=== PATIENT | female | born 1940 | race Hispanic/Latino ===

== ENCOUNTER 2017-07-09 17:36 | Inpatient (IN) | payer MEDICARE ==
[2017-07-09 18:33] LABS: Basophils # (Auto) 0.1 K/mm3 (0.0-0.1); Basophils % (Auto) 0.4 % (0.0-1.8); Eosinophils % (Auto) 0.3 % (0.0-4.3); Hematocrit 43.7 % (30.3-42.9); Lymphocytes # (Auto) 1.6 K/mm3 (1.2-5.4); Lymphocytes % (Auto) 10.7 % (13.4-35.0); Mean Corpuscular HGB Conc 32 % (30-34); Mean Corpuscular Hemoglobin 29 pg (28-32); Mean Corpuscular Volume 90 fl (79-97); Monocytes # (Auto) 0.7 K/mm3 (0.0-0.8); Monocytes % (Auto) 4.7 % (0.0-7.3); Platelet Count 265 K/mm3 (140-440); Red Blood Count 4.88 M/mm3 (3.65-5.03); Red Cell Distribution Width 14.2 % (13.2-15.2)
[2017-07-09 19:03] LABS: Creatine Kinase MB < 1.0 ng/mL (0.0-4.0)
[2017-07-09 19:06] LABS: Alanine Aminotransferase 14 units/L (7-56); Albumin 3.8 g/dL (3.9-5); BUN/Creatinine Ratio 26; Blood Urea Nitrogen 18 mg/dL (7-17); Calcium 8.6 mg/dL (8.4-10.2); Hemolysis Index 15; Lipase 16 units/L (13-60)
--- NOTE | 2017-07-09 19:38 | XRay Report ---
FINAL REPORT PROCEDURE: XR CHEST 1V AP TECHNIQUE: Chest radiograph anteroposterior view. CPT 01445 HISTORY: RONNELL/SOB COMPARISON: No prior studies are available for comparison. FINDINGS: Heart: Heart shadow is moderately enlarged Mediastinum/Vessels: Moderate congestion. Lungs/Pleural space: COPD with lower lung zone airspace disease such as atelectasis and or fibrotic change Bony thorax: No acute osseous abnormality. Morbid obesity Life support devices: None. IMPRESSION: Lower lung zone atelectasis, infiltrate and/or fibrosis
[2017-07-09] MEDS ORDERED: VASELINE LIP THERAPY TP PRN (20:01)
[2017-07-09] MEDS ORDERED: ATIVAN IV PRN (20:01)
[2017-07-09] MEDS ORDERED: ARTIFICIAL TEARS OPHTH OINT OU PRN (20:01)
[2017-07-09] MEDS ORDERED: KETALAR IV ONE ×2 (20:03→21:00)
[2017-07-09] MEDS ORDERED: ZEMURON IV ONE ×2 (20:03→20:14)
[2017-07-09] MEDS ORDERED: PROVENTIL IH ONE (20:04)
[2017-07-09] MEDS ORDERED: ATROVENT IH ONE (20:04)
[2017-07-09] MEDS ORDERED: KETALAR ONE (20:14)
[2017-07-09] MEDS ORDERED: LEVAQUIN 750MG/150ML 750 MG/150 ML BAG IV ONE (20:41)
[2017-07-09] MEDS ORDERED: NACL 0.9% 500 ML 500 ML IV ONE (20:42)
--- NOTE | 2017-07-09 20:53 | Emergency Department Report ---
ED General Adult HPI - General Chief complaint: Abdominal Pain Stated complaint: RONNELL,ABD PAIN Time Seen by Provider: 07/09/17 19:49 Source: patient, family, EMS (ems notes not available at time of chart dictation), RN notes reviewed, old records reviewed Mode of arrival: Stretcher Limitations: Altered Mental Status - History of Present Illness Initial comments: This is a 76-year-old female who was previously unknown to this provider. Patient has a past medical history of congestive heart failure, noncompliance with medication, obesity, respiratory failure, pulmonary hypertension, obesity hypoventilation syndrome, atrial fibrillation, currently on anticoagulation Patient is brought to the hospital by family and EMS for generalized weakness, altered mental status and difficulty breathing. As per family the symptoms have been getting worse gradually over the past few days and weeks. They apparently do not have exacerbating or relieving factors, and the patient cannot describe radiation. As per family, patient not on BiPAP therapy, they think that the patient is on xarelto or eliquis but they are not certain. History is limited because the patient is in profound respiratory distress and she is delirious. -: days(s) Severity scale (0 -10): 0 Consistency: other (per hpi) Improves with: other (per hpi) Worsens with: other (per hpi) Associated Symptoms: confusion, malaise, shortness of breath, weakness - Related Data Home Medications Medication Instructions Recorded Confirmed Last Taken Levothyroxine [Synthroid] 112 mcg PO QAM 03/21/17 07/09/17 Unknown Previous Rx's Medication Instructions Recorded Last Taken Type Apixaban [Eliquis] 5 mg PO Q12HR #60 tablet 03/30/17 Unknown Rx Aspirin [Aspirin BABY CHEW TAB] 81 mg PO QDAY #30 tab.chew 03/30/17 Unknown Rx Levalbuterol 1.25 [Xopenex] 1.25 mg IH Q6HRT #60 nebu 03/30/17 Unknown Rx Loratadine [Claritin] 10 mg PO QDAY #14 tablet 03/30/17 Unknown Rx Amiodarone [Cordarone 200 MG TAB] 200 mg PO QDAY #30 tablet 03/31/17 Unknown Rx Metoprolol [Lopressor TAB] 50 mg PO BID #30 tablet 03/31/17 Unknown Rx Triamcinolone 0.1% [Kenalog 0.1% 1 applic TP BID #1 tube 03/31/17 Unknown Rx CREAM] Sodium Chloride 0.65% Nasal [Deep 2 spray NS TID #7 bottle 04/01/17 Unknown Rx Sea NASAL SPRAY] Allergies Allergy/AdvReac Type Severity Reaction Status Date / Time Penicillins Allergy Unknown Verified 03/20/17 21:20 ED Review of Systems ROS: Stated complaint: RONNELL,ABD PAIN Other details as noted in HPI Comment: Unobtainable due to pts medical conditions ED Past Medical Hx - Past Medical History Previous Medical History?: Yes Hx Hypertension: Yes Hx Congestive Heart Failure: Yes Hx Deep Vein Thrombosis: No Hx Arthritis: Yes - Surgical History Past Surgical History?: Yes Hx Pacemaker: No Hx Internal Defibrillator: No Additional Surgical History: bilat knee replacement - Social History Smoking Status: Never Smoker - Medications Home Medications: Home Medications Medication Instructions Recorded Confirmed Last Taken Type Levothyroxine [Synthroid] 112 mcg PO QAM 03/21/17 07/09/17 Unknown History Apixaban [Eliquis] 5 mg PO Q12HR #60 tablet 03/30/17 07/09/17 Unknown Rx Aspirin [Aspirin BABY CHEW TAB] 81 mg PO QDAY #30 tab.chew 03/30/17 07/09/17 Unknown Rx Levalbuterol 1.25 [Xopenex] 1.25 mg IH Q6HRT #60 nebu 03/30/17 07/09/17 Unknown Rx Loratadine [Claritin] 10 mg PO QDAY #14 tablet 03/30/17 07/09/17 Unknown Rx Amiodarone [Cordarone 200 MG TAB] 200 mg PO QDAY #30 tablet 03/31/17 07/09/17 Unknown Rx Metoprolol [Lopressor TAB] 50 mg PO BID #30 tablet 03/31/17 07/09/17 Unknown Rx Triamcinolone 0.1% [Kenalog 0.1% 1 applic TP BID #1 tube 03/31/17 07/09/17 Unknown Rx CREAM] Sodium Chloride 0.65% Nasal [Deep 2 spray NS TID #7 bottle 04/01/17 07/09/17 Unknown Rx Sea NASAL SPRAY] ED Physical Exam - General Limitations: Altered Mental Status General appearance: lethargic, in distress, obese - Head Head exam: Present: atraumatic, normocephalic - Eye Eye exam: Present: normal appearance - ENT ENT exam: Present: mucous membranes dry - Neck Neck exam: Present: normal inspection, full ROM - Respiratory Respiratory exam: Present: wheezes, rhonchi. Absent: respiratory distress - Cardiovascular Cardiovascular Exam: Present: tachycardia, irregular rhythm, normal heart sounds. Absent: systolic murmur, diastolic murmur, rubs, gallop - GI/Abdominal GI/Abdominal exam: Present: soft, normal bowel sounds. Absent: distended, tenderness, guarding, rebound, rigid, pulsatile mass - Extremities Exam Extremities exam: Present: pedal edema, other (patient has chronic venous stasis discoloration noted in the bilateral lower extremities.). Absent: normal inspection (2+ pulses noted in the bilateral upper and lower extremities. The compartments are soft), calf tenderness - Back Exam Back exam: Absent: tenderness, paraspinal tenderness, vertebral tenderness - Neurological Exam Neurological exam: Present: altered, other (she is altered. She moves 4 extremities spontaneously. There is no facial droop. She speaks in broken sentences.) - Psychiatric Psychiatric exam: Present: anxious - Skin Skin exam: Present: warm, dry, intact, normal color. Absent: rash ED Course Vital Signs 07/09/17 07/09/17 07/09/17 17:42 18:12 18:15 Temperature Pulse Rate 98 H 102 H 93 H Respiratory 24 29 H 33 H Rate Blood Pressure 204/122 Blood Pressure [Right] O2 Sat by Pulse 97 97 97 Oximetry 07/09/17 07/09/17 07/09/17 18:31 18:34 18:45 Temperature Pulse Rate 113 H 116 H 104 H Respiratory 37 H 26 H 37 H Rate Blood Pressure 206/105 211/106 Blood Pressure 206/100 [Right] O2 Sat by Pulse 94 96 92 Oximetry 07/09/17 07/09/17 07/09/17 19:01 19:15 19:30 Temperature Pulse Rate 134 H 131 H 114 H Respiratory 37 H 38 H 39 H Rate Blood Pressure 217/111 200/148 198/147 Blood Pressure [Right] O2 Sat by Pulse 86 79 L 94 Oximetry 07/09/17 07/09/17 07/09/17 19:45 20:00 20:02 Temperature Pulse Rate 117 H 111 H 107 H Respiratory 38 H 34 H 16 Rate Blood Pressure 213/117 210/112 173/94 Blood Pressure [Right] O2 Sat by Pulse 94 94 95 Oximetry 07/09/17 07/09/17 07/09/17 20:15 20:30 20:45 Temperature Pulse Rate 113 H 118 H 109 H Respiratory 37 H 15 16 Rate Blood Pressure 196/106 173/94 140/78 Blood Pressure [Right] O2 Sat by Pulse 96 91 93 Oximetry 07/09/17 07/09/17 07/09/17 21:00 21:15 21:30 Temperature Pulse Rate 88 102 H 71 Respiratory 16 15 16 Rate Blood Pressure 97/52 113/52 127/104 Blood Pressure [Right] O2 Sat by Pulse 97 99 45 L Oximetry 07/09/17 07/09/17 07/09/17 21:45 21:58 22:00 Temperature Pulse Rate 81 79 Respiratory 16 18 18 Rate Blood Pressure 69/37 63/32 Blood Pressure [Right] O2 Sat by Pulse 99 96 Oximetry 07/09/17 07/09/17 07/09/17 22:15 22:30 22:45 Temperature Pulse Rate 79 81 84 Respiratory 18 18 18 Rate Blood Pressure 67/41 81/38 66/39 Blood Pressure [Right] O2 Sat by Pulse 96 98 Oximetry 07/09/17 07/09/17 07/09/17 23:01 23:07 23:15 Temperature Pulse Rate 81 80 76 Respiratory 18 18 18 Rate Blood Pressure 69/41 73/40 94/59 Blood Pressure [Right] O2 Sat by Pulse 96 98 98 Oximetry 07/09/17 07/09/17 07/09/17 23:30 23:45 23:53 Temperature Pulse Rate 90 Respiratory 18 18 Rate Blood Pressure 121/53 120/57 117/61 Blood Pressure [Right] O2 Sat by Pulse 97 98 97 Oximetry 07/10/17 07/10/17 07/10/17 00:00 00:47 01:00 Temperature Pulse Rate 80 77 87 Respiratory 18 17 18 Rate Blood Pressure 117/68 117/68 86/46 Blood Pressure [Right] O2 Sat by Pulse 96 100 97 Oximetry 07/10/17 07/10/17 07/10/17 01:15 01:30 01:45 Temperature Pulse Rate 69 71 75 Respiratory 18 18 18 Rate Blood Pressure 86/46 126/83 126/83 Blood Pressure [Right] O2 Sat by Pulse 96 95 97 Oximetry 07/10/17 07/10/17 07/10/17 02:00 02:15 02:30 Temperature Pulse Rate 71 77 63 Respiratory 18 19 18 Rate Blood Pressure 143/97 143/97 122/76 Blood Pressure [Right] O2 Sat by Pulse 98 97 Oximetry 07/10/17 07/10/17 07/10/17 02:45 03:00 03:15 Temperature Pulse Rate 74 77 76 Respiratory 18 18 18 Rate Blood Pressure 143/97 123/79 108/53 Blood Pressure [Right] O2 Sat by Pulse 99 98 98 Oximetry 07/10/17 07/10/17 07/10/17 03:30 03:45 04:00 Temperature Pulse Rate 83 69 72 Respiratory 18 18 18 Rate Blood Pressure 130/87 123/79 140/85 Blood Pressure [Right] O2 Sat by Pulse 97 99 98 Oximetry 07/10/17 07/10/17 07/10/17 04:15 04:30 04:45 Temperature Pulse Rate 68 75 86 Respiratory 18 18 17 Rate Blood Pressure 140/85 117/79 117/79 Blood Pressure [Right] O2 Sat by Pulse 99 97 98 Oximetry 07/10/17 07/10/17 07/10/17 05:00 05:15 05:30 Temperature Pulse Rate 72 69 64 Respiratory 18 18 18 Rate Blood Pressure 121/69 121/69 130/75 Blood Pressure [Right] O2 Sat by Pulse 95 96 95 Oximetry 07/10/17 07/10/17 07/10/17 05:45 06:00 06:15 Temperature Pulse Rate 63 70 61 Respiratory 18 18 18 Rate Blood Pressure 121/69 130/69 130/69 Blood Pressure [Right] O2 Sat by Pulse 97 95 97 Oximetry 07/10/17 07/10/17 07/10/17 06:30 06:45 07:00 Temperature Pulse Rate 71 66 63 Respiratory 18 18 18 Rate Blood Pressure 140/78 140/78 143/84 Blood Pressure [Right] O2 Sat by Pulse 96 97 97 Oximetry 07/10/17 07/10/17 07/10/17 07:15 07:31 08:01 Temperature Pulse Rate 62 69 73 Respiratory 18 18 18 Rate Blood Pressure 143/84 141/76 134/67 Blood Pressure [Right] O2 Sat by Pulse 97 96 95 Oximetry 07/10/17 07/10/17 07/10/17 08:26 08:30 08:45 Temperature Pulse Rate 69 72 65 Respiratory 18 18 Rate Blood Pressure 134/67 127/80 127/80 Blood Pressure [Right] O2 Sat by Pulse 95 92 94 Oximetry 07/10/17 07/10/17 07/10/17 09:00 09:15 09:31 Temperature Pulse Rate 68 62 69 Respiratory 18 18 18 Rate Blood Pressure 125/70 125/70 92/51 Blood Pressure [Right] O2 Sat by Pulse 93 94 90 Oximetry 07/10/17 07/10/17 07/10/17 09:45 10:01 10:15 Temperature Pulse Rate 58 L 67 61 Respiratory 18 18 18 Rate Blood Pressure 107/59 139/76 130/76 Blood Pressure [Right] O2 Sat by Pulse 93 92 94 Oximetry 07/10/17 07/10/17 07/10/17 10:30 10:35 10:45 Temperature 98.4 F Pulse Rate 88 76 Respiratory 18 18 Rate Blood Pressure 134/86 136/74 Blood Pressure [Right] O2 Sat by Pulse 93 93 Oximetry 07/10/17 07/10/17 07/10/17 11:01 11:15 11:31 Temperature Pulse Rate 62 68 69 Respiratory 18 18 18 Rate Blood Pressure 153/75 153/75 151/85 Blood Pressure [Right] O2 Sat by Pulse 93 95 93 Oximetry 07/10/17 07/10/17 07/10/17 11:45 12:00 12:15 Temperature Pulse Rate 71 66 65 Respiratory 18 18 18 Rate Blood Pressure 151/85 154/82 154/82 Blood Pressure [Right] O2 Sat by Pulse 95 93 95 Oximetry 07/10/17 07/10/17 07/10/17 12:31 12:39 12:45 Temperature Pulse Rate 72 67 74 Respiratory 18 18 Rate Blood Pressure 155/84 155/84 155/84 Blood Pressure [Right] O2 Sat by Pulse 94 95 94 Oximetry 07/10/17 07/10/17 07/10/17 13:01 13:15 13:31 Temperature Pulse Rate 74 74 74 Respiratory 18 18 16 Rate Blood Pressure 138/63 138/63 123/73 Blood Pressure [Right] O2 Sat by Pulse 92 93 93 Oximetry 07/10/17 07/10/17 13:45 14:00 Temperature Pulse Rate 72 79 Respiratory 15 18 Rate Blood Pressure 123/73 129/75 Blood Pressure [Right] O2 Sat by Pulse 95 93 Oximetry - Reevaluation(s) Reevaluation #1: 07/09/17 20:52 Differential diagnosis, including but not limited to: Respiratory failure, pneumonia, pulmonary hypertension, COPD, intracranial hemorrhage, intra- abdominal hemorrhage, retroperitoneal hematoma, sepsis Assessment and plan: 76-year-old female with altered mental status, mostly multifactorial. When I initially went into the room to evaluate the patient, she was leaning over on a chair, with belly breathing, delirious, alert to name , could follow simple commands, and was in marked distress. She was in on a nonrebreather. When the nonrebreather was taken off, the patient desaturated to 80%. Given altered mental status, impending respiratory failure, patient is not appropriate for long-term BiPAP therapy. The patient was temporized with BiPAP, which allowed her to be preoxygenated to 100%. Patient was then induced with 150 mg of ketamine, and subsequently paralyzed with 100 mg of rock Cam[place]onian. An initial chest x-ray suggested bilateral lower lung atelectasis versus infiltrate. Patient was intubated by myself with a 7.5 endotracheal tube, with one attempt with no difficulty or complications. Tube placement was confirmed by x-ray, auscultation, capnography, and with direct visualization using video laryngoscopy. Case was discussed with [facility] physician, Dr. Ancelmo Jaramillo, who authorized patient to be admitted to this hospital's ICU. Case was discussed with ICU physician, Dr. Bong Cherry, who agreed placement into the intensive care unit. Patient will go to CAT scan and we will obtain noncontrast CT scan of the brain and abdomen/pelvis to exclude intracranial hemorrhage, intra-abdominal hemorrhage. The patient will be ventilated on a lung protective strategy. She will be given Levaquin for empiric antibiotic coverage. I appreciate that the patient meets sepsis criteria, but there patient appears to be euvolemic at this time, and given her history of congestive heart failure as well as pulmonary hypertension, I am concerned that an aggressive IV fluid bolus could disrupt her hemodynamics. Therefore, she will be given small aliquots of fluid with repeat serial examinations. She will require admission to this hospital. She will be sedated with fentanyl and Ativan. 07/09/17 20:55 Reevaluation #2: 07/09/17 21:30 Rectal temperature 101 degrees. tylenol ordered. 07/10/17 00:20 07/10/17 16:26 Reevaluation #3: 07/09/17 22:01 Blood pressure now in the 60s. Additional 2 L of fluid ordered. If patient still hypotensive after this will place central line. Reevaluation #4: 07/10/17 00:20 Central line placement myself using ultrasound guidance with one attempt with no obvious complications, patient tolerated the procedure adequately, post procedure x-ray demonstrates appropriate placement. Reevaluation #5: 07/10/17 01:20 Patient doing better on vasopressor therapy. CT scan of the brain is negative for acute findings/bleed. CT scan of the abdomen and pelvis demonstrate multilevel lobar infiltrates, an obstructing right-sided renal stone. Given clinical presentation, doubt urosepsis, but urinalysis does suggest urinary tract infection, therefore we'll consult urology. Hospital physician has been paged to arrange admission. - Consultations Consultation #1: 07/10/17 01:22 Case presented to Hospital physician, Dr. Kim, she accepts the patient to the medical service. Consultation #2: 07/10/17 01:42 : call #2 to urology, awaiting callback. Consultation #3: 07/10/17 01:45 Case presented to urology on-call, Dr. Rajan Malave, they will follow in consultation. - Central Line Placement Right IJ Consent Obtained: verbal consent, written consent, emergent situation Time Out Performed: Yes Patient Placed on Monitor/Pulse Ox: Yes MD Prep: mask, gown, gloves Central Line Prep: Povidone-Iodine 1%, Chlorhexidine scrub, sterile drapes applied Local Anesthesia Used: Lidocaine 1%, with Epi Amount of Anesthesia Used (mls): 8 Ultrasound Used for Placement: Yes Central Line Lumen Inserted: triple Bloods Obtained for Lab: Yes Central Line Position: good blood return, all ports aspirated, flus, sutured in place with 2-0 Dressing Applied: Tegaderm Post Procedure X-Ray: tip of catheter in good p Patient Tolerated Procedure: well Complications: none - Intubation Time Out Performed: Yes Sedative: Ketamine Mg Given: 150 Paralytic: Rocuronium Mg Given: 100 Laryngoscope: Valeriano Size: 4 Assist Device Used: fiberoptic device ET Tube Size: 7.5 Tube Secured Location: teeth Tube Placement Confirmation: visualized tube passing t, equal breath sounds bilat, no breath sounds over epi, confirmation by capnometr Patient Tolerated Procedure: well Intubation Complications: none Additional Comments: Patient is placed on BiPAP therapy, and her airway is closely monitored by myself. She is then induced with ketamine, and paralyzed with rocuronium. She is then placed on a nasal cannula, at 15 L/m, and the BiPAP device is removed. Patient is intubated with a 7.5 endotracheal tube using direct laryngoscopy by myself with 1 attempt with no difficulty. ED Medical Decision Making - Lab Data Result diagrams: 07/09/17 18:05 07/09/17 18:05 Vital Signs 07/09/17 07/09/17 07/09/17 17:42 18:12 18:15 Pulse Rate 98 H 102 H 93 H Respiratory 24 29 H 33 H Rate Blood Pressure 204/122 Blood Pressure [Right] O2 Sat by Pulse 97 97 97 Oximetry 07/09/17 07/09/17 07/09/17 18:31 18:34 20:02 Pulse Rate 113 H 116 H 107 H Respiratory 37 H 26 H 16 Rate Blood Pressure 206/105 173/94 Blood Pressure 206/100 [Right] O2 Sat by Pulse 94 96 95 Oximetry Lab Results 07/09/17 07/09/17 Range/Units 18:05 18:05 WBC 15.0 H (4.5-11.0) K/mm3 RBC 4.88 (3.65-5.03) M/mm3 Hgb 14.0 (10.1-14.3) gm/dl Hct 43.7 H (30.3-42.9) % MCV 90 (79-97) fl MCH 29 (28-32) pg MCHC 32 (30-34) % RDW 14.2 (13.2-15.2) % Plt Count 265 (140-440) K/mm3 Lymph % (Auto) 10.7 L (13.4-35.0) % [place] % (Auto) 4.7 (0.0-7.3) % Eos % (Auto) 0.3 (0.0-4.3) % Baso % (Auto) 0.4 (0.0-1.8) % Lymph # 1.6 (1.2-5.4) K/mm3 [place] # 0.7 (0.0-0.8) K/mm3 Eos # 0.0 (0.0-0.4) K/mm3 Baso # 0.1 (0.0-0.1) K/mm3 Seg Neutrophils % 83.9 H (40.0-70.0) % Seg Neutrophils # 12.6 H (1.8-7.7) K/mm3 Sodium 140 (137-145) mmol/L Potassium 3.7 (3.6-5.0) mmol/L Chloride 96.7 L (98-107) mmol/L Carbon Dioxide 31 H (22-30) mmol/L Anion Gap 16 mmol/L BUN 18 H (7-17) mg/dL Creatinine 0.7 (0.7-1.2) mg/dL Estimated GFR > 60 ml/min BUN/Creatinine Ratio 26 % Glucose 146 H (65-100) mg/dL Calcium 8.6 (8.4-10.2) mg/dL Total Bilirubin 0.70 (0.1-1.2) mg/dL AST 22 (5-40) units/L ALT 14 (7-56) units/L Alkaline Phosphatase 92 (35-129) units/L Total Creatine Kinase 34 (30-135) units/L CK-MB (CK-2) < 1.0 (0.0-4.0) ng/mL CK-MB (CK-2) Rel Index 2.9 (0-4) Troponin T < 0.010 (0.00-0.029) ng/mL NT-Pro-B Natriuret Pep 1456 H (0-900) pg/mL Total Protein 7.6 (6.3-8.2) g/dL Albumin 3.8 L (3.9-5) g/dL Albumin/Globulin Ratio 1.0 % Lipase 16 (13-60) units/L - EKG Data -: EKG Interpreted by Me - EKG Data 07/09/17 21:30 Atrial fibrillation, 97 bpm, motion artifact, poor R-wave progression, low voltage, abnormal EKG, not consistent with ST elevation myocardial infarction, grossly unchanged from prior from February 2017. - Radiology Data Radiology results: pending, report reviewed, image reviewed interpreted by me: Postintubation chest x-ray, interpreted by me: Cardiomegaly, appropriate endotracheal tube placement, worsening airspace disease. Initial x-ray of the chest demonstrates cardiomegaly, bilateral lower lobe atelectasis versus infiltrate. Critical Care Time: Yes Critical care time in (mins) excluding proc time.: 60 Critical care attestation.: If time is entered above; I have spent that time in minutes in the direct care of this critically ill patient, excluding procedure time. ED Disposition Clinical Impression: Respiratory failure Disposition: OP ADMIT IP TO THIS HOSP Is pt being admited?: Yes Condition: Critical
[2017-07-09] MEDS: fentaNYL DRIP Premix 2,000 MCG/100 ML BAG IV SCH ×4 (21:15→22:26)
[2017-07-09] MEDS ORDERED: TYLENOL PR ONE (21:20)
--- NOTE | 2017-07-09 21:48 | XRay Report ---
FINAL REPORT PROCEDURE: XR CHEST 1V AP 20:27 p.m. TECHNIQUE: Chest radiograph anteroposterior view. CPT 57058 HISTORY: ETT placement COMPARISON: [id number] FINDINGS: Heart: Moderately enlarged Mediastinum/Vessels: Severe central congestion. Lungs/Pleural space: Patchy airspace disease in the right upper greater degree right lower lung zone with cohesive features and effusion on the right. There is progressive consolidative in or cohesive or coalescent opacity left lower lung zone with effusion effusion.. Bony thorax: No acute osseous abnormality. Life support devices: Endotracheal tube tip 4.5 centimeters from the bifurcation. No pneumothorax IMPRESSION: Endotracheal tube in position as above Progressive infiltrates and effusions since earlier study
[2017-07-09 21:49] LABS: Bacteria,Urine 2+ /HPF (Negative); Bilirubin,Urine NEG (Negative); Blood,Urine LG (Negative); Color,Urine Yellow (Yellow); Mucus,Urine FEW /HPF; Nitrite,Urine NEG (Negative); Urobilinogen,Urine < 2.0 mg/dL (<2.0)
[2017-07-09] MEDS ORDERED: NACL 0.9% 1000 ML 2,000 ML IV ONE (22:01)
[2017-07-09] MEDS ORDERED: XYLOCAINE 2%/ EPI 1:200,000 INFILTRATI ONE (22:13)
[2017-07-09] MEDS ORDERED: LEVOPHED DRIP 4 MG/NS 250 ML 4 MG/250 ML BAG IV ONE (22:26)
[2017-07-09] MEDS ORDERED: LEVOPHED DRIP 4 MG/NS 250 ML 4 MG/250 ML BAG IV SCH (23:45)
--- NOTE | 2017-07-10 00:06 | XRay Report ---
FINAL REPORT PROCEDURE: XR CHEST 1V AP TECHNIQUE: Chest radiograph anteroposterior view. CPT 82258 HISTORY: s/p central line placemernt COMPARISON: 07/09/2017. FINDINGS: Heart: Normal. Mediastinum/Vessels: Normal. Lungs/Pleural space: There is interval increase in the infiltrates of right upper lobe. Bilateral lower lung consolidations are again identified. Left lower lung and left costophrenic angle are obscured by cardiac shadow.. Bony thorax: No acute osseous abnormality. Life support devices: Endotracheal tube is terminating about 2.6 centimeters above the pricilla. A right-sided jugular central line is terminating at the level of right brachiocephalic vein.. IMPRESSION: Interval progression of right upper lobe infiltrates. Bilateral lower lung infiltrative process is again noted. Right jugular central line is terminating at the level of right brachiocephalic vein.
--- NOTE | 2017-07-10 01:04 | Cat Scan Report ---
FINAL REPORT EXAM: CT HEAD/BRAIN WO CON HISTORY: ams on eliquis TECHNIQUE: Routine axial imaging was obtained of the brain without IV contrast. There are no previous studies available for comparison. FINDINGS: There [id number] atrophy. There is diminished attenuation of the periventricular and deep white matter bilaterally compatible with chronic microvascular disease changes. There is no evidence of acute stroke or hemorrhage. The ventricular system is appropriate in size. The basal cisterns appear normal. The sinuses reveal mild mucosal thickening in the right maxillary sinus. The mastoid air cells are well pneumatized. The calvarium appears intact. IMPRESSION: [id number] atrophy with chronic ischemic white matter changes. No evidence of acute stroke or hemorrhage. Mild mucosal thickening in the right maxillary sinus.
--- NOTE | 2017-07-10 01:13 | Cat Scan Report ---
FINAL REPORT EXAM: CT ABDOMEN PELVIS WO CON HISTORY: ams abd pain on eliquis TECHNIQUE: Routine axial imaging was obtained of the abdomen and pelvis without oral or IV contrast. Sagittal and coronal reconstructions were reviewed. There are no previous studies available for comparison. FINDINGS: Images through the lung bases reveal patchy infiltrates in both lower lobes with areas of ground-glass attenuation in both lung bases. The heart is moderately enlarged. Pericardial effusion is not seen. There is an NG tube in the stomach. The gallbladder is normal size and reveals very dense bile. The pancreas is atrophic. The liver, spleen and adrenal glands appear normal. The kidneys reveal moderate right-sided hydronephrosis changes. There is a partially obstructing 11 millimeter stone in the distal right ureter. There additional nonobstructing stones in the right kidney measuring up to 4 millimeters in diameter. There is calcification of the abdominal aorta. The bowel loops are normal in caliber. There are uncomplicated diverticula in the sigmoid colon. Free fluid is not seen. There is a Singh catheter in the bladder. The uterus is not seen. There is no evidence of adenopathy. The skeletal structures reveal multilevel disc degeneration in the lumbar spine. IMPRESSION: No evidence of retroperitoneal or intraperitoneal hemorrhage. Moderate right-sided hydronephrosis secondary to a partially obstructing 11 millimeter stone in the distal right ureter. Additional nonobstructing stones in the right kidney. Very dense bile noted in the gallbladder. Extensive infiltrates in both lower lobes with areas of ground-glass attenuation. Overall findings are suspicious for pneumonia. Atrophic pancreas. Hysterectomy. Multilevel disc degeneration in the lumbar spine
[2017-07-10] MEDS ORDERED: ZOFRAN IV PRN (03:11)
[2017-07-10] MEDS ORDERED: TYLENOL PO PRN (03:11)
[2017-07-10] MEDS ORDERED: TYLENOL PR PRN (03:11)
--- NOTE | 2017-07-10 03:15 | History and Physical Report ---
History of Present Illness Date of examination: 07/10/17 History of present illness: 76-year-old woman with a history of CHF, hypertension, hypothyroidism, A. fib, sleep apnea was brought to the emergency room because she complained of abdominal pain today. Family member at bedside state. The patient is intubated , unable to give a history, review of systems unobtainable PAST MEDICAL HISTORY:CHF, hypertension, hypothyroidism, A. fib, sleep apnea PAST SURGICAL HISTORY: Bilateral knee, thyroidectomy FAMILY HISTORY: Hypertension SOCIAL HISTORY: No alcohol, tobacco, drugs Medications and Allergies Allergies Allergy/AdvReac Type Severity Reaction Status Date / Time Penicillins Allergy Unknown Verified 03/20/17 21:20 Home Medications Medication Instructions Recorded Confirmed Last Taken Type Levothyroxine [Synthroid] 112 mcg PO QAM 03/21/17 07/09/17 Unknown History Apixaban [Eliquis] 5 mg PO Q12HR #60 tablet 03/30/17 07/09/17 Unknown Rx Aspirin [Aspirin BABY CHEW TAB] 81 mg PO QDAY #30 tab.chew 03/30/17 07/09/17 Unknown Rx Levalbuterol 1.25 [Xopenex] 1.25 mg IH Q6HRT #60 nebu 03/30/17 07/09/17 Unknown Rx Loratadine [Claritin] 10 mg PO QDAY #14 tablet 03/30/17 07/09/17 Unknown Rx Amiodarone [Cordarone 200 MG TAB] 200 mg PO QDAY #30 tablet 03/31/17 07/09/17 Unknown Rx Metoprolol [Lopressor TAB] 50 mg PO BID #30 tablet 03/31/17 07/09/17 Unknown Rx Triamcinolone 0.1% [Kenalog 0.1% 1 applic TP BID #1 tube 03/31/17 07/09/17 Unknown Rx CREAM] Sodium Chloride 0.65% Nasal [Deep 2 spray NS TID #7 bottle 04/01/17 07/09/17 Unknown Rx Sea NASAL SPRAY] Active Meds: Active Medications Acetaminophen (Tylenol) 650 mg PO Q4H PRN PRN Reason: Pain MILD(1-3)/Fever >100.5/CAMPOS Acetaminophen (Tylenol) 650 mg [place] Q4H PRN PRN Reason: Pain MILD(1-3)/Fever >100.5/CAMPOS Enoxaparin Sodium (Lovenox) 30 mg SUB-Q QDAY [facility] Hydrophilic Ointment (Vaseline Lip Therapy) 1 applic TP Q2HR PRN PRN Reason: Dry Lips Fentanyl Citrate (Fentanyl Drip Premix) 2,000 mcg in 100 mls @ 4.082 mls/hr IV TITR [facility]; 1 MCG/KG/HR PRN Reason: Protocol Last Admin: 07/09/17 22:26 Dose: 1 mcg/kg/hr, 4.082 mls/hr Norepinephrine (Levophed Drip 4 Mg/Ns 250 Ml) 4 mg in 250 mls @ 7.5 mls/hr IV TITR [facility]; 2 MCG/MIN PRN Reason: Protocol Last Admin: 07/09/17 22:45 Dose: 5 mcg/min, 18.75 mls/hr Lorazepam (Ativan) 2 mg IV Q4HR PRN PRN Reason: Agitation Last Admin: 07/09/17 23:00 Dose: 2 mg Multi-Ingred Cream/Lotion/Oil/Oint (Artificial Tears Ophth Oint) 1 applic OU Q4HR PRN PRN Reason: Dry Eye(s) Ondansetron HCl (Zofran) 4 mg IV Q8H PRN PRN Reason: N/V unrelieved by Reglan Exam - Physical Exam Narrative exam: Gen. appearance: Patient lying in bed in no acute distress, intubated HEENT: Normocephalic/atraumatic, pupils equal round reactive to light, unable to do extra occular movement, no scleral icterus, no JVD or thyromegaly or nodule, neck is supple, mucous membrane moist, unable to examine oral cavity Heart: S1-S2, regular rate and rhythm Lungs: Clear to auscultation bilateral breathing comfortable Abdomen: Positive bowel sounds, soft, nondistended, no organomegaly Extremities: No edema, cyanosis, clubbing Neuro:: Sedated Skin: No rash, nodules, warm dry - Constitutional Vitals: Temp Pulse Resp BP Pulse Ox 71 18 126/83 95 07/10/17 01:30 07/10/17 01:30 07/10/17 01:30 07/10/17 01:30 Results - Labs CBC & Chem 7: 07/21/17 06:05 07/21/17 06:05 Labs: Abnormal lab results 12/07/09/17 07/09/17 Range/Units 18:05 18:05 21:15 WBC 15.0 H (4.5-11.0) K/mm3 Hct 43.7 H (30.3-42.9) % Lymph % (Auto) 10.7 L (13.4-35.0) % Seg Neutrophils % 83.9 H (40.0-70.0) % Seg Neutrophils # 12.6 H (1.8-7.7) K/mm3 POC ABG pCO2 (35-45) Chloride 96.7 L (98-107) mmol/L Carbon Dioxide 31 H (22-30) mmol/L BUN 18 H (7-17) mg/dL Glucose 146 H (65-100) mg/dL Lactic Acid 2.50 H* (0.7-2.0) mmol/L NT-Pro-B Natriuret Pep 1456 H (0-900) pg/mL Albumin 3.8 L (3.9-5) g/dL Urine WBC (Auto) (0.0-6.0) /HPF 07/09/17 07/09/17 07/09/17 Range/Units 21:20 21:46 22:59 WBC (4.5-11.0) K/mm3 Hct (30.3-42.9) % Lymph % (Auto) (13.4-35.0) % Seg Neutrophils % (40.0-70.0) % Seg Neutrophils # (1.8-7.7) K/mm3 POC ABG pCO2 54.6 H (35-45) Chloride (98-107) mmol/L Carbon Dioxide (22-30) mmol/L BUN (7-17) mg/dL Glucose (65-100) mg/dL Lactic Acid 2.30 H* (0.7-2.0) mmol/L NT-Pro-B Natriuret Pep (0-900) pg/mL Albumin (3.9-5) g/dL Urine WBC (Auto) 29.0 H (0.0-6.0) /HPF - Imaging and Cardiology EKG: image reviewed Chest x-ray: report reviewed CT scan - abdomen: report reviewed CT Scan - head: report reviewed CT scan - pelvis: report reviewed Assessment and Plan Assessment Acute respiratory failure Septic shock Urinary tract infection Right Hydronephrosis with partial obstructing stone CHF, stable Atrial fibrillation Obstructive sleep apnea Hypothyroidism Plan Admit to medicine Hold IV fluids for now, patient with CHF, contine Levophed Start IV antibiotic, follow cultures Consult urology, critical care, serial chest, ABG DVT prophylaxis Discussed with daughter at bedside
[2017-07-10] MEDS ORDERED: VANCOMYCIN VIAL IV ONE (03:24)
[2017-07-10] MEDS ORDERED: VANCOMYCIN PHARMACY TO DOSE IV SCH (04:00)
[2017-07-10] MEDS ORDERED: VANCOMYCIN 1,250 MG in NACL 0.9% 250ML 250 ML IV SCH (04:15)
[2017-07-10] MEDS ORDERED: VANCOMYCIN 1,500 MG in NACL 0.9% 500 ML 500 ML IV ONE (04:15)
[2017-07-10] MEDS: fentaNYL DRIP Premix 2,000 MCG/100 ML BAG IV SCH ×3 (07:30→22:01)
--- NOTE | 2017-07-10 08:47 | XRay Report ---
AP CHEST: HISTORY: Respiratory failure The endotracheal tube, nasogastric tube and right venous catheter are unchanged. Cardiomegaly is stable. Mild improvement in bilateral pulmonary edema or infiltrates is demonstrated. Small bilateral pleural effusions are suspected which are relatively stable. No pneumothorax. IMPRESSION: Mild improvement in pulmonary edema or infiltrates. Mild CHF persists.
[2017-07-10] MEDS: LOVENOX SUB-Q SCH (11:00)
[2017-07-10] MEDS: LEVAQUIN 750MG/150ML 750 MG/150 ML BAG IV SCH (11:00)
[2017-07-10] MEDS: PEPCID IV SCH ×2 (11:01→22:01)
[2017-07-10] MEDS: NACL 0.9% 1000 ML 1,000 ML IV SCH (12:50)
--- NOTE | 2017-07-10 14:34 | Consultation ---
History of Present Illness - Reason for Consult Consult date: 07/10/17 - History of Present Illness This is a 76-year-old female who has a past medical history of congestive heart failure, noncompliance with medication, obesity, respiratory failure, pulmonary hypertension, obesity hypoventilation syndrome, atrial fibrillation, currently on anticoagulation Patient is brought to the hospital by family and EMS for generalized weakness, altered mental status and difficulty breathing. As per family the symptoms have been getting worse gradually over the past few days and weeks. They apparently do not have exacerbating or relieving factors, and the patient cannot describe radiation. As per family, patient not on BiPAP therapy, they think that the patient is on xarelto or eliquis but they are not certain. History is limited because the patient is in profound respiratory distress and she is delirious. pt intubated spoke with Zora (pt sister by phone earlier today) SON AT BEDSIDE - INFORMED OF FINDINGS CTAP(07-10-17)----11 mm rt distal stone, 4mm non obstructing rt kidney stone, + djd spine A/P rt distal ureteral stone mutliple comorbidities obs for now, discussed with Dr. Resendez Medications and Allergies Allergies Allergy/AdvReac Type Severity Reaction Status Date / Time Penicillins Allergy Unknown Verified 03/20/17 21:20 Home Medications Medication Instructions Recorded Confirmed Last Taken Type Levothyroxine [Synthroid] 112 mcg PO QAM 03/21/17 07/09/17 Unknown History Apixaban [Eliquis] 5 mg PO Q12HR #60 tablet 03/30/17 07/09/17 Unknown Rx Aspirin [Aspirin BABY CHEW TAB] 81 mg PO QDAY #30 tab.chew 03/30/17 07/09/17 Unknown Rx Levalbuterol 1.25 [Xopenex] 1.25 mg IH Q6HRT #60 nebu 03/30/17 07/09/17 Unknown Rx Loratadine [Claritin] 10 mg PO QDAY #14 tablet 03/30/17 07/09/17 Unknown Rx Amiodarone [Cordarone 200 MG TAB] 200 mg PO QDAY #30 tablet 03/31/17 07/09/17 Unknown Rx Metoprolol [Lopressor TAB] 50 mg PO BID #30 tablet 03/31/17 07/09/17 Unknown Rx Triamcinolone 0.1% [Kenalog 0.1% 1 applic TP BID #1 tube 03/31/17 07/09/17 Unknown Rx CREAM] Sodium Chloride 0.65% Nasal [Deep 2 spray NS TID #7 bottle 04/01/17 07/09/17 Unknown Rx Sea NASAL SPRAY] Active Meds: Active Medications Acetaminophen (Tylenol) 650 mg PO Q4H PRN PRN Reason: Pain MILD(1-3)/Fever >100.5/CAMPOS Acetaminophen (Tylenol) 650 mg [place] Q4H PRN PRN Reason: Pain MILD(1-3)/Fever >100.5/CAMPOS Enoxaparin Sodium (Lovenox) 40 mg SUB-Q QDAY [facility] Last Admin: 07/10/17 11:00 Dose: 40 mg Famotidine (Pepcid) 20 mg IV BID [facility] Last Admin: 07/10/17 11:01 Dose: 20 mg Hydrophilic Ointment (Vaseline Lip Therapy) 1 applic TP Q2HR PRN PRN Reason: Dry Lips Fentanyl Citrate (Fentanyl Drip Premix) 2,000 mcg in 100 mls @ 4.082 mls/hr IV TITR [facility]; 1 MCG/KG/HR PRN Reason: Protocol Last Admin: 07/10/17 14:08 Dose: 4 mcg/kg/hr, 16.329 mls/hr Norepinephrine (Levophed Drip 4 Mg/Ns 250 Ml) 4 mg in 250 mls @ 7.5 mls/hr IV TITR [facility]; 2 MCG/MIN PRN Reason: Protocol Last Titration: 07/10/17 14:00 Dose: 0 mcg/min, 0 mls/hr Vancomycin HCl 1,250 mg/ (Sodium Chloride) 262.5 mls @ 166.667 mls/hr IV Q24H [facility] Levofloxacin/Dextrose (Levaquin 750mg/150ml) 750 mg in 150 mls @ 100 mls/hr IV Q24HR [facility] PRN Reason: Protocol Last Admin: 07/10/17 11:00 Dose: 100 mls/hr Sodium Chloride (Nacl 0.9% 1000 Ml) 1,000 mls @ 50 mls/hr IV DIRECT [facility] Last Admin: 07/10/17 12:50 Dose: 50 mls/hr Lorazepam (Ativan) 2 mg IV Q4HR PRN PRN Reason: Agitation Last Admin: 07/09/17 23:00 Dose: 2 mg Multi-Ingred Cream/Lotion/Oil/Oint (Artificial Tears Ophth Oint) 1 applic OU Q4HR PRN PRN Reason: Dry Eye(s) Ondansetron HCl (Zofran) 4 mg IV Q8H PRN PRN Reason: N/V unrelieved by Carolyn Vancomycin HCl (Vancomycin Pharmacy To Dose) 1 each IV PKCONSULT [facility] PRN Reason: Protocol Exam - Constitutional Vitals: Temp Pulse Resp BP Pulse Ox 98.4 F 79 18 129/75 93 07/10/17 10:35 07/10/17 14:00 07/10/17 14:00 07/10/17 14:00 07/10/17 14:00 Results - Labs CBC & Chem 7: 07/09/17 18:05 07/09/17 18:05 Labs: Abnormal lab results 07/09/17 07/09/17 07/09/17 Range/Units 18:05 18:05 21:15 WBC 15.0 H (4.5-11.0) K/mm3 Hct 43.7 H (30.3-42.9) % Lymph % (Auto) 10.7 L (13.4-35.0) % Seg Neutrophils % 83.9 H (40.0-70.0) % Seg Neutrophils # 12.6 H (1.8-7.7) K/mm3 POC ABG pCO2 (35-45) POC ABG pO2 (80-105) Chloride 96.7 L (98-107) mmol/L Carbon Dioxide 31 H (22-30) mmol/L BUN 18 H (7-17) mg/dL Glucose 146 H (65-100) mg/dL Lactic Acid 2.50 H* (0.7-2.0) mmol/L NT-Pro-B Natriuret Pep 1456 H (0-900) pg/mL Albumin 3.8 L (3.9-5) g/dL Urine WBC (Auto) (0.0-6.0) /HPF 07/09/17 07/09/17 07/09/17 Range/Units 21:20 21:46 22:59 WBC (4.5-11.0) K/mm3 Hct (30.3-42.9) % Lymph % (Auto) (13.4-35.0) % Seg Neutrophils % (40.0-70.0) % Seg Neutrophils # (1.8-7.7) K/mm3 POC ABG pCO2 54.6 H (35-45) POC ABG pO2 (80-105) Chloride (98-107) mmol/L Carbon Dioxide (22-30) mmol/L BUN (7-17) mg/dL Glucose (65-100) mg/dL Lactic Acid 2.30 H* (0.7-2.0) mmol/L NT-Pro-B Natriuret Pep (0-900) pg/mL Albumin (3.9-5) g/dL Urine WBC (Auto) 29.0 H (0.0-6.0) /HPF 07/10/17 Range/Units 04:35 WBC (4.5-11.0) K/mm3 Hct (30.3-42.9) % Lymph % (Auto) (13.4-35.0) % Seg Neutrophils % (40.0-70.0) % Seg Neutrophils # (1.8-7.7) K/mm3 POC ABG pCO2 (35-45) POC ABG pO2 155 H (80-105) Chloride (98-107) mmol/L Carbon Dioxide (22-30) mmol/L BUN (7-17) mg/dL Glucose (65-100) mg/dL Lactic Acid (0.7-2.0) mmol/L NT-Pro-B Natriuret Pep (0-900) pg/mL Albumin (3.9-5) g/dL Urine WBC (Auto) (0.0-6.0) /HPF
--- NOTE | 2017-07-10 15:25 | Event Note ---
Date: 07/10/17 Patient was admitted this morning with acute hypoxic respiratory failure requiring intubation Seen and evaluated, orally intubated on ventilator support, noncommunicative Vital signs reviewed, family members at the bedside Medical records and treatment plan reviewed Plan of care discussed with the nurse Disposition; awaiting a bed assignment in ICU Full CODE STATUS.
--- NOTE | 2017-07-10 15:52 | Consultation ---
History of Present Illness Consult date: 07/10/17 Requesting physician: JIM SMITH Reason for consult: hypoxemia, other (acute respiratory failure) History of present illness: 76 y/o obese female, whom I saw during last hospital stay, normally followed by [facility], noncompliant with therapy, admitted with acute respiratory failure and sepsis. Found to have right hydronephrosis from kidney stones and UTI. Concern for pneumonia as well but appears to be more pulmonary edema/vascular congestion. Remainder of the review is negative. Currently sedated and orally intubated on the vent. Past History Past Medical History: hypertension, other (peter, obesity) Past Surgical History: No surgical history Social history: Medications and Allergies Allergies Allergy/AdvReac Type Severity Reaction Status Date / Time Penicillins Allergy Unknown Verified 03/20/17 21:20 Home Medications Medication Instructions Recorded Confirmed Last Taken Type Levothyroxine [Synthroid] 112 mcg PO QAM 03/21/17 07/09/17 Unknown History Apixaban [Eliquis] 5 mg PO Q12HR #60 tablet 03/30/17 07/09/17 Unknown Rx Aspirin [Aspirin BABY CHEW TAB] 81 mg PO QDAY #30 tab.chew 03/30/17 07/09/17 Unknown Rx Levalbuterol 1.25 [Xopenex] 1.25 mg IH Q6HRT #60 nebu 03/30/17 07/09/17 Unknown Rx Loratadine [Claritin] 10 mg PO QDAY #14 tablet 03/30/17 07/09/17 Unknown Rx Amiodarone [Cordarone 200 MG TAB] 200 mg PO QDAY #30 tablet 03/31/17 07/09/17 Unknown Rx Metoprolol [Lopressor TAB] 50 mg PO BID #30 tablet 03/31/17 07/09/17 Unknown Rx Triamcinolone 0.1% [Kenalog 0.1% 1 applic TP BID #1 tube 03/31/17 07/09/17 Unknown Rx CREAM] Sodium Chloride 0.65% Nasal [Deep 2 spray NS TID #7 bottle 04/01/17 07/09/17 Unknown Rx Sea NASAL SPRAY] Active Meds: Active Medications Acetaminophen (Tylenol) 650 mg PO Q4H PRN PRN Reason: Pain MILD(1-3)/Fever >100.5/CAMPOS Acetaminophen (Tylenol) 650 mg [place] Q4H PRN PRN Reason: Pain MILD(1-3)/Fever >100.5/CAMPOS Enoxaparin Sodium (Lovenox) 40 mg SUB-Q QDAY [facility] Last Admin: 07/10/17 11:00 Dose: 40 mg Famotidine (Pepcid) 20 mg IV BID [facility] Last Admin: 07/10/17 11:01 Dose: 20 mg Hydrophilic Ointment (Vaseline Lip Therapy) 1 applic TP Q2HR PRN PRN Reason: Dry Lips Fentanyl Citrate (Fentanyl Drip Premix) 2,000 mcg in 100 mls @ 4.082 mls/hr IV TITR OTONI[facility]; 1 MCG/KG/HR PRN Reason: Protocol Last Admin: 07/10/17 14:08 Dose: 4 mcg/kg/hr, 16.329 mls/hr Norepinephrine (Levophed Drip 4 Mg/Ns 250 Ml) 4 mg in 250 mls @ 7.5 mls/hr IV TITR OTONI[facility]; 2 MCG/MIN PRN Reason: Protocol Last Titration: 07/10/17 14:00 Dose: 0 mcg/min, 0 mls/hr Vancomycin HCl 1,250 mg/ (Sodium Chloride) 262.5 mls @ 166.667 mls/hr IV Q24H [facility] Levofloxacin/Dextrose (Levaquin 750mg/150ml) 750 mg in 150 mls @ 100 mls/hr IV Q24HR [facility] PRN Reason: Protocol Last Admin: 07/10/17 11:00 Dose: 100 mls/hr Sodium Chloride (Nacl 0.9% 1000 Ml) 1,000 mls @ 50 mls/hr IV DIRECT [facility] Last Admin: 07/10/17 12:50 Dose: 50 mls/hr Lorazepam (Ativan) 2 mg IV Q4HR PRN PRN Reason: Agitation Last Admin: 07/09/17 23:00 Dose: 2 mg Multi-Ingred Cream/Lotion/Oil/Oint (Artificial Tears Ophth Oint) 1 applic OU Q4HR PRN PRN Reason: Dry Eye(s) Ondansetron HCl (Zofran) 4 mg IV Q8H PRN PRN Reason: N/V unrelieved by Reglan Vancomycin HCl (Vancomycin Pharmacy To Dose) 1 each IV PKCONSULT [facility] PRN Reason: Protocol Review of Systems ROS unobtainable: due to endotracheal tube Physical Examination Vital signs: Vital Signs Pulse Resp BP Pulse Ox 98 H 24 204/122 97 07/09/17 17:42 07/09/17 17:42 07/09/17 17:42 07/09/17 17:42 General appearance: appears uncomfortable, other (morbidly obese) ENT: other (orally intubated) Neck: supple (and large in circumference) Effort: mildly labored Ascultation: Bilateral: diminished breath sounds, rales Percussion: Bilateral: not dull Cardiovascular: regular rate and rhythm (tachycardia) Gastrointestinal: hypoactive bowel sounds Results - Laboratory Findings CBC and BMP: 07/11/17 06:11 07/11/17 06:11 ABG POC ABG pH 7.427 (7.35-7.45) 07/10/17 04:35 POC ABG pCO2 44.6 (35-45) 07/10/17 04:35 POC ABG pO2 155 (80-105) H 07/10/17 04:35 POC ABG HCO3 29.4 07/10/17 04:35 POC ABG Total CO2 31 07/10/17 04:35 POC ABG O2 Sat 99 07/10/17 04:35 Abnormal lab findings: Abnormal Labs 07/09/17 07/09/17 07/09/17 18:05 18:05 21:15 WBC 15.0 H Hct 43.7 H Lymph % (Auto) 10.7 L Seg Neutrophils % 83.9 H Seg Neutrophils # 12.6 H POC ABG pCO2 POC ABG pO2 Chloride 96.7 L Carbon Dioxide 31 H BUN 18 H Glucose 146 H Lactic Acid 2.50 H* NT-Pro-B Natriuret Pep 1456 H Albumin 3.8 L Urine WBC (Auto) 07/09/17 07/09/17 07/09/17 21:20 21:46 22:59 WBC Hct Lymph % (Auto) Seg Neutrophils % Seg Neutrophils # POC ABG pCO2 54.6 H POC ABG pO2 Chloride Carbon Dioxide BUN Glucose Lactic Acid 2.30 H* NT-Pro-B Natriuret Pep Albumin Urine WBC (Auto) 29.0 H 07/10/17 04:35 WBC Hct Lymph % (Auto) Seg Neutrophils % Seg Neutrophils # POC ABG pCO2 POC ABG pO2 155 H Chloride Carbon Dioxide BUN Glucose Lactic Acid NT-Pro-B Natriuret Pep Albumin Urine WBC (Auto) - Diagnostic Findings Chest x-ray: image reviewed (bilateral patchy alveolar infiltrates.) Assessment and Plan 76 y/o obese female, followed as an outpatient by [facility], admitted with acute on chronic respiratory failure 1. Wean FiO2 for sats >88% 2. Daily CXR and Daily AM ABG's 3. Patient was hypercapnic but compensated from a metabolic standpoint, will attempt to not over ventilate, will decrease rate to 14 4. Need to consider trial of lasix given elevated BNP and prior evidence of pulm HTN on echo from February of this year. Will give one time dose of lasix 40 IV 5. BP control, after load reduction 6. Pending AM abg, may be ready for PSV trial. CCT 31 minutes.
[2017-07-11] MEDS: fentaNYL DRIP Premix 2,000 MCG/100 ML BAG IV SCH ×4 (01:50→21:50)
--- NOTE | 2017-07-11 02:41 | XRay Report ---
FINAL REPORT EXAM: XR CHEST 1V AP HISTORY: follow up respiratory failure TECHNIQUE: A portable view of the chest was obtained and compared the study of 07/09/2017. FINDINGS: The heart remains moderately enlarged. The lungs remain congested. There are bilateral effusions. Overall there is less airspace disease in both lungs. The ET tube and NG tube appear in good position. The tip of the right-sided central line remains in good position in the superior vena cava. The skeletal structures otherwise are unchanged. IMPRESSION: Stable cardiomegaly with pulmonary vascular congestion with effusions. Overall less airspace disease in both lungs since the previous study.
[2017-07-11] MEDS: NACL 0.9% 1000 ML 1,000 ML IV SCH ×3 (04:11→17:56)
[2017-07-11] MEDS ORDERED: VANCOMYCIN 1,250 MG in NACL 0.9% 250ML 250 ML IV SCH (06:00)
[2017-07-11 06:47] LABS: Hematocrit 38.4 % (30.3-42.9); Hemoglobin 12.2 gm/dl (10.1-14.3); Lymphocytes # (Auto) 1.6 K/mm3 (1.2-5.4); Lymphocytes % (Auto) 8.6 % (13.4-35.0); Mean Corpuscular HGB Conc 32 % (30-34); Mean Corpuscular Hemoglobin 29 pg (28-32); Mean Corpuscular Volume 91 fl (79-97); Monocytes # (Auto) 1.5 K/mm3 (0.0-0.8); Monocytes % (Auto) 7.9 % (0.0-7.3); Platelet Count 215 K/mm3 (140-440); Red Blood Count 4.24 M/mm3 (3.65-5.03); Red Cell Distribution Width 14.5 % (13.2-15.2)
[2017-07-11 06:58] LABS: Calcium 8.4 mg/dL (8.4-10.2)
[2017-07-11] MEDS: LEVAQUIN 750MG/150ML 750 MG/150 ML BAG IV SCH (10:48)
[2017-07-11] MEDS: PEPCID IV SCH ×2 (10:48→21:50)
[2017-07-11] MEDS: LOVENOX SUB-Q SCH (10:49)
--- NOTE | 2017-07-11 11:36 | Progress Note ---
Assessment and Plan 76 y/o obese female, followed as an outpatient by [facility], admitted with acute on chronic respiratory failure 1. Wean FiO2 for sats >88% 2. Daily CXR and Daily AM ABG's 3. Respiratory acidosis this am, likely from too much sedation and decrease in MV secondary to decrease RR. Now patient more awake on less sedation, should correct itself 4. Hold lasix today, renal function tolerated it. Urology thinks obs for now, but hydronephosis and UTI may have led to sepsis and overall deterioration in clinical status. Will ask them if the think a perc drain would help. 5. BP control, after load reduction 6. Hold on PSV trial for now, but continue daily sedation vacation CCT 31 minutes. Subjective Date of service: 07/11/17 Interval history: No acute events. Awake and alert, following simple commands on fent 3mcgs. Son at bedside. Down to 40% FiO2. Objective Vital Signs - 12hr 07/10/17 07/10/17 07/11/17 23:40 23:50 00:00 Temperature 98.9 F Pulse Rate 83 83 94 H Respiratory 15 14 14 Rate Blood Pressure 122/69 122/69 108/66 O2 Sat by Pulse 94 94 94 Oximetry 07/11/17 07/11/17 07/11/17 00:11 00:21 00:31 Temperature Pulse Rate 116 H 101 H 92 H Respiratory 17 14 13 Rate Blood Pressure 108/66 108/66 108/66 O2 Sat by Pulse 97 93 94 Oximetry 07/11/17 07/11/17 07/11/17 00:41 00:51 01:00 Temperature Pulse Rate 100 H 94 H 88 Respiratory 15 14 14 Rate Blood Pressure 108/66 108/66 107/57 O2 Sat by Pulse 94 92 94 Oximetry 07/11/17 07/11/17 07/11/17 01:10 01:20 01:30 Temperature Pulse Rate 89 102 H 82 Respiratory 14 14 14 Rate Blood Pressure 107/57 107/57 O2 Sat by Pulse 95 95 96 Oximetry 07/11/17 07/11/17 07/11/17 01:40 01:50 02:00 Temperature Pulse Rate 72 78 108 H Respiratory 14 14 14 Rate Blood Pressure 107/57 107/57 107/57 O2 Sat by Pulse 95 95 91 Oximetry 07/11/17 07/11/17 07/11/17 02:10 02:20 02:30 Temperature Pulse Rate 92 H 80 89 Respiratory 14 14 14 Rate Blood Pressure 128/80 128/80 128/80 O2 Sat by Pulse 94 95 95 Oximetry 07/11/17 07/11/17 07/11/17 02:40 02:50 03:00 Temperature Pulse Rate 90 76 85 Respiratory 14 13 14 Rate Blood Pressure 128/80 128/80 98/58 O2 Sat by Pulse 95 96 Oximetry 07/11/17 07/11/17 07/11/17 03:10 03:20 03:30 Temperature Pulse Rate 75 116 H 93 H Respiratory 14 17 14 Rate Blood Pressure 98/58 98/58 110/59 O2 Sat by Pulse 96 92 94 Oximetry 07/11/17 07/11/17 07/11/17 03:40 03:50 04:00 Temperature 99.0 F Pulse Rate 113 H 112 H 145 H Respiratory 14 14 14 Rate Blood Pressure 110/59 110/59 110/59 O2 Sat by Pulse 85 90 79 L Oximetry 07/11/17 07/11/17 07/11/17 04:10 04:20 04:30 Temperature Pulse Rate 124 H 96 H 107 H Respiratory 14 15 14 Rate Blood Pressure 110/59 124/65 124/65 O2 Sat by Pulse 91 97 98 Oximetry 07/11/17 07/11/17 07/11/17 04:40 04:50 05:00 Temperature Pulse Rate 100 H 89 91 H Respiratory 14 14 14 Rate Blood Pressure 124/65 124/65 97/51 O2 Sat by Pulse 98 98 98 Oximetry 07/11/17 07/11/17 07/11/17 05:07 05:10 05:20 Temperature Pulse Rate 94 H 87 84 Respiratory 18 18 Rate Blood Pressure 97/51 97/51 97/51 O2 Sat by Pulse 98 98 99 Oximetry 07/11/17 07/11/17 07/11/17 05:30 05:40 05:50 Temperature Pulse Rate 75 75 74 Respiratory 18 18 18 Rate Blood Pressure 97/51 97/51 97/51 O2 Sat by Pulse 100 100 100 Oximetry 07/11/17 07/11/17 07/11/17 06:00 06:10 06:20 Temperature Pulse Rate 95 H 93 H 89 Respiratory 18 18 18 Rate Blood Pressure 97/51 134/78 134/78 O2 Sat by Pulse 98 99 98 Oximetry 1207/11/17 07/11/17 06:30 06:40 06:50 Temperature Pulse Rate 125 H 89 83 Respiratory 18 18 18 Rate Blood Pressure 134/78 134/78 134/78 O2 Sat by Pulse 99 98 99 Oximetry 07/11/17 07/11/17 07:55 09:22 Temperature 98.8 F Pulse Rate 101 H Respiratory Rate Blood Pressure 110/67 O2 Sat by Pulse 97 Oximetry Constitutional: appears uncomfortable, other (morbidly obese) ENT: other (orally intubated) Neck: supple (and large in circumference) Effort: mildly labored Ascultation: Bilateral: diminished breath sounds, rales Percussion: Bilateral: not dull Cardiovascular: regular rate and rhythm (tachycardia) Gastrointestinal: hypoactive bowel sounds CBC and BMP: 07/11/17 06:11 07/11/17 06:11 ABG, PT/INR, D-dimer: ABG POC ABG pH 7.282 (7.35-7.45) L 07/11/17 05:12 POC ABG pCO2 61.2 (35-45) H 07/11/17 05:12 POC ABG pO2 87 (80-105) 07/11/17 05:12 POC ABG HCO3 28.9 07/11/17 05:12 POC ABG Total CO2 31 07/11/17 05:12 POC ABG O2 Sat 95 07/11/17 05:12 Abnormal lab findings: Abnormal Labs 07/09/17 07/09/17 07/09/17 18:05 18:05 21:15 WBC 15.0 H Hct 43.7 H Lymph % (Auto) 10.7 L [place] % (Auto) [place] # Seg Neutrophils % 83.9 H Seg Neutrophils # 12.6 H POC ABG pH POC ABG pCO2 POC ABG pO2 Chloride 96.7 L Carbon Dioxide 31 H BUN 18 H Glucose 146 H Lactic Acid 2.50 H* NT-Pro-B Natriuret Pep 1456 H Albumin 3.8 L Urine WBC (Auto) 07/09/17 07/09/17 07/09/17 21:20 21:46 22:59 WBC Hct Lymph % (Auto) [place] % (Auto) [place] # Seg Neutrophils % Seg Neutrophils # POC ABG pH POC ABG pCO2 54.6 H POC ABG pO2 Chloride Carbon Dioxide BUN Glucose Lactic Acid 2.30 H* NT-Pro-B Natriuret Pep Albumin Urine WBC (Auto) 29.0 H 07/10/17 07/11/17 07/11/17 04:35 05:12 06:11 WBC 18.4 H Hct Lymph % (Auto) 8.6 L [place] % (Auto) 7.9 H [place] # 1.5 H Seg Neutrophils % 83.5 H Seg Neutrophils # 15.3 H POC ABG pH 7.282 L POC ABG pCO2 61.2 H POC ABG pO2 155 H Chloride Carbon Dioxide BUN Glucose Lactic Acid NT-Pro-B Natriuret Pep Albumin Urine WBC (Auto) 07/11/17 06:11 WBC Hct Lymph % (Auto) [place] % (Auto) [place] # Seg Neutrophils % Seg Neutrophils # POC ABG pH POC ABG pCO2 POC ABG pO2 Chloride Carbon Dioxide BUN 37 H Glucose 130 H Lactic Acid NT-Pro-B Natriuret Pep Albumin Urine WBC (Auto)
--- NOTE | 2017-07-11 17:15 | Progress Note ---
Assessment and Plan Assessment and Plan Assessment 1)Acute respiratory failure --Cont Vent management 2)Septic shock-IV Abx 3)Urinary tract infection--IV Abx 4 )Right Hydronephrosis with partial obstructing stone Urology consult -requested 5)CHF, stable 6)Atrial fibrillation 7)Obstructive sleep apnea 8)Hypothyroidism DVT prophylaxis SQ Lovenox GI prophylaxis Critical statement The high probability of a clinically significant, sudden or life threatening deterioration of the [Pulmonary, cadiac, renal] system(s) required my full and direct attention, intervention and personal management. The aggregate critical care time was [32] minutes. This time is in addition to time spent performing reported procedures but includes the following: [x] Data Review and interpretation [x] Patient assessment and monitoring of vital signs [x] Documentation [x] Medication orders and management Subjective Date of service: 07/11/17 Principal diagnosis: Sepsis Interval history: Patient intubated.Still wheezing. Objective - Exam Narrative Exam: Patient intubated - Constitutional Vitals: Vital Signs - 12hr 07/11/17 07/11/17 07/11/17 05:20 05:30 05:40 Temperature Pulse Rate 84 75 75 Respiratory 18 18 18 Rate Blood Pressure 97/51 97/51 97/51 O2 Sat by Pulse 99 100 100 Oximetry 07/11/17 07/11/17 07/11/17 05:50 06:00 06:10 Temperature Pulse Rate 74 95 H 93 H Respiratory 18 18 18 Rate Blood Pressure 97/51 97/51 134/78 O2 Sat by Pulse 100 98 99 Oximetry 07/11/17 07/11/17 07/11/17 06:20 06:30 06:40 Temperature Pulse Rate 89 125 H 89 Respiratory 18 18 18 Rate Blood Pressure 134/78 134/78 134/78 O2 Sat by Pulse 98 99 98 Oximetry 07/11/17 07/11/17 07/11/17 06:50 07:00 07:10 Temperature Pulse Rate 83 70 71 Respiratory 18 18 18 Rate Blood Pressure 134/78 100/56 100/56 O2 Sat by Pulse 99 98 99 Oximetry 07/11/17 07/11/17 07/11/17 07:20 07:30 07:40 Temperature Pulse Rate 80 86 76 Respiratory 18 18 18 Rate Blood Pressure 100/56 100/56 100/56 O2 Sat by Pulse 98 99 99 Oximetry 12/07/11/17 07/11/17 07:50 07:55 08:00 Temperature 98.8 F Pulse Rate 92 H 77 Respiratory 18 18 Rate Blood Pressure 100/56 111/67 O2 Sat by Pulse 98 98 Oximetry 07/11/17 07/11/17 07/11/17 08:10 08:20 08:30 Temperature Pulse Rate 74 94 H 78 Respiratory 18 18 18 Rate Blood Pressure 111/67 111/67 111/67 O2 Sat by Pulse 99 99 99 Oximetry 07/11/17 07/11/17 07/11/17 08:40 08:50 09:00 Temperature Pulse Rate 72 69 65 Respiratory 18 18 18 Rate Blood Pressure 111/67 111/67 110/67 O2 Sat by Pulse 99 99 98 Oximetry 07/11/17 07/11/17 07/11/17 09:10 09:20 09:22 Temperature Pulse Rate 86 83 101 H Respiratory 18 18 Rate Blood Pressure 110/67 110/67 110/67 O2 Sat by Pulse 97 98 97 Oximetry 07/11/17 07/11/17 07/11/17 09:30 09:40 09:50 Temperature Pulse Rate 89 87 83 Respiratory 18 18 18 Rate Blood Pressure 110/67 110/67 110/67 O2 Sat by Pulse 97 97 98 Oximetry 07/11/17 07/11/17 07/11/17 10:00 10:10 10:20 Temperature Pulse Rate 68 80 70 Respiratory 18 18 18 Rate Blood Pressure 100/55 100/55 100/55 O2 Sat by Pulse 97 98 98 Oximetry 07/11/17 07/11/17 07/11/17 10:30 10:40 10:50 Temperature Pulse Rate 74 63 82 Respiratory 18 18 18 Rate Blood Pressure 100/55 100/55 100/55 O2 Sat by Pulse 98 99 98 Oximetry 07/11/17 07/11/17 07/11/17 11:00 11:10 11:20 Temperature Pulse Rate 92 H 90 79 Respiratory 18 18 18 Rate Blood Pressure 100/55 132/69 132/69 O2 Sat by Pulse 98 99 99 Oximetry 07/11/17 07/11/17 07/11/17 11:30 11:40 11:50 Temperature Pulse Rate 113 H 96 H 83 Respiratory 18 18 18 Rate Blood Pressure 132/69 132/69 132/69 O2 Sat by Pulse 98 98 99 Oximetry 07/11/17 07/11/1717 12:00 12:10 12:20 Temperature 98.5 F Pulse Rate 102 H 93 H 96 H Respiratory 18 18 18 Rate Blood Pressure 138/94 138/94 138/94 O2 Sat by Pulse 98 99 99 Oximetry 07/11/17 07/11/17 07/11/17 12:30 12:40 12:50 Temperature Pulse Rate 105 H 104 H 105 H Respiratory 18 18 18 Rate Blood Pressure 138/94 138/94 138/94 O2 Sat by Pulse 98 98 98 Oximetry 07/11/17 07/11/17 07/11/17 13:00 13:10 13:20 Temperature Pulse Rate 105 H 94 H 107 H Respiratory 18 18 18 Rate Blood Pressure 141/66 141/66 141/66 O2 Sat by Pulse 97 98 99 Oximetry 07/11/17 07/11/17 13:37 15:58 Temperature 98.7 F Pulse Rate 127 H Respiratory Rate Blood Pressure 141/66 O2 Sat by Pulse 97 Oximetry General appearance: Present: no acute distress, well-nourished - EENT Eyes: PERRL, EOM intact ENT: hearing intact, clear oral mucosa Ears: bilateral: normal - Neck Neck: supple, normal ROM - Respiratory Respiratory effort: normal Respiratory: bilateral: CTA, rhonchi, wheezing - Breasts Breasts: normal - Cardiovascular Rhythm: regular Heart Sounds: Present: S1 & S2. Absent: gallop, rub Extremities: pulses intact, No edema, normal color, Full ROM - Gastrointestinal General gastrointestinal: Present: soft, non-tender, non-distended, normal bowel sounds - Genitourinary Female genitourinary: normal - Integumentary Integumentary: clear, warm, dry - Musculoskeletal Musculoskeletal: 1, strength equal bilaterally - Neurologic Neurologic: moves all extremities - Psychiatric Psychiatric: other (Patient intubated) - Labs CBC & Chem 7: 07/12/17 09:01 07/12/17 09:01 Labs: Abnormal lab results 07/11/17 07/11/17 07/11/17 Range/Units 05:12 06:11 06:11 WBC 18.4 H (4.5-11.0) K/mm3 Lymph % (Auto) 8.6 L (13.4-35.0) % [place] % (Auto) 7.9 H (0.0-7.3) % [place] # 1.5 H (0.0-0.8) K/mm3 Seg Neutrophils % 83.5 H (40.0-70.0) % Seg Neutrophils # 15.3 H (1.8-7.7) K/mm3 POC ABG pH 7.282 L (7.35-7.45) POC ABG pCO2 61.2 H (35-45) BUN 37 H (7-17) mg/dL Glucose 130 H (65-100) mg/dL
--- NOTE | 2017-07-11 19:51 | Progress Note ---
Assessment and Plan Sepsis Pulm Edema RT URET STONE - h/o Eliquis - disc Dr. Cherry - prelim disc w/ ir, will consult for eval and possible nephrostomy tube Subjective Date of service: 07/11/17 Interval history: inatbated Objective - Constitutional Vitals: Vital Signs - 12hr 07/11/17 07/11/17 07/11/17 07:50 07:55 08:00 Temperature 98.8 F Pulse Rate 92 H 77 Respiratory 18 18 Rate Blood Pressure 100/56 111/67 O2 Sat by Pulse 98 98 Oximetry 07/11/17 07/11/17 07/11/17 08:10 08:20 08:30 Temperature Pulse Rate 74 94 H 78 Respiratory 18 18 18 Rate Blood Pressure 111/67 111/67 111/67 O2 Sat by Pulse 99 99 99 Oximetry 07/11/17 07/11/17 07/11/17 08:40 08:50 09:00 Temperature Pulse Rate 72 69 65 Respiratory 18 18 18 Rate Blood Pressure 111/67 111/67 110/67 O2 Sat by Pulse 99 99 98 Oximetry 07/11/17 07/11/17 07/11/17 09:10 09:20 09:22 Temperature Pulse Rate 86 83 101 H Respiratory 18 18 Rate Blood Pressure 110/67 110/67 110/67 O2 Sat by Pulse 97 98 97 Oximetry 07/11/17 07/11/17 07/11/17 09:30 09:40 09:50 Temperature Pulse Rate 89 87 83 Respiratory 18 18 18 Rate Blood Pressure 110/67 110/67 110/67 O2 Sat by Pulse 97 97 98 Oximetry 07/11/17 07/11/17 07/11/17 10:00 10:10 10:20 Temperature Pulse Rate 68 80 70 Respiratory 18 18 18 Rate Blood Pressure 100/55 100/55 100/55 O2 Sat by Pulse 97 98 98 Oximetry 07/11/17 07/11/17 07/11/17 10:30 10:40 10:50 Temperature Pulse Rate 74 63 82 Respiratory 18 18 18 Rate Blood Pressure 100/55 100/55 100/55 O2 Sat by Pulse 98 99 98 Oximetry 07/11/17 07/11/17 07/11/17 11:00 11:10 11:20 Temperature Pulse Rate 92 H 90 79 Respiratory 18 18 18 Rate Blood Pressure 100/55 132/69 132/69 O2 Sat by Pulse 98 99 99 Oximetry 07/11/17 07/11/17 07/11/17 11:30 11:40 11:50 Temperature Pulse Rate 113 H 96 H 83 Respiratory 18 18 18 Rate Blood Pressure 132/69 132/69 132/69 O2 Sat by Pulse 98 98 99 Oximetry 07/11/17 07/11/17 07/11/17 12:00 12:10 12:20 Temperature 98.5 F Pulse Rate 102 H 93 H 96 H Respiratory 18 18 18 Rate Blood Pressure 138/94 138/94 138/94 O2 Sat by Pulse 98 99 99 Oximetry 07/11/17 07/11/17 07/11/17 12:30 12:40 12:50 Temperature Pulse Rate 105 H 104 H 105 H Respiratory 18 18 18 Rate Blood Pressure 138/94 138/94 138/94 O2 Sat by Pulse 98 98 98 Oximetry 07/11/17 07/11/17 07/11/17 13:00 13:10 13:20 Temperature Pulse Rate 105 H 94 H 107 H Respiratory 18 18 18 Rate Blood Pressure 141/66 141/66 141/66 O2 Sat by Pulse 97 98 99 Oximetry 07/11/17 07/11/17 07/11/17 13:30 13:37 13:40 Temperature Pulse Rate 92 H 127 H 140 H Respiratory 18 18 Rate Blood Pressure 141/66 141/66 141/66 O2 Sat by Pulse 98 97 94 Oximetry 07/11/17 07/11/17 07/11/17 13:50 14:00 14:10 Temperature Pulse Rate 114 H 104 H 103 H Respiratory 18 18 18 Rate Blood Pressure 141/66 141/74 141/74 O2 Sat by Pulse 97 97 98 Oximetry 07/11/17 07/11/17 07/11/17 14:20 14:30 14:40 Temperature Pulse Rate 112 H 118 H 114 H Respiratory 18 18 18 Rate Blood Pressure 141/74 141/74 141/74 O2 Sat by Pulse 97 98 97 Oximetry 07/11/17 07/11/17 07/11/17 14:50 15:00 15:10 Temperature Pulse Rate 119 H 149 H 129 H Respiratory 18 17 18 Rate Blood Pressure 141/74 141/74 157/97 O2 Sat by Pulse 97 95 97 Oximetry 07/11/17 07/11/17 07/11/17 15:20 15:30 15:40 Temperature Pulse Rate 127 H 123 H 138 H Respiratory 18 18 18 Rate Blood Pressure 157/97 157/97 157/97 O2 Sat by Pulse 97 96 97 Oximetry 07/11/17 07/11/17 07/11/17 15:50 15:58 16:00 Temperature 98.7 F Pulse Rate 133 H 150 H Respiratory 18 18 Rate Blood Pressure 157/97 157/97 O2 Sat by Pulse 97 96 Oximetry 07/11/17 07/11/17 07/11/17 16:10 16:20 16:30 Temperature Pulse Rate 109 H 118 H 108 H Respiratory 18 18 18 Rate Blood Pressure 149/72 149/72 149/72 O2 Sat by Pulse 98 98 98 Oximetry 07/11/17 07/11/17 07/11/17 16:40 16:50 17:00 Temperature Pulse Rate 112 H 115 H 108 H Respiratory 18 18 18 Rate Blood Pressure 149/72 149/72 151/67 O2 Sat by Pulse 98 98 98 Oximetry 07/11/17 07/11/17 07/11/17 17:10 17:20 17:30 Temperature Pulse Rate 89 102 H 98 H Respiratory 18 18 17 Rate Blood Pressure 151/67 151/67 151/67 O2 Sat by Pulse 99 99 99 Oximetry 07/11/17 07/11/17 07/11/17 17:40 17:50 18:00 Temperature Pulse Rate 97 H 105 H 127 H Respiratory 18 18 18 Rate Blood Pressure 151/67 151/67 147/100 O2 Sat by Pulse 98 99 98 Oximetry 07/11/17 07/11/17 07/11/17 18:10 18:20 18:23 Temperature Pulse Rate 125 H 98 H 105 H Respiratory 18 18 Rate Blood Pressure 147/100 147/100 147/100 O2 Sat by Pulse 98 99 99 Oximetry 07/11/17 07/11/17 07/11/17 18:30 18:40 18:50 Temperature Pulse Rate 104 H 107 H 91 H Respiratory 18 18 18 Rate Blood Pressure 147/100 147/100 147/100 O2 Sat by Pulse 99 99 99 Oximetry 07/11/17 07/11/17 19:00 19:10 Temperature Pulse Rate 123 H 119 H Respiratory 19 18 Rate Blood Pressure 160/66 160/66 O2 Sat by Pulse 98 100 Oximetry - Respiratory Respiratory effort: other (intubated) - Labs CBC & Chem 7: 07/11/17 06:11 07/11/17 06:11 Labs: Abnormal lab results 07/11/17 07/11/17 07/11/17 Range/Units 05:12 06:11 06:11 WBC 18.4 H (4.5-11.0) K/mm3 Lymph % (Auto) 8.6 L (13.4-35.0) % [place] % (Auto) 7.9 H (0.0-7.3) % [place] # 1.5 H (0.0-0.8) K/mm3 Seg Neutrophils % 83.5 H (40.0-70.0) % Seg Neutrophils # 15.3 H (1.8-7.7) K/mm3 POC ABG pH 7.282 L (7.35-7.45) POC ABG pCO2 61.2 H (35-45) BUN 37 H (7-17) mg/dL Glucose 130 H (65-100) mg/dL
[2017-07-12] MEDS: NACL 0.9% 1000 ML 1,000 ML IV SCH ×4 (00:08→23:21)
--- NOTE | 2017-07-12 02:43 | XRay Report ---
FINAL REPORT EXAM: XR CHEST 1V AP HISTORY: follow up respiratory failure TECHNIQUE: A portable view of the chest was obtained and compared to the study of 07/11/2017. FINDINGS: The right-sided central venous line, ET tube and NG tube all appear in good position. Heart is [id number] enlarged. The lungs remain mildly congested. There is left-sided effusion unchanged. There are no localized infiltrates. The bones and soft tissues do not show any acute changes. IMPRESSION: Cardiomegaly with stable vascular congestion and left-sided effusion Satisfactory position of all tubes and lines
[2017-07-12] MEDS: fentaNYL DRIP Premix 2,000 MCG/100 ML BAG IV SCH ×5 (03:35→22:03)
[2017-07-12] MEDS ORDERED: TYLENOL PR PRN (04:21)
--- NOTE | 2017-07-12 08:11 | Progress Note ---
Assessment and Plan 76 y/o obese female, followed as an outpatient by [facility], admitted with acute on chronic respiratory failure 1. Wean FiO2 for sats >88% 2. Daily CXR and Daily AM ABG's 3. Respiratory acidosis resolved 4. Await IR eval for possible nephrostomy tube 5. BP control, after load reduction 6. Hold on PSV trial for now, but continue daily sedation vacation CCT 31 minutes. Subjective Date of service: 07/12/17 Interval history: Awake and alert. Following commands. Tachycardic and Hypertensive. Objective Vital Signs - 12hr 07/11/17 07/11/17 07/11/17 20:10 20:20 20:30 Temperature Pulse Rate 106 H 100 H 110 H Respiratory 18 18 18 Rate Blood Pressure 150/76 150/76 150/76 O2 Sat by Pulse 99 99 99 Oximetry 07/11/17 07/11/17 07/11/17 20:40 20:50 21:00 Temperature Pulse Rate 85 138 H 117 H Respiratory 18 18 18 Rate Blood Pressure 150/76 150/76 175/82 O2 Sat by Pulse 99 97 97 Oximetry 07/11/17 07/11/17 07/11/17 21:10 21:20 21:30 Temperature Pulse Rate 117 H 114 H 99 H Respiratory 18 18 18 Rate Blood Pressure 168/84 168/84 168/84 O2 Sat by Pulse 97 98 99 Oximetry 07/11/17 07/11/17 07/11/17 21:40 21:50 22:00 Temperature Pulse Rate 106 H 122 H 122 H Respiratory 18 18 18 Rate Blood Pressure 168/84 168/84 166/88 O2 Sat by Pulse 100 100 98 Oximetry 07/11/17 07/11/17 07/11/17 22:10 22:20 22:30 Temperature Pulse Rate 164 H 126 H 123 H Respiratory 15 18 18 Rate Blood Pressure 168/84 168/84 168/84 O2 Sat by Pulse 96 95 Oximetry 07/11/17 07/11/17 07/11/17 22:40 22:50 23:02 Temperature Pulse Rate 114 H 109 H 137 H Respiratory 18 18 15 Rate Blood Pressure 168/84 168/84 O2 Sat by Pulse 96 97 100 Oximetry 07/11/17 07/11/17 07/11/17 23:10 23:20 23:30 Temperature Pulse Rate 108 H 128 H 130 H Respiratory 18 19 18 Rate Blood Pressure 185/120 185/120 O2 Sat by Pulse 97 99 96 Oximetry 07/11/17 07/11/17 07/11/17 23:40 23:48 23:50 Temperature Pulse Rate 97 H 100 H 97 H Respiratory 18 18 Rate Blood Pressure 132/57 O2 Sat by Pulse 97 98 98 Oximetry 07/11/17 07/12/17 07/12/17 23:58 00:00 00:10 Temperature 101.3 F H Pulse Rate 82 95 H 91 H Respiratory 18 18 18 Rate Blood Pressure 132/57 132/57 131/69 O2 Sat by Pulse 98 98 98 Oximetry 07/12/17 07/12/17 07/12/17 00:20 00:30 00:40 Temperature Pulse Rate 123 H 102 H 83 Respiratory 18 18 18 Rate Blood Pressure 131/69 96/50 131/69 O2 Sat by Pulse 97 97 98 Oximetry 07/12/17 07/12/17 07/12/17 00:50 01:00 01:10 Temperature Pulse Rate 79 78 80 Respiratory 18 18 18 Rate Blood Pressure 131/69 99/49 99/49 O2 Sat by Pulse 99 99 Oximetry 07/12/17 07/12/17 07/12/17 01:20 01:30 01:40 Temperature Pulse Rate 78 80 79 Respiratory 18 18 18 Rate Blood Pressure 99/49 101/55 101/55 O2 Sat by Pulse 99 97 99 Oximetry 07/12/17 07/12/17 07/12/17 01:50 02:00 02:10 Temperature Pulse Rate 76 81 103 H Respiratory 18 18 18 Rate Blood Pressure 101/55 104/55 104/55 O2 Sat by Pulse 99 98 98 Oximetry 07/12/17 07/12/17 07/12/17 02:20 02:30 02:40 Temperature Pulse Rate 123 H 111 H 120 H Respiratory 18 18 18 Rate Blood Pressure 104/55 104/55 150/63 O2 Sat by Pulse 97 98 99 Oximetry 07/12/17 07/12/17 07/12/17 02:50 03:00 03:10 Temperature Pulse Rate 91 H 88 77 Respiratory 18 18 18 Rate Blood Pressure 104/55 138/57 138/57 O2 Sat by Pulse 99 99 99 Oximetry 07/12/17 07/12/17 07/12/17 03:20 03:30 03:40 Temperature Pulse Rate 113 H 110 H 101 H Respiratory 18 18 18 Rate Blood Pressure 138/57 144/66 144/66 O2 Sat by Pulse 98 99 98 Oximetry 07/12/17 07/12/17 07/12/17 03:50 04:00 04:10 Temperature 100.9 F H Pulse Rate 88 93 H 113 H Respiratory 18 17 18 Rate Blood Pressure 138/57 128/63 128/63 O2 Sat by Pulse 99 98 98 Oximetry 07/12/17 07/12/17 07/12/17 04:20 04:30 04:40 Temperature Pulse Rate 149 H 129 H 105 H Respiratory 18 18 18 Rate Blood Pressure 128/63 147/71 147/71 O2 Sat by Pulse 98 96 98 Oximetry 07/12/17 07/12/17 07/12/17 04:50 05:00 05:10 Temperature Pulse Rate 154 H 129 H 139 H Respiratory 18 18 27 H Rate Blood Pressure 147/71 147/71 166/92 O2 Sat by Pulse 97 97 Oximetry 07/12/17 07/12/17 07/12/17 05:20 05:30 05:40 Temperature Pulse Rate 127 H 135 H 109 H Respiratory 19 17 18 Rate Blood Pressure 166/92 125/54 125/54 O2 Sat by Pulse 95 97 Oximetry 07/12/17 07/12/17 07/12/17 05:50 06:00 06:10 Temperature Pulse Rate 91 H 97 H 88 Respiratory 18 18 18 Rate Blood Pressure 125/54 96/50 96/50 O2 Sat by Pulse 97 97 98 Oximetry 07/12/17 07/12/17 07/12/17 06:20 06:30 06:40 Temperature Pulse Rate 87 95 H 98 H Respiratory 18 18 18 Rate Blood Pressure 96/50 120/65 120/65 O2 Sat by Pulse 98 97 98 Oximetry 07/12/17 07/12/17 07/12/17 06:50 07:00 07:11 Temperature Pulse Rate 92 H 121 H 94 H Respiratory 18 17 18 Rate Blood Pressure 120/65 146/74 120/65 O2 Sat by Pulse 98 98 99 Oximetry 07/12/17 07/12/17 07/12/17 07:21 07:31 07:41 Temperature Pulse Rate 109 H 111 H 114 H Respiratory 18 18 18 Rate Blood Pressure 120/65 163/79 163/79 O2 Sat by Pulse 98 97 99 Oximetry 07/12/17 07/12/17 07:49 07:53 Temperature 98.6 F Pulse Rate Respiratory Rate Blood Pressure O2 Sat by Pulse 99 Oximetry Constitutional: appears uncomfortable, other (morbidly obese) ENT: other (orally intubated) Neck: supple (and large in circumference) Effort: mildly labored Ascultation: Bilateral: diminished breath sounds, rales Percussion: Bilateral: not dull Cardiovascular: regular rate and rhythm (tachycardia) Gastrointestinal: hypoactive bowel sounds CBC and BMP: 07/11/17 06:11 07/11/17 06:11 ABG, PT/INR, D-dimer: ABG POC ABG pH 7.389 (7.35-7.45) 07/12/17 05:03 POC ABG pCO2 48.2 (35-45) H 07/12/17 05:03 POC ABG pO2 83 (80-105) 07/12/17 05:03 POC ABG HCO3 29.1 07/12/17 05:03 POC ABG Total CO2 31 07/12/17 05:03 POC ABG O2 Sat 96 07/12/17 05:03 Abnormal lab findings: Abnormal Labs 07/09/17 07/09/17 07/09/17 18:05 18:05 21:15 WBC 15.0 H Hct 43.7 H Lymph % (Auto) 10.7 L [place] % (Auto) [place] # Seg Neutrophils % 83.9 H Seg Neutrophils # 12.6 H POC ABG pH POC ABG pCO2 POC ABG pO2 Chloride 96.7 L Carbon Dioxide 31 H BUN 18 H Glucose 146 H Lactic Acid 2.50 H* NT-Pro-B Natriuret Pep 1456 H Albumin 3.8 L Urine WBC (Auto) 07/09/17 07/09/17 07/09/17 21:20 21:46 22:59 WBC Hct Lymph % (Auto) [place] % (Auto) [place] # Seg Neutrophils % Seg Neutrophils # POC ABG pH POC ABG pCO2 54.6 H POC ABG pO2 Chloride Carbon Dioxide BUN Glucose Lactic Acid 2.30 H* NT-Pro-B Natriuret Pep Albumin Urine WBC (Auto) 29.0 H 07/10/17 07/11/17 07/11/17 04:35 05:12 06:11 WBC 18.4 H Hct Lymph % (Auto) 8.6 L [place] % (Auto) 7.9 H [place] # 1.5 H Seg Neutrophils % 83.5 H Seg Neutrophils # 15.3 H POC ABG pH 7.282 L POC ABG pCO2 61.2 H POC ABG pO2 155 H Ch[place] Carbon Dioxide BUN Glucose Lactic Acid NT-Pro-B Natriuret Pep Albumin Urine WBC (Auto) 07/11/17 07/12/17 07/12/17 06:11 04:16 05:03 WBC Hct Lymph % (Auto) [place] % (Auto) [place] # Seg Neutrophils % Seg Neutrophils # POC ABG pH 7.468 H POC ABG pCO2 48.2 H POC ABG pO2 41 L [place] Carbon Dioxide BUN 37 H Glucose 130 H Lactic Acid NT-Pro-B Natriuret Pep Albumin Urine WBC (Auto)
[2017-07-12 09:31] LABS: Basophils % (Auto) 0.2 % (0.0-1.8); Eosinophils % (Auto) 0.1 % (0.0-4.3); Hematocrit 36.2 % (30.3-42.9); Hemoglobin 11.5 gm/dl (10.1-14.3); Lymphocytes # (Auto) 2.6 K/mm3 (1.2-5.4); Lymphocytes % (Auto) 21.5 % (13.4-35.0); Mean Corpuscular HGB Conc 32 % (30-34); Mean Corpuscular Hemoglobin 29 pg (28-32); Mean Corpuscular Volume 91 fl (79-97); Monocytes # (Auto) 1.3 K/mm3 (0.0-0.8); Monocytes % (Auto) 10.9 % (0.0-7.3); Platelet Count 191 K/mm3 (140-440); Red Blood Count 3.97 M/mm3 (3.65-5.03); Red Cell Distribution Width 14.2 % (13.2-15.2)
[2017-07-12 09:46] LABS: BUN/Creatinine Ratio 39; Blood Urea Nitrogen 31 mg/dL (7-17); Hemolysis Index 1
[2017-07-12] MEDS ORDERED: CORDARONE PO SCH (10:00)
[2017-07-12] MEDS: LEVAQUIN 750MG/150ML 750 MG/150 ML BAG IV SCH (10:12)
[2017-07-12] MEDS: PEPCID IV SCH ×2 (10:12→22:05)
[2017-07-12] MEDS: LOVENOX SUB-Q SCH (10:12)
[2017-07-12] MEDS: LOPRESSOR PO SCH ×2 (11:44→20:35)
--- NOTE | 2017-07-12 11:45 | Anesthesia Consultation ---
Anesthesia Consult and Med Hx Date of service: 07/12/17 - Pre-Operative Health Status ASA Pre-Surgery Classification: ASA4 Proposed Anesthetic Plan: General - Pre-Anesthesia Comment Pre-Anesthesia Comments: Pt is on the vent. Consent was given by the son. Pt on levaquin 750mg, fentanyl drip. H&P was taken from chart. - Pulmonary Hx Smoking: No Hx Asthma: No Hx Respiratory Symptoms: Yes (acute respiratory failure, intubated on the floor) SOB: Yes (excercise tolerance is limited) COPD: No Hx Pneumonia: No Hx Sleep Apnea: Yes (uncompliance with cpap at home) - Cardiovascular System Hx Hypertension: Yes (CHF, EF 60% according to echo on 03/07) Hx Coronary Artery Disease: No Hx Heart Attack/AMI: No Hx Angina: No Hx Percutaneous Transluminal Coronary Angioplasty (PTCA): No Hx Cardia Arrhythmia: Yes (Afib, amiodarone 200mg was give this AM) Hx Pacemaker: No Hx Internal Defibrillator: No Hx Valvular Heart Disease: No Hx Heart Murmur: No Hx Peripheral Vascular Disease: No - Central Nervous System Hx Seizures: No CVA: No Hx Psychiatric Problems: No - Endocrine Hx Renal Disease: Yes (R renal calculi) Hx End Stage Renal Disease: No Hx Hypothyroidism: Yes (sp thyroidectomy) - Other Systems Hx Cancer: No Hx Obesity: Yes - Additional Comments Anesthesia Medical History Comments: NAC
--- NOTE | 2017-07-12 11:59 | Consultation ---
History of Present Illness - Reason for Consult Consult date: 07/12/17 Nephrostomy tube - History of Present Illness 76-year-old female who has a past medical history of congestive heart failure, noncompliance with medication, obesity, respiratory failure, pulmonary hypertension, obesity hypoventilation syndrome, atrial fibrillation, currently on anticoagulation. Patient is brought to the hospital by family and EMS for severe abdominal pain, generalized weakness, altered mental status and difficulty breathing. Per family , patient not on BiPAP therapy. She is on Eliquis at home. History is limited because the patient is intubated. Although the patient's white blood cell count is declining, the patient continues to be febrile, and tachycardic. I discussed the situation with Dr. Cherry who believes the patient requires definitive treatment of the right- sided hydronephrosis. Had a long discussion with the family. Past History Past Medical History: hypertension, other (peter, obesity) Past Surgical History: No surgical history Social history: Medications and Allergies Allergies Allergy/AdvReac Type Severity Reaction Status Date / Time Penicillins Allergy Unknown Verified 03/20/17 21:20 Home Medications Medication Instructions Recorded Confirmed Last Taken Type Levothyroxine [Synthroid] 112 mcg PO QAM 03/21/17 07/09/17 Unknown History Apixaban [Eliquis] 5 mg PO Q12HR #60 tablet 03/30/17 07/09/17 Unknown Rx Aspirin [Aspirin BABY CHEW TAB] 81 mg PO QDAY #30 tab.chew 03/30/17 07/09/17 Unknown Rx Levalbuterol 1.25 [Xopenex] 1.25 mg IH Q6HRT #60 nebu 03/30/17 07/09/17 Unknown Rx Loratadine [Claritin] 10 mg PO QDAY #14 tablet 03/30/17 07/09/17 Unknown Rx Amiodarone [Cordarone 200 MG TAB] 200 mg PO QDAY #30 tablet 03/31/17 07/09/17 Unknown Rx Metoprolol [Lopressor TAB] 50 mg PO BID #30 tablet 03/31/17 07/09/17 Unknown Rx Triamcinolone 0.1% [Kenalog 0.1% 1 applic TP BID #1 tube 03/31/17 07/09/17 Unknown Rx CREAM] Sodium Chloride 0.65% Nasal [Deep 2 spray NS TID #7 bottle 04/01/17 07/09/17 Unknown Rx Sea NASAL SPRAY] Active Meds: Active Medications Acetaminophen (Tylenol) 650 mg PO Q4H PRN PRN Reason: Pain MILD(1-3)/Fever >100.5/CAMPOS Acetaminophen (Tylenol) 650 mg AR Q4H PRN PRN Reason: Pain MILD(1-3)/Fever >100.5/CAMPOS Last Admin: 07/12/17 00:13 Dose: 650 mg Amiodarone HCl (Cordarone) 200 mg PO DAILY [facility] Last Admin: 07/12/17 10:12 Dose: 200 mg Enoxaparin Sodium (Lovenox) 40 mg SUB-Q QDAY [facility] Last Admin: 07/12/17 10:12 Dose: 40 mg Famotidine (Pepcid) 20 mg IV BID [facility] Last Admin: 07/12/17 10:12 Dose: 20 mg Hydrophilic Ointment (Vaseline Lip Therapy) 1 applic TP Q2HR PRN PRN Reason: Dry Lips Fentanyl Citrate (Fentanyl Drip Premix) 2,000 mcg in 100 mls @ 4.082 mls/hr IV TITR OTONIEL; 1 MCG/KG/HR PRN Reason: Protocol Last Admin: 07/12/17 08:30 Dose: 3 mcg/kg/hr, 12.247 mls/hr Norepinephrine (Levophed Drip 4 Mg/Ns 250 Ml) 4 mg in 250 mls @ 7.5 mls/hr IV TITR OTONIEL; 2 MCG/MIN PRN Reason: Protocol Last Titration: 07/10/17 14:00 Dose: 0 mcg/min, 0 mls/hr Levofloxacin/Dextrose (Levaquin 750mg/150ml) 750 mg in 150 mls @ 100 mls/hr IV Q24HR OTONIEL PRN Reason: Protocol Last Admin: 07/12/17 10:12 Dose: 100 mls/hr Sodium Chloride (Nacl 0.9% 1000 Ml) 1,000 mls @ 125 mls/hr IV DIRECT [facility] Last Admin: 07/12/17 10:11 Dose: 125 mls/hr Metoprolol Tartrate (Lopressor) 50 mg PO BID [facility] Last Admin: 07/12/17 11:44 Dose: 50 mg Multi-Ingred Cream/Lotion/Oil/Oint (Artificial Tears Ophth Oint) 1 applic OU Q4HR PRN PRN Reason: Dry Eye(s) Ondansetron HCl (Zofran) 4 mg IV Q8H PRN PRN Reason: N/V unrelieved by Reglan Review of Systems ROS unobtainable: due to endotracheal tube Exam - Constitutional Vitals: Temp Pulse Resp BP Pulse Ox 98.6 F 130 H 18 164/79 98 07/12/17 07:49 07/12/17 11:44 07/12/17 11:11 07/12/17 11:44 07/12/17 11:24 General appearance: Present: other (intubated) - EENT Eyes: Present: EOM intact - Respiratory Respiratory effort: other (intubated) - Extremities Extremities: pulses intact (palpable pedal pulses) - Neurologic Neurologic: moves all extremities (follow simple commands, squeeze his hands when asked to and moves feet when asked to) Results - Labs CBC & Chem 7: 07/12/17 09:01 07/12/17 09:01 Labs: Abnormal lab results 07/12/17 07/12/17 07/12/17 Range/Units 04:16 05:03 09:01 WBC 12.2 H (4.5-11.0) K/mm3 [place] % (Auto) 10.9 H (0.0-7.3) % [place] # 1.3 H (0.0-0.8) K/mm3 Seg Neutrophils # 8.2 H (1.8-7.7) K/mm3 POC ABG pH 7.468 H (7.35-7.45) POC ABG pCO2 48.2 H (35-45) POC ABG pO2 41 L (80-105) Sodium (137-145) mmol/L BUN (7-17) mg/dL Calcium (8.4-10.2) mg/dL 07/12/17 Range/Units 09:01 WBC (4.5-11.0) K/mm3 [place] % (Auto) (0.0-7.3) % [place] # (0.0-0.8) K/mm3 Seg Neutrophils # (1.8-7.7) K/mm3 POC ABG pH (7.35-7.45) POC ABG pCO2 (35-45) POC ABG pO2 (80-105) Sodium 146 H (137-145) mmol/L BUN 31 H (7-17) mg/dL Calcium 8.0 L (8.4-10.2) mg/dL - Imaging and Cardiology CT scan - abdomen: report reviewed, image reviewed Assessment and Plan 76-year-old female with multiple medical issues including CT findings of pulmonary edema and dependent airspace opacities with right-sided hydronephrosis and an obstructing right distal ureteral stone. The patient is tachycardic with atrial fibrillation, intubated, and has been febrile for the last 2 days. Her white blood cell count is declining. The patient has been off of Eliquis for at least 48 hrs. I discussed with the family that right-sided nephrostomy tube can be considered versus cystoscopy and stent placement. I am cautious about placing a nephrostomy tube visits would require her to be placed in a prone position. Due to her severe morbid obesity, combined with airspace disease, she may not tolerate this from a respiratory perspective may decompensate rapidly. Discussed with Dr. Ricketts, who will attempt a cystoscopy and stent placement. If this is unsuccessful, then right-sided nephrostomy tube will be attempted. This was discussed with the family in depth.
[2017-07-12] MEDS ORDERED: WATER FOR IRRIG STERILE IR ONE ×2 (13:59)
[2017-07-12] MEDS ORDERED: LEVAQUIN 500MG/100ML 500 MG/100 ML BAG IV ONE (14:05)
[2017-07-12] MEDS ORDERED: ZOFRAN IV PRN (14:08)
[2017-07-12] MEDS ORDERED: MILK OF MAGNESIA PO PRN (14:08)
[2017-07-12] MEDS ORDERED: TYLENOL PO PRN (14:08)
[2017-07-12] MEDS ORDERED: DULCOLAX PR PRN (14:08)
--- NOTE | 2017-07-12 14:08 | Post Operative Note ---
Date of procedure: 07/12/17 Pre-op diagnosis: rt distal stone11 mm Post-op diagnosis: same Procedure: cysto, rpg, rt stent 24cm x 6 Anesthesia: GETA Surgeon: HAMMAD ATKINSON Estimated blood loss: none Pathology: none Condition: stable Disposition: PACU
[2017-07-12] MEDS ORDERED: NEOSTIGMINE ONE (14:12)
[2017-07-12] MEDS ORDERED: ePHEDrine SULFATE ONE (14:24)
[2017-07-12] MEDS ORDERED: NACL 0.9% 1000 ML 1,000 ML ONE (14:57)
--- NOTE | 2017-07-12 16:21 | Post Anesthesia Evaluation ---
- Post Anesthesia Evaluation Patient Participated: No Airway Patent: Yes Stable Respiratory Function: Yes Nausea/Vomiting: No Temp > 96.8F: Yes Pain Manageable: Yes Adequeate Hydration: Yes Anesthesia Complications: No Block Receding Appropriately: Not Applicable Patient on Ventilator: Yes
--- NOTE | 2017-07-12 16:56 | Progress Note ---
Assessment and Plan Assessment and Plan Assessment 1)Acute respiratory failure --Cont Vent management 2)Septic shock-IV Abx 3)Urinary tract infection--IV Abx 4 )Right Hydronephrosis with partial obstructing stone S/p cysto, rpg, rt stent 24cm x 6---07-12-17 (Liliam) WBC trending down family at bedside needs outpt follow up 5)CHF, stable 6)Atrial fibrillation 7)Obstructive sleep apnea 8)Hypothyroidism DVT prophylaxis SQ Lovenox GI prophylaxis Critical statement The high probability of a clinically significant, sudden or life threatening deterioration of the [Pulmonary, cadiac, renal] system(s) required my full and direct attention, intervention and personal management. The aggregate critical care time was [33] minutes. This time is in addition to time spent performing reported procedures but includes the following: [x] Data Review and interpretation [x] Patient assessment and monitoring of vital signs [x] Documentation [x] Medication orders and management Subjective Date of service: 07/12/17 Principal diagnosis: Ac Resp failure Interval history: Patient intubated.Still wheezing. Objective - Exam Narrative Exam: Patient intubated - Constitutional Vitals: Vital Signs - 12hr 07/12/17 07/12/17 07/12/17 05:00 05:10 05:20 Temperature Pulse Rate 129 H 139 H 127 H Respiratory 18 27 H 19 Rate Blood Pressure 147/71 166/92 166/92 O2 Sat by Pulse 97 95 Oximetry 07/12/17 07/12/17 07/12/17 05:30 05:40 05:50 Temperature Pulse Rate 135 H 109 H 91 H Respiratory 17 18 18 Rate Blood Pressure 125/54 125/54 125/54 O2 Sat by Pulse 97 97 Oximetry 07/12/17 07/12/17 07/12/17 06:00 06:10 06:20 Temperature Pulse Rate 97 H 88 87 Respiratory 18 18 18 Rate Blood Pressure 96/50 96/50 96/50 O2 Sat by Pulse 97 98 98 Oximetry 07/12/17 07/12/17 07/12/17 06:30 06:40 06:50 Temperature Pulse Rate 95 H 98 H 92 H Respiratory 18 18 18 Rate Blood Pressure 120/65 120/65 120/65 O2 Sat by Pulse 97 98 98 Oximetry 07/12/17 07/12/17 07/12/17 07:00 07:11 07:21 Temperature Pulse Rate 121 H 94 H 109 H Respiratory 17 18 18 Rate Blood Pressure 146/74 120/65 120/65 O2 Sat by Pulse 98 99 98 Oximetry 07/12/17 07/12/17 07/12/17 07:31 07:41 07:49 Temperature 98.6 F Pulse Rate 111 H 114 H Respiratory 18 18 Rate Blood Pressure 163/79 163/79 O2 Sat by Pulse 97 99 Oximetry 07/12/17 07/12/17 07/12/17 07:51 07:53 08:01 Temperature Pulse Rate 92 H 101 H 152 H Respiratory 18 16 Rate Blood Pressure 163/79 139/79 213/106 O2 Sat by Pulse 99 99 98 Oximetry 07/12/17 07/12/17 07/12/17 08:11 08:21 08:31 Temperature Pulse Rate 130 H 102 H 112 H Respiratory 18 17 16 Rate Blood Pressure 213/106 213/106 138/62 O2 Sat by Pulse 97 97 95 Oximetry 07/12/17 07/12/17 07/12/17 08:41 08:51 09:01 Temperature Pulse Rate 99 H 91 H 140 H Respiratory 18 18 17 Rate Blood Pressure 138/62 138/62 129/96 O2 Sat by Pulse 98 98 Oximetry 07/12/17 07/12/17 07/12/17 09:11 09:21 09:31 Temperature Pulse Rate 100 H 99 H 94 H Respiratory 18 18 18 Rate Blood Pressure 129/96 129/96 112/55 O2 Sat by Pulse 98 98 96 Oximetry 07/12/17 07/12/17 07/12/17 09:41 09:51 10:00 Temperature Pulse Rate 75 90 76 Respiratory 18 18 17 Rate Blood Pressure 112/55 112/55 103/54 O2 Sat by Pulse 98 98 98 Oximetry 07/12/17 07/12/17 07/12/17 10:11 10:21 10:31 Temperature Pulse Rate 91 H 122 H 112 H Respiratory 19 18 18 Rate Blood Pressure 103/54 103/54 156/71 O2 Sat by Pulse 98 98 96 Oximetry 07/12/17 07/12/17 07/12/17 10:41 10:51 11:01 Temperature Pulse Rate 87 85 84 Respiratory 18 18 18 Rate Blood Pressure 156/71 103/54 114/60 O2 Sat by Pulse 98 98 97 Oximetry 07/12/17 07/12/1717 11:11 11:21 11:24 Temperature Pulse Rate 103 H 107 H 100 H Respiratory 18 19 Rate Blood Pressure 114/60 114/60 114/60 O2 Sat by Pulse 98 98 98 Oximetry 07/12/17 07/12/17 07/12/17 11:31 11:41 11:44 Temperature Pulse Rate 105 H 117 H 130 H Respiratory 18 18 Rate Blood Pressure 164/79 164/79 164/79 O2 Sat by Pulse 95 95 Oximetry 07/12/17 07/12/17 07/12/17 11:51 12:00 12:01 Temperature 100.2 F H Pulse Rate 114 H 110 H Respiratory 17 18 Rate Blood Pressure 164/79 172/70 O2 Sat by Pulse 100 Oximetry 07/12/17 07/12/17 07/12/17 12:11 12:21 12:31 Temperature Pulse Rate 93 H 76 67 Respiratory 18 18 19 Rate Blood Pressure 172/70 164/79 80/46 O2 Sat by Pulse Oximetry 07/12/17 07/12/17 07/12/17 12:41 12:51 13:00 Temperature Pulse Rate 67 67 64 Respiratory 18 18 18 Rate Blood Pressure 95/53 172/70 82/39 O2 Sat by Pulse 96 97 97 Oximetry 07/12/17 07/12/17 07/12/17 14:17 14:20 14:25 Temperature 99.3 F Pulse Rate 78 76 72 Respiratory 17 18 18 Rate Blood Pressure 67/40 75/41 93/56 O2 Sat by Pulse 100 99 99 Oximetry 07/12/17 07/12/17 07/12/17 14:26 14:30 14:45 Temperature Pulse Rate 100 H 83 80 Respiratory 18 18 Rate Blood Pressure 93/56 132/80 137/74 O2 Sat by Pulse 99 99 98 Oximetry 07/12/17 07/12/17 07/12/17 15:00 15:14 15:30 Temperature 97.6 F 100.2 F H Pulse Rate 89 89 108 H Respiratory 18 17 16 Rate Blood Pressure 144/73 140/78 149/85 O2 Sat by Pulse 99 98 95 Oximetry 07/12/17 07/12/17 15:43 16:00 Temperature 100 F H Pulse Rate 103 H Respiratory Rate Blood Pressure 149/85 O2 Sat by Pulse 97 Oximetry General appearance: Present: no acute distress, well-nourished - EENT Eyes: PERRL, EOM intact ENT: hearing intact, clear oral mucosa Ears: bilateral: normal - Neck Neck: supple, normal ROM - Respiratory Respiratory effort: normal Respiratory: bilateral: CTA, rales, rhonchi - Breasts Breasts: normal - Cardiovascular Rhythm: regular Heart Sounds: Present: S1 & S2. Absent: gallop, rub Extremities: pulses intact, No edema, normal color, Full ROM - Gastrointestinal General gastrointestinal: Present: soft, non-tender, non-distended, normal bowel sounds - Genitourinary Female genitourinary: normal - Integumentary Integumentary: clear, warm, dry - Musculoskeletal Musculoskeletal: 1, strength equal bilaterally - Neurologic Neurologic: moves all extremities - Psychiatric Psychiatric: other (Patient intubated) - Labs CBC & Chem 7: 07/12/17 09:01 07/12/17 09:01 Labs: Abnormal lab results 07/12/17 07/12/17 07/12/17 Range/Units 04:16 05:03 09:01 WBC 12.2 H (4.5-11.0) K/mm3 [place] % (Auto) 10.9 H (0.0-7.3) % [place] # 1.3 H (0.0-0.8) K/mm3 Seg Neutrophils # 8.2 H (1.8-7.7) K/mm3 POC ABG pH 7.468 H (7.35-7.45) POC ABG pCO2 48.2 H (35-45) POC ABG pO2 41 L (80-105) Sodium (137-145) mmol/L BUN (7-17) mg/dL Calcium (8.4-10.2) mg/dL 07/12/17 Range/Units 09:01 WBC (4.5-11.0) K/mm3 [place] % (Auto) (0.0-7.3) % [place] # (0.0-0.8) K/mm3 Seg Neutrophils # (1.8-7.7) K/mm3 POC ABG pH (7.35-7.45) POC ABG pCO2 (35-45) POC ABG pO2 (80-105) Sodium 146 H (137-145) mmol/L BUN 31 H (7-17) mg/dL Calcium 8.0 L (8.4-10.2) mg/dL
[2017-07-12] MEDS: XOPENEX IH SCH (19:34)
--- NOTE | 2017-07-12 21:12 | Operative Report ---
PREOPERATIVE DIAGNOSES: 1. Right distal ureteral stone. 2. Respiratory insufficiency. POSTOPERATIVE DIAGNOSES: 1. Right distal ureteral stone. 2. Respiratory insufficiency. PROCEDURE: Cystoscopy, bilateral retrograde pyelogram, double-J stent placement. SURGEON: Dr. Ricketts. ANESTHESIA: General. ANESTHESIOLOGIST: Dr. Salazar. ESTIMATED BLOOD LOSS: Minimal. FLUIDS: Crystalloid. COMPLICATIONS: No complications. INDICATIONS: This 76-year-old female presented to the Emergency Room in respiratory arrest, was intubated. CT of abdomen and pelvis revealed fluid in her lower part of the lungs as well as a right distal stone of 11 mm and hydronephrosis. She was on pressors. She was moved to the Intensive Care Unit. Multiple consultants were involved. The Medical Service felt that it was prudent now to proceed with stent placement to relieve her obstruction. DESCRIPTION OF PROCEDURE: The patient was taken to the operative suite, placed in a supine position. She was already intubated. She was then placed in a dorsal lithotomy position, prepped and draped in a sterile fashion. Cystoscopy was performed. No bladder pathology could be appreciated. No tumors or stones noted in the bladder. Both ureteral orifices in normal position. Bilateral retrograde pyelograms were obtained with an 8 Cymraes ____ catheter and 8 mL of contrast. No filling defects or obstruction on the left. Right side obvious distal stone just below the pelvic brim, approximately 11 mm. A 0.035 Glidewire was placed followed by 6-Cymraes 24 cm double-J stent with a short internal string. Her Singh catheter was placed afterwards. She was transferred back to the Intensive Care Unit. Discussion with her son and written information provided. Eventually, she will need either the stent exchanged in 4 months or less ____ treatment for her stone. JOB# [id number] [facility]
[2017-07-13] MEDS: fentaNYL DRIP Premix 2,000 MCG/100 ML BAG IV SCH ×5 (00:42→17:49)
[2017-07-13] MEDS: XOPENEX IH SCH ×4 (02:01→19:54)
--- NOTE | 2017-07-13 03:38 | XRay Report ---
FINAL REPORT EXAM: XR CHEST 1V AP HISTORY: follow up respiratory failure TECHNIQUE: A portable view of the chest was obtained and compared to the study of 07/12/2017. FINDINGS: The heart remains moderately enlarged. The lungs are congested. There are bilateral effusions. The ET tube, NG tube and central line appear in good position. The bones and soft tissues otherwise are unchanged. IMPRESSION: Stable cardiomegaly with pulmonary vascular congestion and effusions.
[2017-07-13] MEDS: NACL 0.9% 1000 ML 1,000 ML IV SCH ×3 (05:43→21:55)
[2017-07-13] MEDS: LEVAQUIN 750MG/150ML 750 MG/150 ML BAG IV SCH (09:26)
[2017-07-13] MEDS: LOPRESSOR PO SCH ×2 (09:26→20:35)
[2017-07-13] MEDS: PEPCID IV SCH ×2 (09:27→21:37)
[2017-07-13] MEDS: CORDARONE PO SCH (09:27)
[2017-07-13] MEDS: LOVENOX SUB-Q SCH (09:27)
--- NOTE | 2017-07-13 12:15 | Progress Note ---
Subjective Date of service: 07/13/17 Interval history: cysto, rpg, rt stent 24cm x 6---07-12-17 (Liliam) WBC trending down family at bedside will sign off needs outpt follow up Objective - Constitutional Vitals: Vital Signs - 12hr 07/13/17 07/13/17 07/13/17 00:16 02:00 02:10 Temperature Pulse Rate 71 Pulse Rate [ 68 70 Anterior Bilateral Throughout] Pulse Rate [ Apical] Pulse Rate [ From Monitor] Pulse Rate [ Left Radial] Pulse Rate [ Right Radial] Respiratory Rate Respiratory 18 18 Rate [Anterior Bilateral Throughout] Blood Pressure 107/54 O2 Sat by Pulse 99 Oximetry 07/13/17 07/13/17 07/13/17 03:39 04:00 04:45 Temperature 101.3 F H Pulse Rate 77 Pulse Rate [ Anterior Bilateral Throughout] Pulse Rate [ 87 Apical] Pulse Rate [ 87 From Monitor] Pulse Rate [ 87 Left Radial] Pulse Rate [ 87 Right Radial] Respiratory 22 Rate Respiratory Rate [Anterior Bilateral Throughout] Blood Pressure 117/63 O2 Sat by Pulse 98 Oximetry 07/13/17 07/13/17 07/13/17 08:00 08:15 08:25 Temperature 99.5 F Pulse Rate 87 Pulse Rate [ 103 H 93 H Anterior Bilateral Throughout] Pulse Rate [ Apical] Pulse Rate [ 97 H From Monitor] Pulse Rate [ Left Radial] Pulse Rate [ Right Radial] Respiratory 17 Rate Respiratory 18 18 Rate [Anterior Bilateral Throughout] Blood Pressure 161/91 O2 Sat by Pulse 98 98 Oximetry 07/13/17 09:26 Temperature Pulse Rate 101 H Pulse Rate [ Anterior Bilateral Throughout] Pulse Rate [ Apical] Pulse Rate [ From Monitor] Pulse Rate [ Left Radial] Pulse Rate [ Right Radial] Respiratory Rate Respiratory Rate [Anterior Bilateral Throughout] Blood Pressure 165/78 O2 Sat by Pulse Oximetry - Labs CBC & Chem 7: 07/12/17 09:01 07/12/17 09:01 Labs: Abnormal lab results 07/13/17 Range/Units 04:53 POC ABG pO2 55 L (80-105)
--- NOTE | 2017-07-13 12:57 | Progress Note ---
Assessment and Plan Assessment and Plan Assessment 1)Acute respiratory failure --Cont Vent management 2)Septic shock-IV Abx 3)Urinary tract infection--IV Abx 4 )Right Hydronephrosis with partial obstructing stone S/p cysto, rpg, rt stent 24cm x 6---07-12-17 (Liliam) WBC trending down family at bedside needs outpt follow up 5)CHF, stable 6)Atrial fibrillation 7)Obstructive sleep apnea 8)Hypothyroidism DVT prophylaxis SQ Lovenox GI prophylaxis Critical statement The high probability of a clinically significant, sudden or life threatening deterioration of the [Pulmonary, cadiac, renal] system(s) required my full and direct attention, intervention and personal management. The aggregate critical care time was [32] minutes. This time is in addition to time spent performing reported procedures but includes the following: [x] Data Review and interpretation [x] Patient assessment and monitoring of vital signs [x] Documentation [x] Medication orders and management Subjective Date of service: 07/13/17 Principal diagnosis: Ac Resp failure Interval history: Patient intubated.Still wheezing. Objective - Exam Narrative Exam: Patient intubated - Constitutional Vitals: Vital Signs - 12hr 07/13/17 07/13/17 07/13/17 02:00 02:10 03:39 Temperature 101.3 F H Pulse Rate Pulse Rate [ 68 70 Anterior Bilateral Throughout] Pulse Rate [ Apical] Pulse Rate [ From Monitor] Pulse Rate [ Left Radial] Pulse Rate [ Right Radial] Respiratory Rate Respiratory 18 18 Rate [Anterior Bilateral Throughout] Blood Pressure O2 Sat by Pulse Oximetry 07/13/17 07/13/17 07/13/17 04:00 04:45 08:00 Temperature 99.5 F Pulse Rate 77 Pulse Rate [ Anterior Bilateral Throughout] Pulse Rate [ 87 Apical] Pulse Rate [ 87 97 H From Monitor] Pulse Rate [ 87 Left Radial] Pulse Rate [ 87 Right Radial] Respiratory 22 17 Rate Respiratory Rate [Anterior Bilateral Throughout] Blood Pressure 117/63 O2 Sat by Pulse 98 98 Oximetry 07/13/17 07/13/17 07/13/17 08:15 08:25 09:26 Temperature Pulse Rate 87 101 H Pulse Rate [ 103 H 93 H Anterior Bilateral Throughout] Pulse Rate [ Apical] Pulse Rate [ From Monitor] Pulse Rate [ Left Radial] Pulse Rate [ Right Radial] Respiratory Rate Respiratory 18 18 Rate [Anterior Bilateral Throughout] Blood Pressure 161/91 165/78 O2 Sat by Pulse 98 Oximetry General appearance: Present: no acute distress, well-nourished - EENT Eyes: PERRL, EOM intact ENT: hearing intact, clear oral mucosa Ears: bilateral: normal - Neck Neck: supple, normal ROM - Respiratory Respiratory effort: normal Respiratory: bilateral: CTA - Breasts Breasts: normal - Cardiovascular Rhythm: regular Heart Sounds: Present: S1 & S2. Absent: gallop, rub Extremities: pulses intact, No edema, normal color, Full ROM - Gastrointestinal General gastrointestinal: Present: soft, non-tender, non-distended, normal bowel sounds - Genitourinary Female genitourinary: normal - Integumentary Integumentary: clear, warm, dry - Musculoskeletal Musculoskeletal: 1, strength equal bilaterally - Neurologic Neurologic: moves all extremities - Psychiatric Psychiatric: memory intact, appropriate mood/affect, intact judgment & insight - Labs CBC & Chem 7: 07/12/17 09:01 07/12/17 09:01 Labs: Abnormal lab results 07/13/17 Range/Units 04:53 POC ABG pO2 55 L (80-105)
--- NOTE | 2017-07-13 14:37 | Progress Note ---
Assessment and Plan 76 y/o obese female, followed as an outpatient by [facility], admitted with acute on chronic respiratory failure 1. Wean FiO2 for sats >88% 2. Daily CXR and Daily AM ABG's 3. Respiratory acidosis resolved with mechanical ventilation however increasing PaCO2 noted on CPAP trial 4. Post cystoscopy with successful placement of J Stent 5. BP control, after load reduction 6. SBT, daily 7. Family updated Total critical care time 31 minute Subjective Date of service: 07/13/17 Principal diagnosis: Sepsis Interval history: Patient remained awake and responsive. He underwent cystoscopy and placement of J stamps for hydronephrosis and kidney stone yesterday. Was given a CPAP trial did reasonably well clinically however blood gases shows increasing respiratory acidosis. Patient was placed back on a backup but lower rate. Objective Vital Signs - 12hr 07/13/17 07/13/17 07/13/17 03:39 04:00 04:45 Temperature 101.3 F H Pulse Rate 77 Pulse Rate [ Anterior Bilateral Throughout] Pulse Rate [ 87 Apical] Pulse Rate [ 87 From Monitor] Pulse Rate [ 87 Left Radial] Pulse Rate [ 87 Right Radial] Respiratory 22 Rate Respiratory Rate [Anterior Bilateral Throughout] Blood Pressure 117/63 O2 Sat by Pulse 98 Oximetry 07/13/17 07/13/17 07/13/17 04:51 05:00 05:11 Temperature Pulse Rate 78 71 70 Pulse Rate [ Anterior Bilateral Throughout] Pulse Rate [ Apical] Pulse Rate [ From Monitor] Pulse Rate [ Left Radial] Pulse Rate [ Right Radial] Respiratory 18 18 18 Rate Respiratory Rate [Anterior Bilateral Throughout] Blood Pressure 122/65 109/59 109/59 O2 Sat by Pulse 98 99 98 Oximetry 07/13/17 07/13/17 07/13/17 05:21 05:30 05:41 Temperature Pulse Rate 68 73 74 Pulse Rate [ Anterior Bilateral Throughout] Pulse Rate [ Apical] Pulse Rate [ From Monitor] Pulse Rate [ Left Radial] Pulse Rate [ Right Radial] Respiratory 18 18 18 Rate Respiratory Rate [Anterior Bilateral Throughout] Blood Pressure 109/59 119/58 119/58 O2 Sat by Pulse 98 98 98 Oximetry 07/13/17 07/13/17 07/13/17 05:51 06:01 06:11 Temperature Pulse Rate 118 H 116 H 106 H Pulse Rate [ Anterior Bilateral Throughout] Pulse Rate [ Apical] Pulse Rate [ From Monitor] Pulse Rate [ Left Radial] Pulse Rate [ Right Radial] Respiratory 19 19 17 Rate Respiratory Rate [Anterior Bilateral Throughout] Blood Pressure 119/58 119/58 119/58 O2 Sat by Pulse 96 96 Oximetry 07/13/17 07/13/17 07/13/17 06:21 06:31 06:41 Temperature Pulse Rate 101 H 100 H 85 Pulse Rate [ Anterior Bilateral Throughout] Pulse Rate [ Apical] Pulse Rate [ From Monitor] Pulse Rate [ Left Radial] Pulse Rate [ Right Radial] Respiratory 18 17 17 Rate Respiratory Rate [Anterior Bilateral Throughout] Blood Pressure 153/74 109/65 109/65 O2 Sat by Pulse 96 97 97 Oximetry 07/13/17 07/13/17 07/13/17 06:51 07:00 07:11 Temperature Pulse Rate 77 82 79 Pulse Rate [ Anterior Bilateral Throughout] Pulse Rate [ Apical] Pulse Rate [ From Monitor] Pulse Rate [ Left Radial] Pulse Rate [ Right Radial] Respiratory 18 17 18 Rate Respiratory Rate [Anterior Bilateral Throughout] Blood Pressure 109/65 88/48 88/48 O2 Sat by Pulse 98 98 98 Oximetry 07/13/17 07/13/17 07/13/17 07:21 07:31 07:41 Temperature Pulse Rate 94 H 76 73 Pulse Rate [ Anterior Bilateral Throughout] Pulse Rate [ Apical] Pulse Rate [ From Monitor] Pulse Rate [ Left Radial] Pulse Rate [ Right Radial] Respiratory 18 18 18 Rate Respiratory Rate [Anterior Bilateral Throughout] Blood Pressure 141/88 120/63 120/63 O2 Sat by Pulse 98 98 98 Oximetry 07/13/17 07/13/17 07/13/17 07:51 08:00 08:11 Temperature 99.5 F Pulse Rate 77 95 H 104 H Pulse Rate [ Anterior Bilateral Throughout] Pulse Rate [ Apical] Pulse Rate [ 97 H From Monitor] Pulse Rate [ Left Radial] Pulse Rate [ Right Radial] Respiratory 18 18 18 Rate Respiratory Rate [Anterior Bilateral Throughout] Blood Pressure 120/63 120/63 161/91 O2 Sat by Pulse 98 99 98 Oximetry 07/13/17 07/13/17 07/13/17 08:15 08:21 08:25 Temperature Pulse Rate 87 89 Pulse Rate [ 103 H 93 H Anterior Bilateral Throughout] Pulse Rate [ Apical] Pulse Rate [ From Monitor] Pulse Rate [ Left Radial] Pulse Rate [ Right Radial] Respiratory 18 Rate Respiratory 18 18 Rate [Anterior Bilateral Throughout] Blood Pressure 161/91 182/105 O2 Sat by Pulse 98 98 Oximetry 07/13/17 07/13/17 07/13/17 08:31 08:41 08:51 Temperature Pulse Rate 91 H 97 H 92 H Pulse Rate [ Anterior Bilateral Throughout] Pulse Rate [ Apical] Pulse Rate [ From Monitor] Pulse Rate [ Left Radial] Pulse Rate [ Right Radial] Respiratory 18 18 18 Rate Respiratory Rate [Anterior Bilateral Throughout] Blood Pressure 162/79 162/79 162/79 O2 Sat by Pulse 100 100 100 Oximetry 07/13/17 07/13/17 07/13/17 09:01 09:11 09:21 Temperature Pulse Rate 86 89 104 H Pulse Rate [ Anterior Bilateral Throughout] Pulse Rate [ Apical] Pulse Rate [ From Monitor] Pulse Rate [ Left Radial] Pulse Rate [ Right Radial] Respiratory 18 18 19 Rate Respiratory Rate [Anterior Bilateral Throughout] Blood Pressure 165/78 165/78 165/78 O2 Sat by Pulse 100 97 97 Oximetry 07/13/17 07/13/17 07/13/17 09:26 09:31 09:41 Temperature Pulse Rate 101 H 89 94 H Pulse Rate [ Anterior Bilateral Throughout] Pulse Rate [ Apical] Pulse Rate [ From Monitor] Pulse Rate [ Left Radial] Pulse Rate [ Right Radial] Respiratory 18 18 Rate Respiratory Rate [Anterior Bilateral Throughout] Blood Pressure 165/78 151/72 151/72 O2 Sat by Pulse 97 97 Oximetry 07/13/17 07/13/17 07/13/17 09:51 10:01 10:11 Temperature Pulse Rate 97 H 94 H 92 H Pulse Rate [ Anterior Bilateral Throughout] Pulse Rate [ Apical] Pulse Rate [ From Monitor] Pulse Rate [ Left Radial] Pulse Rate [ Right Radial] Respiratory 18 17 18 Rate Respiratory Rate [Anterior Bilateral Throughout] Blood Pressure 151/72 138/68 138/68 O2 Sat by Pulse 97 97 97 Oximetry 07/13/17 07/13/17 07/13/17 10:21 10:31 10:41 Temperature Pulse Rate 73 71 66 Pulse Rate [ Anterior Bilateral Throughout] Pulse Rate [ Apical] Pulse Rate [ From Monitor] Pulse Rate [ Left Radial] Pulse Rate [ Right Radial] Respiratory 18 18 18 Rate Respiratory Rate [Anterior Bilateral Throughout] Blood Pressure 138/68 98/47 98/47 O2 Sat by Pulse 97 97 98 Oximetry 07/13/17 07/13/17 07/13/17 10:51 11:00 11:11 Temperature Pulse Rate 77 66 70 Pulse Rate [ Anterior Bilateral Throughout] Pulse Rate [ Apical] Pulse Rate [ From Monitor] Pulse Rate [ Left Radial] Pulse Rate [ Right Radial] Respiratory 18 18 18 Rate Respiratory Rate [Anterior Bilateral Throughout] Blood Pressure 138/68 92/54 92/54 O2 Sat by Pulse 98 98 98 Oximetry 07/13/17 07/13/17 07/13/17 11:21 11:30 11:41 Temperature Pulse Rate 68 73 76 Pulse Rate [ Anterior Bilateral Throughout] Pulse Rate [ Apical] Pulse Rate [ From Monitor] Pulse Rate [ Left Radial] Pulse Rate [ Right Radial] Respiratory 18 18 19 Rate Respiratory Rate [Anterior Bilateral Throughout] Blood Pressure 92/54 97/54 97/54 O2 Sat by Pulse 98 98 99 Oximetry 07/13/17 07/13/17 07/13/17 11:51 12:00 12:01 Temperature 99.9 F H Pulse Rate 69 79 Pulse Rate [ Anterior Bilateral Throughout] Pulse Rate [ Apical] Pulse Rate [ From Monitor] Pulse Rate [ Left Radial] Pulse Rate [ Right Radial] Respiratory 18 18 Rate Respiratory Rate [Anterior Bilateral Throughout] Blood Pressure 97/54 97/54 O2 Sat by Pulse 98 98 Oximetry 07/13/17 07/13/17 07/13/17 12:11 12:21 12:31 Temperature Pulse Rate 105 H 85 106 H Pulse Rate [ Anterior Bilateral Throughout] Pulse Rate [ Apical] Pulse Rate [ From Monitor] Pulse Rate [ Left Radial] Pulse Rate [ Right Radial] Respiratory 13 18 17 Rate Respiratory Rate [Anterior Bilateral Throughout] Blood Pressure 136/81 136/81 167/131 O2 Sat by Pulse 99 98 98 Oximetry 07/13/17 07/13/17 07/13/17 12:40 12:41 12:51 Temperature Pulse Rate 97 H 110 H 94 H Pulse Rate [ Anterior Bilateral Throughout] Pulse Rate [ Apical] Pulse Rate [ From Monitor] Pulse Rate [ Left Radial] Pulse Rate [ Right Radial] Respiratory 11 L 16 13 Rate Respiratory Rate [Anterior Bilateral Throughout] Blood Pressure 133/69 167/131 133/69 O2 Sat by Pulse 95 93 95 Oximetry 07/13/17 07/13/17 07/13/17 13:00 13:34 13:47 Temperature Pulse Rate 93 H 88 Pulse Rate [ 87 Anterior Bilateral Throughout] Pulse Rate [ Apical] Pulse Rate [ 79 From Monitor] Pulse Rate [ Left Radial] Pulse Rate [ Right Radial] Respiratory 15 Rate Respiratory 14 Rate [Anterior Bilateral Throughout] Blood Pressure 158/93 123/74 O2 Sat by Pulse 96 96 Oximetry Constitutional: appears uncomfortable, other (morbidly obese) ENT: other (orally intubated) Neck: supple (and large in circumference) Effort: mildly labored Ascultation: Bilateral: diminished breath sounds, rales Percussion: Bilateral: not dull Cardiovascular: regular rate and rhythm (tachycardia) Gastrointestinal: hypoactive bowel sounds CBC and BMP: 07/12/17 09:01 07/12/17 09:01 ABG, PT/INR, D-dimer: ABG POC ABG pH 7.315 (7.35-7.45) L 07/13/17 13:29 POC ABG pCO2 52.5 (35-45) H 07/13/17 13:29 POC ABG pO2 85 (80-105) 07/13/17 13:29 POC ABG HCO3 26.7 07/13/17 13:29 POC ABG Total CO2 28 07/13/17 13:29 POC ABG O2 Sat 95 07/13/17 13:29 Abnormal lab findings: Abnormal Labs 07/09/17 07/09/17 07/09/17 18:05 18:05 21:15 WBC 15.0 H Hct 43.7 H Lymph % (Auto) 10.7 L Hughes % (Auto) Hughes # Seg Neutrophils % 83.9 H Seg Neutrophils # 12.6 H POC ABG pH POC ABG pCO2 POC ABG pO2 Sodium Chloride 96.7 L Carbon Dioxide 31 H BUN 18 H Glucose 146 H Lactic Acid 2.50 H* Calcium NT-Pro-B Natriuret Pep 1456 H Albumin 3.8 L Urine WBC (Auto) 07/09/17 07/09/17 07/09/17 21:20 21:46 22:59 WBC Hct Lymph % (Auto) [place] % (Auto) Hughes # Seg Neutrophils % Seg Neutrophils # POC ABG pH POC ABG pCO2 54.6 H POC ABG pO2 Sodium Chloride Carbon Dioxide BUN Glucose Lactic Acid 2.30 H* Calcium NT-Pro-B Natriuret Pep Albumin Urine WBC (Auto) 29.0 H 07/10/17 07/11/17 07/11/17 04:35 05:12 06:11 WBC 18.4 H Hct Lymph % (Auto) 8.6 L Hughes % (Auto) 7.9 H Hughes # 1.5 H Seg Neutrophils % 83.5 H Seg Neutrophils # 15.3 H POC ABG pH 7.282 L POC ABG pCO2 61.2 H POC ABG pO2 155 H Sodium Chloride Carbon Dioxide BUN Glucose Lactic Acid Calcium NT-Pro-B Natriuret Pep Albumin Urine WBC (Auto) 07/11/17 07/12/17 07/12/17 06:11 04:16 05:03 WBC Hct Lymph % (Auto) [place] % (Auto) Hughes # Seg Neutrophils % Seg Neutrophils # POC ABG pH 7.468 H POC ABG pCO2 48.2 H POC ABG pO2 41 L Sodium Chloride Carbon Dioxide BUN 37 H Glucose 130 H Lactic Acid Calcium NT-Pro-B Natriuret Pep Albumin Urine WBC (Auto) 07/12/17 07/12/17 07/13/17 09:01 09:01 04:53 WBC 12.2 H Hct Lymph % (Auto) [place] % (Auto) 10.9 H Hughes # 1.3 H Seg Neutrophils % Seg Neutrophils # 8.2 H POC ABG pH POC ABG pCO2 POC ABG pO2 55 L Sodium 146 H Chloride Carbon Dioxide BUN 31 H Glucose Lactic Acid Calcium 8.0 L NT-Pro-B Natriuret Pep Albumin Urine WBC (Auto) 07/13/17 13:29 WBC Hct Lymph % (Auto) [place] % (Auto) Hughes # Seg Neutrophils % Seg Neutrophils # POC ABG pH 7.315 L POC ABG pCO2 52.5 H POC ABG pO2 Sodium Chloride Carbon Dioxide BUN Glucose Lactic Acid Calcium NT-Pro-B Natriuret Pep Albumin Urine WBC (Auto)
[2017-07-14] MEDS: fentaNYL DRIP Premix 2,000 MCG/100 ML BAG IV SCH ×4 (00:43→21:00)
[2017-07-14] MEDS: XOPENEX IH SCH ×4 (02:34→19:56)
--- NOTE | 2017-07-14 04:09 | XRay Report ---
FINAL REPORT EXAM: XR CHEST 1V AP HISTORY: follow up respiratory failure TECHNIQUE: An AP upright view of the chest was obtained and compared the study of 07/13/2017. FINDINGS: The heart remains moderately enlarged. The lungs remain congested. There is patchy airspace disease in both lung bases. The ET tube and NG tube appear normal. The right-sided central venous line also appears normal. The bones and soft tissues otherwise are unchanged. IMPRESSION: Cardiomegaly with stable pulmonary vascular congestion. Stable patchy airspace disease in both lung bases.
[2017-07-14 04:46] LABS: Basophils % (Auto) 0.3 % (0.0-1.8); Eosinophils % (Auto) 0.4 % (0.0-4.3); Hematocrit 38.8 % (30.3-42.9); Hemoglobin 12.8 gm/dl (10.1-14.3); Lymphocytes # (Auto) 3.1 K/mm3 (1.2-5.4); Lymphocytes % (Auto) 23.1 % (13.4-35.0); Mean Corpuscular HGB Conc 33 % (30-34); Mean Corpuscular Hemoglobin 30 pg (28-32); Mean Corpuscular Volume 91 fl (79-97); Monocytes # (Auto) 1.4 K/mm3 (0.0-0.8); Monocytes % (Auto) 10.4 % (0.0-7.3); Platelet Count 185 K/mm3 (140-440); Red Blood Count 4.26 M/mm3 (3.65-5.03); Red Cell Distribution Width 14.4 % (13.2-15.2)
[2017-07-14 05:13] LABS: Alanine Aminotransferase 13 units/L (7-56); BUN/Creatinine Ratio 31; Blood Urea Nitrogen 22 mg/dL (7-17); Calcium 8.3 mg/dL (8.4-10.2); Hemolysis Index 12
[2017-07-14] MEDS: NACL 0.9% 1000 ML 1,000 ML IV SCH ×3 (05:48→22:40)
[2017-07-14] MEDS ORDERED: NACL 0.9% NEBU ONE ×2 (07:57→15:14)
[2017-07-14] MEDS: LOVENOX SUB-Q SCH (09:03)
[2017-07-14] MEDS: PEPCID IV SCH ×2 (09:03→21:47)
[2017-07-14] MEDS: CORDARONE PO SCH (09:04)
[2017-07-14] MEDS: LEVAQUIN 750MG/150ML 750 MG/150 ML BAG IV SCH (09:04)
[2017-07-14] MEDS: LOPRESSOR PO SCH ×2 (09:04→21:47)
--- NOTE | 2017-07-14 10:19 | Progress Note ---
Assessment and Plan Assessment and plan: Acute respiratory failure --Cont Vent management per Pulm. Cont Spontaneous breathing trials daily Sepsis. Cont. IV Abx. Blood cx negative x 4 days Urinary tract infection. Currently on levaquin Right Hydronephrosis with partial obstructing stone S/p cysto, rpg, rt stent 24cm x 6---07-12-17 ([facility]) WBC trending down family at bedside CHF, stable Atrial fibrillation Obstructive sleep apnea Hypothyroidism DVT prophylaxis SQ Lovenox The high probability of a clinically significant, sudden or life threatening deterioration of the [Pulmonary, cadiac, renal] system(s) required my full and direct attention, intervention and personal management. The aggregate critical care time was [32] minutes. This time is in addition to time spent performing reported procedures but includes the following: [x] Data Review and interpretation [x] Patient assessment and monitoring of vital signs [x] Documentation [x] Medication orders and management History Interval history: PT. remains intubated on vent Hospitalist Physical - Constitutional Vitals: Temp Pulse Resp BP Pulse Ox 99.6 F 92 H 22 140/53 98 07/14/17 08:00 07/14/17 09:04 07/14/17 08:42 07/14/17 09:04 07/14/17 08:42 General appearance: Present: mild distress, well-nourished, other (orally intubated) - EENT Eyes: Present: PERRL, EOM intact ENT: hearing intact, clear oral mucosa, dentition normal - Neck Neck: Present: supple, normal ROM - Respiratory Respiratory effort: normal Respiratory: bilateral: CTA - Cardiovascular Rhythm: regular Heart Sounds: Present: S1 & S2. Absent: gallop, rub - Extremities Extremities: no ischemia, No edema, Full ROM - Abdominal General gastrointestinal: soft, non-tender, non-distended, normal bowel sounds - Integumentary Integumentary: Present: clear, warm, dry - Neurologic Neurologic: CNII-XII intact, moves all extremities Results - Labs CBC & Chem 7: 07/14/17 04:21 07/14/17 04:21 Labs: Laboratory Last Values WBC 13.3 K/mm3 (4.5-11.0) H 07/14/17 04:21 RBC 4.26 M/mm3 (3.65-5.03) 07/14/17 04:21 Hgb 12.8 gm/dl (10.1-14.3) 07/14/17 04:21 Hct 38.8 % (30.3-42.9) 07/14/17 04:21 MCV 91 fl (79-97) 07/14/17 04:21 MCH 30 pg (28-32) 07/14/17 04:21 MCHC 33 % (30-34) 07/14/17 04:21 RDW 14.4 % (13.2-15.2) 07/14/17 04:21 Plt Count 185 K/mm3 (140-440) 07/14/17 04:21 Lymph % (Auto) 23.1 % (13.4-35.0) 07/14/17 04:21 [place] % (Auto) 10.4 % (0.0-7.3) H 07/14/17 04:21 Eos % (Auto) 0.4 % (0.0-4.3) 07/14/17 04:21 Baso % (Auto) 0.3 % (0.0-1.8) 07/14/17 04:21 Lymph # 3.1 K/mm3 (1.2-5.4) 07/14/17 04:21 [place] # 1.4 K/mm3 (0.0-0.8) H 07/14/17 04:21 Eos # 0.0 K/mm3 (0.0-0.4) 07/14/17 04:21 Baso # 0.0 K/mm3 (0.0-0.1) 07/14/17 04:21 Seg Neutrophils % 65.8 % (40.0-70.0) 07/14/17 04:21 Seg Neutrophils # 8.8 K/mm3 (1.8-7.7) H 07/14/17 04:21 POC ABG pH 7.301 (7.35-7.45) L 07/14/17 04:31 POC ABG pCO2 51.4 (35-45) H 07/14/17 04:31 POC ABG pO2 84 (80-105) 07/14/17 04:31 POC ABG HCO3 25.3 07/14/17 04:31 POC ABG Total CO2 27 07/14/17 04:31 POC ABG O2 Sat 95 07/14/17 04:31 POC ABG Base Excess -1 07/14/17 04:31 FiO2 35 % 07/14/17 04:31 Sodium 146 mmol/L (137-145) H 07/14/17 04:21 Potassium 3.6 mmol/L (3.6-5.0) 07/14/17 04:21 Chloride 109.0 mmol/L (98-107) H 07/14/17 04:21 Carbon Dioxide 23 mmol/L (22-30) 07/14/17 04:21 Anion Gap 18 mmol/L 07/14/17 04:21 BUN 22 mg/dL (7-17) H 07/14/17 04:21 Creatinine 0.7 mg/dL (0.7-1.2) 07/14/17 04:21 Estimated GFR > 60 ml/min 07/14/17 04:21 BUN/Creatinine Ratio 31 % 07/14/17 04:21 Glucose 107 mg/dL (65-100) H 07/14/17 04:21 POC Glucose 121 (70-105) H 07/13/17 23:20 Lactic Acid 2.30 mmol/L (0.7-2.0) H* 07/09/17 22:59 Calcium 8.3 mg/dL (8.4-10.2) L 07/14/17 04:21 Total Bilirubin 0.80 mg/dL (0.1-1.2) 07/14/17 04:21 AST 15 units/L (5-40) 07/14/17 04:21 ALT 13 units/L (7-56) 07/14/17 04:21 Alkaline Phosphatase 53 units/L (35-129) 07/14/17 04:21 Total Creatine Kinase 34 units/L (30-135) 07/09/17 18:05 CK-MB (CK-2) < 1.0 ng/mL (0.0-4.0) 07/09/17 18:05 CK-MB (CK-2) Rel Index 2.9 (0-4) 07/09/17 18:05 Troponin T < 0.010 ng/mL (0.00-0.029) 07/09/17 18:05 NT-Pro-B Natriuret Pep 1456 pg/mL (0-900) H 07/09/17 18:05 Total Protein 6.5 g/dL (6.3-8.2) 07/14/17 04:21 Albumin 3.0 g/dL (3.9-5) L 07/14/17 04:21 Albumin/Globulin Ratio 0.9 % 07/14/17 04:21 Lipase 16 units/L (13-60) 07/09/17 18:05 Urine Color Yellow (Yellow) 07/09/17 21:20 Urine Turbidity Clear (Clear) 07/09/17 21:20 Urine pH 6.0 (5.0-7.0) 07/09/17 21:20 Ur Specific [place] 1.015 (1.003-1.030) 07/09/17 21:20 Urine Protein 100 mg/dl mg/dL (Negative) 07/09/17 21:20 Urine Glucose (UA) 50 mg/dL (Negative) 07/09/17 21:20 Urine Ketones Neg mg/dL (Negative) 07/09/17 21:20 Urine Blood Lg (Negative) 07/09/17 21:20 Urine Nitrite Neg (Negative) 07/09/17 21:20 Urine Bilirubin Neg (Negative) 07/09/17 21:20 Urine Urobilinogen < 2.0 mg/dL (<2.0) 07/09/17 21:20 Ur Leukocyte Esterase Tr (Negative) 07/09/17 21:20 Urine WBC (Auto) 29.0 /HPF (0.0-6.0) H 07/09/17 21:20 Urine RBC (Auto) 86.0 /HPF (0.0-6.0) 07/09/17 21:20 U Epithel Cells (Auto) 1.0 /HPF (0-13.0) 07/09/17 21:20 Urine Bacteria (Auto) 2+ /HPF (Negative) 07/09/17 21:20 Urine Mucus Few /HPF 07/09/17 21:20
--- NOTE | 2017-07-14 13:43 | Progress Note ---
Assessment and Plan 76 y/o obese female, followed as an outpatient by [facility], admitted with acute on chronic respiratory failure, renal stone, hydronephrosis status post cystoscopy and J stent. Possible UTI causing low-grade fever. 1. Wean FiO2 for sats >88% 2. Daily CXR and Daily AM ABG's 3. Respiratory acidosis resolved with mechanical ventilation however increasing PaCO2 noted on CPAP trial 4. Post cystoscopy with successful placement of J Stent 5. BP control, after load reduction 6. SBT, daily 7. Family updated 8. Continue with mechanical ventilator and Levaquin. We will consider broadening the antibiotic coverage if fever persist. 9. Urine and sputum and blood cultures. Total critical care time 31 minute Subjective Date of service: 07/14/17 Principal diagnosis: Sepsis Interval history: Patient remained awake and responsive. He underwent cystoscopy and placement of J stamps for hydronephrosis and kidney stone yesterday. Was given a CPAP trial did reasonably well clinically however blood gases shows increasing respiratory acidosis. Patient was placed back on a backup but lower rate. Patient remained with elevated CO2 levels Objective Vital Signs - 12hr 07/14/17 07/14/17 07/14/17 01:50 02:00 02:10 Temperature Pulse Rate 74 89 107 H Pulse Rate [ Anterior Bilateral Throughout] Pulse Rate [ Anterior Right Throughout] Pulse Rate [ Apical] Pulse Rate [ From Monitor] Pulse Rate [ Left Radial] Pulse Rate [ Right Radial] Respiratory 17 14 19 Rate Respiratory Rate [Anterior Bilateral Throughout] Respiratory Rate [Anterior Right Throughout] Blood Pressure 137/62 137/62 132/93 O2 Sat by Pulse 96 96 97 Oximetry 07/14/17 07/14/17 07/14/17 02:20 02:30 02:35 Temperature Pulse Rate 79 84 Pulse Rate [ 107 H Anterior Bilateral Throughout] Pulse Rate [ Anterior Right Throughout] Pulse Rate [ Apical] Pulse Rate [ From Monitor] Pulse Rate [ Left Radial] Pulse Rate [ Right Radial] Respiratory 14 14 Rate Respiratory 18 Rate [Anterior Bilateral Throughout] Respiratory Rate [Anterior Right Throughout] Blood Pressure 132/93 132/93 O2 Sat by Pulse 97 97 Oximetry 07/14/17 07/14/17 07/14/17 02:40 02:50 03:00 Temperature Pulse Rate 78 90 88 Pulse Rate [ 112 H Anterior Bilateral Throughout] Pulse Rate [ Anterior Right Throughout] Pulse Rate [ Apical] Pulse Rate [ From Monitor] Pulse Rate [ Left Radial] Pulse Rate [ Right Radial] Respiratory 14 14 14 Rate Respiratory 18 Rate [Anterior Bilateral Throughout] Respiratory Rate [Anterior Right Throughout] Blood Pressure 115/64 115/64 115/64 O2 Sat by Pulse 99 97 97 Oximetry 07/14/17 07/14/17 07/14/17 03:10 03:20 03:30 Temperature Pulse Rate 79 111 H 125 H Pulse Rate [ Anterior Bilateral Throughout] Pulse Rate [ Anterior Right Throughout] Pulse Rate [ Apical] Pulse Rate [ From Monitor] Pulse Rate [ Left Radial] Pulse Rate [ Right Radial] Respiratory 16 18 14 Rate Respiratory Rate [Anterior Bilateral Throughout] Respiratory Rate [Anterior Right Throughout] Blood Pressure 123/64 123/64 123/64 O2 Sat by Pulse 97 96 97 Oximetry 07/14/17 07/14/17 07/14/17 03:34 03:40 03:50 Temperature 99.1 F Pulse Rate 118 H 124 H Pulse Rate [ Anterior Bilateral Throughout] Pulse Rate [ Anterior Right Throughout] Pulse Rate [ Apical] Pulse Rate [ From Monitor] Pulse Rate [ Left Radial] Pulse Rate [ Right Radial] Respiratory 18 15 Rate Respiratory Rate [Anterior Bilateral Throughout] Respiratory Rate [Anterior Right Throughout] Blood Pressure 201/131 201/131 O2 Sat by Pulse 97 96 Oximetry 07/14/17 07/14/17 07/14/17 04:00 04:10 04:20 Temperature Pulse Rate 116 H 128 H 119 H Pulse Rate [ Anterior Bilateral Throughout] Pulse Rate [ Anterior Right Throughout] Pulse Rate [ Apical] Pulse Rate [ From Monitor] Pulse Rate [ Left Radial] Pulse Rate [ Right Radial] Respiratory 16 15 17 Rate Respiratory Rate [Anterior Bilateral Throughout] Respiratory Rate [Anterior Right Throughout] Blood Pressure 201/131 201/131 201/131 O2 Sat by Pulse 95 96 96 Oximetry 07/14/17 07/14/17 07/14/17 04:25 04:30 04:40 Temperature Pulse Rate 115 H 100 H 93 H Pulse Rate [ Anterior Bilateral Throughout] Pulse Rate [ Anterior Right Throughout] Pulse Rate [ Apical] Pulse Rate [ From Monitor] Pulse Rate [ Left Radial] Pulse Rate [ Right Radial] Respiratory 14 14 Rate Respiratory Rate [Anterior Bilateral Throughout] Respiratory Rate [Anterior Right Throughout] Blood Pressure 177/86 201/131 99/46 O2 Sat by Pulse 96 96 96 Oximetry 07/14/17 07/14/17 07/14/17 04:50 05:00 05:10 Temperature Pulse Rate 83 90 76 Pulse Rate [ Anterior Bilateral Throughout] Pulse Rate [ Anterior Right Throughout] Pulse Rate [ 76 Apical] Pulse Rate [ 76 From Monitor] Pulse Rate [ 76 Left Radial] Pulse Rate [ 76 Right Radial] Respiratory 14 14 14 Rate Respiratory Rate [Anterior Bilateral Throughout] Respiratory Rate [Anterior Right Throughout] Blood Pressure 99/46 64/35 64/35 O2 Sat by Pulse 96 96 96 Oximetry 07/14/17 07/14/17 07/14/17 05:20 05:30 05:40 Temperature Pulse Rate 87 81 86 Pulse Rate [ Anterior Bilateral Throughout] Pulse Rate [ Anterior Right Throughout] Pulse Rate [ Apical] Pulse Rate [ From Monitor] Pulse Rate [ Left Radial] Pulse Rate [ Right Radial] Respiratory 14 14 14 Rate Respiratory Rate [Anterior Bilateral Throughout] Respiratory Rate [Anterior Right Throughout] Blood Pressure 134/86 134/86 85/42 O2 Sat by Pulse 96 97 96 Oximetry 07/14/17 07/14/17 07/14/17 05:50 06:00 06:10 Temperature Pulse Rate 90 91 H 82 Pulse Rate [ Anterior Bilateral Throughout] Pulse Rate [ Anterior Right Throughout] Pulse Rate [ Apical] Pulse Rate [ From Monitor] Pulse Rate [ Left Radial] Pulse Rate [ Right Radial] Respiratory 14 14 14 Rate Respiratory Rate [Anterior Bilateral Throughout] Respiratory Rate [Anterior Right Throughout] Blood Pressure 134/74 100/53 100/53 O2 Sat by Pulse 97 97 97 Oximetry 07/14/17 07/14/17 07/14/17 06:20 06:30 06:40 Temperature Pulse Rate 80 77 73 Pulse Rate [ Anterior Bilateral Throughout] Pulse Rate [ Anterior Right Throughout] Pulse Rate [ Apical] Pulse Rate [ From Monitor] Pulse Rate [ Left Radial] Pulse Rate [ Right Radial] Respiratory 13 14 14 Rate Respiratory Rate [Anterior Bilateral Throughout] Respiratory Rate [Anterior Right Throughout] Blood Pressure 100/53 88/45 88/45 O2 Sat by Pulse 98 98 98 Oximetry 07/14/17 07/14/17 07/14/17 06:50 07:00 07:10 Temperature Pulse Rate 77 93 H 78 Pulse Rate [ Anterior Bilateral Throughout] Pulse Rate [ Anterior Right Throughout] Pulse Rate [ Apical] Pulse Rate [ From Monitor] Pulse Rate [ Left Radial] Pulse Rate [ Right Radial] Respiratory 14 14 14 Rate Respiratory Rate [Anterior Bilateral Throughout] Respiratory Rate [Anterior Right Throughout] Blood Pressure 85/51 85/51 118/64 O2 Sat by Pulse 98 98 97 Oximetry 07/14/17 07/14/17 07/14/17 07:20 07:30 07:40 Temperature Pulse Rate 79 77 75 Pulse Rate [ Anterior Bilateral Throughout] Pulse Rate [ Anterior Right Throughout] Pulse Rate [ Apical] Pulse Rate [ From Monitor] Pulse Rate [ Left Radial] Pulse Rate [ Right Radial] Respiratory 14 14 14 Rate Respiratory Rate [Anterior Bilateral Throughout] Respiratory Rate [Anterior Right Throughout] Blood Pressure 118/64 88/46 118/64 O2 Sat by Pulse 97 97 98 Oximetry 07/14/17 07/14/17 07/14/17 07:50 07:58 08:00 Temperature 99.6 F Pulse Rate 94 H 85 111 H Pulse Rate [ 84 Anterior Bilateral Throughout] Pulse Rate [ Anterior Right Throughout] Pulse Rate [ Apical] Pulse Rate [ From Monitor] Pulse Rate [ Left Radial] Pulse Rate [ Right Radial] Respiratory 15 22 Rate Respiratory 14 Rate [Anterior Bilateral Throughout] Respiratory Rate [Anterior Right Throughout] Blood Pressure 211/107 167/82 167/82 O2 Sat by Pulse 97 97 98 Oximetry 07/14/17 07/14/17 07/14/17 08:10 08:20 08:30 Temperature Pulse Rate 99 H 110 H 88 Pulse Rate [ Anterior Bilateral Throughout] Pulse Rate [ 104 H Anterior Right Throughout] Pulse Rate [ Apical] Pulse Rate [ From Monitor] Pulse Rate [ Left Radial] Pulse Rate [ Right Radial] Respiratory 14 15 21 Rate Respiratory Rate [Anterior Bilateral Throughout] Respiratory 15 Rate [Anterior Right Throughout] Blood Pressure 223/130 223/130 223/130 O2 Sat by Pulse 98 97 96 Oximetry 07/14/17 07/14/17 07/14/17 08:40 08:42 08:50 Temperature Pulse Rate 98 H 98 H Pulse Rate [ Anterior Bilateral Throughout] Pulse Rate [ Anterior Right Throughout] Pulse Rate [ Apical] Pulse Rate [ 111 H From Monitor] Pulse Rate [ Left Radial] Pulse Rate [ Right Radial] Respiratory 14 22 16 Rate Respiratory Rate [Anterior Bilateral Throughout] Respiratory Rate [Anterior Right Throughout] Blood Pressure 168/72 168/72 O2 Sat by Pulse 96 98 95 Oximetry 07/14/17 07/14/17 07/14/17 09:00 09:04 09:10 Temperature Pulse Rate 86 92 H 99 H Pulse Rate [ Anterior Bilateral Throughout] Pulse Rate [ Anterior Right Throughout] Pulse Rate [ Apical] Pulse Rate [ From Monitor] Pulse Rate [ Left Radial] Pulse Rate [ Right Radial] Respiratory 17 15 Rate Respiratory Rate [Anterior Bilateral Throughout] Respiratory Rate [Anterior Right Throughout] Blood Pressure 168/72 140/53 168/72 O2 Sat by Pulse 96 97 Oximetry 07/14/17 07/14/17 07/14/17 09:20 09:30 09:40 Temperature Pulse Rate 127 H 96 H 80 Pulse Rate [ Anterior Bilateral Throughout] Pulse Rate [ Anterior Right Throughout] Pulse Rate [ Apical] Pulse Rate [ From Monitor] Pulse Rate [ Left Radial] Pulse Rate [ Right Radial] Respiratory 18 15 14 Rate Respiratory Rate [Anterior Bilateral Throughout] Respiratory Rate [Anterior Right Throughout] Blood Pressure 168/72 168/72 159/67 O2 Sat by Pulse 96 96 96 Oximetry 07/14/17 07/14/17 07/14/17 09:50 10:00 10:10 Temperature Pulse Rate 74 85 75 Pulse Rate [ Anterior Bilateral Throughout] Pulse Rate [ Anterior Right Throughout] Pulse Rate [ Apical] Pulse Rate [ From Monitor] Pulse Rate [ Left Radial] Pulse Rate [ Right Radial] Respiratory 14 14 17 Rate Respiratory Rate [Anterior Bilateral Throughout] Respiratory Rate [Anterior Right Throughout] Blood Pressure 159/67 159/67 131/37 O2 Sat by Pulse 96 97 97 Oximetry 07/14/17 07/14/17 07/14/17 10:20 10:30 10:40 Temperature Pulse Rate 73 74 67 Pulse Rate [ Anterior Bilateral Throughout] Pulse Rate [ Anterior Right Throughout] Pulse Rate [ Apical] Pulse Rate [ From Monitor] Pulse Rate [ Left Radial] Pulse Rate [ Right Radial] Respiratory 15 15 14 Rate Respiratory Rate [Anterior Bilateral Throughout] Respiratory Rate [Anterior Right Throughout] Blood Pressure 131/37 131/37 101/41 O2 Sat by Pulse 97 97 97 Oximetry 07/14/17 07/14/17 07/14/17 10:50 11:00 11:10 Temperature Pulse Rate 82 68 85 Pulse Rate [ Anterior Bilateral Throughout] Pulse Rate [ Anterior Right Throughout] Pulse Rate [ Apical] Pulse Rate [ From Monitor] Pulse Rate [ Left Radial] Pulse Rate [ Right Radial] Respiratory 14 14 14 Rate Respiratory Rate [Anterior Bilateral Throughout] Respiratory Rate [Anterior Right Throughout] Blood Pressure 131/37 118/63 118/63 O2 Sat by Pulse 98 98 98 Oximetry 07/14/17 07/14/17 07/14/17 11:30 11:32 12:00 Temperature 99.9 F H Pulse Rate 77 76 Pulse Rate [ Anterior Bilateral Throughout] Pulse Rate [ Anterior Right Throughout] Pulse Rate [ Apical] Pulse Rate [ From Monitor] Pulse Rate [ Left Radial] Pulse Rate [ Right Radial] Respiratory Rate Respiratory Rate [Anterior Bilateral Throughout] Respiratory Rate [Anterior Right Throughout] Blood Pressure 118/63 164/70 O2 Sat by Pulse 98 98 Oximetry Constitutional: appears uncomfortable, other (morbidly obese) ENT: other (orally intubated) Neck: supple (and large in circumference) Effort: mildly labored Ascultation: Bilateral: diminished breath sounds, rales Percussion: Bilateral: not dull Cardiovascular: regular rate and rhythm (tachycardia) Gastrointestinal: hypoactive bowel sounds CBC and BMP: 07/14/17 04:21 07/14/17 04:21 ABG, PT/INR, D-dimer: ABG POC ABG pH 7.301 (7.35-7.45) L 07/14/17 04:31 POC ABG pCO2 51.4 (35-45) H 07/14/17 04:31 POC ABG pO2 84 (80-105) 07/14/17 04:31 POC ABG HCO3 25.3 07/14/17 04:31 POC ABG Total CO2 27 07/14/17 04:31 POC ABG O2 Sat 95 07/14/17 04:31 Abnormal lab findings: Abnormal Labs 07/09/17 07/09/17 07/09/17 18:05 18:05 21:15 WBC 15.0 H Hct 43.7 H Lymph % (Auto) 10.7 L [place] % (Auto) [place] # Seg Neutrophils % 83.9 H Seg Neutrophils # 12.6 H POC ABG pH POC ABG pCO2 POC ABG pO2 Sodium Chloride 96.7 L Carbon Dioxide 31 H BUN 18 H Glucose 146 H POC Glucose Lactic Acid 2.50 H* Calcium NT-Pro-B Natriuret Pep 1456 H Albumin 3.8 L Urine WBC (Auto) 07/09/17 07/09/17 07/09/17 21:20 21:46 22:59 WBC Hct Lymph % (Auto) [place] % (Auto) [place] # Seg Neutrophils % Seg Neutrophils # POC ABG pH POC ABG pCO2 54.6 H POC ABG pO2 Sodium Chloride Carbon Dioxide BUN Glucose POC Glucose Lactic Acid 2.30 H* Calcium NT-Pro-B Natriuret Pep Albumin Urine WBC (Auto) 29.0 H 07/10/17 07/11/17 07/11/17 04:35 05:12 06:11 WBC 18.4 H Hct Lymph % (Auto) 8.6 L [place] % (Auto) 7.9 H [place] # 1.5 H Seg Neutrophils % 83.5 H Seg Neutrophils # 15.3 H POC ABG pH 7.282 L POC ABG pCO2 61.2 H POC ABG pO2 155 H Sodium Chloride Carbon Dioxide BUN Glucose POC Glucose Lactic Acid Calcium NT-Pro-B Natriuret Pep Albumin Urine WBC (Auto) 07/11/17 07/12/17 07/12/17 06:11 04:16 05:03 WBC Hct Lymph % (Auto) [place] % (Auto) [place] # Seg Neutrophils % Seg Neutrophils # POC ABG pH 7.468 H POC ABG pCO2 48.2 H POC ABG pO2 41 L Sodium Chloride Carbon Dioxide BUN 37 H Glucose 130 H POC Glucose Lactic Acid Calcium NT-Pro-B Natriuret Pep Albumin Urine WBC (Auto) 07/12/17 07/12/17 07/13/17 09:01 09:01 04:53 WBC 12.2 H Hct Lymph % (Auto) [place] % (Auto) 10.9 H [place] # 1.3 H Seg Neutrophils % Seg Neutrophils # 8.2 H POC ABG pH POC ABG pCO2 POC ABG pO2 55 L Sodium 146 H Chloride Carbon Dioxide BUN 31 H Glucose POC Glucose Lactic Acid Calcium 8.0 L NT-Pro-B Natriuret Pep Albumin Urine WBC (Auto) 07/13/17 07/13/17 07/14/17 13:29 23:20 04:21 WBC 13.3 H Hct Lymph % (Auto) [place] % (Auto) 10.4 H [place] # 1.4 H Seg Neutrophils % Seg Neutrophils # 8.8 H POC ABG pH 7.315 L POC ABG pCO2 52.5 H POC ABG pO2 Sodium Chloride Carbon Dioxide BUN Glucose POC Glucose 121 H Lactic Acid Calcium NT-Pro-B Natriuret Pep Albumin Urine WBC (Auto) 07/14/17 07/14/17 04:21 04:31 WBC Hct Lymph % (Auto) [place] % (Auto) [place] # Seg Neutrophils % Seg Neutrophils # POC ABG pH 7.301 L POC ABG pCO2 51.4 H POC ABG pO2 Sodium 146 H Chloride 109.0 H Carbon Dioxide BUN 22 H Glucose 107 H POC Glucose Lactic Acid Calcium 8.3 L NT-Pro-B Natriuret Pep Albumin 3.0 L Urine WBC (Auto)
[2017-07-15] MEDS: fentaNYL DRIP Premix 2,000 MCG/100 ML BAG IV SCH ×4 (00:27→21:07)
[2017-07-15] MEDS: XOPENEX IH SCH ×4 (01:59→19:42)
--- NOTE | 2017-07-15 02:46 | XRay Report ---
FINAL REPORT EXAM: XR CHEST 1V AP HISTORY: follow up respiratory failure TECHNIQUE: A portable upright view the chest was obtained. Comparison is made study of 07/14/2017. FINDINGS: The heart is moderately enlarged. The lungs reveal stable diffuse congestion. There are bilateral effusions. The ET tube and NG tube appear in good position. The tip of the right-sided central venous line remains in the superior vena cava. The bones and soft tissues do not show any acute changes. IMPRESSION: Stable cardiomegaly with pulmonary vascular congestion and effusions. Satisfactory position of all tubes and lines.
[2017-07-15] MEDS: NACL 0.9% 1000 ML 1,000 ML IV SCH ×3 (05:09→22:59)
[2017-07-15 07:56] LABS: Basophils % (Auto) 0.3 % (0.0-1.8); Eosinophils # (Auto) 0.1 K/mm3 (0.0-0.4); Eosinophils % (Auto) 0.9 % (0.0-4.3); Hematocrit 36.1 % (30.3-42.9); Hemoglobin 11.8 gm/dl (10.1-14.3); Lymphocytes # (Auto) 1.9 K/mm3 (1.2-5.4); Lymphocytes % (Auto) 16.9 % (13.4-35.0); Mean Corpuscular HGB Conc 33 % (30-34); Mean Corpuscular Hemoglobin 30 pg (28-32); Mean Corpuscular Volume 91 fl (79-97); Monocytes % (Auto) 9.2 % (0.0-7.3); Platelet Count 170 K/mm3 (140-440); Red Blood Count 3.95 M/mm3 (3.65-5.03); Red Cell Distribution Width 14.3 % (13.2-15.2)
--- NOTE | 2017-07-15 09:00 | Fluoroscopy Report ---
Retrograde pyelogram: Right ureteral calculus. The initial images demonstrate a calculus overlying the mid left sacrum. Injection of contrast into the right ureter confirms the presence of a calculus within the ureter and mild dilatation of the partially visualized proximal ureter. There is also incomplete visualization of a nondistended intrarenal collecting system. Injection of contrast into the left ureter demonstrates an unremarkable ureter and renal collecting system. On the final image a right internal stent has been placed and apparently the stone remains in place.
[2017-07-15] MEDS: LEVAQUIN 750MG/150ML 750 MG/150 ML BAG IV SCH (09:07)
[2017-07-15] MEDS: CORDARONE PO SCH (09:08)
[2017-07-15] MEDS: LOPRESSOR PO SCH ×2 (09:08→21:15)
[2017-07-15] MEDS: LOVENOX SUB-Q SCH (09:09)
[2017-07-15] MEDS: PEPCID IV SCH ×2 (09:09→21:15)
[2017-07-15 09:15] LABS: BUN/Creatinine Ratio 35; Blood Urea Nitrogen 21 mg/dL (7-17); Calcium 8.1 mg/dL (8.4-10.2); Hemolysis Index 5
--- NOTE | 2017-07-15 10:27 | Progress Note ---
Assessment and Plan Assessment and plan: Acute respiratory failure --Cont Vent management per Pulm. Cont Spontaneous breathing trials daily Sepsis. Cont. IV Abx. Blood cx negative Urinary tract infection. Currently on levaquin Right Hydronephrosis with partial obstructing stone S/p cysto, rpg, rt stent 24cm x 6---07-12-17 ([facility]) WBC trending down family at bedside Hypernatremia. Add free water. CHF, stable Atrial fibrillation Obstructive sleep apnea Hypothyroidism DVT prophylaxis SQ Lovenox The high probability of a clinically significant, sudden or life threatening deterioration of the [Pulmonary, cadiac, renal] system(s) required my full and direct attention, intervention and personal management. The aggregate critical care time was [32] minutes. This time is in addition to time spent performing reported procedures but includes the following: [x] Data Review and interpretation [x] Patient assessment and monitoring of vital signs [x] Documentation [x] Medication orders and management History Interval history: PT. remains intubated on vent Hospitalist Physical - Constitutional Vitals: Temp Pulse Resp BP Pulse Ox 98.5 F 98 H 16 139/91 98 07/15/17 08:00 07/15/17 09:08 07/15/17 06:50 07/15/17 09:08 07/15/17 06:50 General appearance: Present: mild distress, well-nourished, other (orally intubated) - EENT Eyes: Present: PERRL, EOM intact ENT: hearing intact, clear oral mucosa, dentition normal - Neck Neck: Present: supple, normal ROM - Respiratory Respiratory effort: normal Respiratory: bilateral: CTA - Cardiovascular Rhythm: regular Heart Sounds: Present: S1 & S2. Absent: gallop, rub - Extremities Extremities: no ischemia, No edema, Full ROM - Abdominal General gastrointestinal: soft, non-tender, non-distended, normal bowel sounds - Integumentary Integumentary: Present: clear, warm, dry - Neurologic Neurologic: CNII-XII intact, moves all extremities Results - Labs CBC & Chem 7: 07/15/17 07:30 07/15/17 07:30 Labs: Laboratory Last Values WBC 10.9 K/mm3 (4.5-11.0) 07/15/17 07:30 RBC 3.95 M/mm3 (3.65-5.03) 07/15/17 07:30 Hgb 11.8 gm/dl (10.1-14.3) 07/15/17 07:30 Hct 36.1 % (30.3-42.9) 07/15/17 07:30 MCV 91 fl (79-97) 07/15/17 07:30 MCH 30 pg (28-32) 07/15/17 07:30 MCHC 33 % (30-34) 07/15/17 07:30 RDW 14.3 % (13.2-15.2) 07/15/17 07:30 Plt Count 170 K/mm3 (140-440) 07/15/17 07:30 Lymph % (Auto) 16.9 % (13.4-35.0) 07/15/17 07:30 [place] % (Auto) 9.2 % (0.0-7.3) H 07/15/17 07:30 Eos % (Auto) 0.9 % (0.0-4.3) 07/15/17 07:30 Baso % (Auto) 0.3 % (0.0-1.8) 07/15/17 07:30 Lymph # 1.9 K/mm3 (1.2-5.4) 07/15/17 07:30 [place] # 1.0 K/mm3 (0.0-0.8) H 07/15/17 07:30 Eos # 0.1 K/mm3 (0.0-0.4) 07/15/17 07:30 Baso # 0.0 K/mm3 (0.0-0.1) 07/15/17 07:30 Seg Neutrophils % 72.7 % (40.0-70.0) H 07/15/17 07:30 Seg Neutrophils # 7.9 K/mm3 (1.8-7.7) H 07/15/17 07:30 POC ABG pH 7.368 (7.35-7.45) 07/15/17 03:39 POC ABG pCO2 42.3 (35-45) 07/15/17 03:39 POC ABG pO2 101 (80-105) 07/15/17 03:39 POC ABG HCO3 24.4 07/15/17 03:39 POC ABG Total CO2 26 07/15/17 03:39 POC ABG O2 Sat 98 07/15/17 03:39 POC ABG Base Excess -1 07/15/17 03:39 FiO2 35 % 07/15/17 03:39 Sodium 149 mmol/L (137-145) H 07/15/17 07:30 Potassium 3.5 mmol/L (3.6-5.0) L 07/15/17 07:30 Chloride 111.6 mmol/L (98-107) H 07/15/17 07:30 Carbon Dioxide 24 mmol/L (22-30) 07/15/17 07:30 Anion Gap 17 mmol/L 07/15/17 07:30 BUN 21 mg/dL (7-17) H 07/15/17 07:30 Creatinine 0.6 mg/dL (0.7-1.2) L 07/15/17 07:30 Estimated GFR > 60 ml/min 07/15/17 07:30 BUN/Creatinine Ratio 35 % 07/15/17 07:30 Glucose 88 mg/dL (65-100) 07/15/17 07:30 POC Glucose 88 (70-105) 07/14/17 12:11 Lactic Acid 2.30 mmol/L (0.7-2.0) H* 07/09/17 22:59 Calcium 8.1 mg/dL (8.4-10.2) L 07/15/17 07:30 Total Bilirubin 0.80 mg/dL (0.1-1.2) 07/14/17 04:21 AST 15 units/L (5-40) 07/14/17 04:21 ALT 13 units/L (7-56) 07/14/17 04:21 Alkaline Phosphatase 53 units/L (35-129) 07/14/17 04:21 Total Creatine Kinase 34 units/L (30-135) 07/09/17 18:05 CK-MB (CK-2) < 1.0 ng/mL (0.0-4.0) 07/09/17 18:05 CK-MB (CK-2) Rel Index 2.9 (0-4) 07/09/17 18:05 Troponin T < 0.010 ng/mL (0.00-0.029) 07/09/17 18:05 NT-Pro-B Natriuret Pep 1456 pg/mL (0-900) H 07/09/17 18:05 Total Protein 6.5 g/dL (6.3-8.2) 07/14/17 04:21 Albumin 3.0 g/dL (3.9-5) L 07/14/17 04:21 Albumin/Globulin Ratio 0.9 % 07/14/17 04:21 Lipase 16 units/L (13-60) 07/09/17 18:05 Urine Color Yellow (Yellow) 07/09/17 21:20 Urine Turbidity Clear (Clear) 07/09/17 21:20 Urine pH 6.0 (5.0-7.0) 07/09/17 21:20 Ur Specific [place] 1.015 (1.003-1.030) 07/09/17 21:20 Urine Protein 100 mg/dl mg/dL (Negative) 07/09/17 21:20 Urine Glucose (UA) 50 mg/dL (Negative) 07/09/17 21:20 Urine Ketones Neg mg/dL (Negative) 07/09/17 21:20 Urine Blood Lg (Negative) 07/09/17 21:20 Urine Nitrite Neg (Negative) 07/09/17 21:20 Urine Bilirubin Neg (Negative) 07/09/17 21:20 Urine Urobilinogen < 2.0 mg/dL (<2.0) 07/09/17 21:20 Ur Leukocyte Esterase Tr (Negative) 07/09/17 21:20 Urine WBC (Auto) 29.0 /HPF (0.0-6.0) H 07/09/17 21:20 Urine RBC (Auto) 86.0 /HPF (0.0-6.0) 07/09/17 21:20 U Epithel Cells (Auto) 1.0 /HPF (0-13.0) 07/09/17 21:20 Urine Bacteria (Auto) 2+ /HPF (Negative) 07/09/17 21:20 Urine Mucus Few /HPF 07/09/17 21:20 Plasma/Serum Alcohol < 0.01 gm% (0-0.07) 07/14/17 14:20
--- NOTE | 2017-07-15 16:28 | Progress Note ---
Assessment and Plan 76 y/o obese female, followed as an outpatient by [facility], admitted with acute on chronic respiratory failure, renal stone, hydronephrosis status post cystoscopy and J stent. Possible UTI causing low-grade fever. 1. Wean FiO2 for sats >88% 2. Daily CXR and Daily AM ABG's 3. Respiratory acidosis resolved with mechanical ventilation however increasing PaCO2 noted on CPAP trial along with some evidence of metabolic acidosis 4. Post cystoscopy with successful placement of J Stent 5. BP control, after load reduction 6. SBT, daily 7. Family updated 8. Continue with mechanical ventilator and Levaquin. We will consider broadening the antibiotic coverage if fever persist. 9. Urine and sputum and blood cultures. Total critical care time 31 minute Subjective Date of service: 07/15/17 Principal diagnosis: Sepsis Interval history: Patient remained awake and responsive. He underwent cystoscopy and placement of J stamps for hydronephrosis and kidney stone Saturday. Was given a CPAP trial did reasonably well clinically however blood gases shows increasing respiratory/ metabolic acidosis. Objective Vital Signs - 12hr 07/15/17 07/15/17 07/15/17 04:30 04:40 04:50 Temperature Pulse Rate 88 98 H 114 H Pulse Rate [ Apical] Pulse Rate [ From Monitor] Pulse Rate [ Left Radial] Pulse Rate [ Right Radial] Respiratory 16 15 15 Rate Blood Pressure 157/68 183/102 183/102 O2 Sat by Pulse 95 95 95 Oximetry 07/15/17 07/15/17 07/15/17 05:00 05:10 05:20 Temperature Pulse Rate 100 H 96 H 88 Pulse Rate [ 86 Apical] Pulse Rate [ 86 From Monitor] Pulse Rate [ 86 Left Radial] Pulse Rate [ 86 Right Radial] Respiratory 16 16 16 Rate Blood Pressure 169/85 169/85 169/85 O2 Sat by Pulse 94 97 98 Oximetry 07/15/17 07/15/17 07/15/17 05:30 05:40 05:50 Temperature Pulse Rate 87 74 71 Pulse Rate [ Apical] Pulse Rate [ From Monitor] Pulse Rate [ Left Radial] Pulse Rate [ Right Radial] Respiratory 15 16 16 Rate Blood Pressure 169/85 139/70 139/70 O2 Sat by Pulse 97 97 97 Oximetry 07/15/17 07/15/17 07/15/17 06:00 06:10 06:21 Temperature Pulse Rate 67 76 69 Pulse Rate [ Apical] Pulse Rate [ From Monitor] Pulse Rate [ Left Radial] Pulse Rate [ Right Radial] Respiratory 16 16 16 Rate Blood Pressure 139/70 98/34 139/70 O2 Sat by Pulse 98 98 98 Oximetry 07/15/17 07/15/17 07/15/17 06:30 06:40 06:50 Temperature Pulse Rate 73 71 65 Pulse Rate [ Apical] Pulse Rate [ From Monitor] Pulse Rate [ Left Radial] Pulse Rate [ Right Radial] Respiratory 16 16 16 Rate Blood Pressure 97/55 97/55 98/34 O2 Sat by Pulse 98 98 98 Oximetry 07/15/17 07/15/17 07/15/17 08:00 08:55 09:08 Temperature 98.5 F Pulse Rate 96 H 98 H Pulse Rate [ Apical] Pulse Rate [ From Monitor] Pulse Rate [ Left Radial] Pulse Rate [ Right Radial] Respiratory Rate Blood Pressure 139/91 139/91 O2 Sat by Pulse 96 Oximetry 07/15/17 07/15/17 07/15/17 14:45 15:41 16:00 Temperature Pulse Rate 90 86 78 Pulse Rate [ Apical] Pulse Rate [ From Monitor] Pulse Rate [ Left Radial] Pulse Rate [ Right Radial] Respiratory 18 Rate Blood Pressure 171/105 178/87 O2 Sat by Pulse 95 95 95 Oximetry Constitutional: appears uncomfortable, other (morbidly obese) ENT: other (orally intubated) Neck: supple (and large in circumference) Effort: mildly labored Ascultation: Bilateral: diminished breath sounds, rales Percussion: Bilateral: not dull Cardiovascular: regular rate and rhythm (tachycardia) Gastrointestinal: hypoactive bowel sounds CBC and BMP: 07/15/17 07:30 07/15/17 07:30 ABG, PT/INR, D-dimer: ABG POC ABG pH 7.301 (7.35-7.45) L 07/15/17 16:00 POC ABG pCO2 47.3 (35-45) H 07/15/17 16:00 POC ABG pO2 79 (80-105) L 07/15/17 16:00 POC ABG HCO3 23.3 07/15/17 16:00 POC ABG Total CO2 25 07/15/17 16:00 POC ABG O2 Sat 94 07/15/17 16:00 Abnormal lab findings: Abnormal Labs 07/09/17 07/09/17 07/09/17 18:05 18:05 21:15 WBC 15.0 H Hct 43.7 H Lymph % (Auto) 10.7 L [place] % (Auto) [place] # Seg Neutrophils % 83.9 H Seg Neutrophils # 12.6 H POC ABG pH POC ABG pCO2 POC ABG pO2 Sodium Potassium Chloride 96.7 L Carbon Dioxide 31 H BUN 18 H Creatinine Glucose 146 H POC Glucose Lactic Acid 2.50 H* Calcium NT-Pro-B Natriuret Pep 1456 H Albumin 3.8 L Urine WBC (Auto) 07/09/17 07/09/17 07/09/17 21:20 21:46 22:59 WBC Hct Lymph % (Auto) [place] % (Auto) [place] # Seg Neutrophils % Seg Neutrophils # POC ABG pH POC ABG pCO2 54.6 H POC ABG pO2 Sodium Potassium Chloride Carbon Dioxide BUN Creatinine Glucose POC Glucose Lactic Acid 2.30 H* Calcium NT-Pro-B Natriuret Pep Albumin Urine WBC (Auto) 29.0 H 07/10/17 07/11/17 07/11/17 04:35 05:12 06:11 WBC 18.4 H Hct Lymph % (Auto) 8.6 L [place] % (Auto) 7.9 H [place] # 1.5 H Seg Neutrophils % 83.5 H Seg Neutrophils # 15.3 H POC ABG pH 7.282 L POC ABG pCO2 61.2 H POC ABG pO2 155 H Sodium Potassium Chloride Carbon Dioxide BUN Creatinine Glucose POC Glucose Lactic Acid Calcium NT-Pro-B Natriuret Pep Albumin Urine WBC (Auto) 07/11/17 07/12/17 07/12/17 06:11 04:16 05:03 WBC Hct Lymph % (Auto) [place] % (Auto) [place] # Seg Neutrophils % Seg Neutrophils # POC ABG pH 7.468 H POC ABG pCO2 48.2 H POC ABG pO2 41 L Sodium Potassium Chloride Carbon Dioxide BUN 37 H Creatinine Glucose 130 H POC Glucose Lactic Acid Calcium NT-Pro-B Natriuret Pep Albumin Urine WBC (Auto) 07/12/17 07/12/17 07/13/17 09:01 09:01 04:53 WBC 12.2 H Hct Lymph % (Auto) [place] % (Auto) 10.9 H [place] # 1.3 H Seg Neutrophils % Seg Neutrophils # 8.2 H POC ABG pH POC ABG pCO2 POC ABG pO2 55 L Sodium 146 H Potassium Chloride Carbon Dioxide BUN 31 H Creatinine Glucose POC Glucose Lactic Acid Calcium 8.0 L NT-Pro-B Natriuret Pep Albumin Urine WBC (Auto) 07/13/17 07/13/17 07/14/17 13:29 23:20 04:21 WBC 13.3 H Hct Lymph % (Auto) [place] % (Auto) 10.4 H [place] # 1.4 H Seg Neutrophils % Seg Neutrophils # 8.8 H POC ABG pH 7.315 L POC ABG pCO2 52.5 H POC ABG pO2 Sodium Potassium Chloride Carbon Dioxide BUN Creatinine Glucose POC Glucose 121 H Lactic Acid Calcium NT-Pro-B Natriuret Pep Albumin Urine WBC (Auto) 07/14/17 07/14/17 07/15/17 04:21 04:31 07:30 WBC Hct Lymph % (Auto) [place] % (Auto) 9.2 H [place] # 1.0 H Seg Neutrophils % 72.7 H Seg Neutrophils # 7.9 H POC ABG pH 7.301 L POC ABG pCO2 51.4 H POC ABG pO2 Sodium 146 H Potassium Chloride 109.0 H Carbon Dioxide BUN 22 H Creatinine Glucose 107 H POC Glucose Lactic Acid Calcium 8.3 L NT-Pro-B Natriuret Pep Albumin 3.0 L Urine WBC (Auto) 07/15/17 07/15/17 07:30 16:00 WBC Hct Lymph % (Auto) [place] % (Auto) [place] # Seg Neutrophils % Seg Neutrophils # POC ABG pH 7.301 L POC ABG pCO2 47.3 H POC ABG pO2 79 L Sodium 149 H Potassium 3.5 L Chloride 111.6 H Carbon Dioxide BUN 21 H Creatinine 0.6 L Glucose POC Glucose Lactic Acid Calcium 8.1 L NT-Pro-B Natriuret Pep Albumin Urine WBC (Auto)
[2017-07-15] MEDS: NORMODYNE FEEDTUBE SCH (22:19)
[2017-07-16] MEDS: XOPENEX IH SCH ×4 (01:14→21:16)
[2017-07-16] MEDS: fentaNYL DRIP Premix 2,000 MCG/100 ML BAG IV SCH ×2 (02:46→21:23)
[2017-07-16 04:57] LABS: Basophils % (Auto) 0.2 % (0.0-1.8); Eosinophils # (Auto) 0.1 K/mm3 (0.0-0.4); Hemoglobin 11.7 gm/dl (10.1-14.3); Lymphocytes # (Auto) 2.3 K/mm3 (1.2-5.4); Lymphocytes % (Auto) 23.4 % (13.4-35.0); Mean Corpuscular HGB Conc 33 % (30-34); Mean Corpuscular Hemoglobin 29 pg (28-32); Mean Corpuscular Volume 90 fl (79-97); Platelet Count 180 K/mm3 (140-440)
[2017-07-16 05:14] LABS: BUN/Creatinine Ratio 30; Blood Urea Nitrogen 18 mg/dL (7-17); Hemolysis Index 4
[2017-07-16] MEDS: APRESOLINE IV PRN ×2 (06:40→21:19)
[2017-07-16] MEDS: NACL 0.9% 1000 ML 1,000 ML IV SCH (06:44)
--- NOTE | 2017-07-16 07:44 | XRay Report ---
CHEST 1 VIEW INDICATION: Respiratory failure followup. COMPARISON: Yesterday. FINDINGS: Portable, frontal chest radiograph, 1:35 AM, 07/16/2017 reveals stable cardiomediastinal silhouette, supporting devices, appearance of the lungs and osseous structures, providing for the difference in technique. CONCLUSION: No significant interval change in bilateral opacities and various supporting devices. Thank you for the opportunity to participate in this patient's care.
[2017-07-16] MEDS: LEVAQUIN 750MG/150ML 750 MG/150 ML BAG IV SCH (09:41)
[2017-07-16] MEDS: LOVENOX SUB-Q SCH (09:42)
[2017-07-16] MEDS: NORMODYNE FEEDTUBE SCH (09:42)
[2017-07-16] MEDS: PEPCID IV SCH ×2 (09:42→21:19)
[2017-07-16] MEDS: CORDARONE PO SCH (09:43)
[2017-07-16] MEDS: LOPRESSOR PO SCH ×2 (09:43→21:19)
[2017-07-16] MEDS ORDERED: KCL 10MEQ/100ML 10 MEQ/100 ML BAG IV ONE (10:00)
[2017-07-16] MEDS ORDERED: SODIUM BICARBONATE FEEDTUBE PRN (11:00)
[2017-07-16] MEDS ORDERED: SIMPLE SYRUP FEEDTUBE PRN ×2 (11:00)
[2017-07-16] MEDS ORDERED: PANCREAZE DR 10,500 UNIT FEEDTUBE PRN (11:00)
--- NOTE | 2017-07-16 12:10 | Progress Note ---
Assessment and Plan Assessment and plan: Acute respiratory failure --Cont Vent management per Pulm. Cont Spontaneous breathing trials daily Sepsis. Cont. IV Abx. Blood cx negative. Patient with intermittent persistent fevers. ID consultation. Urinary tract infection. Currently on levaquin Right Hydronephrosis with partial obstructing stone S/p cysto, rpg, rt stent 24cm x 6---07-12-17 ([facility]) Hypernatremia. Continue free water. CHF, stable Atrial fibrillation. Continue amiodarone. Obstructive sleep apnea Hypothyroidism DVT prophylaxis-- SQ Lovenox The high probability of a clinically significant, sudden or life threatening deterioration of the [Pulmonary, cadiac, renal] system(s) required my full and direct attention, intervention and personal management. The aggregate critical care time was [31] minutes. This time is in addition to time spent performing reported procedures but includes the following: [x] Data Review and interpretation [x] Patient assessment and monitoring of vital signs [x] Documentation [x] Medication orders and management History Interval history: PT. remains intubated on vent Hospitalist Physical - Constitutional Vitals: Temp Pulse Resp BP Pulse Ox 99.1 F 120 H 20 190/100 92 07/16/17 10:21 07/16/17 09:43 07/16/17 09:16 07/16/17 09:43 07/16/17 08:00 General appearance: Present: mild distress, well-nourished, other (orally intubated) - EENT Eyes: Present: PERRL, EOM intact ENT: hearing intact, clear oral mucosa, dentition normal - Neck Neck: Present: supple, normal ROM - Respiratory Respiratory effort: normal Respiratory: bilateral: CTA - Cardiovascular Rhythm: regular Heart Sounds: Present: S1 & S2. Absent: gallop, rub - Extremities Extremities: no ischemia, No edema, Full ROM - Abdominal General gastrointestinal: soft, non-tender, non-distended, normal bowel sounds - Integumentary Integumentary: Present: clear, warm, dry - Neurologic Neurologic: CNII-XII intact, moves all extremities Results - Labs CBC & Chem 7: 07/16/17 04:40 07/16/17 04:40 Labs: Laboratory Last Values WBC 9.9 K/mm3 (4.5-11.0) 07/16/17 04:40 RBC 4.00 M/mm3 (3.65-5.03) 07/16/17 04:40 Hgb 11.7 gm/dl (10.1-14.3) 07/16/17 04:40 Hct 36.0 % (30.3-42.9) 07/16/17 04:40 MCV 90 fl (79-97) 07/16/17 04:40 MCH 29 pg (28-32) 07/16/17 04:40 MCHC 33 % (30-34) 07/16/17 04:40 RDW 14.0 % (13.2-15.2) 07/16/17 04:40 Plt Count 180 K/mm3 (140-440) 07/16/17 04:40 Lymph % (Auto) 23.4 % (13.4-35.0) 07/16/17 04:40 [place] % (Auto) 10.0 % (0.0-7.3) H 07/16/17 04:40 Eos % (Auto) 1.0 % (0.0-4.3) 07/16/17 04:40 Baso % (Auto) 0.2 % (0.0-1.8) 07/16/17 04:40 Lymph # 2.3 K/mm3 (1.2-5.4) 07/16/17 04:40 [place] # 1.0 K/mm3 (0.0-0.8) H 07/16/17 04:40 Eos # 0.1 K/mm3 (0.0-0.4) 07/16/17 04:40 Baso # 0.0 K/mm3 (0.0-0.1) 07/16/17 04:40 Seg Neutrophils % 65.4 % (40.0-70.0) 07/16/17 04:40 Seg Neutrophils # 6.5 K/mm3 (1.8-7.7) 07/16/17 04:40 POC ABG pH 7.349 (7.35-7.45) L 07/16/17 09:48 POC ABG pCO2 42.8 (35-45) 07/16/17 09:48 POC ABG pO2 65 (80-105) L 07/16/17 09:48 POC ABG HCO3 23.6 07/16/17 09:48 POC ABG Total CO2 25 07/16/17 09:48 POC ABG O2 Sat 91 07/16/17 09:48 POC ABG Base Excess -2 07/16/17 09:48 FiO2 30 % 07/16/17 09:48 Sodium 148 mmol/L (137-145) H 07/16/17 04:40 Potassium 3.4 mmol/L (3.6-5.0) L 07/16/17 04:40 Chloride 109.8 mmol/L (98-107) H 07/16/17 04:40 Carbon Dioxide 25 mmol/L (22-30) 07/16/17 04:40 Anion Gap 17 mmol/L 07/16/17 04:40 BUN 18 mg/dL (7-17) H 07/16/17 04:40 Creatinine 0.6 mg/dL (0.7-1.2) L 07/16/17 04:40 Estimated GFR > 60 ml/min 07/16/17 04:40 BUN/Creatinine Ratio 30 % 07/16/17 04:40 Glucose 93 mg/dL (65-100) 07/16/17 04:40 POC Glucose 88 (70-105) 07/14/17 12:11 Lactic Acid 2.30 mmol/L (0.7-2.0) H* 07/09/17 22:59 Calcium 8.0 mg/dL (8.4-10.2) L 07/16/17 04:40 Total Bilirubin 0.80 mg/dL (0.1-1.2) 07/14/17 04:21 AST 15 units/L (5-40) 07/14/17 04:21 ALT 13 units/L (7-56) 07/14/17 04:21 Alkaline Phosphatase 53 units/L (35-129) 07/14/17 04:21 Total Creatine Kinase 34 units/L (30-135) 07/09/17 18:05 CK-MB (CK-2) < 1.0 ng/mL (0.0-4.0) 07/09/17 18:05 CK-MB (CK-2) Rel Index 2.9 (0-4) 07/09/17 18:05 Troponin T < 0.010 ng/mL (0.00-0.029) 07/09/17 18:05 NT-Pro-B Natriuret Pep 1456 pg/mL (0-900) H 07/09/17 18:05 Total Protein 6.5 g/dL (6.3-8.2) 07/14/17 04:21 Albumin 3.0 g/dL (3.9-5) L 07/14/17 04:21 Albumin/Globulin Ratio 0.9 % 07/14/17 04:21 Lipase 16 units/L (13-60) 07/09/17 18:05 Urine Color Yellow (Yellow) 07/09/17 21:20 Urine Turbidity Clear (Clear) 07/09/17 21:20 Urine pH 6.0 (5.0-7.0) 07/09/17 21:20 Ur Specific [place] 1.015 (1.003-1.030) 07/09/17 21:20 Urine Protein 100 mg/dl mg/dL (Negative) 07/09/17 21:20 Urine Glucose (UA) 50 mg/dL (Negative) 07/09/17 21:20 Urine Ketones Neg mg/dL (Negative) 07/09/17 21:20 Urine Blood Lg (Negative) 07/09/17 21:20 Urine Nitrite Neg (Negative) 07/09/17 21:20 Urine Bilirubin Neg (Negative) 07/09/17 21:20 Urine Urobilinogen < 2.0 mg/dL (<2.0) 07/09/17 21:20 Ur Leukocyte Esterase Tr (Negative) 07/09/17 21:20 Urine WBC (Auto) 29.0 /HPF (0.0-6.0) H 07/09/17 21:20 Urine RBC (Auto) 86.0 /HPF (0.0-6.0) 07/09/17 21:20 U Epithel Cells (Auto) 1.0 /HPF (0-13.0) 07/09/17 21:20 Urine Bacteria (Auto) 2+ /HPF (Negative) 07/09/17 21:20 Urine Mucus Few /HPF 07/09/17 21:20 Plasma/Serum Alcohol < 0.01 gm% (0-0.07) 07/14/17 14:20
--- NOTE | 2017-07-16 13:11 | Consultation ---
History of Present Illness - Reason for Consult Consult date: 07/16/17 sepsis Requesting physician: HALEY THOMPSON - History of Present Illness 76 years old female with history of CHF, hypertension, hypothyroidism, A. fib, sleep apnea and morbid obesity admitted on 07/09/17 due to 24 hour history of abdominal pain. History is limited since patient is currently intubated on the ventilator. Per review of records, upon admission to the emergency room, patient was admitted in 87% on room air. Initial temperature was 98.4. Heart rate was 102. Respiration was 29. Blood pressure was 204/122. Initial white count 15. Creatinine was 0.7. Lactic acid was 2.3. Urinalysis showed trace leukocyte esterase and 29 white blood cells. Chest x-ray showed bibasilar infiltrates. CT of the abdomen showed moderate right hydronephrosis due to a partially obstructive 11 mm stone at the distal ureter. Patient required of levophed initially. CT also showed very dense bile. Also show extensive infiltrates in bilateral bilateral lower lobes. By 07/12 Patient underwent retrograde pyelogram with right stent placement. Microbiology: Blood cultures: 07/09 ngtd Urine cultures: Respiratory cultures: tracheal 07/09 usual resp rashawn sputum 07/14 pending Current Antimicrobials: Levaquin 07/10 Previous Antimicrobials: Past History Past Medical History: hypertension, other (dimple, obesity) Past Surgical History: No surgical history Social history: Medications and Allergies Allergies Allergy/AdvReac Type Severity Reaction Status Date / Time Penicillins Allergy Unknown Verified 03/20/17 21:20 Home Medications Medication Instructions Recorded Confirmed Last Taken Type Levothyroxine [Synthroid] 112 mcg PO QAM 03/21/17 07/09/17 Unknown History Apixaban [Eliquis] 5 mg PO Q12HR #60 tablet 03/30/17 07/09/17 Unknown Rx Aspirin [Aspirin BABY CHEW TAB] 81 mg PO QDAY #30 tab.chew 03/30/17 07/09/17 Unknown Rx Levalbuterol 1.25 [Xopenex] 1.25 mg IH Q6HRT #60 nebu 03/30/17 07/09/17 Unknown Rx Loratadine [Claritin] 10 mg PO QDAY #14 tablet 03/30/17 07/09/17 Unknown Rx Amiodarone [Cordarone 200 MG TAB] 200 mg PO QDAY #30 tablet 03/31/17 07/09/17 Unknown Rx Metoprolol [Lopressor TAB] 50 mg PO BID #30 tablet 03/31/17 07/09/17 Unknown Rx Triamcinolone 0.1% [Kenalog 0.1% 1 applic TP BID #1 tube 03/31/17 07/09/17 Unknown Rx CREAM] Sodium Chloride 0.65% Nasal [Deep 2 spray NS TID #7 bottle 04/01/17 07/09/17 Unknown Rx Sea NASAL SPRAY] Active Meds: Active Medications Acetaminophen (Tylenol) 650 mg TN Q4H PRN PRN Reason: Pain MILD(1-3)/Fever >100.5/CAMPOS Last Admin: 07/12/17 00:13 Dose: 650 mg Acetaminophen (Tylenol) 650 mg PO Q4H PRN PRN Reason: Pain MILD(1-3)/Fever >100.5/CAMPOS Amiodarone HCl (Cordarone) 200 mg PO QDAY [facility] Last Admin: 07/16/17 09:43 Dose: 200 mg Lipase/Protease/Amylase (Pancreaze Dr 10,500 Unit) 1 each FEEDTUBE PRN PRN PRN Reason: For Clogged Feeding Tube Bisacodyl (Dulcolax) 10 mg TN QDAY PRN PRN Reason: Constipation unrelieved by MOM Enoxaparin Sodium (Lovenox) 40 mg SUB-Q QDAY [facility] Last Admin: 07/16/17 09:42 Dose: 40 mg Famotidine (Pepcid) 20 mg IV BID [facility] Last Admin: 07/16/17 09:42 Dose: 20 mg Hydralazine HCl (Apresoline) 10 mg IV Q8HR PRN PRN Reason: prn for SB/P greater than 175 Last Admin: 07/16/17 06:40 Dose: 10 mg Hydrophilic Ointment (Vaseline Lip Therapy) 1 applic TP Q2HR PRN PRN Reason: Dry Lips Fentanyl Citrate (Fentanyl Drip Premix) 2,000 mcg in 100 mls @ 4.082 mls/hr IV TITR OTONIEL; 1 MCG/KG/HR PRN Reason: Protocol Last Titration: 07/16/17 10:30 Dose: 0 mcg/kg/hr, 0 mls/hr Norepinephrine (Levophed Drip 4 Mg/Ns 250 Ml) 4 mg in 250 mls @ 7.5 mls/hr IV TITR OTONIEL; 2 MCG/MIN PRN Reason: Protocol Last Titration: 07/10/17 14:00 Dose: 0 mcg/min, 0 mls/hr Levofloxacin/Dextrose (Levaquin 750mg/150ml) 750 mg in 150 mls @ 100 mls/hr IV Q24HR OTONIEL PRN Reason: Protocol Last Admin: 07/16/17 09:41 Dose: 100 mls/hr Sodium Chloride (Nacl 0.9% 1000 Ml) 1,000 mls @ 125 mls/hr IV DIRECT [facility] Last Admin: 07/16/17 06:44 Dose: 125 mls/hr Labetalol HCl (Normodyne) 200 mg FEEDTUBE DAILY [facility] Last Admin: 07/16/17 09:42 Dose: 200 mg Levalbuterol HCl (Xopenex) 1.25 mg IH Q6HRT [facility] Last Admin: 07/16/17 09:04 Dose: 1.25 mg Magnesium Hydroxide (Milk Of Magnesia) 30 ml PO Q4H PRN PRN Reason: Constipation Metoprolol Tartrate (Lopressor) 50 mg PO BID [facility] Last Admin: 07/16/17 09:43 Dose: 50 mg Multi-Ingred Cream/Lotion/Oil/Oint (Artificial Tears Ophth Oint) 1 applic OU Q4HR PRN PRN Reason: Dry Eye(s) Ondansetron HCl (Zofran) 4 mg IV Q8H PRN PRN Reason: N/V unrelieved by Reglan Simple Syrup (Simple Syrup) 15 ml FEEDTUBE PRN PRN PRN Reason: Hypoglycemia Simple Syrup (Simple Syrup) 30 ml FEEDTUBE PRN PRN PRN Reason: Hypoglycemia Sodium Bicarbonate (Sodium Bicarbonate) 325 mg FEEDTUBE PRN PRN PRN Reason: For Clogged Feeding Tube Review of Systems ROS unobtainable: due to mental status Physical Examination - Physical Exam Narrative exam: General appearance: sedated on the vent Eyes: anicteric sclerae, moist conjunctivae; no lid-lag; PERRLA HENT: Atraumatic; oropharynx +ETT +NGT Neck: Trachea midline; supple, no thyromegaly or lymphadenopathy Lungs: justen rhonchi CV: rrr Abdomen: Soft, obese Extremities: justen leg edema Skin: Normal temperature, turgor and texture; no rash, ulcers or subcutaneous nodules Psych: unable to eval. Neuro: unable to eval Lines: right neck TLC - Constitutional Vitals: Vital Signs Temp Pulse Resp BP Pulse Ox 97.5 F L 80 16 132/61 95 07/16/17 12:55 07/16/17 13:00 07/16/17 13:00 07/16/17 13:00 07/16/17 13:00 Temperature -Last 24 Hours Temperature 97.5 F Temperature 99.1 F Temperature 99.0 F Temperature 99.9 F Temperature 99.5 F Temperature 99.3 F Results - Labs CBC & Chem 7: 07/16/17 04:40 07/16/17 04:40 Labs: Abnormal lab results 07/15/17 07/16/17 07/16/17 Range/Units 16:00 04:40 04:40 [place] % (Auto) 10.0 H (0.0-7.3) % [place] # 1.0 H (0.0-0.8) K/mm3 POC ABG pH 7.301 L (7.35-7.45) POC ABG pCO2 47.3 H (35-45) POC ABG pO2 79 L (80-105) Sodium 148 H (137-145) mmol/L Potassium 3.4 L (3.6-5.0) mmol/L Chloride 109.8 H (98-107) mmol/L BUN 18 H (7-17) mg/dL Creatinine 0.6 L (0.7-1.2) mg/dL Calcium 8.0 L (8.4-10.2) mg/dL 07/16/17 Range/Units 09:48 [place] % (Auto) (0.0-7.3) % [place] # (0.0-0.8) K/mm3 POC ABG pH 7.349 L (7.35-7.45) POC ABG pCO2 (35-45) POC ABG pO2 65 L (80-105) Sodium (137-145) mmol/L Potassium (3.6-5.0) mmol/L Chloride (98-107) mmol/L BUN (7-17) mg/dL Creatinine (0.7-1.2) mg/dL Calcium (8.4-10.2) mg/dL Assessment and Plan Assessment: 1) Severe sepsis with initial septic shock: Present on admission, manifested by fever, tachycardia, hypotension, leukocytosis, increased lactate. Etiology most likely complicated UTI +/- pneumonia. 2) Complicated UTI with right hydronephrosis and obstructive stove: unknown etiology, urine culture was not sent. -S/P stent placement on 07/12 3) Bilateral pneumonia: ? aspiration vs CAP 4) Respiratory failure 5) Morbid obesity 6) DIMPLE 7) Penicillin allergy - unclear reaction Plan: -follow-up repeat sputum culture -obtain C-reactive protein (CRP) -stop levaquin -start meropenem with close monitoring Thank you Dr Thompson for your consultation, will follow up with you. Poonam Jennings MD Infectious Diseases Specialist [facility] M [phone] O [phone]
[2017-07-16] MEDS ORDERED: POTASSIUM CHLORIDE FEEDTUBE ONE (13:18)
[2017-07-16] MEDS ORDERED: MERREM 1,000 MG in NACL 0.9% 100 ML IV SCH (15:00)
--- NOTE | 2017-07-16 15:30 | Progress Note ---
Assessment and Plan Imp: 1. UTI/hydronephrosis 2. Sepsis 3. Acute respiratory failure, hypoxia 4. Morbid obesity; DIMPLE +/- OHS 5. Pulm HTN 6. RIVERA, better Rec: 1. D/c IVFs; increase free water 2. Lasix IV 3. Replete K 4. ABX per ID; unfortunately urine culture not sent on admit 5. TFs, DVT and GI PPx 6. Daily PSV trials 7. Further plans pending clinical course No family present; CCT 31 minutes Subjective Date of service: 07/16/17 Principal diagnosis: Sepsis Interval history: No events. Failed PSV due to tachypnea and increased WOB. Sedated on Fentanyl drip but follows commands. Not on any pressors. Active Medications Acetaminophen (Tylenol) 650 mg DC Q4H PRN PRN Reason: Pain MILD(1-3)/Fever >100.5/CAMPOS Last Admin: 07/12/17 00:13 Dose: 650 mg Acetaminophen (Tylenol) 650 mg PO Q4H PRN PRN Reason: Pain MILD(1-3)/Fever >100.5/CAMPOS Amiodarone HCl (Cordarone) 200 mg PO QDAY [facility] Last Admin: 07/16/17 09:43 Dose: 200 mg Lipase/Protease/Amylase (Pancreaze Dr 10,500 Unit) 1 each FEEDTUBE PRN PRN PRN Reason: For Clogged Feeding Tube Bisacodyl (Dulcolax) 10 mg DC QDAY PRN PRN Reason: Constipation unrelieved by MOM Enoxaparin Sodium (Lovenox) 40 mg SUB-Q QDAY [facility] Last Admin: 07/16/17 09:42 Dose: 40 mg Famotidine (Pepcid) 20 mg IV BID [facility] Last Admin: 07/16/17 09:42 Dose: 20 mg Furosemide (Lasix) 40 mg IV QDAY [facility] Hydralazine HCl (Apresoline) 10 mg IV Q8HR PRN PRN Reason: prn for SB/P greater than 175 Last Admin: 07/16/17 06:40 Dose: 10 mg Hydrophilic Ointment (Vaseline Lip Therapy) 1 applic TP Q2HR PRN PRN Reason: Dry Lips Fentanyl Citrate (Fentanyl Drip Premix) 2,000 mcg in 100 mls @ 4.082 mls/hr IV TITR OTONIEL; 1 MCG/KG/HR PRN Reason: Protocol Last Titration: 07/16/17 14:00 Dose: 1 mcg/kg/hr, 4.082 mls/hr Levofloxacin/Dextrose (Levaquin 750mg/150ml) 750 mg in 150 mls @ 100 mls/hr IV Q24HR OTONIEL PRN Reason: Protocol Aztreonam (Azactam/Ns 1 Gm/50 Ml) 1 gm in 50 mls @ 50 mls/hr IV Q8HR OTONIEL PRN Reason: Protocol Labetalol HCl (Normodyne) 200 mg FEEDTUBE DAILY [facility] Last Admin: 07/16/17 09:42 Dose: 200 mg Levalbuterol HCl (Xopenex) 1.25 mg IH Q6HRT [facility] Last Admin: 07/16/17 09:04 Dose: 1.25 mg Magnesium Hydroxide (Milk Of Magnesia) 30 ml PO Q4H PRN PRN Reason: Constipation Metoprolol Tartrate (Lopressor) 50 mg PO BID [facility] Last Admin: 07/16/17 09:43 Dose: 50 mg Multi-Ingred Cream/Lotion/Oil/Oint (Artificial Tears Ophth Oint) 1 applic OU Q4HR PRN PRN Reason: Dry Eye(s) Ondansetron HCl (Zofran) 4 mg IV Q8H PRN PRN Reason: N/V unrelieved by Reglan Simple Syrup (Simple Syrup) 15 ml FEEDTUBE PRN PRN PRN Reason: Hypoglycemia Simple Syrup (Simple Syrup) 30 ml FEEDTUBE PRN PRN PRN Reason: Hypoglycemia Sodium Bicarbonate (Sodium Bicarbonate) 325 mg FEEDTUBE PRN PRN PRN Reason: For Clogged Feeding Tube Objective Vital Signs - 12hr 07/16/17 07/16/17 07/16/17 03:39 03:50 04:00 Temperature 99.0 F Pulse Rate 72 72 81 Pulse Rate [ Anterior Left Throughout] Pulse Rate [ Anterior Right Throughout] Pulse Rate [ From Monitor] Respiratory 18 Rate Respiratory 17 Rate [Abdomen] Respiratory Rate [Anterior Left Throughout ] Respiratory Rate [Anterior Right Throughout] Blood Pressure 160/76 163/76 O2 Sat by Pulse 96 97 Oximetry 07/16/17 07/16/17 07/16/17 05:00 05:15 06:00 Temperature Pulse Rate 86 72 81 Pulse Rate [ Anterior Left Throughout] Pulse Rate [ Anterior Right Throughout] Pulse Rate [ From Monitor] Respiratory 16 15 Rate Respiratory Rate [Abdomen] Respiratory Rate [Anterior Left Throughout ] Respiratory Rate [Anterior Right Throughout] Blood Pressure 163/76 163/76 O2 Sat by Pulse 95 95 96 Oximetry 07/16/17 07/16/17 07/16/17 06:40 07:00 08:00 Temperature Pulse Rate 102 H 98 H 99 H Pulse Rate [ Anterior Left Throughout] Pulse Rate [ Anterior Right Throughout] Pulse Rate [ From Monitor] Respiratory 16 22 Rate Respiratory Rate [Abdomen] Respiratory Rate [Anterior Left Throughout ] Respiratory Rate [Anterior Right Throughout] Blood Pressure 229/141 196/105 178/77 O2 Sat by Pulse 96 95 Oximetry 07/16/17 07/16/17 07/16/17 09:00 09:16 09:42 Temperature Pulse Rate 94 H 120 H Pulse Rate [ 106 H Anterior Left Throughout] Pulse Rate [ 116 H Anterior Right Throughout] Pulse Rate [ 92 H From Monitor] Respiratory 27 H Rate Respiratory Rate [Abdomen] Respiratory 23 Rate [Anterior Left Throughout ] Respiratory 20 Rate [Anterior Right Throughout] Blood Pressure 162/96 190/100 O2 Sat by Pulse 96 Oximetry 07/16/17 07/16/17 07/16/17 09:43 10:00 10:21 Temperature 99.1 F Pulse Rate 120 H 88 Pulse Rate [ Anterior Left Throughout] Pulse Rate [ Anterior Right Throughout] Pulse Rate [ From Monitor] Respiratory 16 Rate Respiratory Rate [Abdomen] Respiratory Rate [Anterior Left Throughout ] Respiratory Rate [Anterior Right Throughout] Blood Pressure 190/100 108/62 O2 Sat by Pulse 94 Oximetry 07/16/17 07/16/17 07/16/17 11:00 12:00 12:55 Temperature 97.5 F L Pulse Rate 77 86 Pulse Rate [ Anterior Left Throughout] Pulse Rate [ Anterior Right Throughout] Pulse Rate [ From Monitor] Respiratory 16 20 Rate Respiratory Rate [Abdomen] Respiratory Rate [Anterior Left Throughout ] Respiratory Rate [Anterior Right Throughout] Blood Pressure 83/40 148/86 O2 Sat by Pulse 94 96 Oximetry 07/16/17 07/16/17 07/16/17 13:00 14:00 15:00 Temperature Pulse Rate 80 98 H 92 H Pulse Rate [ Anterior Left Throughout] Pulse Rate [ Anterior Right Throughout] Pulse Rate [ From Monitor] Respiratory 16 26 H 16 Rate Respiratory Rate [Abdomen] Respiratory Rate [Anterior Left Throughout ] Respiratory Rate [Anterior Right Throughout] Blood Pressure 132/61 180/99 147/92 O2 Sat by Pulse 95 96 96 Oximetry Constitutional: other (morbidly obese, critically ill on vent) ENT: other (orally intubated) Neck: supple (and large in circumference) Effort: normal Ascultation: Bilateral: other (coarse BS bilaterally with faint expiratory wheezes) Cardiovascular: regular rate and rhythm (no mrg) Gastrointestinal: normoactive bowel sounds, soft, non-tender, non-distended Integumentary: normal Extremities: no cyanosis, pink and warm, edema (1+ generalized) Neurologic: other (opens eyes on sedation, follows commands, grossly nonfocal) CBC and BMP: 07/16/17 04:40 07/16/17 04:40 ABG, PT/INR, D-dimer: ABG POC ABG pH 7.349 (7.35-7.45) L 07/16/17 09:48 POC ABG pCO2 42.8 (35-45) 07/16/17 09:48 POC ABG pO2 65 (80-105) L 07/16/17 09:48 POC ABG HCO3 23.6 07/16/17 09:48 POC ABG Total CO2 25 07/16/17 09:48 POC ABG O2 Sat 91 07/16/17 09:48 Abnormal lab findings: Abnormal Labs 07/09/17 07/09/17 07/09/17 18:05 18:05 21:15 WBC 15.0 H Hct 43.7 H Lymph % (Auto) 10.7 L [place] % (Auto) [place] # Seg Neutrophils % 83.9 H Seg Neutrophils # 12.6 H POC ABG pH POC ABG pCO2 POC ABG pO2 Sodium Potassium Chloride 96.7 L Carbon Dioxide 31 H BUN 18 H Creatinine Glucose 146 H POC Glucose Lactic Acid 2.50 H* Calcium C-Reactive Protein NT-Pro-B Natriuret Pep 1456 H Albumin 3.8 L Urine WBC (Auto) 07/09/17 07/09/17 07/09/17 21:20 21:46 22:59 WBC Hct Lymph % (Auto) [place] % (Auto) [place] # Seg Neutrophils % Seg Neutrophils # POC ABG pH POC ABG pCO2 54.6 H POC ABG pO2 Sodium Potassium Chloride Carbon Dioxide BUN Creatinine Glucose POC Glucose Lactic Acid 2.30 H* Calcium C-Reactive Protein NT-Pro-B Natriuret Pep Albumin Urine WBC (Auto) 29.0 H 07/10/17 07/11/17 07/11/17 04:35 05:12 06:11 WBC 18.4 H Hct Lymph % (Auto) 8.6 L [place] % (Auto) 7.9 H [place] # 1.5 H Seg Neutrophils % 83.5 H Seg Neutrophils # 15.3 H POC ABG pH 7.282 L POC ABG pCO2 61.2 H POC ABG pO2 155 H Sodium Potassium Chloride Carbon Dioxide BUN Creatinine Glucose POC Glucose Lactic Acid Calcium C-Reactive Protein NT-Pro-B Natriuret Pep Albumin Urine WBC (Auto) 07/11/17 07/12/17 07/12/17 06:11 04:16 05:03 WBC Hct Lymph % (Auto) [place] % (Auto) [place] # Seg Neutrophils % Seg Neutrophils # POC ABG pH 7.468 H POC ABG pCO2 48.2 H POC ABG pO2 41 L Sodium Potassium Chloride Carbon Dioxide BUN 37 H Creatinine Glucose 130 H POC Glucose Lactic Acid Calcium C-Reactive Protein NT-Pro-B Natriuret Pep Albumin Urine WBC (Auto) 07/12/17 07/12/17 07/13/17 09:01 09:01 04:53 WBC 12.2 H Hct Lymph % (Auto) [place] % (Auto) 10.9 H [place] # 1.3 H Seg Neutrophils % Seg Neutrophils # 8.2 H POC ABG pH POC ABG pCO2 POC ABG pO2 55 L Sodium 146 H Potassium Chloride Carbon Dioxide BUN 31 H Creatinine Glucose POC Glucose Lactic Acid Calcium 8.0 L C-Reactive Protein NT-Pro-B Natriuret Pep Albumin Urine WBC (Auto) 07/13/17 07/13/17 07/14/17 13:29 23:20 04:21 WBC 13.3 H Hct Lymph % (Auto) [place] % (Auto) 10.4 H [place] # 1.4 H Seg Neutrophils % Seg Neutrophils # 8.8 H POC ABG pH 7.315 L POC ABG pCO2 52.5 H POC ABG pO2 Sodium Potassium Chloride Carbon Dioxide BUN Creatinine Glucose POC Glucose 121 H Lactic Acid Calcium C-Reactive Protein NT-Pro-B Natriuret Pep Albumin Urine WBC (Auto) 07/14/17 07/14/17 07/15/17 04:21 04:31 07:30 WBC Hct Lymph % (Auto) [place] % (Auto) 9.2 H [place] # 1.0 H Seg Neutrophils % 72.7 H Seg Neutrophils # 7.9 H POC ABG pH 7.301 L POC ABG pCO2 51.4 H POC ABG pO2 Sodium 146 H Potassium Chloride 109.0 H Carbon Dioxide BUN 22 H Creatinine Glucose 107 H POC Glucose Lactic Acid Calcium 8.3 L C-Reactive Protein NT-Pro-B Natriuret Pep Albumin 3.0 L Urine WBC (Auto) 07/15/17 07/15/17 07/16/17 07:30 16:00 04:40 WBC Hct Lymph % (Auto) [place] % (Auto) 10.0 H [place] # 1.0 H Seg Neutrophils % Seg Neutrophils # POC ABG pH 7.301 L POC ABG pCO2 47.3 H POC ABG pO2 79 L Sodium 149 H Potassium 3.5 L Chlor[place] 111.6 H Carbon Dioxide BUN 21 H Creatinine 0.6 L Glucose POC Glucose Lactic Acid Calcium 8.1 L C-Reactive Protein NT-Pro-B Natriuret Pep Albumin Urine WBC (Auto) 07/16/17 07/16/17 07/16/17 04:40 09:48 13:36 WBC Hct Lymph % (Auto) [place] % (Auto) [place] # Seg Neutrophils % Seg Neutrophils # POC ABG pH 7.349 L POC ABG pCO2 POC ABG pO2 65 L Sodium 148 H Potassium 3.4 L Chloride 109.8 H Carbon Dioxide BUN 18 H Creatinine 0.6 L Glucose POC Glucose Lactic Acid Calcium 8.0 L C-Reactive Protein 4.90 H NT-Pro-B Natriuret Pep Albumin Urine WBC (Auto) Chest x-ray: report reviewed, image reviewed
[2017-07-16] MEDS ORDERED: POTASSIUM CHLORIDE ONE (17:36)
[2017-07-16] MEDS: LASIX IV SCH (18:22)
[2017-07-16] MEDS: AZACTAM/NS 1 GM/50 ML 1 GM/50 ML VIAL IV SCH (18:22)
[2017-07-16] MEDS ORDERED: NACL 0.9% 1000 ML 1,000 ML ONE (23:12)
[2017-07-17] MEDS: AZACTAM/NS 1 GM/50 ML 1 GM/50 ML VIAL IV SCH ×4 (00:28→23:55)
[2017-07-17] MEDS: XOPENEX IH SCH ×4 (02:59→19:43)
[2017-07-17 03:53] LABS: Basophils % (Auto) 0.5 % (0.0-1.8); Eosinophils # (Auto) 0.1 K/mm3 (0.0-0.4); Eosinophils % (Auto) 0.8 % (0.0-4.3); Hematocrit 36.8 % (30.3-42.9); Hemoglobin 12.2 gm/dl (10.1-14.3); Lymphocytes % (Auto) 19.3 % (13.4-35.0); Mean Corpuscular HGB Conc 33 % (30-34); Mean Corpuscular Hemoglobin 30 pg (28-32); Mean Corpuscular Volume 90 fl (79-97); Monocytes # (Auto) 1.3 K/mm3 (0.0-0.8); Monocytes % (Auto) 12.3 % (0.0-7.3); Platelet Count 199 K/mm3 (140-440); Red Cell Distribution Width 14.1 % (13.2-15.2)
[2017-07-17 04:06] LABS: BUN/Creatinine Ratio 25; Blood Urea Nitrogen 15 mg/dL (7-17); Hemolysis Index 33
[2017-07-17] MEDS: fentaNYL DRIP Premix 2,000 MCG/100 ML BAG IV SCH ×2 (08:56→22:14)
[2017-07-17] MEDS: LEVAQUIN 750MG/150ML 750 MG/150 ML BAG IV SCH (09:03)
[2017-07-17] MEDS: LOVENOX SUB-Q SCH (09:03)
[2017-07-17] MEDS: PEPCID IV SCH ×2 (09:03→22:27)
[2017-07-17] MEDS: LOPRESSOR PO SCH (09:03)
[2017-07-17] MEDS: LASIX IV SCH (09:03)
[2017-07-17] MEDS: CORDARONE PO SCH (09:04)
[2017-07-17] MEDS: NORMODYNE FEEDTUBE SCH (09:04)
--- NOTE | 2017-07-17 11:12 | Progress Note ---
Assessment and Plan Assessment and plan: Acute respiratory failure --Cont Vent management per Pulm. Cont PSV trials daily Sepsis. Cont. IV Abx per ID recommendations. Levaquin has been discontinued and meropenem started. Bilateral pneumonia.? Aspiration versus CAP. Continue antibiotics. Follow serial chest x-ray Urinary tract infection. Follow-up urine culture. Right Hydronephrosis with partial obstructing stone S/p cysto, rpg, rt stent 24cm x 6---07-12-17 (Liliam) Hypernatremia. Continue free water. CHF, stable Atrial fibrillation. Continue amiodarone. Obstructive sleep apnea Hypothyroidism DVT prophylaxis-- SQ Lovenox The high probability of a clinically significant, sudden or life threatening deterioration of the [Pulmonary, cadiac, renal] system(s) required my full and direct attention, intervention and personal management. The aggregate critical care time was [32] minutes. This time is in addition to time spent performing reported procedures but includes the following: [x] Data Review and interpretation [x] Patient assessment and monitoring of vital signs [x] Documentation [x] Medication orders and management History Interval history: PT. remains intubated on vent Hospitalist Physical - Constitutional Vitals: Temp Pulse Resp BP Pulse Ox 99 F 66 21 88/42 95 07/17/17 08:00 07/17/17 11:00 07/17/17 11:00 07/17/17 11:00 07/17/17 11:00 General appearance: Present: mild distress, well-nourished, other (orally intubated) - EENT Eyes: Present: PERRL, EOM intact ENT: hearing intact, clear oral mucosa, dentition normal - Neck Neck: Present: supple, normal ROM - Respiratory Respiratory effort: normal Respiratory: bilateral: CTA - Cardiovascular Rhythm: regular Heart Sounds: Present: S1 & S2. Absent: gallop, rub - Extremities Extremities: no ischemia, No edema, Full ROM - Abdominal General gastrointestinal: soft, non-tender, non-distended, normal bowel sounds - Integumentary Integumentary: Present: clear, warm, dry - Neurologic Neurologic: CNII-XII intact, moves all extremities Results - Labs CBC & Chem 7: 07/17/17 03:22 07/17/17 03:22 Labs: Laboratory Last Values WBC 10.3 K/mm3 (4.5-11.0) 07/17/17 03:22 RBC 4.10 M/mm3 (3.65-5.03) 07/17/17 03:22 Hgb 12.2 gm/dl (10.1-14.3) 07/17/17 03:22 Hct 36.8 % (30.3-42.9) 07/17/17 03:22 MCV 90 fl (79-97) 07/17/17 03:22 MCH 30 pg (28-32) 07/17/17 03:22 MCHC 33 % (30-34) 07/17/17 03:22 RDW 14.1 % (13.2-15.2) 07/17/17 03:22 Plt Count 199 K/mm3 (140-440) 07/17/17 03:22 Lymph % (Auto) 19.3 % (13.4-35.0) 07/17/17 03:22 [place] % (Auto) 12.3 % (0.0-7.3) H 07/17/17 03:22 Eos % (Auto) 0.8 % (0.0-4.3) 07/17/17 03:22 Baso % (Auto) 0.5 % (0.0-1.8) 07/17/17 03:22 Lymph # 2.0 K/mm3 (1.2-5.4) 07/17/17 03:22 [place] # 1.3 K/mm3 (0.0-0.8) H 07/17/17 03:22 Eos # 0.1 K/mm3 (0.0-0.4) 07/17/17 03:22 Baso # 0.0 K/mm3 (0.0-0.1) 07/17/17 03:22 Seg Neutrophils % 67.1 % (40.0-70.0) 07/17/17 03:22 Seg Neutrophils # 6.9 K/mm3 (1.8-7.7) 07/17/17 03:22 POC ABG pH 7.413 (7.35-7.45) 07/17/17 06:21 POC ABG pCO2 47.0 (35-45) H 07/17/17 06:21 POC ABG pO2 71 (80-105) L 07/17/17 06:21 POC ABG HCO3 30.0 07/17/17 06:21 POC ABG Total CO2 31 07/17/17 06:21 POC ABG O2 Sat 94 07/17/17 06:21 POC ABG Base Excess 5 07/17/17 06:21 FiO2 30 % 07/17/17 06:21 Sodium 145 mmol/L (137-145) 07/17/17 03:22 Potassium 3.6 mmol/L (3.6-5.0) 07/17/17 03:22 Chloride 106.1 mmol/L (98-107) 07/17/17 03:22 Carbon Dioxide 26 mmol/L (22-30) 07/17/17 03:22 Anion Gap 17 mmol/L 07/17/17 03:22 BUN 15 mg/dL (7-17) 07/17/17 03:22 Creatinine 0.6 mg/dL (0.7-1.2) L 07/17/17 03:22 Estimated GFR > 60 ml/min 07/17/17 03:22 BUN/Creatinine Ratio 25 % 07/17/17 03:22 Glucose 116 mg/dL (65-100) H 07/17/17 03:22 POC Glucose 88 (70-105) 07/14/17 12:11 Lactic Acid 2.30 mmol/L (0.7-2.0) H* 07/09/17 22:59 Calcium 8.0 mg/dL (8.4-10.2) L 07/17/17 03:22 Total Bilirubin 0.80 mg/dL (0.1-1.2) 07/14/17 04:21 AST 15 units/L (5-40) 07/14/17 04:21 ALT 13 units/L (7-56) 07/14/17 04:21 Alkaline Phosphatase 53 units/L (35-129) 07/14/17 04:21 Total Creatine Kinase 34 units/L (30-135) 07/09/17 18:05 CK-MB (CK-2) < 1.0 ng/mL (0.0-4.0) 07/09/17 18:05 CK-MB (CK-2) Rel Index 2.9 (0-4) 07/09/17 18:05 Troponin T < 0.010 ng/mL (0.00-0.029) 07/09/17 18:05 C-Reactive Protein 4.90 mg/dL (0.00-1.30) H 07/16/17 13:36 NT-Pro-B Natriuret Pep 1456 pg/mL (0-900) H 07/09/17 18:05 Total Protein 6.5 g/dL (6.3-8.2) 07/14/17 04:21 Albumin 3.0 g/dL (3.9-5) L 07/14/17 04:21 Albumin/Globulin Ratio 0.9 % 07/14/17 04:21 Lipase 16 units/L (13-60) 07/09/17 18:05 Urine Color Yellow (Yellow) 07/09/17 21:20 Urine Turbidity Clear (Clear) 07/09/17 21:20 Urine pH 6.0 (5.0-7.0) 07/09/17 21:20 Ur Specific [place] 1.015 (1.003-1.030) 07/09/17 21:20 Urine Protein 100 mg/dl mg/dL (Negative) 07/09/17 21:20 Urine Glucose (UA) 50 mg/dL (Negative) 07/09/17 21:20 Urine Ketones Neg mg/dL (Negative) 07/09/17 21:20 Urine Blood Lg (Negative) 07/09/17 21:20 Urine Nitrite Neg (Negative) 07/09/17 21:20 Urine Bilirubin Neg (Negative) 07/09/17 21:20 Urine Urobilinogen < 2.0 mg/dL (<2.0) 07/09/17 21:20 Ur Leukocyte Esterase Tr (Negative) 07/09/17 21:20 Urine WBC (Auto) 29.0 /HPF (0.0-6.0) H 07/09/17 21:20 Urine RBC (Auto) 86.0 /HPF (0.0-6.0) 07/09/17 21:20 U Epithel Cells (Auto) 1.0 /HPF (0-13.0) 07/09/17 21:20 Urine Bacteria (Auto) 2+ /HPF (Negative) 07/09/17 21:20 Urine Mucus Few /HPF 07/09/17 21:20 Plasma/Serum Alcohol < 0.01 gm% (0-0.07) 07/14/17 14:20
--- NOTE | 2017-07-17 11:21 | Progress Note ---
Assessment and Plan Assessment: 1) Severe sepsis with initial septic shock: shock resolved, still low grade fever. Etiology most likely complicated UTI +/- pneumonia. CRP=4.9. 2) Complicated UTI with right hydronephrosis and obstructive stone: unknown etiology, urine culture was not sent. -S/P stent placement on 07/12 3) Bilateral pneumonia: ? aspiration vs CAP 4) Respiratory failure 5) Morbid obesity 6) DIMPLE 7) Penicillin allergy - unclear reaction Plan: -follow-up repeat sputum culture -continue levaquin and aztreonam for now -add clindamycin to cover anaerobes for asp pneumonia Thank you Dr Thompson for your consultation, will follow up with you. Poonam Jennings MD Infectious Diseases Specialist [facility] [phone] O [phone] Subjective Date of service: 07/17/17 Principal diagnosis: Sepsis Interval history: Remains intubated fio2 30% p5. Tmax 100.5 Microbiology: Blood cultures: 07/09 ngtd Urine cultures: Respiratory cultures: tracheal 07/09 usual resp rashawn sputum 07/14 pending Current Antimicrobials: Levaquin 07/10 aztreonam 07/16 Previous Antimicrobials: Objective - Exam Narrative Exam: General appearance: sedated on the vent Eyes: anicteric sclerae, moist conjunctivae; no lid-lag; PERRLA HENT: Atraumatic; oropharynx +ETT +NGT Neck: Trachea midline; supple, no thyromegaly or lymphadenopathy Lungs: justen rhonchi CV: rrr Abdomen: Soft, obese Extremities: justen leg edema Skin: Normal temperature, turgor and texture; no rash, ulcers or subcutaneous nodules Psych: unable to eval. Neuro: unable to eval Lines: right neck TLC - Constitutional Vitals: Vital Signs Temp Pulse Resp BP Pulse Ox 99 F 66 21 88/42 95 07/17/17 08:00 07/17/17 11:00 07/17/17 11:00 07/17/17 11:00 07/17/17 11:00 Temperature -Last 24 Hours Temperature 99 F Temperature 99.7 F Temperature 99.9 F Temperature 100.5 F Temperature 98.4 F Temperature 97.5 F - Labs CBC & Chem 7: 07/17/17 03:22 07/17/17 03:22 Labs: Abnormal lab results 07/16/17 07/17/17 07/17/17 Range/Units 13:36 03:22 03:22 [place] % (Auto) 12.3 H (0.0-7.3) % [place] # 1.3 H (0.0-0.8) K/mm3 POC ABG pCO2 (35-45) POC ABG pO2 (80-105) Creatinine 0.6 L (0.7-1.2) mg/dL Glucose 116 H (65-100) mg/dL Calcium 8.0 L (8.4-10.2) mg/dL C-Reactive Protein 4.90 H (0.00-1.30) mg/dL 07/17/17 Range/Units 06:21 [place] % (Auto) (0.0-7.3) % [place] # (0.0-0.8) K/mm3 POC ABG pCO2 47.0 H (35-45) POC ABG pO2 71 L (80-105) Creatinine (0.7-1.2) mg/dL Glucose (65-100) mg/dL Calcium (8.4-10.2) mg/dL C-Reactive Protein (0.00-1.30) mg/dL
[2017-07-17] MEDS: CLEOCIN 900 MG/50 mL 900 MG/50 ML BAG IV SCH (14:19)
--- NOTE | 2017-07-17 14:20 | Progress Note ---
Assessment and Plan Imp: 1. UTI/hydronephrosis 2. Sepsis 3. Acute respiratory failure, hypoxia 4. Morbid obesity; DIMPLE +/- OHS 5. Pulm HTN 6. RIVERA, better Rec: 1. D/c IVFs; increased free water 2. Lasix IV; hold Labetalol and Lopressor given borderline low BP and normal HR 3. Replete K prn 4. ABX per ID; unfortunately urine culture not sent on admit -> send now 5. TFs, DVT and GI PPx 6. Daily PSV trials -> d/w RT; using accessory muscles today on PSV 04/25, on my exam 7. Further plans pending clinical course D/w daughter; CCT 31 minutes Subjective Date of service: 07/17/17 Principal diagnosis: Sepsis Interval history: No events. Failed PSV due to increased WOB. Sedated on Fentanyl drip but follows commands. Not on any pressors but BP borderline low. Active Medications Acetaminophen (Tylenol) 650 mg HI Q4H PRN PRN Reason: Pain MILD(1-3)/Fever >100.5/CAMPOS Last Admin: 07/12/17 00:13 Dose: 650 mg Acetaminophen (Tylenol) 650 mg PO Q4H PRN PRN Reason: Pain MILD(1-3)/Fever >100.5/CAMPOS Amiodarone HCl (Cordarone) 200 mg PO QDAY [facility] Last Admin: 07/17/17 09:04 Dose: 200 mg Lipase/Protease/Amylase (Pancreaze Dr 10,500 Unit) 1 each FEEDTUBE PRN PRN PRN Reason: For Clogged Feeding Tube Bisacodyl (Dulcolax) 10 mg HI QDAY PRN PRN Reason: Constipation unrelieved by MOM Enoxaparin Sodium (Lovenox) 40 mg SUB-Q QDAY [facility] Last Admin: 07/17/17 09:03 Dose: 40 mg Famotidine (Pepcid) 20 mg IV BID [facility] Last Admin: 07/17/17 09:03 Dose: 20 mg Furosemide (Lasix) 40 mg IV QDAY [facility] Last Admin: 07/17/17 09:03 Dose: 40 mg Hydralazine HCl (Apresoline) 10 mg IV Q8HR PRN PRN Reason: prn for SB/P greater than 175 Last Admin: 07/16/17 21:19 Dose: 10 mg Hydrophilic Ointment (Vaseline Lip Therapy) 1 applic TP Q2HR PRN PRN Reason: Dry Lips Fentanyl Citrate (Fentanyl Drip Premix) 2,000 mcg in 100 mls @ 4.082 mls/hr IV TITR OTONIEL; 1 MCG/KG/HR PRN Reason: Protocol Last Admin: 07/17/17 08:56 Dose: 1 mcg/kg/hr, 4.082 mls/hr Levofloxacin/Dextrose (Levaquin 750mg/150ml) 750 mg in 150 mls @ 100 mls/hr IV Q24H OTONIEL PRN Reason: Protocol Last Admin: 07/17/17 09:03 Dose: 100 mls/hr Aztreonam (Azactam/Ns 1 Gm/50 Ml) 1 gm in 50 mls @ 50 mls/hr IV Q8H OTONIEL PRN Reason: Protocol Last Admin: 07/17/17 08:56 Dose: 50 mls/hr Clindamycin HCl (Cleocin 900 Mg/50 Ml) 900 mg in 50 mls @ 100 mls/hr IV Q8HR [facility] PRN Reason: Protocol Levalbuterol HCl (Xopenex) 1.25 mg IH Q6HRT [facility] Last Admin: 07/17/17 14:08 Dose: 1.25 mg Magnesium Hydroxide (Milk Of Magnesia) 30 ml PO Q4H PRN PRN Reason: Constipation Multi-Ingred Cream/Lotion/Oil/Oint (Artificial Tears Ophth Oint) 1 applic OU Q4HR PRN PRN Reason: Dry Eye(s) Ondansetron HCl (Zofran) 4 mg IV Q8H PRN PRN Reason: N/V unrelieved by Reglan Simple Syrup (Simple Syrup) 15 ml FEEDTUBE PRN PRN PRN Reason: Hypoglycemia Simple Syrup (Simple Syrup) 30 ml FEEDTUBE PRN PRN PRN Reason: Hypoglycemia Sodium Bicarbonate (Sodium Bicarbonate) 325 mg FEEDTUBE PRN PRN PRN Reason: For Clogged Feeding Tube Objective Vital Signs - 12hr 07/17/17 07/17/17 07/17/17 02:30 02:55 03:00 Temperature Pulse Rate 81 78 Pulse Rate [ 82 Anterior Bilateral Throughout] Pulse Rate [ Anterior Left Throughout] Pulse Rate [ From Monitor] Respiratory 18 18 Rate Respiratory 16 Rate [Anterior Bilateral Throughout] Respiratory Rate [Anterior Left Throughout ] Blood Pressure 91/45 87/47 O2 Sat by Pulse 94 94 Oximetry 07/17/17 07/17/17 07/17/17 03:05 03:07 03:30 Temperature Pulse Rate 83 96 H Pulse Rate [ 71 Anterior Bilateral Throughout] Pulse Rate [ Anterior Left Throughout] Pulse Rate [ From Monitor] Respiratory 23 Rate Respiratory 16 Rate [Anterior Bilateral Throughout] Respiratory Rate [Anterior Left Throughout ] Blood Pressure 84/47 155/91 O2 Sat by Pulse 99 95 Oximetry 07/17/17 07/17/17 07/17/17 04:00 04:30 05:00 Temperature 99.7 F H Pulse Rate 105 H 92 H 94 H Pulse Rate [ Anterior Bilateral Throughout] Pulse Rate [ Anterior Left Throughout] Pulse Rate [ 83 From Monitor] Respiratory 21 22 20 Rate Respiratory Rate [Anterior Bilateral Throughout] Respiratory Rate [Anterior Left Throughout ] Blood Pressure 159/93 107/66 95/52 O2 Sat by Pulse 95 94 94 Oximetry 07/17/17 07/17/17 07/17/17 05:30 06:00 06:30 Temperature Pulse Rate 81 87 96 H Pulse Rate [ Anterior Bilateral Throughout] Pulse Rate [ Anterior Left Throughout] Pulse Rate [ From Monitor] Respiratory 20 21 20 Rate Respiratory Rate [Anterior Bilateral Throughout] Respiratory Rate [Anterior Left Throughout ] Blood Pressure 94/48 98/53 148/82 O2 Sat by Pulse 95 95 96 Oximetry 07/17/17 07/17/17 07/17/17 07:00 07:12 07:30 Temperature Pulse Rate 82 94 H Pulse Rate [ Anterior Bilateral Throughout] Pulse Rate [ 96 H Anterior Left Throughout] Pulse Rate [ From Monitor] Respiratory 17 16 Rate Respiratory Rate [Anterior Bilateral Throughout] Respiratory 24 Rate [Anterior Left Throughout ] Blood Pressure 101/45 152/74 O2 Sat by Pulse 95 100 Oximetry 07/17/17 07/17/17 07/17/17 07:34 07:35 08:00 Temperature 99 F Pulse Rate 82 89 Pulse Rate [ Anterior Bilateral Throughout] Pulse Rate [ 97 H Anterior Left Throughout] Pulse Rate [ 93 H From Monitor] Respiratory 22 Rate Respiratory Rate [Anterior Bilateral Throughout] Respiratory 24 Rate [Anterior Left Throughout ] Blood Pressure 101/45 128/55 O2 Sat by Pulse 95 94 Oximetry 07/17/17 07/17/17 07/17/17 08:30 09:00 09:03 Temperature Pulse Rate 98 H 93 H 91 H Pulse Rate [ Anterior Bilateral Throughout] Pulse Rate [ Anterior Left Throughout] Pulse Rate [ From Monitor] Respiratory 21 22 Rate Respiratory Rate [Anterior Bilateral Throughout] Respiratory Rate [Anterior Left Throughout ] Blood Pressure 142/73 145/72 145/72 O2 Sat by Pulse 94 94 Oximetry 07/17/17 07/17/17 07/17/17 09:04 09:30 10:00 Temperature Pulse Rate 91 H 77 73 Pulse Rate [ Anterior Bilateral Throughout] Pulse Rate [ Anterior Left Throughout] Pulse Rate [ From Monitor] Respiratory 21 20 Rate Respiratory Rate [Anterior Bilateral Throughout] Respiratory Rate [Anterior Left Throughout ] Blood Pressure 145/72 88/50 88/47 O2 Sat by Pulse 94 94 Oximetry 07/17/17 07/17/17 07/17/17 10:30 11:00 11:30 Temperature Pulse Rate 77 66 81 Pulse Rate [ Anterior Bilateral Throughout] Pulse Rate [ Anterior Left Throughout] Pulse Rate [ From Monitor] Respiratory 20 21 20 Rate Respiratory Rate [Anterior Bilateral Throughout] Respiratory Rate [Anterior Left Throughout ] Blood Pressure 98/57 88/42 129/65 O2 Sat by Pulse 93 95 97 Oximetry 07/17/17 07/17/17 07/17/17 11:40 12:00 12:30 Temperature 97.9 F Pulse Rate 66 68 79 Pulse Rate [ Anterior Bilateral Throughout] Pulse Rate [ Anterior Left Throughout] Pulse Rate [ From Monitor] Respiratory 21 21 Rate Respiratory Rate [Anterior Bilateral Throughout] Respiratory Rate [Anterior Left Throughout ] Blood Pressure 88/42 98/52 155/86 O2 Sat by Pulse 95 96 96 Oximetry 07/17/17 07/17/17 07/17/17 13:00 13:30 14:00 Temperature Pulse Rate 76 86 71 Pulse Rate [ Anterior Bilateral Throughout] Pulse Rate [ Anterior Left Throughout] Pulse Rate [ From Monitor] Respiratory 20 22 21 Rate Respiratory Rate [Anterior Bilateral Throughout] Respiratory Rate [Anterior Left Throughout ] Blood Pressure 99/50 99/50 95/44 O2 Sat by Pulse 96 95 95 Oximetry 07/17/17 07/17/17 14:09 14:10 Temperature Pulse Rate 76 Pulse Rate [ Anterior Bilateral Throughout] Pulse Rate [ 84 Anterior Left Throughout] Pulse Rate [ From Monitor] Respiratory Rate Respiratory Rate [Anterior Bilateral Throughout] Respiratory 28 H Rate [Anterior Left Throughout ] Blood Pressure 99/50 O2 Sat by Pulse 96 Oximetry Constitutional: other (morbidly obese, critically ill on vent) ENT: other (orally intubated) Neck: supple (and large in circumference) Effort: normal Ascultation: Bilateral: other (coarse BS bilaterally with faint expiratory wheezes) Cardiovascular: regular rate and rhythm (no mrg) Gastrointestinal: normoactive bowel sounds, soft, non-tender, non-distended Integumentary: normal Extremities: no cyanosis, pink and warm, edema (1+ generalized) Neurologic: other (opens eyes on sedation, follows commands, grossly nonfocal) Psychiatric: mood appropriate, affect normal CBC and BMP: 07/17/17 03:22 07/17/17 03:22 ABG, PT/INR, D-dimer: ABG POC ABG pH 7.413 (7.35-7.45) 07/17/17 06:21 POC ABG pCO2 47.0 (35-45) H 07/17/17 06:21 POC ABG pO2 71 (80-105) L 07/17/17 06:21 POC ABG HCO3 30.0 07/17/17 06:21 POC ABG Total CO2 31 07/17/17 06:21 POC ABG O2 Sat 94 07/17/17 06:21 Abnormal lab findings: Abnormal Labs 07/09/17 07/09/17 07/09/17 18:05 18:05 21:15 WBC 15.0 H Hct 43.7 H Lymph % (Auto) 10.7 L [place] % (Auto) [place] # Seg Neutrophils % 83.9 H Seg Neutrophils # 12.6 H POC ABG pH POC ABG pCO2 POC ABG pO2 Sodium Potassium Chloride 96.7 L Carbon Dioxide 31 H BUN 18 H Creatinine Glucose 146 H POC Glucose Lactic Acid 2.50 H* Calcium C-Reactive Protein NT-Pro-B Natriuret Pep 1456 H Albumin 3.8 L Urine WBC (Auto) 07/09/17 07/09/17 07/09/17 21:20 21:46 22:59 WBC Hct Lymph % (Auto) [place] % (Auto) [place] # Seg Neutrophils % Seg Neutrophils # POC ABG pH POC ABG pCO2 54.6 H POC ABG pO2 Sodium Potassium Chloride Carbon Dioxide BUN Creatinine Glucose POC Glucose Lactic Acid 2.30 H* Calcium C-Reactive Protein NT-Pro-B Natriuret Pep Albumin Urine WBC (Auto) 29.0 H 07/10/17 07/11/17 07/11/17 04:35 05:12 06:11 WBC 18.4 H Hct Lymph % (Auto) 8.6 L [place] % (Auto) 7.9 H [place] # 1.5 H Seg Neutrophils % 83.5 H Seg Neutrophils # 15.3 H POC ABG pH 7.282 L POC ABG pCO2 61.2 H POC ABG pO2 155 H Sodium Potassium Chloride Carbon Dioxide BUN Creatinine Glucose POC Glucose Lactic Acid Calcium C-Reactive Protein NT-Pro-B Natriuret Pep Albumin Urine WBC (Auto) 07/11/17 07/12/17 07/12/17 06:11 04:16 05:03 WBC Hct Lymph % (Auto) [place] % (Auto) [place] # Seg Neutrophils % Seg Neutrophils # POC ABG pH 7.468 H POC ABG pCO2 48.2 H POC ABG pO2 41 L Sodium Potassium Chloride Carbon Dioxide BUN 37 H Creatinine Glucose 130 H POC Glucose Lactic Acid Calcium C-Reactive Protein NT-Pro-B Natriuret Pep Albumin Urine WBC (Auto) 07/12/17 07/12/17 07/13/17 09:01 09:01 04:53 WBC 12.2 H Hct Lymph % (Auto) [place] % (Auto) 10.9 H [place] # 1.3 H Seg Neutrophils % Seg Neutrophils # 8.2 H POC ABG pH POC ABG pCO2 POC ABG pO2 55 L Sodium 146 H Potassium Chloride Carbon Dioxide BUN 31 H Creatinine Glucose POC Glucose Lactic Acid Calcium 8.0 L C-Reactive Protein NT-Pro-B Natriuret Pep Albumin Urine WBC (Auto) 07/13/17 07/13/17 07/14/17 13:29 23:20 04:21 WBC 13.3 H Hct Lymph % (Auto) [place] % (Auto) 10.4 H [place] # 1.4 H Seg Neutrophils % Seg Neutrophils # 8.8 H POC ABG pH 7.315 L POC ABG pCO2 52.5 H POC ABG pO2 Sodium Potassium Chloride Carbon Dioxide BUN Creatinine Glucose POC Glucose 121 H Lactic Acid Calcium C-Reactive Protein NT-Pro-B Natriuret Pep Albumin Urine WBC (Auto) 07/14/17 07/14/17 07/15/17 04:21 04:31 07:30 WBC Hct Lymph % (Auto) [place] % (Auto) 9.2 H [place] # 1.0 H Seg Neutrophils % 72.7 H Seg Neutrophils # 7.9 H POC ABG pH 7.301 L POC ABG pCO2 51.4 H POC ABG pO2 Sodium 146 H Potassium Chloride 109.0 H Carbon Dioxide BUN 22 H Creatinine Glucose 107 H POC Glucose Lactic Acid Calcium 8.3 L C-Reactive Protein NT-Pro-B Natriuret Pep Albumin 3.0 L Urine WBC (Auto) 07/15/17 07/15/17 07/16/17 07:30 16:00 04:40 WBC Hct Lymph % (Auto) [place] % (Auto) 10.0 H [place] # 1.0 H Seg Neutrophils % Seg Neutrophils # POC ABG pH 7.301 L POC ABG pCO2 47.3 H POC ABG pO2 79 L Sodium 149 H Potassium 3.5 L Chloride 111.6 H Carbon Dioxide BUN 21 H Creatinine 0.6 L Glucose POC Glucose Lactic Acid Calcium 8.1 L C-Reactive Protein NT-Pro-B Natriuret Pep Albumin Urine WBC (Auto) 07/16/17 07/16/17 07/16/17 04:40 09:48 13:36 WBC Hct Lymph % (Auto) [place] % (Auto) [place] # Seg Neutrophils % Seg Neutrophils # POC ABG pH 7.349 L POC ABG pCO2 POC ABG pO2 65 L Sodium 148 H Potassium 3.4 L Chloride 109.8 H Carbon Dioxide BUN 18 H Creatinine 0.6 L Glucose POC Glucose Lactic Acid Calcium 8.0 L C-Reactive Protein 4.90 H NT-Pro-B Natriuret Pep Albumin Urine WBC (Auto) 07/17/17 07/17/17 07/17/17 03:22 03:22 06:21 WBC Hct Lymph % (Auto) [place] % (Auto) 12.3 H [place] # 1.3 H Seg Neutrophils % Seg Neutrophils # POC ABG pH POC ABG pCO2 47.0 H POC ABG pO2 71 L Sodium Potassium Chloride Carbon Dioxide BUN Creatinine 0.6 L Glucose 116 H POC Glucose Lactic Acid Calcium 8.0 L C-Reactive Protein NT-Pro-B Natriuret Pep Albumin Urine WBC (Auto) Chest x-ray: report reviewed, image reviewed
[2017-07-17] MEDS: COLACE PO SCH (22:27)
[2017-07-18] MEDS: XOPENEX IH SCH ×4 (02:26→20:27)
[2017-07-18] MEDS: fentaNYL DRIP Premix 2,000 MCG/100 ML BAG IV SCH ×2 (05:47→20:16)
[2017-07-18] MEDS: CLEOCIN 900 MG/50 mL 900 MG/50 ML BAG IV SCH ×4 (05:48→23:31)
[2017-07-18 06:53] LABS: Basophils % (Auto) 0.4 % (0.0-1.8); Eosinophils # (Auto) 0.2 K/mm3 (0.0-0.4); Eosinophils % (Auto) 1.9 % (0.0-4.3); Hematocrit 35.2 % (30.3-42.9); Hemoglobin 11.5 gm/dl (10.1-14.3); Lymphocytes # (Auto) 2.7 K/mm3 (1.2-5.4); Lymphocytes % (Auto) 25.3 % (13.4-35.0); Mean Corpuscular HGB Conc 33 % (30-34); Mean Corpuscular Hemoglobin 29 pg (28-32); Mean Corpuscular Volume 90 fl (79-97); Monocytes # (Auto) 1.2 K/mm3 (0.0-0.8); Monocytes % (Auto) 10.8 % (0.0-7.3); Platelet Count 203 K/mm3 (140-440); Red Blood Count 3.91 M/mm3 (3.65-5.03); Red Cell Distribution Width 14.6 % (13.2-15.2)
[2017-07-18 07:16] LABS: BUN/Creatinine Ratio 28; Blood Urea Nitrogen 17 mg/dL (7-17); Calcium 8.2 mg/dL (8.4-10.2); Hemolysis Index 12
[2017-07-18] MEDS: AZACTAM/NS 1 GM/50 ML 1 GM/50 ML VIAL IV SCH ×3 (08:22→23:31)
[2017-07-18] MEDS: LOVENOX SUB-Q SCH (09:22)
[2017-07-18] MEDS: PEPCID IV SCH ×2 (09:22→21:25)
[2017-07-18] MEDS: CORDARONE PO SCH (09:23)
[2017-07-18] MEDS: COLACE PO SCH ×2 (09:23→21:24)
[2017-07-18] MEDS: LEVAQUIN 750MG/150ML 750 MG/150 ML BAG IV SCH (09:27)
[2017-07-18] MEDS: LASIX IV SCH (10:22)
--- NOTE | 2017-07-18 10:39 | Progress Note ---
Assessment and Plan Assessment: 1) Severe sepsis with initial septic shock: shock resolved, still low grade fever. Etiology most likely complicated UTI +/- pneumonia. CRP=4.9. 2) Complicated UTI with right hydronephrosis and obstructive stone: unknown etiology, urine culture was not sent. -S/P stent placement on 07/12 3) Bilateral pneumonia: ? aspiration vs CAP. Sputum + usual resp rashawn 4) Respiratory failure 5) Morbid obesity 6) DIMPLE 7) Penicillin allergy - unclear reaction Plan: -follow-up repeat sputum culture -stop levaquin s/p 9 days -continue aztreonam day 3 of 7 and clindamycin day 2 of 7 -monitor fever -re-send UA and urine cx I will be off until Jul 24, but available over the phone, please call me for questions. Thank you Dr Thompson for your consultation, will follow up with you. Poonam Jennings MD Infectious Diseases Specialist [facility] ([facility]) M [phone] O [phone] Subjective Date of service: 07/18/17 Principal diagnosis: Sepsis Interval history: Remains intubated on CPAP. Tmax 100.8 Microbiology: Blood cultures: 07/09 neg Urine cultures: Respiratory cultures: tracheal 07/09 usual resp rashawn sputum 07/14 pending Current Antimicrobials: Levaquin 07/10 aztreonam 07/16 clinda 07/17 Previous Antimicrobials: Objective - Exam Narrative Exam: General appearance: sedated on vent/CPAP Eyes: anicteric sclerae, moist conjunctivae; no lid-lag; PERRLA HENT: Atraumatic; oropharynx +ETT +NGT Neck: Trachea midline; supple, no thyromegaly or lymphadenopathy Lungs: justen rhonchi CV: rrr Abdomen: Soft, obese Extremities: justen leg edema Skin: Normal temperature, turgor and texture; no rash, ulcers or subcutaneous nodules Psych: unable to eval. Neuro: unable to eval Lines: right neck TLC - Constitutional Vitals: Vital Signs Temp Pulse Resp BP Pulse Ox 98.4 F 114 H 19 94/50 96 07/18/17 08:00 07/18/17 09:30 07/18/17 09:30 07/18/17 09:30 07/18/17 09:30 Temperature -Last 24 Hours Temperature 98.4 F Temperature 99.2 F Temperature 100.8 F Temperature 99.4 F Temperature 99.4 F Temperature 97.9 F - Labs CBC & Chem 7: 07/18/17 06:00 07/18/17 06:00 Labs: Abnormal lab results 07/18/17 07/18/17 Range/Units 06:00 06:00 [place] % (Auto) 10.8 H (0.0-7.3) % [place] # 1.2 H (0.0-0.8) K/mm3 Sodium 146 H (137-145) mmol/L Potassium 3.0 L (3.6-5.0) mmol/L Creatinine 0.6 L (0.7-1.2) mg/dL Glucose 114 H (65-100) mg/dL Calcium 8.2 L (8.4-10.2) mg/dL
[2017-07-18 11:04] LABS: Bacteria,Urine 3+ /HPF (Negative); Bilirubin,Urine NEG (Negative); Blood,Urine LG (Negative); Color,Urine Yellow (Yellow); Mucus,Urine 2+ /HPF; Nitrite,Urine NEG (Negative)
[2017-07-18 11:08] LABS: RBC,Urine > 182.0 /HPF (0.0-6.0)
[2017-07-18] MEDS ORDERED: POTASSIUM CHLORIDE FEEDTUBE ONE (12:20)
[2017-07-18] MEDS ORDERED: K-DUR PO ONE (14:05)
--- NOTE | 2017-07-18 14:05 | Progress Note ---
Assessment and Plan Assessment and plan: Acute respiratory failure --Cont Vent management per Pulm. Cont PSV trials daily Sepsis. Cont. IV Abx per ID recommendations. Levaquin has been discontinued and meropenem started. Bilateral pneumonia.? Aspiration versus CAP. Continue antibiotics. Follow serial chest x-ray Urinary tract infection. Follow-up urine culture. Right Hydronephrosis with partial obstructing stone S/p cysto, rpg, rt stent 24cm x 6---07-12-17 (Liliam) Hypernatremia. Continue free water. CHF, stable Atrial fibrillation. Continue amiodarone. Obstructive sleep apnea Hypothyroidism DVT prophylaxis-- SQ Lovenox The high probability of a clinically significant, sudden or life threatening deterioration of the [Pulmonary, cadiac, renal] system(s) required my full and direct attention, intervention and personal management. The aggregate critical care time was [32] minutes. This time is in addition to time spent performing reported procedures but includes the following: [x] Data Review and interpretation [x] Patient assessment and monitoring of vital signs [x] Documentation [x] Medication orders and management History Interval history: PT. remains intubated on vent Hospitalist Physical - Constitutional Vitals: Temp Pulse Resp BP Pulse Ox 98.4 F 110 H 20 169/83 95 07/18/17 08:00 07/18/17 13:51 07/18/17 13:26 07/18/17 13:51 07/18/17 13:51 General appearance: Present: mild distress, well-nourished, other (orally intubated) - EENT Eyes: Present: PERRL, EOM intact ENT: hearing intact, clear oral mucosa, dentition normal - Neck Neck: Present: supple, normal ROM - Respiratory Respiratory effort: normal Respiratory: bilateral: CTA - Cardiovascular Rhythm: regular Heart Sounds: Present: S1 & S2. Absent: gallop, rub - Extremities Extremities: no ischemia, No edema, Full ROM - Abdominal General gastrointestinal: soft, non-tender, non-distended, normal bowel sounds - Integumentary Integumentary: Present: clear, warm, dry - Neurologic Neurologic: CNII-XII intact, moves all extremities Results - Labs CBC & Chem 7: 07/18/17 06:00 07/18/17 06:00 Labs: Laboratory Last Values WBC 10.8 K/mm3 (4.5-11.0) 07/18/17 06:00 RBC 3.91 M/mm3 (3.65-5.03) 07/18/17 06:00 Hgb 11.5 gm/dl (10.1-14.3) 07/18/17 06:00 Hct 35.2 % (30.3-42.9) 07/18/17 06:00 MCV 90 fl (79-97) 07/18/17 06:00 MCH 29 pg (28-32) 07/18/17 06:00 MCHC 33 % (30-34) 07/18/17 06:00 RDW 14.6 % (13.2-15.2) 07/18/17 06:00 Plt Count 203 K/mm3 (140-440) 07/18/17 06:00 Lymph % (Auto) 25.3 % (13.4-35.0) 07/18/17 06:00 [place] % (Auto) 10.8 % (0.0-7.3) H 07/18/17 06:00 Eos % (Auto) 1.9 % (0.0-4.3) 07/18/17 06:00 Baso % (Auto) 0.4 % (0.0-1.8) 07/18/17 06:00 Lymph # 2.7 K/mm3 (1.2-5.4) 07/18/17 06:00 [place] # 1.2 K/mm3 (0.0-0.8) H 07/18/17 06:00 Eos # 0.2 K/mm3 (0.0-0.4) 07/18/17 06:00 Baso # 0.0 K/mm3 (0.0-0.1) 07/18/17 06:00 Seg Neutrophils % 61.6 % (40.0-70.0) 07/18/17 06:00 Seg Neutrophils # 6.7 K/mm3 (1.8-7.7) 07/18/17 06:00 POC ABG pH 7.418 (7.35-7.45) 07/18/17 11:12 POC ABG pCO2 48.4 (35-45) H 07/18/17 11:12 POC ABG pO2 70 (80-105) L 07/18/17 11:12 POC ABG HCO3 31.3 07/18/17 11:12 POC ABG Total CO2 33 07/18/17 11:12 POC ABG O2 Sat 94 07/18/17 11:12 POC ABG Base Excess 7 07/18/17 11:12 FiO2 30 % 07/18/17 11:12 Sodium 146 mmol/L (137-145) H 07/18/17 06:00 Potassium 3.0 mmol/L (3.6-5.0) L 07/18/17 06:00 Chloride 105.4 mmol/L (98-107) 07/18/17 06:00 Carbon Dioxide 29 mmol/L (22-30) 07/18/17 06:00 Anion Gap 15 mmol/L 07/18/17 06:00 BUN 17 mg/dL (7-17) 07/18/17 06:00 Creatinine 0.6 mg/dL (0.7-1.2) L 07/18/17 06:00 Estimated GFR > 60 ml/min 07/18/17 06:00 BUN/Creatinine Ratio 28 % 07/18/17 06:00 Glucose 114 mg/dL (65-100) H 07/18/17 06:00 POC Glucose 88 (70-105) 07/14/17 12:11 Lactic Acid 2.30 mmol/L (0.7-2.0) H* 07/09/17 22:59 Calcium 8.2 mg/dL (8.4-10.2) L 07/18/17 06:00 Total Bilirubin 0.80 mg/dL (0.1-1.2) 07/14/17 04:21 AST 15 units/L (5-40) 07/14/17 04:21 ALT 13 units/L (7-56) 07/14/17 04:21 Alkaline Phosphatase 53 units/L (35-129) 07/14/17 04:21 Total Creatine Kinase 34 units/L (30-135) 07/09/17 18:05 CK-MB (CK-2) < 1.0 ng/mL (0.0-4.0) 07/09/17 18:05 CK-MB (CK-2) Rel Index 2.9 (0-4) 07/09/17 18:05 Troponin T < 0.010 ng/mL (0.00-0.029) 07/09/17 18:05 C-Reactive Protein 4.90 mg/dL (0.00-1.30) H 07/16/17 13:36 NT-Pro-B Natriuret Pep 1456 pg/mL (0-900) H 07/09/17 18:05 Total Protein 6.5 g/dL (6.3-8.2) 07/14/17 04:21 Albumin 3.0 g/dL (3.9-5) L 07/14/17 04:21 Albumin/Globulin Ratio 0.9 % 07/14/17 04:21 Lipase 16 units/L (13-60) 07/09/17 18:05 Urine Color Yellow (Yellow) 07/18/17 Unknown Urine Turbidity Cloudy (Clear) 07/18/17 Unknown Urine pH 5.0 (5.0-7.0) 07/18/17 Unknown Ur Specific [place] 1.015 (1.003-1.030) 07/18/17 Unknown Urine Protein 30 mg/dl mg/dL (Negative) 07/18/17 Unknown Urine Glucose (UA) Neg mg/dL (Negative) 07/18/17 Unknown Urine Ketones Neg mg/dL (Negative) 07/18/17 Unknown Urine Blood Lg (Negative) 07/18/17 Unknown Urine Nitrite Neg (Negative) 07/18/17 Unknown Urine Bilirubin Neg (Negative) 07/18/17 Unknown Urine Urobilinogen 4.0 mg/dL (<2.0) 07/18/17 Unknown Ur Leukocyte Esterase Lg (Negative) 07/18/17 Unknown Urine WBC (Auto) 174.0 /HPF (0.0-6.0) H 07/18/17 Unknown Urine RBC (Auto) > 182.0 /HPF (0.0-6.0) 07/18/17 Unknown U Epithel Cells (Auto) 6.0 /HPF (0-13.0) 07/18/17 Unknown Urine Bacteria (Auto) 3+ /HPF (Negative) 07/18/17 Unknown Ur Transition Epith Cell 1 /HPF 07/18/17 Unknown Urine Mucus 2+ /HPF 07/18/17 Unknown Ur Yeast w Hyphae 1+ /HPF 07/18/17 Unknown Urine Yeast (Budding) 3+ /HPF 07/18/17 Unknown Plasma/Serum Alcohol < 0.01 gm% (0-0.07) 07/14/17 14:20
--- NOTE | 2017-07-18 15:19 | Progress Note ---
Assessment and Plan Imp: 1. UTI/hydronephrosis 2. Sepsis 3. Acute respiratory failure, hypoxia 4. Morbid obesity; DIMPLE +/- OHS 5. Pulm HTN 6. RIVERA, better 7. Afib w/ RVR Rec: 1. Free water per FT; monitor sodium; replete K; check mag, phos in AM 2. Lasix IV; resumed Lopressor 50mg BID and titrate PRN; on Amiodarone as well; resume Eliquis soon 3. Place back on PRVC today until HR better controlled; hopeful extubation in AM 4. ABX per ID; f/u urine culture; recheck blood cultures if spikes; CXR in AM 5. TFs, DVT and GI PPx 6. Daily PSV trials 7. Further plans pending clinical course; clinically improved past 48 hours D/w daughter; CCT 31 minutes Subjective Date of service: 07/18/17 Principal diagnosis: Sepsis Interval history: No events. Off sedation. Follows commands. Tolerated PSV x 4 hours but + SOB and sustained afib w/ RVR to the 130's -> placed back on PRVC. C/o "pain" but cannot tell me where. Low-grade fever noted. Active Medications Acetaminophen (Tylenol) 650 mg MA Q4H PRN PRN Reason: Pain MILD(1-3)/Fever >100.5/CAMPOS Last Admin: 07/12/17 00:13 Dose: 650 mg Acetaminophen (Tylenol) 650 mg PO Q4H PRN PRN Reason: Pain MILD(1-3)/Fever >100.5/CAMPOS Amiodarone HCl (Cordarone) 200 mg PO QDAY ON LICENSE OF [facility] Last Admin: 07/18/17 09:23 Dose: 200 mg Lipase/Protease/Amylase (Pancreaze Dr 10,500 Unit) 1 each FEEDTUBE PRN PRN PRN Reason: For Clogged Feeding Tube Bisacodyl (Dulcolax) 10 mg MA QDAY PRN PRN Reason: Constipation unrelieved by MOM Docusate Sodium (Colace) 100 mg PO BID ON LICENSE OF [facility] Last Admin: 07/18/17 09:23 Dose: 100 mg Enoxaparin Sodium (Lovenox) 40 mg SUB-Q QDAY ON LICENSE OF [facility] Last Admin: 07/18/17 09:22 Dose: 40 mg Famotidine (Pepcid) 20 mg IV BID ON LICENSE OF [facility] Last Admin: 07/18/17 09:22 Dose: 20 mg Furosemide (Lasix) 40 mg IV QDAY ON LICENSE OF [facility] Last Admin: 07/18/17 10:22 Dose: 40 mg Hydralazine HCl (Apresoline) 10 mg IV Q8HR PRN PRN Reason: prn for SB/P greater than 175 Last Admin: 07/16/17 21:19 Dose: 10 mg Hydrophilic Ointment (Vaseline Lip Therapy) 1 applic TP Q2HR PRN PRN Reason: Dry Lips Fentanyl Citrate (Fentanyl Drip Premix) 2,000 mcg in 100 mls @ 4.082 mls/hr IV TITR OTONIEL; 1 MCG/KG/HR PRN Reason: Protocol Last Titration: 07/18/17 08:04 Dose: 1 mcg/kg/hr, 4.082 mls/hr Aztreonam (Azactam/Ns 1 Gm/50 Ml) 1 gm in 50 mls @ 50 mls/hr IV Q8H ON LICENSE OF [facility] PRN Reason: Protocol Last Admin: 07/18/17 08:22 Dose: 50 mls/hr Clindamycin HCl (Cleocin 900 Mg/50 Ml) 900 mg in 50 mls @ 100 mls/hr IV Q8HR ON LICENSE OF [facility] PRN Reason: Protocol Last Admin: 07/18/17 13:58 Dose: 100 mls/hr Levalbuterol HCl (Xopenex) 1.25 mg IH Q6HRT ON LICENSE OF [facility] Last Admin: 07/18/17 13:18 Dose: 1.25 mg Magnesium Hydroxide (Milk Of Magnesia) 30 ml PO Q4H PRN PRN Reason: Constipation Metoprolol Tartrate (Lopressor) 50 mg PO BID ON LICENSE OF [facility] Multi-Ingred Cream/Lotion/Oil/Oint (Artificial Tears Ophth Oint) 1 applic OU Q4HR PRN PRN Reason: Dry Eye(s) Ondansetron HCl (Zofran) 4 mg IV Q8H PRN PRN Reason: N/V unrelieved by Reglan Simple Syrup (Simple Syrup) 15 ml FEEDTUBE PRN PRN PRN Reason: Hypoglycemia Simple Syrup (Simple Syrup) 30 ml FEEDTUBE PRN PRN PRN Reason: Hypoglycemia Sodium Bicarbonate (Sodium Bicarbonate) 325 mg FEEDTUBE PRN PRN PRN Reason: For Clogged Feeding Tube Objective Vital Signs - 12hr 07/18/17 07/18/17 07/18/17 03:30 03:45 04:00 Temperature 99.2 F Pulse Rate 94 H 92 H Pulse Rate [ Anterior Bilateral Throughout] Respiratory 16 16 Rate Respiratory Rate [Anterior Bilateral Throughout] Blood Pressure 131/63 131/63 O2 Sat by Pulse 94 94 Oximetry 07/18/17 07/18/17 07/18/17 04:04 04:30 05:00 Temperature Pulse Rate 92 H 82 80 Pulse Rate [ Anterior Bilateral Throughout] Respiratory 16 16 Rate Respiratory Rate [Anterior Bilateral Throughout] Blood Pressure 152/74 152/74 83/41 O2 Sat by Pulse 94 94 94 Oximetry 07/18/17 07/18/17 07/18/17 05:30 06:00 06:30 Temperature Pulse Rate 70 86 81 Pulse Rate [ Anterior Bilateral Throughout] Respiratory 16 16 16 Rate Respiratory Rate [Anterior Bilateral Throughout] Blood Pressure 124/67 132/69 132/69 O2 Sat by Pulse 95 94 94 Oximetry 07/18/17 07/18/17 07/18/17 07:00 07:30 07:34 Temperature Pulse Rate 77 93 H Pulse Rate [ Anterior Bilateral Throughout] Respiratory 16 16 Rate Respiratory Rate [Anterior Bilateral Throughout] Blood Pressure 79/32 98/40 O2 Sat by Pulse 94 94 94 Oximetry 07/18/17 07/18/17 07/18/17 08:00 08:12 08:17 Temperature 98.4 F Pulse Rate 72 101 H 97 H Pulse Rate [ Anterior Bilateral Throughout] Respiratory 16 17 Rate Respiratory Rate [Anterior Bilateral Throughout] Blood Pressure 81/43 153/85 153/85 O2 Sat by Pulse 94 98 94 Oximetry 07/18/17 07/18/17 07/18/17 08:20 08:30 08:36 Temperature Pulse Rate 83 Pulse Rate [ 96 H 91 H Anterior Bilateral Throughout] Respiratory 16 Rate Respiratory 17 21 Rate [Anterior Bilateral Throughout] Blood Pressure 98/40 O2 Sat by Pulse 100 Oximetry 07/18/17 07/18/17 07/18/17 09:00 09:30 10:00 Temperature Pulse Rate 80 114 H 109 H Pulse Rate [ Anterior Bilateral Throughout] Respiratory 13 19 21 Rate Respiratory Rate [Anterior Bilateral Throughout] Blood Pressure 94/50 94/50 94/50 O2 Sat by Pulse 95 96 95 Oximetry 07/18/17 07/18/17 07/18/17 10:30 11:00 11:09 Temperature Pulse Rate 128 H 110 H 112 H Pulse Rate [ Anterior Bilateral Throughout] Respiratory 21 18 20 Rate Respiratory Rate [Anterior Bilateral Throughout] Blood Pressure 94/50 167/83 167/83 O2 Sat by Pulse 95 94 95 Oximetry 07/18/17 07/18/17 07/18/17 11:30 11:57 12:00 Temperature 97.4 F L Pulse Rate 134 H 131 H Pulse Rate [ Anterior Bilateral Throughout] Respiratory 25 H 24 Rate Respiratory Rate [Anterior Bilateral Throughout] Blood Pressure 167/83 167/83 O2 Sat by Pulse 94 94 94 Oximetry 07/18/17 07/18/17 07/18/17 12:30 13:00 13:18 Temperature Pulse Rate 134 H 128 H Pulse Rate [ 124 H Anterior Bilateral Throughout] Respiratory 24 21 Rate Respiratory 23 Rate [Anterior Bilateral Throughout] Blood Pressure 167/83 169/83 O2 Sat by Pulse 94 94 Oximetry 07/18/17 07/18/17 07/18/17 13:26 13:30 13:51 Temperature Pulse Rate 120 H 110 H Pulse Rate [ 120 H Anterior Bilateral Throughout] Respiratory 19 Rate Respiratory 20 Rate [Anterior Bilateral Throughout] Blood Pressure 169/83 169/83 O2 Sat by Pulse 95 95 Oximetry 07/18/17 14:00 Temperature Pulse Rate 134 H Pulse Rate [ Anterior Bilateral Throughout] Respiratory 25 H Rate Respiratory Rate [Anterior Bilateral Throughout] Blood Pressure 181/96 O2 Sat by Pulse 94 Oximetry Constitutional: other (morbidly obese, critically ill on vent) ENT: other (orally intubated) Neck: supple (and large in circumference) Effort: normal Ascultation: Bilateral: other (coarse BS bilaterally with faint expiratory wheezes) Cardiovascular: irregular rhythm (ir/ir, no mrg; tachy) Gastrointestinal: normoactive bowel sounds, soft, non-tender, non-distended Integumentary: normal Extremities: no cyanosis, pink and warm, edema (1+ generalized) Neurologic: other (opens eyes on sedation, follows commands, grossly nonfocal) Psychiatric: mood appropriate, affect normal CBC and BMP: 07/18/17 06:00 07/18/17 06:00 ABG, PT/INR, D-dimer: ABG POC ABG pH 7.418 (7.35-7.45) 07/18/17 11:12 POC ABG pCO2 48.4 (35-45) H 07/18/17 11:12 POC ABG pO2 70 (80-105) L 07/18/17 11:12 POC ABG HCO3 31.3 07/18/17 11:12 POC ABG Total CO2 33 07/18/17 11:12 POC ABG O2 Sat 94 07/18/17 11:12 Abnormal lab findings: Abnormal Labs 07/09/17 07/09/17 07/09/17 18:05 18:05 21:15 WBC 15.0 H Hct 43.7 H Lymph % (Auto) 10.7 L [place] % (Auto) [place] # Seg Neutrophils % 83.9 H Seg Neutrophils # 12.6 H POC ABG pH POC ABG pCO2 POC ABG pO2 Sodium Potassium Chloride 96.7 L Carbon Dioxide 31 H BUN 18 H Creatinine Glucose 146 H POC Glucose Lactic Acid 2.50 H* Calcium C-Reactive Protein NT-Pro-B Natriuret Pep 1456 H Albumin 3.8 L Urine WBC (Auto) 07/09/17 07/09/17 07/09/17 21:20 21:46 22:59 WBC Hct Lymph % (Auto) [place] % (Auto) [place] # Seg Neutrophils % Seg Neutrophils # POC ABG pH POC ABG pCO2 54.6 H POC ABG pO2 Sodium Potassium Chloride Carbon Dioxide BUN Creatinine Glucose POC Glucose Lactic Acid 2.30 H* Calcium C-Reactive Protein NT-Pro-B Natriuret Pep Albumin Urine WBC (Auto) 29.0 H 07/10/17 07/11/17 07/11/17 04:35 05:12 06:11 WBC 18.4 H Hct Lymph % (Auto) 8.6 L [place] % (Auto) 7.9 H [place] # 1.5 H Seg Neutrophils % 83.5 H Seg Neutrophils # 15.3 H POC ABG pH 7.282 L POC ABG pCO2 61.2 H POC ABG pO2 155 H Sodium Potassium Chloride Carbon Dioxide BUN Creatinine Glucose POC Glucose Lactic Acid Calcium C-Reactive Protein NT-Pro-B Natriuret Pep Albumin Urine WBC (Auto) 07/11/17 07/12/17 07/12/17 06:11 05:03 09:01 WBC 12.2 H Hct Lymph % (Auto) [place] % (Auto) 10.9 H [place] # 1.3 H Seg Neutrophils % Seg Neutrophils # 8.2 H POC ABG pH POC ABG pCO2 48.2 H POC ABG pO2 Sodium Potassium Chloride Carbon Dioxide BUN 37 H Creatinine Glucose 130 H POC Glucose Lactic Acid Calcium C-Reactive Protein NT-Pro-B Natriuret Pep Albumin Urine WBC (Auto) 07/12/17 07/13/17 07/13/17 09:01 13:29 23:20 WBC Hct Lymph % (Auto) [place] % (Auto) [place] # Seg Neutrophils % Seg Neutrophils # POC ABG pH 7.315 L POC ABG pCO2 52.5 H POC ABG pO2 Sodium 146 H Potassium Chloride Carbon Dioxide BUN 31 H Creatinine Glucose POC Glucose 121 H Lactic Acid Calcium 8.0 L C-Reactive Protein NT-Pro-B Natriuret Pep Albumin Urine WBC (Auto) 07/14/17 07/14/17 07/14/17 04:21 04:21 04:31 WBC 13.3 H Hct Lymph % (Auto) [place] % (Auto) 10.4 H [place] # 1.4 H Seg Neutrophils % Seg Neutrophils # 8.8 H POC ABG pH 7.301 L POC ABG pCO2 51.4 H POC ABG pO2 Sodium 146 H Potassium Chloride 109.0 H Carbon Dioxide BUN 22 H Creatinine Glucose 107 H POC Glucose Lactic Acid Calcium 8.3 L C-Reactive Protein NT-Pro-B Natriuret Pep Albumin 3.0 L Urine WBC (Auto) 07/15/17 07/15/17 07/15/17 07:30 07:30 16:00 WBC Hct Lymph % (Auto) [place] % (Auto) 9.2 H [place] # 1.0 H Seg Neutrophils % 72.7 H Seg Neutrophils # 7.9 H POC ABG pH 7.301 L POC ABG pCO2 47.3 H POC ABG pO2 79 L Sodium 149 H Potassium 3.5 L Chloride 111.6 H Carbon Dioxide BUN 21 H Creatinine 0.6 L Glucose POC Glucose Lactic Acid Calcium 8.1 L C-Reactive Protein NT-Pro-B Natriuret Pep Albumin Urine WBC (Auto) 07/16/17 07/16/17 07/16/17 04:40 04:40 09:48 WBC Hct Lymph % (Auto) [place] % (Auto) 10.0 H [place] # 1.0 H Seg Neutrophils % Seg Neutrophils # POC ABG pH 7.349 L POC ABG pCO2 POC ABG pO2 65 L Sodium 148 H Potassium 3.4 L Chloride 109.8 H Carbon Dioxide BUN 18 H Creatinine 0.6 L Glucose POC Glucose Lactic Acid Calcium 8.0 L C-Reactive Protein NT-Pro-B Natriuret Pep Albumin Urine WBC (Auto) 07/16/17 07/17/17 07/17/17 13:36 03:22 03:22 WBC Hct Lymph % (Auto) [place] % (Auto) 12.3 H [place] # 1.3 H Seg Neutrophils % Seg Neutrophils # POC ABG pH POC ABG pCO2 POC ABG pO2 Sodium Potassium Chloride Carbon Dioxide BUN Creatinine 0.6 L Glucose 116 H POC Glucose Lactic Acid Calcium 8.0 L C-Reactive Protein 4.90 H NT-Pro-B Natriuret Pep Albumin Urine WBC (Auto) 07/17/17 07/18/17 07/18/17 06:21 06:00 06:00 WBC Hct Lymph % (Auto) [place] % (Auto) 10.8 H [place] # 1.2 H Seg Neutrophils % Seg Neutrophils # POC ABG pH POC ABG pCO2 47.0 H POC ABG pO2 71 L Sodium 146 H Potassium 3.0 L Chloride Carbon Dioxide BUN Creatinine 0.6 L Glucose 114 H POC Glucose Lactic Acid Calcium 8.2 L C-Reactive Protein NT-Pro-B Natriuret Pep Albumin Urine WBC (Auto) 07/18/17 07/18/17 11:12 Unknown WBC Hct Lymph % (Auto) [place] % (Auto) [place] # Seg Neutrophils % Seg Neutrophils # POC ABG pH POC ABG pCO2 48.4 H POC ABG pO2 70 L Sodium Potassium Chloride Carbon Dioxide BUN Creatinine Glucose POC Glucose Lactic Acid Calcium C-Reactive Protein NT-Pro-B Natriuret Pep Albumin Urine WBC (Auto) 174.0 H Chest x-ray: report reviewed, image reviewed
[2017-07-18] MEDS: LOPRESSOR PO SCH ×2 (16:00→21:24)
[2017-07-19] MEDS: XOPENEX IH SCH ×4 (02:34→20:09)
[2017-07-19] MEDS: CLEOCIN 900 MG/50 mL 900 MG/50 ML BAG IV SCH ×3 (05:45→23:30)
[2017-07-19 08:04] LABS: Basophils % (Auto) 0.3 % (0.0-1.8); Eosinophils # (Auto) 0.2 K/mm3 (0.0-0.4); Eosinophils % (Auto) 1.4 % (0.0-4.3); Hematocrit 37.6 % (30.3-42.9); Lymphocytes # (Auto) 2.7 K/mm3 (1.2-5.4); Lymphocytes % (Auto) 19.4 % (13.4-35.0); Mean Corpuscular HGB Conc 32 % (30-34); Mean Corpuscular Hemoglobin 28 pg (28-32); Mean Corpuscular Volume 89 fl (79-97); Monocytes # (Auto) 1.4 K/mm3 (0.0-0.8); Monocytes % (Auto) 9.6 % (0.0-7.3); Platelet Count 224 K/mm3 (140-440); Red Blood Count 4.24 M/mm3 (3.65-5.03); Red Cell Distribution Width 14.2 % (13.2-15.2)
[2017-07-19 08:25] LABS: BUN/Creatinine Ratio 32; Blood Urea Nitrogen 19 mg/dL (7-17); Calcium 8.3 mg/dL (8.4-10.2); Hemolysis Index 7
[2017-07-19] MEDS: AZACTAM/NS 1 GM/50 ML 1 GM/50 ML VIAL IV SCH ×2 (08:51→18:44)
[2017-07-19] MEDS: LOVENOX SUB-Q SCH (10:37)
[2017-07-19] MEDS: fentaNYL DRIP Premix 2,000 MCG/100 ML BAG IV SCH (10:38)
[2017-07-19] MEDS: LOPRESSOR PO SCH ×2 (10:38→23:34)
[2017-07-19] MEDS: LASIX IV SCH (10:38)
[2017-07-19] MEDS: CORDARONE PO SCH (10:38)
[2017-07-19] MEDS: PEPCID IV SCH ×2 (10:38→23:31)
--- NOTE | 2017-07-19 13:05 | Progress Note ---
Assessment and Plan Assessment and plan: Acute respiratory failure --Cont Vent management per Pulm. Cont PSV trials daily Sepsis. Cont. IV Abx per ID recommendations. Patient currently with clindamycin and aztreonam Bilateral pneumonia.? Aspiration versus CAP. Continue antibiotics. Follow serial chest x-ray Urinary tract infection. Follow-up urine culture. Right Hydronephrosis with partial obstructing stone S/p cysto, rpg, rt stent 24cm x 6---07-12-17 (Liliam) Hypernatremia. Continue free water. Acute on chronic CHF exacerbation. Continue Lasix and Lopressor twice a day Atrial fibrillation. Continue amiodarone. Obstructive sleep apnea Hypothyroidism DVT prophylaxis-- SQ Lovenox The high probability of a clinically significant, sudden or life threatening deterioration of the [Pulmonary, cadiac, renal] system(s) required my full and direct attention, intervention and personal management. The aggregate critical care time was [32] minutes. This time is in addition to time spent performing reported procedures but includes the following: [x] Data Review and interpretation [x] Patient assessment and monitoring of vital signs [x] Documentation [x] Medication orders and management History Interval history: PT. remains intubated on vent Hospitalist Physical - Constitutional Vitals: Temp Pulse Resp BP Pulse Ox 99.3 F 89 27 H 148/99 95 07/19/17 03:47 07/19/17 12:51 07/19/17 12:51 07/19/17 12:51 07/19/17 12:51 General appearance: Present: mild distress, well-nourished, other (orally intubated) - EENT Eyes: Present: PERRL, EOM intact ENT: hearing intact, clear oral mucosa, dentition normal - Neck Neck: Present: supple, normal ROM - Respiratory Respiratory effort: normal Respiratory: bilateral: diminished, rhonchi - Cardiovascular Rhythm: regular Heart Sounds: Present: S1 & S2. Absent: gallop, rub - Extremities Extremities: no ischemia, No edema, Full ROM - Abdominal General gastrointestinal: soft, non-tender, non-distended, normal bowel sounds - Integumentary Integumentary: Present: clear, warm, dry - Neurologic Neurologic: CNII-XII intact, moves all extremities Results - Labs CBC & Chem 7: 07/19/17 07:51 07/19/17 07:51 Labs: Laboratory Last Values WBC 14.1 K/mm3 (4.5-11.0) H 07/19/17 07:51 RBC 4.24 M/mm3 (3.65-5.03) 07/19/17 07:51 Hgb 12.0 gm/dl (10.1-14.3) 07/19/17 07:51 Hct 37.6 % (30.3-42.9) 07/19/17 07:51 MCV 89 fl (79-97) 07/19/17 07:51 MCH 28 pg (28-32) 07/19/17 07:51 MCHC 32 % (30-34) 07/19/17 07:51 RDW 14.2 % (13.2-15.2) 07/19/17 07:51 Plt Count 224 K/mm3 (140-440) 07/19/17 07:51 Lymph % (Auto) 19.4 % (13.4-35.0) 07/19/17 07:51 [place] % (Auto) 9.6 % (0.0-7.3) H 07/19/17 07:51 Eos % (Auto) 1.4 % (0.0-4.3) 07/19/17 07:51 Baso % (Auto) 0.3 % (0.0-1.8) 07/19/17 07:51 Lymph # 2.7 K/mm3 (1.2-5.4) 07/19/17 07:51 [place] # 1.4 K/mm3 (0.0-0.8) H 07/19/17 07:51 Eos # 0.2 K/mm3 (0.0-0.4) 07/19/17 07:51 Baso # 0.0 K/mm3 (0.0-0.1) 07/19/17 07:51 Seg Neutrophils % 69.3 % (40.0-70.0) 07/19/17 07:51 Seg Neutrophils # 9.8 K/mm3 (1.8-7.7) H 07/19/17 07:51 POC ABG pH 7.490 (7.35-7.45) H 07/19/17 12:53 POC ABG pCO2 49.2 (35-45) H 07/19/17 12:53 POC ABG pO2 69 (80-105) L 07/19/17 12:53 POC ABG HCO3 37.5 07/19/17 12:53 POC ABG Total CO2 39 07/19/17 12:53 POC ABG O2 Sat 94 07/19/17 12:53 POC ABG Base Excess 14 07/19/17 12:53 FiO2 30 % 07/19/17 12:53 Sodium 147 mmol/L (137-145) H 07/19/17 07:51 Potassium 3.3 mmol/L (3.6-5.0) L 07/19/17 07:51 Chloride 102.3 mmol/L (98-107) 07/19/17 07:51 Carbon Dioxide 32 mmol/L (22-30) H 07/19/17 07:51 Anion Gap 16 mmol/L 07/19/17 07:51 BUN 19 mg/dL (7-17) H 07/19/17 07:51 Creatinine 0.6 mg/dL (0.7-1.2) L 07/19/17 07:51 Estimated GFR > 60 ml/min 07/19/17 07:51 BUN/Creatinine Ratio 32 % 07/19/17 07:51 Glucose 127 mg/dL (65-100) H 07/19/17 07:51 POC Glucose 88 (70-105) 07/14/17 12:11 Lactic Acid 2.30 mmol/L (0.7-2.0) H* 07/09/17 22:59 Calcium 8.3 mg/dL (8.4-10.2) L 07/19/17 07:51 Phosphorus 3.10 mg/dL (2.5-4.5) 07/19/17 07:51 Magnesium 1.80 mg/dL (1.7-2.3) 07/19/17 07:51 Total Bilirubin 0.80 mg/dL (0.1-1.2) 07/14/17 04:21 AST 15 units/L (5-40) 07/14/17 04:21 ALT 13 units/L (7-56) 07/14/17 04:21 Alkaline Phosphatase 53 units/L (35-129) 07/14/17 04:21 Total Creatine Kinase 34 units/L (30-135) 07/09/17 18:05 CK-MB (CK-2) < 1.0 ng/mL (0.0-4.0) 07/09/17 18:05 CK-MB (CK-2) Rel Index 2.9 (0-4) 07/09/17 18:05 Troponin T < 0.010 ng/mL (0.00-0.029) 07/09/17 18:05 C-Reactive Protein 4.90 mg/dL (0.00-1.30) H 07/16/17 13:36 NT-Pro-B Natriuret Pep 1456 pg/mL (0-900) H 07/09/17 18:05 Total Protein 6.5 g/dL (6.3-8.2) 07/14/17 04:21 Albumin 3.0 g/dL (3.9-5) L 07/14/17 04:21 Albumin/Globulin Ratio 0.9 % 07/14/17 04:21 Lipase 16 units/L (13-60) 07/09/17 18:05 Urine Color Yellow (Yellow) 07/18/17 Unknown Urine Turbidity Cloudy (Clear) 07/18/17 Unknown Urine pH 5.0 (5.0-7.0) 07/18/17 Unknown Ur Specific [place] 1.015 (1.003-1.030) 07/18/17 Unknown Urine Protein 30 mg/dl mg/dL (Negative) 07/18/17 Unknown Urine Glucose (UA) Neg mg/dL (Negative) 07/18/17 Unknown Urine Ketones Neg mg/dL (Negative) 07/18/17 Unknown Urine Blood Lg (Negative) 07/18/17 Unknown Urine Nitrite Neg (Negative) 07/18/17 Unknown Urine Bilirubin Neg (Negative) 07/18/17 Unknown Urine Urobilinogen 4.0 mg/dL (<2.0) 07/18/17 Unknown Ur Leukocyte Esterase Lg (Negative) 07/18/17 Unknown Urine WBC (Auto) 174.0 /HPF (0.0-6.0) H 07/18/17 Unknown Urine RBC (Auto) > 182.0 /HPF (0.0-6.0) 07/18/17 Unknown U Epithel Cells (Auto) 6.0 /HPF (0-13.0) 07/18/17 Unknown Urine Bacteria (Auto) 3+ /HPF (Negative) 07/18/17 Unknown Ur Transition Epith Cell 1 /HPF 07/18/17 Unknown Urine Mucus 2+ /HPF 07/18/17 Unknown Ur Yeast w Hyphae 1+ /HPF 07/18/17 Unknown Urine Yeast (Budding) 3+ /HPF 07/18/17 Unknown Plasma/Serum Alcohol < 0.01 gm% (0-0.07) 07/14/17 14:20
--- NOTE | 2017-07-19 13:45 | Progress Note ---
Assessment and Plan Imp: 1. UTI/hydronephrosis 2. Sepsis 3. Acute respiratory failure, hypoxia 4. Morbid obesity; DIMPLE +/- OHS 5. Pulm HTN 6. RIVERA, better 7. Afib w/ RVR Rec: 1. Free water per FT; monitor sodium; replete K and Mag 2. Lasix IV; resumed Lopressor 50mg BID and titrate PRN; on Amiodarone as well; resume Eliquis soon 3. Awake, tolerating PSV x hours, ABG looks good, RSBI well under 105, and patient appears comfortable -> trial of extubation directly to BIPAP 4. ABX per ID; urine culture effectively sterile now; recheck blood cultures if spikes 5. TFs (hold while on BIPAP), DVT and GI PPx 6. Further plans pending clinical course; clinically improved past 72 hours D/w daughter; CCT 31 minutes Subjective Date of service: 07/19/17 Principal diagnosis: Sepsis Interval history: No events. Off sedation. Follows commands. Tolerated PSV x 4 hours. HR better today. No complaints. Active Medications Acetaminophen (Tylenol) 650 mg AK Q4H PRN PRN Reason: Pain MILD(1-3)/Fever >100.5/CAMPOS Last Admin: 07/12/17 00:13 Dose: 650 mg Acetaminophen (Tylenol) 650 mg PO Q4H PRN PRN Reason: Pain MILD(1-3)/Fever >100.5/CAMPOS Amiodarone HCl (Cordarone) 200 mg PO QDAY [facility] Last Admin: 07/19/17 10:38 Dose: 200 mg Lipase/Protease/Amylase (Pancreaze Dr 10,500 Unit) 1 each FEEDTUBE PRN PRN PRN Reason: For Clogged Feeding Tube Bisacodyl (Dulcolax) 10 mg AK QDAY PRN PRN Reason: Constipation unrelieved by MOM Docusate Sodium (Colace) 100 mg PO BID [facility] Last Admin: 07/18/17 21:24 Dose: 100 mg Enoxaparin Sodium (Lovenox) 40 mg SUB-Q QDAY [facility] Last Admin: 07/19/17 10:37 Dose: 40 mg Famotidine (Pepcid) 20 mg IV BID [facility] Last Admin: 07/19/17 10:38 Dose: 20 mg Furosemide (Lasix) 40 mg IV QDAY [facility] Last Admin: 12/29/17 10:38 Dose: 40 mg Hydralazine HCl (Apresoline) 10 mg IV Q8HR PRN PRN Reason: prn for SB/P greater than 175 Last Admin: 07/16/17 21:19 Dose: 10 mg Hydrophilic Ointment (Vaseline Lip Therapy) 1 applic TP Q2HR PRN PRN Reason: Dry Lips Fentanyl Citrate (Fentanyl Drip Premix) 2,000 mcg in 100 mls @ 4.082 mls/hr IV TITR OTONIEL; 1 MCG/KG/HR PRN Reason: Protocol Last Admin: 07/19/17 10:38 Dose: 1 mcg/kg/hr, 4.082 mls/hr Aztreonam (Azactam/Ns 1 Gm/50 Ml) 1 gm in 50 mls @ 50 mls/hr IV Q8H OTONIEL PRN Reason: Protocol Last Admin: 07/19/17 08:51 Dose: 50 mls/hr Clindamycin HCl (Cleocin 900 Mg/50 Ml) 900 mg in 50 mls @ 100 mls/hr IV Q8HR OTONIEL PRN Reason: Protocol Last Admin: 07/19/17 05:45 Dose: 100 mls/hr Levalbuterol HCl (Xopenex) 1.25 mg IH Q6HRT [facility] Last Admin: 07/19/17 09:00 Dose: 1.25 mg Magnesium Hydroxide (Milk Of Magnesia) 30 ml PO Q4H PRN PRN Reason: Constipation Metoprolol Tartrate (Lopressor) 50 mg PO BID [facility] Last Admin: 07/19/17 10:38 Dose: 50 mg Multi-Ingred Cream/Lotion/Oil/Oint (Artificial Tears Ophth Oint) 1 applic OU Q4HR PRN PRN Reason: Dry Eye(s) Ondansetron HCl (Zofran) 4 mg IV Q8H PRN PRN Reason: N/V unrelieved by Reglan Simple Syrup (Simple Syrup) 15 ml FEEDTUBE PRN PRN PRN Reason: Hypoglycemia Simple Syrup (Simple Syrup) 30 ml FEEDTUBE PRN PRN PRN Reason: Hypoglycemia Sodium Bicarbonate (Sodium Bicarbonate) 325 mg FEEDTUBE PRN PRN PRN Reason: For Clogged Feeding Tube Objective Vital Signs - 12hr 1207/19/17 07/19/17 02:00 02:10 02:15 Temperature Pulse Rate 81 81 Pulse Rate [ 98 H 85 Anterior Bilateral Throughout] Respiratory 19 16 Rate Respiratory 18 15 Rate [Anterior Bilateral Throughout] Blood Pressure 169/93 O2 Sat by Pulse 96 99 Oximetry 07/19/17 07/19/17 07/19/17 02:30 03:00 03:30 Temperature Pulse Rate 84 78 84 Pulse Rate [ Anterior Bilateral Throughout] Respiratory 16 16 16 Rate Respiratory Rate [Anterior Bilateral Throughout] Blood Pressure 150/79 162/72 143/71 O2 Sat by Pulse 96 96 95 Oximetry 07/19/17 07/19/17 07/19/17 03:47 03:54 04:00 Temperature 99.3 F Pulse Rate 93 H 84 Pulse Rate [ Anterior Bilateral Throughout] Respiratory 19 Rate Respiratory Rate [Anterior Bilateral Throughout] Blood Pressure 167/72 134/69 O2 Sat by Pulse 95 95 Oximetry 07/19/17 07/19/17 07/19/17 04:15 04:30 05:00 Temperature Pulse Rate 96 H 96 H 92 H Pulse Rate [ Anterior Bilateral Throughout] Respiratory 19 20 16 Rate Respiratory Rate [Anterior Bilateral Throughout] Blood Pressure 137/80 143/80 O2 Sat by Pulse 96 95 95 Oximetry 07/19/17 07/19/17 07/19/17 05:30 06:00 06:15 Temperature Pulse Rate 76 86 Pulse Rate [ Anterior Bilateral Throughout] Respiratory 16 16 17 Rate Respiratory Rate [Anterior Bilateral Throughout] Blood Pressure 143/80 148/76 O2 Sat by Pulse 96 95 95 Oximetry 07/19/17 07/19/17 07/19/17 06:30 07:00 07:30 Temperature Pulse Rate 96 H 83 77 Pulse Rate [ Anterior Bilateral Throughout] Respiratory 16 15 16 Rate Respiratory Rate [Anterior Bilateral Throughout] Blood Pressure 125/75 125/75 156/83 O2 Sat by Pulse 96 96 94 Oximetry 07/19/17 07/19/17 07/19/17 08:00 08:30 08:54 Temperature Pulse Rate 96 H 92 H 102 H Pulse Rate [ Anterior Bilateral Throughout] Respiratory 22 16 Rate Respiratory Rate [Anterior Bilateral Throughout] Blood Pressure 87/41 176/89 113/65 O2 Sat by Pulse 95 95 96 Oximetry 07/19/17 07/19/17 07/19/17 08:57 09:00 09:07 Temperature Pulse Rate 99 H Pulse Rate [ 101 H 87 Anterior Bilateral Throughout] Respiratory 24 Rate Respiratory 25 H 18 Rate [Anterior Bilateral Throughout] Blood Pressure 113/65 O2 Sat by Pulse 95 Oximetry 07/19/17 07/19/17 07/19/17 11:08 12:51 13:23 Temperature Pulse Rate 117 H 89 99 H Pulse Rate [ Anterior Bilateral Throughout] Respiratory 25 H 27 H 21 Rate Respiratory Rate [Anterior Bilateral Throughout] Blood Pressure 139/111 148/99 153/77 O2 Sat by Pulse 94 95 95 Oximetry Constitutional: other (morbidly obese, critically ill on vent) ENT: other (orally intubated) Neck: supple (and large in circumference) Effort: normal Ascultation: Bilateral: clear (wheezes/rhonchi better) Cardiovascular: irregular rhythm (ir/ir, no mrg) Gastrointestinal: normoactive bowel sounds, soft, non-tender, non-distended Integumentary: normal Extremities: no cyanosis, pink and warm, edema (1+ generalized) Neurologic: normal mental status, non-focal exam, pupils equal and round Psychiatric: mood appropriate, affect normal CBC and BMP: 07/19/17 07:51 07/19/17 07:51 ABG, PT/INR, D-dimer: ABG POC ABG pH 7.490 (7.35-7.45) H 07/19/17 12:53 POC ABG pCO2 49.2 (35-45) H 07/19/17 12:53 POC ABG pO2 69 (80-105) L 07/19/17 12:53 POC ABG HCO3 37.5 07/19/17 12:53 POC ABG Total CO2 39 07/19/17 12:53 POC ABG O2 Sat 94 07/19/17 12:53 Abnormal lab findings: Abnormal Labs 07/09/17 07/09/17 07/09/17 18:05 18:05 21:15 WBC 15.0 H Hct 43.7 H Lymph % (Auto) 10.7 L Young % (Auto) Young # Seg Neutrophils % 83.9 H Seg Neutrophils # 12.6 H POC ABG pH POC ABG pCO2 POC ABG pO2 Sodium Potassium Chloride 96.7 L Carbon Dioxide 31 H BUN 18 H Creatinine Glucose 146 H POC Glucose Lactic Acid 2.50 H* Calcium C-Reactive Protein NT-Pro-B Natriuret Pep 1456 H Albumin 3.8 L Urine WBC (Auto) 07/09/17 07/09/17 07/09/17 21:20 21:46 22:59 WBC Hct Lymph % (Auto) Young % (Auto) Young # Seg Neutrophils % Seg Neutrophils # POC ABG pH POC ABG pCO2 54.6 H POC ABG pO2 Sodium Potassium Chloride Carbon Dioxide BUN Creatinine Glucose POC Glucose Lactic Acid 2.30 H* Calcium C-Reactive Protein NT-Pro-B Natriuret Pep Albumin Urine WBC (Auto) 29.0 H 07/10/17 07/11/17 07/11/17 04:35 05:12 06:11 WBC 18.4 H Hct Lymph % (Auto) 8.6 L Young % (Auto) 7.9 H Young # 1.5 H Seg Neutrophils % 83.5 H Seg Neutrophils # 15.3 H POC ABG pH 7.282 L POC ABG pCO2 61.2 H POC ABG pO2 155 H Sodium Potassium Chloride Carbon Dioxide BUN Creatinine Glucose POC Glucose Lactic Acid Calcium C-Reactive Protein NT-Pro-B Natriuret Pep Albumin Urine WBC (Auto) 07/11/17 07/12/17 07/12/17 06:11 05:03 09:01 WBC 12.2 H Hct Lymph % (Auto) Young % (Auto) 10.9 H Young # 1.3 H Seg Neutrophils % Seg Neutrophils # 8.2 H POC ABG pH POC ABG pCO2 48.2 H POC ABG pO2 Sodium Potassium Chloride Carbon Dioxide BUN 37 H Creatinine Glucose 130 H POC Glucose Lactic Acid Calcium C-Reactive Protein NT-Pro-B Natriuret Pep Albumin Urine WBC (Auto) 07/12/17 07/13/17 07/13/17 09:01 13:29 23:20 WBC Hct Lymph % (Auto) Young % (Auto) Young # Seg Neutrophils % Seg Neutrophils # POC ABG pH 7.315 L POC ABG pCO2 52.5 H POC ABG pO2 Sodium 146 H Potassium Chloride Carbon Dioxide BUN 31 H Creatinine Glucose POC Glucose 121 H Lactic Acid Calcium 8.0 L C-Reactive Protein NT-Pro-B Natriuret Pep Albumin Urine WBC (Auto) 07/14/17 07/14/17 07/14/17 04:21 04:21 04:31 WBC 13.3 H Hct Lymph % (Auto) Young % (Auto) 10.4 H Young # 1.4 H Seg Neutrophils % Seg Neutrophils # 8.8 H POC ABG pH 7.301 L POC ABG pCO2 51.4 H POC ABG pO2 Sodium 146 H Potassium Chloride 109.0 H Carbon Dioxide BUN 22 H Creatinine Glucose 107 H POC Glucose Lactic Acid Calcium 8.3 L C-Reactive Protein NT-Pro-B Natriuret Pep Albumin 3.0 L Urine WBC (Auto) 07/15/17 07/15/17 07/15/17 07:30 07:30 16:00 WBC Hct Lymph % (Auto) Young % (Auto) 9.2 H Young # 1.0 H Seg Neutrophils % 72.7 H Seg Neutrophils # 7.9 H POC ABG pH 7.301 L POC ABG pCO2 47.3 H POC ABG pO2 79 L Sodium 149 H Potassium 3.5 L Chloride 111.6 H Carbon Dioxide BUN 21 H Creatinine 0.6 L Glucose POC Glucose Lactic Acid Calcium 8.1 L C-Reactive Protein NT-Pro-B Natriuret Pep Albumin Urine WBC (Auto) 07/16/17 07/16/17 07/16/17 04:40 04:40 09:48 WBC Hct Lymph % (Auto) Young % (Auto) 10.0 H Young # 1.0 H Seg Neutrophils % Seg Neutrophils # POC ABG pH 7.349 L POC ABG pCO2 POC ABG pO2 65 L Sodium 148 H Potassium 3.4 L Chloride 109.8 H Carbon Dioxide BUN 18 H Creatinine 0.6 L Glucose POC Glucose Lactic Acid Calcium 8.0 L C-Reactive Protein NT-Pro-B Natriuret Pep Albumin Urine WBC (Auto) 07/16/17 07/17/17 07/17/17 13:36 03:22 03:22 WBC Hct Lymph % (Auto) Young % (Auto) 12.3 H Young # 1.3 H Seg Neutrophils % Seg Neutrophils # POC ABG pH POC ABG pCO2 POC ABG pO2 Sodium Potassium Chloride Carbon Dioxide BUN Creatinine 0.6 L Glucose 116 H POC Glucose Lactic Acid Calcium 8.0 L C-Reactive Protein 4.90 H NT-Pro-B Natriuret Pep Albumin Urine WBC (Auto) 07/17/17 07/18/17 07/18/17 06:21 06:00 06:00 WBC Hct Lymph % (Auto) Young % (Auto) 10.8 H Young # 1.2 H Seg Neutrophils % Seg Neutrophils # POC ABG pH POC ABG pCO2 47.0 H POC ABG pO2 71 L Sodium 146 H Potassium 3.0 L Chloride Carbon Dioxide BUN Creatinine 0.6 L Glucose 114 H POC Glucose Lactic Acid Calcium 8.2 L C-Reactive Protein NT-Pro-B Natriuret Pep Albumin Urine WBC (Auto) 07/18/17 07/18/17 07/19/17 11:12 Unknown 07:51 WBC 14.1 H Hct Lymph % (Auto) Young % (Auto) 9.6 H Young # 1.4 H Seg Neutrophils % Seg Neutrophils # 9.8 H POC ABG pH POC ABG pCO2 48.4 H POC ABG pO2 70 L Sodium Potassium Chloride Carbon Dioxide BUN Creatinine Glucose POC Glucose Lactic Acid Calcium C-Reactive Protein NT-Pro-B Natriuret Pep Albumin Urine WBC (Auto) 174.0 H 07/19/17 07/19/17 07:51 12:53 WBC Hct Lymph % (Auto) Young % (Auto) Young # Seg Neutrophils % Seg Neutrophils # POC ABG pH 7.490 H POC ABG pCO2 49.2 H POC ABG pO2 69 L Sodium 147 H Potassium 3.3 L Chloride Carbon Dioxide 32 H BUN 19 H Creatinine 0.6 L Glucose 127 H POC Glucose Lactic Acid Calcium 8.3 L C-Reactive Protein NT-Pro-B Natriuret Pep Albumin Urine WBC (Auto) Chest x-ray: report reviewed, image reviewed (improving CHF)
[2017-07-19] MEDS: COLACE PO SCH ×2 (13:48→23:34)
[2017-07-19] MEDS ORDERED: POTASSIUM CHLORIDE FEEDTUBE ONE (14:43)
[2017-07-19] MEDS ORDERED: MAGNESIUM SULFATE 2GM/50ML 2 GM/50 ML BAG IV ONE (14:43)
[2017-07-19] MEDS ORDERED: S2 RACEPINEPHRINE 2.25% IH ONE (15:15)
[2017-07-19] MEDS: PULMICORT IH SCH ×2 (16:15→20:09)
[2017-07-19] MEDS ORDERED: VERSED IV ONE (16:15)
[2017-07-19] MEDS ORDERED: ATROPINE 0.1% (CARDIAC) ONE (16:41)
[2017-07-19] MEDS ORDERED: QUELICIN ONE (16:41)
[2017-07-19] MEDS ORDERED: ADRENALIN ONE (16:41)
[2017-07-19] MEDS ORDERED: NACL 0.9% 500 ML 500 ML ONE (16:48)
--- NOTE | 2017-07-19 16:58 | Event Note ---
Date: 07/19/17 Hospitalist cross cover for Code Jamal Pt previous unknown to me, code jamal called due to respiratory arrest; it appears she was extubated today and failed Bipap. She was in PEA, brief chest compressions done and 2 epi given and 1 atropine prior to my arrival. She was intubated by Anesthesia using a [place] Scope prior to my arrival, ED Dr. Duke at bedside also. No chest compressions when I arrived. It appears she was in SVT, when HR went up to 187 briefly, once oxygenation improved Heart rate went down to 101. EKG showed afib. Anesthesia was considering arterial line because unable to get BP==>83/43 map 56. I notified her attending, Dr. Thompson and her Intenvist, Dr. Arredondo, spoke with Anesthesia. Reviewed cxr with respiratory, will pull back ETT slightly and re-peat CXR.
--- NOTE | 2017-07-19 17:27 | XRay Report ---
FINAL REPORT PROCEDURE: Portable chest x-ray 1640 hours TECHNIQUE: Chest radiograph anteroposterior view. CPT 72223 HISTORY: ett PLACEMENT COMPARISON: Prior chest x-ray 07/19/2017 7:32 a.m. FINDINGS: Endotracheal tube has been advanced and now lies at the level of the pricilla and should be pulled back 2 centimeters. NG tube has been removed. Cardiomegaly is unchanged. There is improved aeration in the perihilar regions. Pulmonary vasculature is less prominent as well. There appears to be a right jugular central venous line with the tip located at the thoracic inlet. No evidence of pneumothorax IMPRESSION: Endotracheal tube tip at the level of the pricilla and should be pulled back 2 centimeters.. Central venous line right jugular approach as described. NG tube has been removed. Stable cardiomegaly. Pulmonary venous hypertension changes has improved. Patchy perihilar densities have improved since the prior study. No effusions are seen.
--- NOTE | 2017-07-19 18:05 | Procedure Note ---
Date of procedure: 07/19/17 Pre-op diagnosis: Hypotension Post-op diagnosis: same Procedure: Right brachial arterial line Right brachial Arterial line placed using 20 gauge arrow kit under sterile technique using ultrasound. Initially attempted on the left arm in the radial and brachial artery and right arm radial artery. I was able to get flash back and thread wire however when wire removed there was no blood return. I was successful on the right brachial artery. Catheter was taped in placed and tegaderm used. Pressure was held for 5 minutes by respiratory therapist in attempted locations. Time Spent: 30 minutes, ICU A258 Anesthesia: none Surgeon: DERICK REYNA Estimated blood loss: minimal Pathology: none Condition: critical Disposition: ICU
--- NOTE | 2017-07-19 18:37 | Event Note ---
Date: 07/19/17 Intubation Note: Called to intubate patient after failed extubation. Upon arrival, patient was on BiPap with oxygen saturations around 90%. Her breathing was labored and she was mildly responsive. Patient was pre-oxygenated by ambu bag and sat went up to 98%. She was then given 5mg of Versed for intubation. Intubation attempted with glidescope. Grade 1 view was obtained. Attempted to pass endotracheal tube however tube would not go through cords. Bougie was then used and would not go through cords. Cords appeared to be partially closed. Decided to use succinylcholine to help facilitate intubation. Patient was ambu bagged while waiting on succinylcholine. Oxygen sats were around 97%. 100mg of Succinylcholine was then given. Glidescope attempted again with grade 1 view. Still unable to pass endotracheal tube or bougie. Oxygen saturations started to decrease to 80s at which point patient was ambu bagged. However at that point, I was not getting good chest rise and oxygen saturations steadily decreased. LMA #4 was then tried and I was still not able to ventilate patient. Heart rate then started to decrease and so did oxygen saturation. I then called a Code Blue. 1mg of Atropine was given by ICU nurse initially. Then no pulse was felt per ICU nurse and chest compressions started. 1mg of Epinephrine was also pushed. During this time I looked again with the glidescope and was able to intubate patient with endotracheal tube. Oxygen saturations were down to 30% but then started to rise. CO2 was positive with bilateral breath sounds. Chest compressions were held and patient had return of pulse. Heart rate did go up to 170s but then started to come down to low 100s. Blood pressure was obtained and was 80s/40s. She was then given a fluid bolus with improvement in blood pressures. Arterial line was placed by myself for hemodynamic monitoring and ability to obtain ABGs. Dr. Arredondo was notified of event. Time spent: 30 minutes Location: ICU 258 Referring Physician: Dr. Alvarez Arredondo
[2017-07-19] MEDS ORDERED: VERSED IV NR (19:00)
[2017-07-19] MEDS: LEVOPHED 8 MG in NACL 0.9% 250ML 242 ML IV SCH (20:26)
--- NOTE | 2017-07-19 20:58 | XRay Report ---
FINAL REPORT PROCEDURE: AP chest x-ray TECHNIQUE: Chest radiograph anteroposterior view. CPT 42360 HISTORY: CHF COMPARISON: Prior chest x-ray 07/15/2017, 7:39 a.m. FINDINGS: Endotracheal tube in place lying 3.5 centimeter above the pricilla. NG tube is directed into the left side of the stomach. Right jugular central venous line partially visualized. Tip of the catheter projects over the expected location of the superior aspect of the superior vena cava. Mild patchy perihilar densities is again visualized. No dense consolidations are identified. Cardiomegaly is unchanged. Upper lobe vasculature mildly distended. IMPRESSION: Cardiomegaly with mild vascular congestion. No new areas of consolidation are visualized. Support lines in place as described.
[2017-07-20] MEDS: AZACTAM/NS 1 GM/50 ML 1 GM/50 ML VIAL IV SCH ×2 (01:29→08:28)
[2017-07-20] MEDS: XOPENEX IH SCH ×4 (01:36→20:02)
--- NOTE | 2017-07-20 02:31 | XRay Report ---
FINAL REPORT PROCEDURE: XR ABDOMEN 1V AP TECHNIQUE: AP supine portable radiograph of the abdomen was obtained at 07/20/2017 01:29 (EST) . HISTORY: OGT PLACEMENT COMPARISON: No prior studies are available for comparison. FINDINGS: Bowel gas pattern: There are dilated loops of large and small bowel suggesting generalized ileus. There is no specific evidence of mechanical obstruction. There is no fecal impaction.. Masses or calcifications: None. Bony structures: Normal. Other: There is no pneumoperitoneum. There is a right-sided ureteral stent. There is an oral gastric tube. The tip is in the antrum of the stomach.. IMPRESSION: There are dilated loops of large and small bowel suggesting generalized ileus. There is no specific evidence of mechanical obstruction. There is no fecal impaction.. There is no pneumoperitoneum. There is a right-sided ureteral stent. There is an oral gastric tube. The tip is in the antrum of the stomach..
[2017-07-20] MEDS: fentaNYL DRIP Premix 2,000 MCG/100 ML BAG IV SCH ×4 (03:16→20:08)
[2017-07-20 05:47] LABS: Basophils # (Auto) 0.1 K/mm3 (0.0-0.1); Basophils % (Auto) 0.4 % (0.0-1.8); Eosinophils % (Auto) 0.2 % (0.0-4.3); Hematocrit 35.9 % (30.3-42.9); Lymphocytes # (Auto) 2.5 K/mm3 (1.2-5.4); Lymphocytes % (Auto) 13.9 % (13.4-35.0); Mean Corpuscular HGB Conc 34 % (30-34); Mean Corpuscular Hemoglobin 30 pg (28-32); Mean Corpuscular Volume 89 fl (79-97); Monocytes # (Auto) 0.8 K/mm3 (0.0-0.8); Monocytes % (Auto) 4.6 % (0.0-7.3); Platelet Count 237 K/mm3 (140-440); Red Blood Count 4.04 M/mm3 (3.65-5.03); Red Cell Distribution Width 14.3 % (13.2-15.2)
[2017-07-20 06:06] LABS: BUN/Creatinine Ratio 38; Blood Urea Nitrogen 19 mg/dL (7-17); Calcium 8.2 mg/dL (8.4-10.2); Hemolysis Index 88
[2017-07-20] MEDS: CLEOCIN 900 MG/50 mL 900 MG/50 ML BAG IV SCH ×3 (06:23→21:58)
[2017-07-20] MEDS: PULMICORT IH SCH ×2 (09:55→20:02)
[2017-07-20] MEDS: LOVENOX SUB-Q SCH (11:28)
[2017-07-20] MEDS: PEPCID IV SCH ×2 (11:28→21:30)
[2017-07-20] MEDS: COLACE PO SCH ×2 (11:28→21:58)
--- NOTE | 2017-07-20 12:24 | Progress Note ---
Assessment and Plan Assessment and plan: Acute respiratory failure. Patient status post extubation yesterday but had to be reintubated secondary to respiratory failure. Sepsis. Cont. IV Abx per ID recommendations. Patient currently with clindamycin and aztreonam. Patient off pressors. Bilateral pneumonia.? Aspiration versus CAP. Continue antibiotics. Follow serial chest x-ray Urinary tract infection. Follow-up urine culture. Right Hydronephrosis with partial obstructing stone S/p cysto, rpg, rt stent 24cm x 6---07-12-17 ([place]) Hypernatremia. Continue free water. Acute on chronic CHF exacerbation. Continue Lasix and Lopressor twice a day Atrial fibrillation. Continue amiodarone. Obstructive sleep apnea Hypothyroidism DVT prophylaxis-- SQ Lovenox The high probability of a clinically significant, sudden or life threatening deterioration of the [Pulmonary, cadiac, renal] system(s) required my full and direct attention, intervention and personal management. The aggregate critical care time was [31] minutes. This time is in addition to time spent performing reported procedures but includes the following: [x] Data Review and interpretation [x] Patient assessment and monitoring of vital signs [x] Documentation [x] Medication orders and management History Interval history: PT. with code blue called due to respiratory arrest on 07/19; it appears she was extubated and failed Bipap. She was in PEA, brief chest compressions done and 2 epi given and 1 atropine. She was intubated by Anesthesia using a [place] Scope. Patient remains intubated on mechanical ventilation. Patient previously required Levophed last evening, but now is off pressors. Hospitalist Physical - Constitutional Vitals: Temp Pulse Resp BP Pulse Ox 99.4 F 102 H 19 183/91 99 07/20/17 12:00 07/20/17 09:50 07/20/17 06:01 07/20/17 09:50 07/20/17 09:50 General appearance: Present: no acute distress, well-nourished, other (orally intubated) - EENT Eyes: Present: PERRL, EOM intact ENT: hearing intact, clear oral mucosa, dentition normal - Neck Neck: Present: supple, normal ROM - Respiratory Respiratory effort: normal Respiratory: bilateral: CTA - Cardiovascular Rhythm: regular Heart Sounds: Present: S1 & S2. Absent: gallop, rub - Extremities Extremities: no ischemia, No edema, Full ROM - Abdominal General gastrointestinal: soft, non-tender, non-distended, normal bowel sounds - Integumentary Integumentary: Present: clear, warm, dry - Neurologic Neurologic: CNII-XII intact, moves all extremities Results - Labs CBC & Chem 7: 07/20/17 05:00 07/20/17 05:00 Labs: Laboratory Last Values WBC 18.2 K/mm3 (4.5-11.0) H 07/20/17 05:00 RBC 4.04 M/mm3 (3.65-5.03) 07/20/17 05:00 Hgb 12.0 gm/dl (10.1-14.3) 07/20/17 05:00 Hct 35.9 % (30.3-42.9) 07/20/17 05:00 MCV 89 fl (79-97) 07/20/17 05:00 MCH 30 pg (28-32) 07/20/17 05:00 MCHC 34 % (30-34) 07/20/17 05:00 RDW 14.3 % (13.2-15.2) 07/20/17 05:00 Plt Count 237 K/mm3 (140-440) 07/20/17 05:00 Lymph % (Auto) 13.9 % (13.4-35.0) 07/20/17 05:00 [place] % (Auto) 4.6 % (0.0-7.3) 07/20/17 05:00 Eos % (Auto) 0.2 % (0.0-4.3) 07/20/17 05:00 Baso % (Auto) 0.4 % (0.0-1.8) 07/20/17 05:00 Lymph # 2.5 K/mm3 (1.2-5.4) 07/20/17 05:00 [place] # 0.8 K/mm3 (0.0-0.8) 07/20/17 05:00 Eos # 0.0 K/mm3 (0.0-0.4) 07/20/17 05:00 Baso # 0.1 K/mm3 (0.0-0.1) 07/20/17 05:00 Seg Neutrophils % 80.9 % (40.0-70.0) H 07/20/17 05:00 Seg Neutrophils # 14.7 K/mm3 (1.8-7.7) H 07/20/17 05:00 POC ABG pH 7.522 (7.35-7.45) H 07/20/17 06:11 POC ABG pCO2 53.3 (35-45) H 07/20/17 06:11 POC ABG pO2 105 (80-105) 07/20/17 06:11 POC ABG HCO3 43.7 07/20/17 06:11 POC ABG Total CO2 45 07/20/17 06:11 POC ABG O2 Sat 98 07/20/17 06:11 POC ABG Base Excess 21 07/20/17 06:11 FiO2 70 % 07/20/17 06:11 Sodium 143 mmol/L (137-145) 07/20/17 05:00 Potassium 3.1 mmol/L (3.6-5.0) L 07/20/17 05:00 Chloride 95.3 mmol/L (98-107) L 07/20/17 05:00 Carbon Dioxide 35 mmol/L (22-30) H 07/20/17 05:00 Anion Gap 16 mmol/L 07/20/17 05:00 BUN 19 mg/dL (7-17) H 07/20/17 05:00 Creatinine 0.5 mg/dL (0.7-1.2) L 07/20/17 05:00 Estimated GFR > 60 ml/min 07/20/17 05:00 BUN/Creatinine Ratio 38 % 07/20/17 05:00 Glucose 103 mg/dL (65-100) H 07/20/17 05:00 POC Glucose 88 (70-105) 07/14/17 12:11 Lactic Acid 2.30 mmol/L (0.7-2.0) H* 07/09/17 22:59 Calcium 8.2 mg/dL (8.4-10.2) L 07/20/17 05:00 Phosphorus 3.10 mg/dL (2.5-4.5) 07/19/17 07:51 Magnesium 1.80 mg/dL (1.7-2.3) 07/19/17 07:51 Total Bilirubin 0.80 mg/dL (0.1-1.2) 07/14/17 04:21 AST 15 units/L (5-40) 07/14/17 04:21 ALT 13 units/L (7-56) 07/14/17 04:21 Alkaline Phosphatase 53 units/L (35-129) 07/14/17 04:21 Total Creatine Kinase 34 units/L (30-135) 07/09/17 18:05 CK-MB (CK-2) < 1.0 ng/mL (0.0-4.0) 07/09/17 18:05 CK-MB (CK-2) Rel Index 2.9 (0-4) 07/09/17 18:05 Troponin T < 0.010 ng/mL (0.00-0.029) 07/09/17 18:05 C-Reactive Protein 4.90 mg/dL (0.00-1.30) H 07/16/17 13:36 NT-Pro-B Natriuret Pep 1456 pg/mL (0-900) H 07/09/17 18:05 Total Protein 6.5 g/dL (6.3-8.2) 07/14/17 04:21 Albumin 3.0 g/dL (3.9-5) L 07/14/17 04:21 Albumin/Globulin Ratio 0.9 % 07/14/17 04:21 Lipase 16 units/L (13-60) 07/09/17 18:05 Urine Color Yellow (Yellow) 07/18/17 Unknown Urine Turbidity Cloudy (Clear) 07/18/17 Unknown Urine pH 5.0 (5.0-7.0) 07/18/17 Unknown Ur Specific [place] 1.015 (1.003-1.030) 07/18/17 Unknown Urine Protein 30 mg/dl mg/dL (Negative) 07/18/17 Unknown Urine Glucose (UA) Neg mg/dL (Negative) 07/18/17 Unknown Urine Ketones Neg mg/dL (Negative) 07/18/17 Unknown Urine Blood Lg (Negative) 07/18/17 Unknown Urine Nitrite Neg (Negative) 07/18/17 Unknown Urine Bilirubin Neg (Negative) 07/18/17 Unknown Urine Urobilinogen 4.0 mg/dL (<2.0) 07/18/17 Unknown Ur Leukocyte Esterase Lg (Negative) 07/18/17 Unknown Urine WBC (Auto) 174.0 /HPF (0.0-6.0) H 07/18/17 Unknown Urine RBC (Auto) > 182.0 /HPF (0.0-6.0) 07/18/17 Unknown U Epithel Cells (Auto) 6.0 /HPF (0-13.0) 07/18/17 Unknown Urine Bacteria (Auto) 3+ /HPF (Negative) 07/18/17 Unknown Ur Transition Epith Cell 1 /HPF 07/18/17 Unknown Urine Mucus 2+ /HPF 07/18/17 Unknown Ur Yeast w Hyphae 1+ /HPF 07/18/17 Unknown Urine Yeast (Budding) 3+ /HPF 07/18/17 Unknown Plasma/Serum Alcohol < 0.01 gm% (0-0.07) 07/14/17 14:20
[2017-07-20] MEDS: LASIX IV SCH (12:34)
[2017-07-20] MEDS: LOPRESSOR PO SCH ×2 (12:34→21:58)
[2017-07-20] MEDS: CORDARONE PO SCH (15:25)
--- NOTE | 2017-07-20 16:55 | Progress Note ---
Assessment and Plan Acute respiratory failure. Fail extubation yesterday with what appeared to be either stridor or vocal cord with any problems. She also anesthesia intubation note. Chest x-ray reviewed, endotracheal tube has been repositioned slightly yesterday. Equal ventilation noted on exam. UTI/hydronephrosis Sepsis. Complete antibiotics. No fever at the present time. Morbid obesity; DIMPLE suspect OHS Pulm HTN RIVERA, better Afib w/ RVR Recommendations Continue current ventilatory support. Monitor for abdominal distention. See KUB. Watch for fever. We'll continue current lites including IJ is no fever noted. Difficult IV access patient Spontaneous breathing trial in the morning. However, in view of recent difficult airway issue, it might be safer to eventually extubate patient in the OR or consider tracheotomy as an alternative Discussed with staff in detail. No family members available for case discussion. Critical care time was 35 minutes of [id number] evaluation and coordination of care. Subjective Date of service: 07/20/17 Principal diagnosis: Sepsis Interval history: Some discomfort from the ETT. Objective Vital Signs - 12hr 07/20/17 07/20/17 07/20/17 05:01 05:13 05:31 Temperature Pulse Rate 97 H 92 H 90 Respiratory 17 16 Rate Blood Pressure 183/91 132/64 183/91 O2 Sat by Pulse 100 99 99 Oximetry 07/20/17 07/20/17 07/20/17 06:01 08:00 09:50 Temperature 99.4 F Pulse Rate 92 H 102 H Respiratory 19 Rate Blood Pressure 183/91 183/91 O2 Sat by Pulse 99 99 Oximetry 07/20/17 07/20/17 07/20/17 12:00 13:58 15:50 Temperature 99.4 F 100.4 F H Pulse Rate Respiratory 19 Rate Blood Pressure 183/91 O2 Sat by Pulse 95 Oximetry Constitutional: no acute distress, other (morbidly obese, critically ill on vent ) ENT: other (orally intubated) Neck: supple (and large in circumference) Effort: normal Ascultation: Bilateral: rhonchi Percussion: Bilateral: not dull Cardiovascular: irregular rhythm (ir/ir, no mrg) Gastrointestinal: normoactive bowel sounds, soft, non-tender, non-distended Integumentary: normal Extremities: no cyanosis, pink and warm, edema (1+ generalized) Neurologic: normal mental status, non-focal exam, pupils equal and round Psychiatric: mood appropriate, affect normal CBC and BMP: 07/20/17 05:00 07/20/17 05:00 ABG, PT/INR, D-dimer: ABG POC ABG pH 7.522 (7.35-7.45) H 07/20/17 06:11 POC ABG pCO2 53.3 (35-45) H 07/20/17 06:11 POC ABG pO2 105 (80-105) 07/20/17 06:11 POC ABG HCO3 43.7 07/20/17 06:11 POC ABG Total CO2 45 07/20/17 06:11 POC ABG O2 Sat 98 07/20/17 06:11 Abnormal lab findings: Abnormal Labs 07/09/17 07/09/17 07/09/17 18:05 18:05 21:15 WBC 15.0 H Hct 43.7 H Lymph % (Auto) 10.7 L Steele % (Auto) Steele # Seg Neutrophils % 83.9 H Seg Neutrophils # 12.6 H POC ABG pH POC ABG pCO2 POC ABG pO2 Sodium Potassium Chloride 96.7 L Carbon Dioxide 31 H BUN 18 H Creatinine Glucose 146 H POC Glucose Lactic Acid 2.50 H* Calcium C-Reactive Protein NT-Pro-B Natriuret Pep 1456 H Albumin 3.8 L Urine WBC (Auto) 07/09/17 07/09/17 07/09/17 21:20 21:46 22:59 WBC Hct Lymph % (Auto) Steele % (Auto) Steele # Seg Neutrophils % Seg Neutrophils # POC ABG pH POC ABG pCO2 54.6 H POC ABG pO2 Sodium Potassium Chloride Carbon Dioxide BUN Creatinine Glucose POC Glucose Lactic Acid 2.30 H* Calcium C-Reactive Protein NT-Pro-B Natriuret Pep Albumin Urine WBC (Auto) 29.0 H 07/10/17 07/11/17 07/11/17 04:35 05:12 06:11 WBC 18.4 H Hct Lymph % (Auto) 8.6 L Steele % (Auto) 7.9 H Steele # 1.5 H Seg Neutrophils % 83.5 H Seg Neutrophils # 15.3 H POC ABG pH 7.282 L POC ABG pCO2 61.2 H POC ABG pO2 155 H Sodium Potassium Chloride Carbon Dioxide BUN Creatinine Glucose POC Glucose Lactic Acid Calcium C-Reactive Protein NT-Pro-B Natriuret Pep Albumin Urine WBC (Auto) 07/11/17 07/12/17 07/12/17 06:11 05:03 09:01 WBC 12.2 H Hct Lymph % (Auto) Steele % (Auto) 10.9 H Steele # 1.3 H Seg Neutrophils % Seg Neutrophils # 8.2 H POC ABG pH POC ABG pCO2 48.2 H POC ABG pO2 Sodium Potassium Chloride Carbon Dioxide BUN 37 H Creatinine Glucose 130 H POC Glucose Lactic Acid Calcium C-Reactive Protein NT-Pro-B Natriuret Pep Albumin Urine WBC (Auto) 07/12/17 07/13/17 07/13/17 09:01 13:29 23:20 WBC Hct Lymph % (Auto) Steele % (Auto) Steele # Seg Neutrophils % Seg Neutrophils # POC ABG pH 7.315 L POC ABG pCO2 52.5 H POC ABG pO2 Sodium 146 H Potassium Chloride Carbon Dioxide BUN 31 H Creatinine Glucose POC Glucose 121 H Lactic Acid Calcium 8.0 L C-Reactive Protein NT-Pro-B Natriuret Pep Albumin Urine WBC (Auto) 07/14/17 07/14/17 07/14/17 04:21 04:21 04:31 WBC 13.3 H Hct Lymph % (Auto) Steele % (Auto) 10.4 H Steele # 1.4 H Seg Neutrophils % Seg Neutrophils # 8.8 H POC ABG pH 7.301 L POC ABG pCO2 51.4 H POC ABG pO2 Sodium 146 H Potassium Chloride 109.0 H Carbon Dioxide BUN 22 H Creatinine Glucose 107 H POC Glucose Lactic Acid Calcium 8.3 L C-Reactive Protein NT-Pro-B Natriuret Pep Albumin 3.0 L Urine WBC (Auto) 07/15/17 07/15/17 07/15/17 07:30 07:30 16:00 WBC Hct Lymph % (Auto) Steele % (Auto) 9.2 H Steele # 1.0 H Seg Neutrophils % 72.7 H Seg Neutrophils # 7.9 H POC ABG pH 7.301 L POC ABG pCO2 47.3 H POC ABG pO2 79 L Sodium 149 H Potassium 3.5 L Chloride 111.6 H Carbon Dioxide BUN 21 H Creatinine 0.6 L Glucose POC Glucose Lactic Acid Calcium 8.1 L C-Reactive Protein NT-Pro-B Natriuret Pep Albumin Urine WBC (Auto) 07/16/17 07/16/17 07/16/17 04:40 04:40 09:48 WBC Hct Lymph % (Auto) Steele % (Auto) 10.0 H Steele # 1.0 H Seg Neutrophils % Seg Neutrophils # POC ABG pH 7.349 L POC ABG pCO2 POC ABG pO2 65 L Sodium 148 H Potassium 3.4 L Chloride 109.8 H Carbon Dioxide BUN 18 H Creatinine 0.6 L Glucose POC Glucose Lactic Acid Calcium 8.0 L C-Reactive Protein NT-Pro-B Natriuret Pep Albumin Urine WBC (Auto) 07/16/17 07/17/17 07/17/17 13:36 03:22 03:22 WBC Hct Lymph % (Auto) Steele % (Auto) 12.3 H Steele # 1.3 H Seg Neutrophils % Seg Neutrophils # POC ABG pH POC ABG pCO2 POC ABG pO2 Sodium Potassium Chloride Carbon Dioxide BUN Creatinine 0.6 L Glucose 116 H POC Glucose Lactic Acid Calcium 8.0 L C-Reactive Protein 4.90 H NT-Pro-B Natriuret Pep Albumin Urine WBC (Auto) 07/17/17 07/18/17 07/18/17 06:21 06:00 06:00 WBC Hct Lymph % (Auto) Steele % (Auto) 10.8 H Steele # 1.2 H Seg Neutrophils % Seg Neutrophils # POC ABG pH POC ABG pCO2 47.0 H POC ABG pO2 71 L Sodium 146 H Potassium 3.0 L Chloride Carbon Dioxide BUN Creatinine 0.6 L Glucose 114 H POC Glucose Lactic Acid Calcium 8.2 L C-Reactive Protein NT-Pro-B Natriuret Pep Albumin Urine WBC (Auto) 07/18/17 07/18/17 07/19/17 11:12 Unknown 07:51 WBC 14.1 H Hct Lymph % (Auto) Steele % (Auto) 9.6 H Steele # 1.4 H Seg Neutrophils % Seg Neutrophils # 9.8 H POC ABG pH POC ABG pCO2 48.4 H POC ABG pO2 70 L Sodium Potassium Chloride Carbon Dioxide BUN Creatinine Glucose POC Glucose Lactic Acid Calcium C-Reactive Protein NT-Pro-B Natriuret Pep Albumin Urine WBC (Auto) 174.0 H 07/19/17 07/19/17 07/19/17 07:51 12:53 15:57 WBC Hct Lymph % (Auto) Steele % (Auto) Steele # Seg Neutrophils % Seg Neutrophils # POC ABG pH 7.490 H 7.485 H POC ABG pCO2 49.2 H 58.4 H POC ABG pO2 69 L 60 L Sodium 147 H Potassium 3.3 L Chloride Carbon Dioxide 32 H BUN 19 H Creatinine 0.6 L Glucose 127 H POC Glucose Lactic Acid Calcium 8.3 L C-Reactive Protein NT-Pro-B Natriuret Pep Albumin Urine WBC (Auto) 07/19/17 07/20/17 07/20/17 17:52 05:00 05:00 WBC 18.2 H Hct Lymph % (Auto) Steele % (Auto) Steele # Seg Neutrophils % 80.9 H Seg Neutrophils # 14.7 H POC ABG pH POC ABG pCO2 60.9 H POC ABG pO2 162 H Sodium Potassium 3.1 L Chloride 95.3 L Carbon Dioxide 35 H BUN 19 H Creatinine 0.5 L Glucose 103 H POC Glucose Lactic Acid Calcium 8.2 L C-Reactive Protein NT-Pro-B Natriuret Pep Albumin Urine WBC (Auto) 07/20/17 06:11 WBC Hct Lymph % (Auto) Steele % (Auto) Steele # Seg Neutrophils % Seg Neutrophils # POC ABG pH 7.522 H POC ABG pCO2 53.3 H POC ABG pO2 Sodium Potassium Chloride Carbon Dioxide BUN Creatinine Glucose POC Glucose Lactic Acid Calcium C-Reactive Protein NT-Pro-B Natriuret Pep Albumin Urine WBC (Auto) Chest x-ray: report reviewed, image reviewed
[2017-07-21] MEDS: AZACTAM/NS 1 GM/50 ML 1 GM/50 ML VIAL IV SCH ×4 (00:22→16:00)
[2017-07-21] MEDS: LEVOPHED 8 MG in NACL 0.9% 250ML 242 ML IV SCH (00:27)
[2017-07-21] MEDS: XOPENEX IH SCH ×4 (01:58→20:05)
[2017-07-21] MEDS: fentaNYL DRIP Premix 2,000 MCG/100 ML BAG IV SCH ×4 (02:01→18:35)
[2017-07-21] MEDS: CLEOCIN 900 MG/50 mL 900 MG/50 ML BAG IV SCH ×3 (05:54→22:12)
[2017-07-21 06:37] LABS: Basophils % (Auto) 0.3 % (0.0-1.8); Eosinophils # (Auto) 0.3 K/mm3 (0.0-0.4); Eosinophils % (Auto) 2.1 % (0.0-4.3); Hematocrit 33.8 % (30.3-42.9); Hemoglobin 11.2 gm/dl (10.1-14.3); Lymphocytes # (Auto) 3.1 K/mm3 (1.2-5.4); Lymphocytes % (Auto) 22.1 % (13.4-35.0); Mean Corpuscular HGB Conc 33 % (30-34); Mean Corpuscular Hemoglobin 29 pg (28-32); Mean Corpuscular Volume 88 fl (79-97); Monocytes # (Auto) 1.1 K/mm3 (0.0-0.8); Platelet Count 233 K/mm3 (140-440); Red Blood Count 3.82 M/mm3 (3.65-5.03); Red Cell Distribution Width 14.3 % (13.2-15.2)
[2017-07-21 06:49] LABS: BUN/Creatinine Ratio 35; Blood Urea Nitrogen 21 mg/dL (7-17); Calcium 7.9 mg/dL (8.4-10.2); Hemolysis Index 11
[2017-07-21] MEDS: PULMICORT IH SCH ×2 (07:47→20:06)
--- NOTE | 2017-07-21 10:21 | Progress Note ---
Assessment and Plan Assessment and plan: Acute respiratory failure. Patient status post extubation yesterday but had to be reintubated secondary to respiratory failure. Sepsis. Cont. IV Abx per ID recommendations. Patient currently with clindamycin and aztreonam. Patient off pressors. Bilateral pneumonia.? Aspiration versus CAP. Continue antibiotics. Follow serial chest x-ray Urinary tract infection. Follow-up urine culture. Right Hydronephrosis with partial obstructing stone S/p cysto, rpg, rt stent 24cm x 6---07-12-17 ([place]) Hypokalemia. Replete potassium. Follow-up BMP. Hypernatremia. Continue free water. Acute on chronic CHF exacerbation. Continue Lasix and Lopressor twice a day Atrial fibrillation. Continue amiodarone. Obstructive sleep apnea Hypothyroidism DVT prophylaxis-- SQ Lovenox The high probability of a clinically significant, sudden or life threatening deterioration of the [Pulmonary, cadiac, renal] system(s) required my full and direct attention, intervention and personal management. The aggregate critical care time was [31] minutes. This time is in addition to time spent performing reported procedures but includes the following: [x] Data Review and interpretation [x] Patient assessment and monitoring of vital signs [x] Documentation [x] Medication orders and management History Interval history: PT. with code blue called due to respiratory arrest on 07/19; it appears she was extubated and failed Bipap. She was in PEA, brief chest compressions done and 2 epi given and 1 atropine. She was intubated by Anesthesia using a [place] Scope. Patient remains intubated on mechanical ventilation. Patient previously required Levophed last evening, but now is off pressors. Hospitalist Physical - Constitutional Vitals: Temp Pulse Resp BP Pulse Ox 99.1 F 67 15 121/65 96 07/21/17 04:18 07/21/17 09:01 07/21/17 09:01 07/21/17 07:59 07/21/17 09:01 General appearance: Present: no acute distress, well-nourished, other (orally intubated) - EENT Eyes: Present: PERRL, EOM intact ENT: hearing intact, clear oral mucosa, dentition normal - Neck Neck: Present: supple, normal ROM - Respiratory Respiratory effort: normal Respiratory: bilateral: diminished, rhonchi - Cardiovascular Rhythm: regular Heart Sounds: Present: S1 & S2. Absent: gallop, rub - Extremities Extremities: no ischemia, No edema, Full ROM - Abdominal General gastrointestinal: soft, non-tender, non-distended, normal bowel sounds - Integumentary Integumentary: Present: clear, warm, dry - Neurologic Neurologic: CNII-XII intact, moves all extremities Results - Labs CBC & Chem 7: 07/21/17 06:05 07/21/17 06:05 Labs: Laboratory Last Values WBC 14.1 K/mm3 (4.5-11.0) H 07/21/17 06:05 RBC 3.82 M/mm3 (3.65-5.03) 07/21/17 06:05 Hgb 11.2 gm/dl (10.1-14.3) 07/21/17 06:05 Hct 33.8 % (30.3-42.9) 07/21/17 06:05 MCV 88 fl (79-97) 07/21/17 06:05 MCH 29 pg (28-32) 07/21/17 06:05 MCHC 33 % (30-34) 07/21/17 06:05 RDW 14.3 % (13.2-15.2) 07/21/17 06:05 Plt Count 233 K/mm3 (140-440) 07/21/17 06:05 Lymph % (Auto) 22.1 % (13.4-35.0) 07/21/17 06:05 [place] % (Auto) 8.0 % (0.0-7.3) H 07/21/17 06:05 Eos % (Auto) 2.1 % (0.0-4.3) 07/21/17 06:05 Baso % (Auto) 0.3 % (0.0-1.8) 07/21/17 06:05 Lymph # 3.1 K/mm3 (1.2-5.4) 07/21/17 06:05 [place] # 1.1 K/mm3 (0.0-0.8) H 07/21/17 06:05 Eos # 0.3 K/mm3 (0.0-0.4) 07/21/17 06:05 Baso # 0.0 K/mm3 (0.0-0.1) 07/21/17 06:05 Seg Neutrophils % 67.5 % (40.0-70.0) 07/21/17 06:05 Seg Neutrophils # 9.5 K/mm3 (1.8-7.7) H 07/21/17 06:05 POC ABG pH 7.522 (7.35-7.45) H 07/20/17 06:11 POC ABG pCO2 53.3 (35-45) H 07/20/17 06:11 POC ABG pO2 105 (80-105) 07/20/17 06:11 POC ABG HCO3 43.7 07/20/17 06:11 POC ABG Total CO2 45 07/20/17 06:11 POC ABG O2 Sat 98 07/20/17 06:11 POC ABG Base Excess 21 07/20/17 06:11 FiO2 70 % 07/20/17 06:11 Sodium 143 mmol/L (137-145) 07/21/17 06:05 Potassium 2.6 mmol/L (3.6-5.0) L* 07/21/17 06:05 Chloride 95.7 mmol/L (98-107) L 07/21/17 06:05 Carbon Dioxide 37 mmol/L (22-30) H 07/21/17 06:05 Anion Gap 13 mmol/L 07/21/17 06:05 BUN 21 mg/dL (7-17) H 07/21/17 06:05 Creatinine 0.6 mg/dL (0.7-1.2) L 07/21/17 06:05 Estimated GFR > 60 ml/min 07/21/17 06:05 BUN/Creatinine Ratio 35 % 07/21/17 06:05 Glucose 96 mg/dL (65-100) 07/21/17 06:05 POC Glucose 88 (70-105) 07/14/17 12:11 Lactic Acid 2.30 mmol/L (0.7-2.0) H* 07/09/17 22:59 Calcium 7.9 mg/dL (8.4-10.2) L 07/21/17 06:05 Phosphorus 3.10 mg/dL (2.5-4.5) 07/19/17 07:51 Magnesium 1.80 mg/dL (1.7-2.3) 07/19/17 07:51 Total Bilirubin 0.80 mg/dL (0.1-1.2) 07/14/17 04:21 AST 15 units/L (5-40) 07/14/17 04:21 ALT 13 units/L (7-56) 07/14/17 04:21 Alkaline Phosphatase 53 units/L (35-129) 07/14/17 04:21 Total Creatine Kinase 34 units/L (30-135) 07/09/17 18:05 CK-MB (CK-2) < 1.0 ng/mL (0.0-4.0) 07/09/17 18:05 CK-MB (CK-2) Rel Index 2.9 (0-4) 07/09/17 18:05 Troponin T < 0.010 ng/mL (0.00-0.029) 07/09/17 18:05 C-Reactive Protein 4.90 mg/dL (0.00-1.30) H 07/16/17 13:36 NT-Pro-B Natriuret Pep 1456 pg/mL (0-900) H 07/09/17 18:05 Total Protein 6.5 g/dL (6.3-8.2) 07/14/17 04:21 Albumin 3.0 g/dL (3.9-5) L 07/14/17 04:21 Albumin/Globulin Ratio 0.9 % 07/14/17 04:21 Lipase 16 units/L (13-60) 07/09/17 18:05 Urine Color Yellow (Yellow) 07/18/17 Unknown Urine Turbidity Cloudy (Clear) 07/18/17 Unknown Urine pH 5.0 (5.0-7.0) 07/18/17 Unknown Ur Specific [place] 1.015 (1.003-1.030) 07/18/17 Unknown Urine Protein 30 mg/dl mg/dL (Negative) 07/18/17 Unknown Urine Glucose (UA) Neg mg/dL (Negative) 07/18/17 Unknown Urine Ketones Neg mg/dL (Negative) 07/18/17 Unknown Urine Blood Lg (Negative) 07/18/17 Unknown Urine Nitrite Neg (Negative) 07/18/17 Unknown Urine Bilirubin Neg (Negative) 07/18/17 Unknown Urine Urobilinogen 4.0 mg/dL (<2.0) 07/18/17 Unknown Ur Leukocyte Esterase Lg (Negative) 07/18/17 Unknown Urine WBC (Auto) 174.0 /HPF (0.0-6.0) H 07/18/17 Unknown Urine RBC (Auto) > 182.0 /HPF (0.0-6.0) 07/18/17 Unknown U Epithel Cells (Auto) 6.0 /HPF (0-13.0) 07/18/17 Unknown Urine Bacteria (Auto) 3+ /HPF (Negative) 07/18/17 Unknown Ur Transition Epith Cell 1 /HPF 07/18/17 Unknown Urine Mucus 2+ /HPF 07/18/17 Unknown Ur Yeast w Hyphae 1+ /HPF 07/18/17 Unknown Urine Yeast (Budding) 3+ /HPF 07/18/17 Unknown Plasma/Serum Alcohol < 0.01 gm% (0-0.07) 07/14/17 14:20
[2017-07-21] MEDS: LOPRESSOR PO SCH ×2 (10:26→22:13)
[2017-07-21] MEDS: LASIX IV SCH (10:26)
[2017-07-21] MEDS: PEPCID IV SCH ×2 (10:26→22:14)
[2017-07-21] MEDS: CORDARONE PO SCH (10:26)
[2017-07-21] MEDS: LOVENOX SUB-Q SCH (10:26)
[2017-07-21] MEDS ORDERED: K-DUR PO ONE ×4 (10:32→23:00)
--- NOTE | 2017-07-21 12:15 | Progress Note ---
Assessment and Plan Acute respiratory failure. Fail extubation yesterday with what appeared to be either stridor or vocal cord with any problems. She also anesthesia intubation note. Chest x-ray reviewed, endotracheal tube has been repositioned slightly yesterday. Equal ventilation noted on exam. UTI/hydronephrosis Sepsis. Completing antibiotics. + fever still noted. No culture data Morbid obesity; DIMPLE suspect OHS Pulm HTN RIVERA, better Afib w/ RVR Severe hypokalemia. K+ been replaced Recommendations Continue current ventilatory support, SBT trial as tolerated Watch for fever, re-culture. Consider IJ replacement by surgery, large body habitus pt. Spontaneous breathing trial in the morning. However, in view of recent difficult airway issue, it might be safer to eventually extubate patient in the OR or consider tracheotomy as an alternative Update K+ level after infusion/replacement Discussed with staff in detail. No family members available for case discussion. Critical care time was 31 minutes of [id number] evaluation and coordination of care. Subjective Date of service: 07/21/17 Principal diagnosis: Sepsis Interval history: Fever earlier.No secretions.No distress when sedation tapered. Off pressors per nurse Objective Vital Signs - 12hr 07/21/17 07/21/17 07/21/17 00:31 01:01 01:30 Temperature Pulse Rate 81 70 72 Pulse Rate [ Anterior Bilateral Throughout] Pulse Rate [ From Monitor] Pulse Rate [ Right Brachial] Respiratory 19 16 16 Rate Respiratory Rate [Anterior Bilateral Throughout] Blood Pressure 183/91 183/91 O2 Sat by Pulse 97 98 97 Oximetry 07/21/17 07/21/17 07/21/17 01:58 02:01 02:05 Temperature Pulse Rate 70 Pulse Rate [ 66 Anterior Bilateral Throughout] Pulse Rate [ From Monitor] Pulse Rate [ 83 Right Brachial] Respiratory 16 Rate Respiratory 16 Rate [Anterior Bilateral Throughout] Blood Pressure O2 Sat by Pulse 99 Oximetry 07/21/17 07/21/17 07/21/17 02:15 02:31 03:01 Temperature Pulse Rate 88 66 Pulse Rate [ 68 Anterior Bilateral Throughout] Pulse Rate [ From Monitor] Pulse Rate [ Right Brachial] Respiratory 16 21 Rate Respiratory 16 Rate [Anterior Bilateral Throughout] Blood Pressure O2 Sat by Pulse 95 Oximetry 07/21/17 07/21/17 07/21/17 03:31 04:00 04:01 Temperature Pulse Rate 66 69 Pulse Rate [ Anterior Bilateral Throughout] Pulse Rate [ 74 From Monitor] Pulse Rate [ Right Brachial] Respiratory 18 16 18 Rate Respiratory Rate [Anterior Bilateral Throughout] Blood Pressure O2 Sat by Pulse 95 98 97 Oximetry 07/21/17 07/21/17 07/21/17 04:18 04:31 04:41 Temperature 99.1 F Pulse Rate 77 75 Pulse Rate [ Anterior Bilateral Throughout] Pulse Rate [ From Monitor] Pulse Rate [ Right Brachial] Respiratory 21 Rate Respiratory Rate [Anterior Bilateral Throughout] Blood Pressure 155/76 O2 Sat by Pulse 98 97 Oximetry 07/21/17 07/21/17 07/21/17 04:56 05:01 05:31 Temperature Pulse Rate 76 73 Pulse Rate [ Anterior Bilateral Throughout] Pulse Rate [ From Monitor] Pulse Rate [ Right Brachial] Respiratory 17 16 16 Rate Respiratory Rate [Anterior Bilateral Throughout] Blood Pressure O2 Sat by Pulse 97 97 Oximetry 07/21/17 07/21/17 07/21/17 06:01 06:31 07:01 Temperature Pulse Rate 82 63 81 Pulse Rate [ Anterior Bilateral Throughout] Pulse Rate [ From Monitor] Pulse Rate [ Right Brachial] Respiratory 15 16 13 Rate Respiratory Rate [Anterior Bilateral Throughout] Blood Pressure O2 Sat by Pulse 98 97 94 Oximetry 07/21/17 07/21/17 07/21/17 07:31 07:41 07:59 Temperature Pulse Rate 67 73 83 Pulse Rate [ 73 79 Anterior Bilateral Throughout] Pulse Rate [ From Monitor] Pulse Rate [ Right Brachial] Respiratory 16 13 Rate Respiratory 16 13 Rate [Anterior Bilateral Throughout] Blood Pressure 126/66 121/65 O2 Sat by Pulse 98 98 94 Oximetry 07/21/17 07/21/17 07/21/17 08:01 08:31 09:01 Temperature Pulse Rate 81 70 67 Pulse Rate [ Anterior Bilateral Throughout] Pulse Rate [ From Monitor] Pulse Rate [ Right Brachial] Respiratory 18 16 15 Rate Respiratory Rate [Anterior Bilateral Throughout] Blood Pressure O2 Sat by Pulse 95 97 96 Oximetry 07/21/17 07/21/17 11:52 12:01 Temperature Pulse Rate 77 81 Pulse Rate [ Anterior Bilateral Throughout] Pulse Rate [ From Monitor] Pulse Rate [ Right Brachial] Respiratory 16 22 Rate Respiratory Rate [Anterior Bilateral Throughout] Blood Pressure 161/134 O2 Sat by Pulse 98 98 Oximetry Constitutional: no acute distress, other (morbidly obese, critically ill on vent ) ENT: other (orally intubated) Neck: supple (and large in circumference) Effort: normal Ascultation: Bilateral: clear (wheezes/rhonchi better), diminished breath sounds Percussion: Bilateral: not dull Cardiovascular: irregular rhythm (ir/ir, no mrg) Gastrointestinal: normoactive bowel sounds, soft, non-tender, non-distended Integumentary: normal Extremities: no cyanosis, pink and warm, edema (1+ generalized) Neurologic: normal mental status, non-focal exam, pupils equal and round Psychiatric: mood appropriate, affect normal CBC and BMP: 07/21/17 06:05 07/21/17 06:05 ABG, PT/INR, D-dimer: ABG POC ABG pH 7.522 (7.35-7.45) H 07/20/17 06:11 POC ABG pCO2 53.3 (35-45) H 07/20/17 06:11 POC ABG pO2 105 (80-105) 07/20/17 06:11 POC ABG HCO3 43.7 07/20/17 06:11 POC ABG Total CO2 45 07/20/17 06:11 POC ABG O2 Sat 98 07/20/17 06:11 Abnormal lab findings: Abnormal Labs 07/09/17 07/09/17 07/09/17 18:05 18:05 21:15 WBC 15.0 H Hct 43.7 H Lymph % (Auto) 10.7 L [place] % (Auto) [place] # Seg Neutrophils % 83.9 H Seg Neutrophils # 12.6 H POC ABG pH POC ABG pCO2 POC ABG pO2 Sodium Potassium Chloride 96.7 L Carbon Dioxide 31 H BUN 18 H Creatinine Glucose 146 H POC Glucose Lactic Acid 2.50 H* Calcium C-Reactive Protein NT-Pro-B Natriuret Pep 1456 H Albumin 3.8 L Urine WBC (Auto) 07/09/17 07/09/17 07/09/17 21:20 21:46 22:59 WBC Hct Lymph % (Auto) [place] % (Auto) [place] # Seg Neutrophils % Seg Neutrophils # POC ABG pH POC ABG pCO2 54.6 H POC ABG pO2 Sodium Potassium Chloride Carbon Dioxide BUN Creatinine Glucose POC Glucose Lactic Acid 2.30 H* Calcium C-Reactive Protein NT-Pro-B Natriuret Pep Albumin Urine WBC (Auto) 29.0 H 07/10/17 07/11/1707/11/17 04:35 05:12 06:11 WBC 18.4 H Hct Lymph % (Auto) 8.6 L [place] % (Auto) 7.9 H [place] # 1.5 H Seg Neutrophils % 83.5 H Seg Neutrophils # 15.3 H POC ABG pH 7.282 L POC ABG pCO2 61.2 H POC ABG pO2 155 H Sodium Potassium Chloride Carbon Dioxide BUN Creatinine Glucose POC Glucose Lactic Acid Calcium C-Reactive Protein NT-Pro-B Natriuret Pep Albumin Urine WBC (Auto) 07/11/17 07/12/17 07/12/17 06:11 05:03 09:01 WBC 12.2 H Hct Lymph % (Auto) [place] % (Auto) 10.9 H [place] # 1.3 H Seg Neutrophils % Seg Neutrophils # 8.2 H POC ABG pH POC ABG pCO2 48.2 H POC ABG pO2 Sodium Potassium Chloride Carbon Dioxide BUN 37 H Creatinine Glucose 130 H POC Glucose Lactic Acid Calcium C-Reactive Protein NT-Pro-B Natriuret Pep Albumin Urine WBC (Auto) 07/12/17 07/13/17 07/13/17 09:01 13:29 23:20 WBC Hct Lymph % (Auto) [place] % (Auto) [place] # Seg Neutrophils % Seg Neutrophils # POC ABG pH 7.315 L POC ABG pCO2 52.5 H POC ABG pO2 Sodium 146 H Potassium Chloride Carbon Dioxide BUN 31 H Creatinine Glucose POC Glucose 121 H Lactic Acid Calcium 8.0 L C-Reactive Protein NT-Pro-B Natriuret Pep Albumin Urine WBC (Auto) 07/14/17 07/14/17 07/14/17 04:21 04:21 04:31 WBC 13.3 H Hct Lymph % (Auto) [place] % (Auto) 10.4 H [place] # 1.4 H Seg Neutrophils % Seg Neutrophils # 8.8 H POC ABG pH 7.301 L POC ABG pCO2 51.4 H POC ABG pO2 Sodium 146 H Potassium Chloride 109.0 H Carbon Dioxide BUN 22 H Creatinine Glucose 107 H POC Glucose Lactic Acid Calcium 8.3 L C-Reactive Protein NT-Pro-B Natriuret Pep Albumin 3.0 L Urine WBC (Auto) 07/15/17 07/15/17 07/15/17 07:30 07:30 16:00 WBC Hct Lymph % (Auto) [place] % (Auto) 9.2 H [place] # 1.0 H Seg Neutrophils % 72.7 H Seg Neutrophils # 7.9 H POC ABG pH 7.301 L POC ABG pCO2 47.3 H POC ABG pO2 79 L Sodium 149 H Potassium 3.5 L Chloride 111.6 H Carbon Dioxide BUN 21 H Creatinine 0.6 L Glucose POC Glucose Lactic Acid Calcium 8.1 L C-Reactive Protein NT-Pro-B Natriuret Pep Albumin Urine WBC (Auto) 07/16/17 07/16/17 07/16/17 04:40 04:40 09:48 WBC Hct Lymph % (Auto) [place] % (Auto) 10.0 H [place] # 1.0 H Seg Neutrophils % Seg Neutrophils # POC ABG pH 7.349 L POC ABG pCO2 POC ABG pO2 65 L Sodium 148 H Potassium 3.4 L Chloride 109.8 H Carbon Dioxide BUN 18 H Creatinine 0.6 L Glucose POC Glucose Lactic Acid Calcium 8.0 L C-Reactive Protein NT-Pro-B Natriuret Pep Albumin Urine WBC (Auto) 07/16/17 07/17/17 07/17/17 13:36 03:22 03:22 WBC Hct Lymph % (Auto) [place] % (Auto) 12.3 H [place] # 1.3 H Seg Neutrophils % Seg Neutrophils # POC ABG pH POC ABG pCO2 POC ABG pO2 Sodium Potassium Chloride Carbon Dioxide BUN Creatinine 0.6 L Glucose 116 H POC Glucose Lactic Acid Calcium 8.0 L C-Reactive Protein 4.90 H NT-Pro-B Natriuret Pep Albumin Urine WBC (Auto) 07/17/17 07/18/17 07/18/17 06:21 06:00 06:00 WBC Hct Lymph % (Auto) [place] % (Auto) 10.8 H [place] # 1.2 H Seg Neutrophils % Seg Neutrophils # POC ABG pH POC ABG pCO2 47.0 H POC ABG pO2 71 L Sodium 146 H Potassium 3.0 L Chloride Carbon Dioxide BUN Creatinine 0.6 L Glucose 114 H POC Glucose Lactic Acid Calcium 8.2 L C-Reactive Protein NT-Pro-B Natriuret Pep Albumin Urine WBC (Auto) 07/18/17 07/18/17 07/19/17 11:12 Unknown 07:51 WBC 14.1 H Hct Lymph % (Auto) [place] % (Auto) 9.6 H [place] # 1.4 H Seg Neutrophils % Seg Neutrophils # 9.8 H POC ABG pH POC ABG pCO2 48.4 H POC ABG pO2 70 L Sodium Potassium Chloride Carbon Dioxide BUN Creatinine Glucose POC Glucose Lactic Acid Calcium C-Reactive Protein NT-Pro-B Natriuret Pep Albumin Urine WBC (Auto) 174.0 H 07/19/17 07/19/17 07/19/17 07:51 12:53 15:57 WBC Hct Lymph % (Auto) [place] % (Auto) [place] # Seg Neutrophils % Seg Neutrophils # POC ABG pH 7.490 H 7.485 H POC ABG pCO2 49.2 H 58.4 H POC ABG pO2 69 L 60 L Sodium 147 H Potassium 3.3 L Chloride Carbon Dioxide 32 H BUN 19 H Creatinine 0.6 L Glucose 127 H POC Glucose Lactic Acid Calcium 8.3 L C-Reactive Protein NT-Pro-B Natriuret Pep Albumin Urine WBC (Auto) 07/19/17 07/20/17 07/20/17 17:52 05:00 05:00 WBC 18.2 H Hct Lymph % (Auto) [place] % (Auto) [place] # Seg Neutrophils % 80.9 H Seg Neutrophils # 14.7 H POC ABG pH POC ABG pCO2 60.9 H POC ABG pO2 162 H Sodium Potassium 3.1 L Chloride 95.3 L Carbon Dioxide 35 H BUN 19 H Creatinine 0.5 L Glucose 103 H POC Glucose Lactic Acid Calcium 8.2 L C-Reactive Protein NT-Pro-B Natriuret Pep Albumin Urine WBC (Auto) 07/20/17 07/21/17 07/21/17 06:11 06:05 06:05 WBC 14.1 H Hct Lymph % (Auto) [place] % (Auto) 8.0 H [place] # 1.1 H Seg Neutrophils % Seg Neutrophils # 9.5 H POC ABG pH 7.522 H POC ABG pCO2 53.3 H POC ABG pO2 Sodium Potassium 2.6 L* Chloride 95.7 L Carbon Dioxide 37 H BUN 21 H Creatinine 0.6 L Glucose POC Glucose Lactic Acid Calcium 7.9 L C-Reactive Protein NT-Pro-B Natriuret Pep Albumin Urine WBC (Auto)
[2017-07-21] MEDS ORDERED: NACL 0.9% NEBU ONE (13:26)
[2017-07-21] MEDS: COLACE PO SCH ×2 (18:32→22:13)
[2017-07-22] MEDS: AZACTAM/NS 1 GM/50 ML 1 GM/50 ML VIAL IV SCH ×3 (01:21→19:07)
[2017-07-22] MEDS: fentaNYL DRIP Premix 2,000 MCG/100 ML BAG IV SCH ×3 (01:22→21:35)
[2017-07-22] MEDS: XOPENEX IH SCH ×4 (01:41→19:43)
[2017-07-22 05:51] LABS: BUN/Creatinine Ratio 36; Blood Urea Nitrogen 29 mg/dL (7-17); Calcium 7.7 mg/dL (8.4-10.2); Hemolysis Index 57
[2017-07-22] MEDS: CLEOCIN 900 MG/50 mL 900 MG/50 ML BAG IV SCH ×3 (06:00→21:38)
[2017-07-22] MEDS: PULMICORT IH SCH ×2 (07:36→19:43)
--- NOTE | 2017-07-22 09:32 | Progress Note ---
Assessment and Plan Assessment and plan: Acute respiratory failure. Patient was extubated but then re-intubated secondary to acute respiratory distress. Cont mechanical ventilaion. Pulmonology following Sepsis. Continue Azactam and Clindamycin iv as per ID Physician. He is now off Levophed.. Bilateral pneumonia.? Aspiration versus CAP. Continue antibiotics. Follow serial chest x-ray Urinary tract infection. Urine culture growing jerrell-albicans. Start Fluconazole iv daily. Right Hydronephrosis with partial obstructing stone S/p cysto, rpg, rt stent 24cm x 6---07-12-17 ([facility]) Atrial fibrillation. Continue Amiodarone. Hypokalemia. Potassium 3.3 today. Replete potassium and recheck in am. Hypernatremia. Resolved. Sodium 140 today.. Acute on chronic CHF exacerbation. Continue Lopressor twice a day Obstructive sleep apnea Hypothyroidism DVT prophylaxis -SQ Lovenox History Interval history: Patient still intubated Hospitalist Physical - Physical exam Narrative exam: GEN APPEARANCE : Not in acute distress, Morbidly obese, HEENT: Atraumatic, normocephalic,orally intubated NECK : supple, no JVD LUNGS: Clear to auscultation bilaterally, no rales, no wheeze HEART: S1 and S2 regular, no murmurs, rubs or gallop, ABD: Soft, non tender, non distended, normal bowel sounds EXT: No edema, no clubbing, no cyanosis NEURO: Intubated, sedated - Constitutional Vitals: Temp Pulse Resp BP Pulse Ox 98.1 F 82 17 130/69 98 07/22/17 07:55 07/22/17 07:42 07/22/17 07:42 07/22/17 07:42 07/22/17 07:42 General appearance: Present: other (orally intubated) Results - Labs CBC & Chem 7: 07/22/17 08:48 07/22/17 05:07 Labs: Laboratory Last Values WBC 14.1 K/mm3 (4.5-11.0) H 07/21/17 06:05 RBC 3.82 M/mm3 (3.65-5.03) 07/21/17 06:05 Hgb 11.2 gm/dl (10.1-14.3) 07/21/17 06:05 Hct 33.8 % (30.3-42.9) 07/21/17 06:05 MCV 88 fl (79-97) 07/21/17 06:05 MCH 29 pg (28-32) 07/21/17 06:05 MCHC 33 % (30-34) 07/21/17 06:05 RDW 14.3 % (13.2-15.2) 07/21/17 06:05 Plt Count 233 K/mm3 (140-440) 07/21/17 06:05 Lymph % (Auto) 22.1 % (13.4-35.0) 07/21/17 06:05 [place] % (Auto) 8.0 % (0.0-7.3) H 07/21/17 06:05 Eos % (Auto) 2.1 % (0.0-4.3) 07/21/17 06:05 Baso % (Auto) 0.3 % (0.0-1.8) 07/21/17 06:05 Lymph # 3.1 K/mm3 (1.2-5.4) 07/21/17 06:05 [place] # 1.1 K/mm3 (0.0-0.8) H 07/21/17 06:05 Eos # 0.3 K/mm3 (0.0-0.4) 07/21/17 06:05 Baso # 0.0 K/mm3 (0.0-0.1) 07/21/17 06:05 Seg Neutrophils % 67.5 % (40.0-70.0) 07/21/17 06:05 Seg Neutrophils # 9.5 K/mm3 (1.8-7.7) H 07/21/17 06:05 POC ABG pH 7.522 (7.35-7.45) H 07/20/17 06:11 POC ABG pCO2 53.3 (35-45) H 07/20/17 06:11 POC ABG pO2 105 (80-105) 07/20/17 06:11 POC ABG HCO3 43.7 07/20/17 06:11 POC ABG Total CO2 45 07/20/17 06:11 POC ABG O2 Sat 98 07/20/17 06:11 POC ABG Base Excess 21 07/20/17 06:11 FiO2 70 % 07/20/17 06:11 Sodium 140 mmol/L (137-145) 07/22/17 05:07 Potassium 3.3 mmol/L (3.6-5.0) L D 07/22/17 05:07 Chloride 91.6 mmol/L (98-107) L 07/22/17 05:07 Carbon Dioxide 35 mmol/L (22-30) H 07/22/17 05:07 Anion Gap 17 mmol/L 07/22/17 05:07 BUN 29 mg/dL (7-17) H 07/22/17 05:07 Creatinine 0.8 mg/dL (0.7-1.2) 07/22/17 05:07 Estimated GFR > 60 ml/min 07/22/17 05:07 BUN/Creatinine Ratio 36 % 07/22/17 05:07 Glucose 118 mg/dL (65-100) H 07/22/17 05:07 POC Glucose 88 (70-105) 07/14/17 12:11 Lactic Acid 2.30 mmol/L (0.7-2.0) H* 07/09/17 22:59 Calcium 7.7 mg/dL (8.4-10.2) L 07/22/17 05:07 Phosphorus 3.10 mg/dL (2.5-4.5) 07/19/17 07:51 Magnesium 1.80 mg/dL (1.7-2.3) 07/19/17 07:51 Total Bilirubin 0.80 mg/dL (0.1-1.2) 07/14/17 04:21 AST 15 units/L (5-40) 07/14/17 04:21 ALT 13 units/L (7-56) 07/14/17 04:21 Alkaline Phosphatase 53 units/L (35-129) 07/14/17 04:21 Total Creatine Kinase 34 units/L (30-135) 07/09/17 18:05 CK-MB (CK-2) < 1.0 ng/mL (0.0-4.0) 07/09/17 18:05 CK-MB (CK-2) Rel Index 2.9 (0-4) 07/09/17 18:05 Troponin T < 0.010 ng/mL (0.00-0.029) 07/09/17 18:05 C-Reactive Protein 4.90 mg/dL (0.00-1.30) H 07/16/17 13:36 NT-Pro-B Natriuret Pep 1456 pg/mL (0-900) H 07/09/17 18:05 Total Protein 6.5 g/dL (6.3-8.2) 07/14/17 04:21 Albumin 3.0 g/dL (3.9-5) L 07/14/17 04:21 Albumin/Globulin Ratio 0.9 % 07/14/17 04:21 Lipase 16 units/L (13-60) 07/09/17 18:05 Urine Color Yellow (Yellow) 07/18/17 Unknown Urine Turbidity Cloudy (Clear) 07/18/17 Unknown Urine pH 5.0 (5.0-7.0) 07/18/17 Unknown Ur Specific [place] 1.015 (1.003-1.030) 07/18/17 Unknown Urine Protein 30 mg/dl mg/dL (Negative) 07/18/17 Unknown Urine Glucose (UA) Neg mg/dL (Negative) 07/18/17 Unknown Urine Ketones Neg mg/dL (Negative) 07/18/17 Unknown Urine Blood Lg (Negative) 07/18/17 Unknown Urine Nitrite Neg (Negative) 07/18/17 Unknown Urine Bilirubin Neg (Negative) 07/18/17 Unknown Urine Urobilinogen 4.0 mg/dL (<2.0) 07/18/17 Unknown Ur Leukocyte Esterase Lg (Negative) 07/18/17 Unknown Urine WBC (Auto) 174.0 /HPF (0.0-6.0) H 07/18/17 Unknown Urine RBC (Auto) > 182.0 /HPF (0.0-6.0) 07/18/17 Unknown U Epithel Cells (Auto) 6.0 /HPF (0-13.0) 07/18/17 Unknown Urine Bacteria (Auto) 3+ /HPF (Negative) 07/18/17 Unknown Ur Transition Epith Cell 1 /HPF 07/18/17 Unknown Urine Mucus 2+ /HPF 07/18/17 Unknown Ur Yeast w Hyphae 1+ /HPF 07/18/17 Unknown Urine Yeast (Budding) 3+ /HPF 07/18/17 Unknown Plasma/Serum Alcohol < 0.01 gm% (0-0.07) 07/14/17 14:20
[2017-07-22 09:35] LABS: Basophils % (Auto) 0.3 % (0.0-1.8); Eosinophils # (Auto) 0.4 K/mm3 (0.0-0.4); Eosinophils % (Auto) 3.1 % (0.0-4.3); Hematocrit 36.7 % (30.3-42.9); Hemoglobin 11.7 gm/dl (10.1-14.3); Lymphocytes # (Auto) 3.4 K/mm3 (1.2-5.4); Lymphocytes % (Auto) 26.8 % (13.4-35.0); Mean Corpuscular HGB Conc 32 % (30-34); Mean Corpuscular Hemoglobin 28 pg (28-32); Mean Corpuscular Volume 89 fl (79-97); Monocytes # (Auto) 1.3 K/mm3 (0.0-0.8); Platelet Count 257 K/mm3 (140-440); Red Blood Count 4.14 M/mm3 (3.65-5.03); Red Cell Distribution Width 14.4 % (13.2-15.2)
[2017-07-22] MEDS: PEPCID IV SCH ×2 (09:59→21:44)
[2017-07-22] MEDS: LOVENOX SUB-Q SCH (09:59)
[2017-07-22] MEDS: KCL 10MEQ/100ML 10 MEQ/100 ML BAG IV SCH ×2 (10:02→11:16)
[2017-07-22] MEDS: LOPRESSOR PO SCH ×2 (10:07→21:42)
[2017-07-22] MEDS: CORDARONE PO SCH (10:07)
[2017-07-22] MEDS: COLACE PO SCH ×2 (11:16→21:40)
--- NOTE | 2017-07-22 13:34 | Progress Note ---
Assessment and Plan 76 y/o obese female, followed as an outpatient by [place], admitted with acute on chronic respiratory failure 1. Reviewed chart, given failed extubations and difficult intubation would suggest that trach would be the safest mechanism. This will also help with her untreated DIMPLE as well. No family at bedside to discuss with but will do so this week. 2. Electrolyte replacement per primary 3. PSV trials as tolerated CCT 31 minutes. Subjective Date of service: 07/22/17 Principal diagnosis: Sepsis Interval history: No acute events overnight. No family currently at bedside. Objective Vital Signs - 12hr 07/22/17 07/22/17 07/22/17 01:43 02:00 02:30 Temperature Pulse Rate 67 63 Pulse Rate [ 71 73 Anterior Bilateral Throughout] Pulse Rate [ From Monitor] Respiratory 16 16 Rate Respiratory 16 16 Rate [Anterior Bilateral Throughout] Blood Pressure 116/52 117/56 O2 Sat by Pulse 100 97 Oximetry 07/22/17 07/22/17 07/22/17 03:00 03:30 04:00 Temperature 98.9 F Pulse Rate 67 67 64 Pulse Rate [ Anterior Bilateral Throughout] Pulse Rate [ 87 From Monitor] Respiratory 16 16 16 Rate Respiratory Rate [Anterior Bilateral Throughout] Blood Pressure 84/41 95/42 93/49 O2 Sat by Pulse 96 97 95 Oximetry 07/22/17 07/22/17 07/22/17 04:30 04:58 05:00 Temperature Pulse Rate 72 76 74 Pulse Rate [ Anterior Bilateral Throughout] Pulse Rate [ From Monitor] Respiratory 15 15 Rate Respiratory Rate [Anterior Bilateral Throughout] Blood Pressure 88/48 88/52 105/64 O2 Sat by Pulse 97 97 97 Oximetry 07/22/17 07/22/17 07/22/17 05:30 06:00 06:30 Temperature Pulse Rate 68 73 71 Pulse Rate [ Anterior Bilateral Throughout] Pulse Rate [ From Monitor] Respiratory 16 16 14 Rate Respiratory Rate [Anterior Bilateral Throughout] Blood Pressure 104/58 90/48 103/47 O2 Sat by Pulse 96 95 Oximetry 07/22/17 07/22/17 07/22/17 07:00 07:24 07:31 Temperature Pulse Rate 74 87 122 H Pulse Rate [ 75 Anterior Bilateral Throughout] Pulse Rate [ From Monitor] Respiratory 16 16 Rate Respiratory 17 Rate [Anterior Bilateral Throughout] Blood Pressure 102/49 130/69 130/69 O2 Sat by Pulse 96 97 97 Oximetry 07/22/17 07/22/17 07/22/17 07:42 07:55 08:00 Temperature 98.1 F Pulse Rate 79 86 Pulse Rate [ 82 Anterior Bilateral Throughout] Pulse Rate [ From Monitor] Respiratory 14 19 Rate Respiratory 17 Rate [Anterior Bilateral Throughout] Blood Pressure 130/69 168/84 O2 Sat by Pulse 98 95 Oximetry 07/22/17 07/22/17 07/22/17 08:09 08:31 09:01 Temperature Pulse Rate 87 89 Pulse Rate [ Anterior Bilateral Throughout] Pulse Rate [ 86 From Monitor] Respiratory 20 17 19 Rate Respiratory Rate [Anterior Bilateral Throughout] Blood Pressure 136/70 136/70 O2 Sat by Pulse 95 95 95 Oximetry 07/22/17 07/22/17 07/22/17 09:30 09:51 10:00 Temperature Pulse Rate 91 H 87 82 Pulse Rate [ Anterior Bilateral Throughout] Pulse Rate [ From Monitor] Respiratory 21 20 17 Rate Respiratory Rate [Anterior Bilateral Throughout] Blood Pressure 119/56 109/57 114/49 O2 Sat by Pulse 95 94 94 Oximetry 07/22/17 07/22/17 07/22/17 10:07 10:30 11:00 Temperature Pulse Rate 87 85 83 Pulse Rate [ Anterior Bilateral Throughout] Pulse Rate [ From Monitor] Respiratory 19 18 Rate Respiratory Rate [Anterior Bilateral Throughout] Blood Pressure 114/49 119/55 140/74 O2 Sat by Pulse 96 96 Oximetry 07/22/17 07/22/17 07/22/17 11:30 11:45 11:52 Temperature 98.8 F Pulse Rate 93 H Pulse Rate [ Anterior Bilateral Throughout] Pulse Rate [ 93 H From Monitor] Respiratory 23 26 H Rate Respiratory Rate [Anterior Bilateral Throughout] Blood Pressure 150/88 O2 Sat by Pulse 95 94 Oximetry 07/22/17 12:00 Temperature Pulse Rate 97 H Pulse Rate [ Anterior Bilateral Throughout] Pulse Rate [ From Monitor] Respiratory 20 Rate Respiratory Rate [Anterior Bilateral Throughout] Blood Pressure 164/80 O2 Sat by Pulse 95 Oximetry Constitutional: no acute distress, other (morbidly obese, critically ill on vent ) ENT: other (orally intubated) Neck: supple (and large in circumference) Effort: normal Ascultation: Bilateral: clear (wheezes/rhonchi better), diminished breath sounds , rales, rhonchi, other (coarse BS bilaterally with faint expiratory wheezes) Percussion: Bilateral: not dull Cardiovascular: irregular rhythm (ir/ir, no mrg) Gastrointestinal: normoactive bowel sounds, soft, non-tender, non-distended Integumentary: normal Extremities: no cyanosis, pink and warm, edema (1+ generalized) Neurologic: normal mental status, non-focal exam, pupils equal and round Psychiatric: mood appropriate, affect normal CBC and BMP: 07/22/17 08:48 07/22/17 05:07 ABG, PT/INR, D-dimer: ABG POC ABG pH 7.475 (7.35-7.45) H 07/22/17 10:19 POC ABG pCO2 59.4 (35-45) H 07/22/17 10:19 POC ABG pO2 67 (80-105) L 07/22/17 10:19 POC ABG HCO3 43.7 07/22/17 10:19 POC ABG Total CO2 45 07/22/17 10:19 POC ABG O2 Sat 93 07/22/17 10:19 Abnormal lab findings: Abnormal Labs 07/09/17 07/09/17 07/09/17 18:05 18:05 21:15 WBC 15.0 H Hct 43.7 H Lymph % (Auto) 10.7 L [place] % (Auto) [place] # Seg Neutrophils % 83.9 H Seg Neutrophils # 12.6 H POC ABG pH POC ABG pCO2 POC ABG pO2 Sodium Potassium Chloride 96.7 L Carbon Dioxide 31 H BUN 18 H Creatinine Glucose 146 H POC Glucose Lactic Acid 2.50 H* Calcium C-Reactive Protein NT-Pro-B Natriuret Pep 1456 H Albumin 3.8 L Urine WBC (Auto) 07/09/17 07/09/17 07/09/17 21:20 21:46 22:59 WBC Hct Lymph % (Auto) [place] % (Auto) [place] # Seg Neutrophils % Seg Neutrophils # POC ABG pH POC ABG pCO2 54.6 H POC ABG pO2 Sodium Potassium Chloride Carbon Dioxide BUN Creatinine Glucose POC Glucose Lactic Acid 2.30 H* Calcium C-Reactive Protein NT-Pro-B Natriuret Pep Albumin Urine WBC (Auto) 29.0 H 07/10/17 07/11/17 07/11/17 04:35 05:12 06:11 WBC 18.4 H Hct Lymph % (Auto) 8.6 L [place] % (Auto) 7.9 H [place] # 1.5 H Seg Neutrophils % 83.5 H Seg Neutrophils # 15.3 H POC ABG pH 7.282 L POC ABG pCO2 61.2 H POC ABG pO2 155 H Sodium Potassium Chloride Carbon Dioxide BUN Creatinine Glucose POC Glucose Lactic Acid Calcium C-Reactive Protein NT-Pro-B Natriuret Pep Albumin Urine WBC (Auto) 07/11/17 07/12/17 07/12/17 06:11 05:03 09:01 WBC 12.2 H Hct Lymph % (Auto) [place] % (Auto) 10.9 H [place] # 1.3 H Seg Neutrophils % Seg Neutrophils # 8.2 H POC ABG pH POC ABG pCO2 48.2 H POC ABG pO2 Sodium Potassium Chloride Carbon Dioxide BUN 37 H Creatinine Glucose 130 H POC Glucose Lactic Acid Calcium C-Reactive Protein NT-Pro-B Natriuret Pep Albumin Urine WBC (Auto) 07/12/17 07/13/17 07/13/17 09:01 13:29 23:20 WBC Hct Lymph % (Auto) [place] % (Auto) [place] # Seg Neutrophils % Seg Neutrophils # POC ABG pH 7.315 L POC ABG pCO2 52.5 H POC ABG pO2 Sodium 146 H Potassium Chloride Carbon Dioxide BUN 31 H Creatinine Glucose POC Glucose 121 H Lactic Acid Calcium 8.0 L C-Reactive Protein NT-Pro-B Natriuret Pep Albumin Urine WBC (Auto) 07/14/17 07/14/17 07/14/17 04:21 04:21 04:31 WBC 13.3 H Hct Lymph % (Auto) [place] % (Auto) 10.4 H [place] # 1.4 H Seg Neutrophils % Seg Neutrophils # 8.8 H POC ABG pH 7.301 L POC ABG pCO2 51.4 H POC ABG pO2 Sodium 146 H Potassium Chloride 109.0 H Carbon Dioxide BUN 22 H Creatinine Glucose 107 H POC Glucose Lactic Acid Calcium 8.3 L C-Reactive Protein NT-Pro-B Natriuret Pep Albumin 3.0 L Urine WBC (Auto) 07/15/17 07/15/17 07/15/17 07:30 07:30 16:00 WBC Hct Lymph % (Auto) [place] % (Auto) 9.2 H [place] # 1.0 H Seg Neutrophils % 72.7 H Seg Neutrophils # 7.9 H POC ABG pH 7.301 L POC ABG pCO2 47.3 H POC ABG pO2 79 L Sodium 149 H Potassium 3.5 L Chloride 111.6 H Carbon Dioxide BUN 21 H Creatinine 0.6 L Glucose POC Glucose Lactic Acid Calcium 8.1 L C-Reactive Protein NT-Pro-B Natriuret Pep Albumin Urine WBC (Auto) 07/16/17 07/16/17 07/16/17 04:40 04:40 09:48 WBC Hct Lymph % (Auto) [place] % (Auto) 10.0 H [place] # 1.0 H Seg Neutrophils % Seg Neutrophils # POC ABG pH 7.349 L POC ABG pCO2 POC ABG pO2 65 L Sodium 148 H Potassium 3.4 L Chloride 109.8 H Carbon Dioxide BUN 18 H Creatinine 0.6 L Glucose POC Glucose Lactic Acid Calcium 8.0 L C-Reactive Protein NT-Pro-B Natriuret Pep Albumin Urine WBC (Auto) 07/16/17 07/17/17 07/17/17 13:36 03:22 03:22 WBC Hct Lymph % (Auto) [place] % (Auto) 12.3 H [place] # 1.3 H Seg Neutrophils % Seg Neutrophils # POC ABG pH POC ABG pCO2 POC ABG pO2 Sodium Potassium Chloride Carbon Dioxide BUN Creatinine 0.6 L Glucose 116 H POC Glucose Lactic Acid Calcium 8.0 L C-Reactive Protein 4.90 H NT-Pro-B Natriuret Pep Albumin Urine WBC (Auto) 07/17/17 07/18/17 07/18/17 06:21 06:00 06:00 WBC Hct Lymph % (Auto) [place] % (Auto) 10.8 H [place] # 1.2 H Seg Neutrophils % Seg Neutrophils # POC ABG pH POC ABG pCO2 47.0 H POC ABG pO2 71 L Sodium 146 H Potassium 3.0 L Chloride Carbon Dioxide BUN Creatinine 0.6 L Glucose 114 H POC Glucose Lactic Acid Calcium 8.2 L C-Reactive Protein NT-Pro-B Natriuret Pep Albumin Urine WBC (Auto) 07/18/17 07/18/17 07/19/17 11:12 Unknown 07:51 WBC 14.1 H Hct Lymph % (Auto) [place] % (Auto) 9.6 H [place] # 1.4 H Seg Neutrophils % Seg Neutrophils # 9.8 H POC ABG pH POC ABG pCO2 48.4 H POC ABG pO2 70 L Sodium Potassium Chloride Carbon Dioxide BUN Creatinine Glucose POC Glucose Lactic Acid Calcium C-Reactive Protein NT-Pro-B Natriuret Pep Albumin Urine WBC (Auto) 174.0 H 07/19/17 07/19/17 07/19/17 07:51 12:53 15:57 WBC Hct Lymph % (Auto) [place] % (Auto) [place] # Seg Neutrophils % Seg Neutrophils # POC ABG pH 7.490 H 7.485 H POC ABG pCO2 49.2 H 58.4 H POC ABG pO2 69 L 60 L Sodium 147 H Potassium 3.3 L Chloride Carbon Dioxide 32 H BUN 19 H Creatinine 0.6 L Glucose 127 H POC Glucose Lactic Acid Calcium 8.3 L C-Reactive Protein NT-Pro-B Natriuret Pep Albumin Urine WBC (Auto) 07/19/17 07/20/17 07/20/17 17:52 05:00 05:00 WBC 18.2 H Hct Lymph % (Auto) [place] % (Auto) [place] # Seg Neutrophils % 80.9 H Seg Neutrophils # 14.7 H POC ABG pH POC ABG pCO2 60.9 H POC ABG pO2 162 H Sodium Potassium 3.1 L Chloride 95.3 L Carbon Dioxide 35 H BUN 19 H Creatinine 0.5 L Glucose 103 H POC Glucose Lactic Acid Calcium 8.2 L C-Reactive Protein NT-Pro-B Natriuret Pep Albumin Urine WBC (Auto) 07/20/17 07/21/17 07/21/17 06:11 06:05 06:05 WBC 14.1 H Hct Lymph % (Auto) [place] % (Auto) 8.0 H [place] # 1.1 H Seg Neutrophils % Seg Neutrophils # 9.5 H POC ABG pH 7.522 H POC ABG pCO2 53.3 H POC ABG pO2 Sodium Potassium 2.6 L* Chloride 95.7 L Carbon Dioxide 37 H BUN 21 H Creatinine 0.6 L Glucose POC Glucose Lactic Acid Calcium 7.9 L C-Reactive Protein NT-Pro-B Natriuret Pep Albumin Urine WBC (Auto) 07/22/17 07/22/17 07/22/17 05:07 08:48 10:19 WBC 12.5 H Hct Lymph % (Auto) [place] % (Auto) 10.0 H [place] # 1.3 H Seg Neutrophils % Seg Neutrophils # POC ABG pH 7.475 H POC ABG pCO2 59.4 H POC ABG pO2 67 L Sodium Potassium 3.3 L D Chloride 91.6 L Carbon Dioxide 35 H BUN 29 H Creatinine Glucose 118 H POC Glucose Lactic Acid Calcium 7.7 L C-Reactive Protein NT-Pro-B Natriuret Pep Albumin Urine WBC (Auto)
[2017-07-22] MEDS ORDERED: NACL 0.9% NEBU ONE (14:02)
[2017-07-22] MEDS ORDERED: DIFLUCAN 200 MG/100 ML BAG IV SCH (16:00)
[2017-07-23 05:18] LABS: Basophils % (Auto) 0.4 % (0.0-1.8); Eosinophils # (Auto) 0.2 K/mm3 (0.0-0.4); Eosinophils % (Auto) 1.8 % (0.0-4.3); Hematocrit 36.3 % (30.3-42.9); Lymphocytes # (Auto) 1.9 K/mm3 (1.2-5.4); Lymphocytes % (Auto) 17.2 % (13.4-35.0); Mean Corpuscular HGB Conc 33 % (30-34); Mean Corpuscular Hemoglobin 29 pg (28-32); Mean Corpuscular Volume 88 fl (79-97); Monocytes # (Auto) 1.2 K/mm3 (0.0-0.8); Monocytes % (Auto) 10.9 % (0.0-7.3); Platelet Count 240 K/mm3 (140-440); Red Blood Count 4.11 M/mm3 (3.65-5.03); Red Cell Distribution Width 14.3 % (13.2-15.2)
[2017-07-23 05:25] LABS: BUN/Creatinine Ratio 40; Blood Urea Nitrogen 28 mg/dL (7-17); Calcium 8.3 mg/dL (8.4-10.2); Hemolysis Index 7
[2017-07-23] MEDS: KCL 10MEQ/100ML 10 MEQ/100 ML BAG IV SCH ×3 (05:55→11:05)
[2017-07-23] MEDS: CLEOCIN 900 MG/50 mL 900 MG/50 ML BAG IV SCH ×3 (06:30→22:09)
--- NOTE | 2017-07-23 09:28 | Progress Note ---
Assessment and Plan Assessment and plan: Acute respiratory failure. Patient was extubated but then re-intubated secondary to acute respiratory distress. Cont mechanical ventilaion. Pulmonology following. She is on CPAP mode, attempting to wean off. Sepsis. Continue Azactam and Clindamycin iv as per ID Physician. She is now off Levophed.. Bilateral pneumonia.? Aspiration versus CAP. Continue antibiotics. Follow serial chest x-ray Urinary tract infection. Urine culture growing jerrell-albicans. Start Fluconazole iv daily. Right Hydronephrosis with partial obstructing stone S/p cysto, rpg, rt stent 24cm x 6---07-12-17 ([place]) Atrial fibrillation. Continue Amiodarone. Hypokalemia. Potassium 3.1 today. Give K-rider 30meq iv and repeat in afternoon. Hypernatremia. Resolved. Sodium 140 today.. Acute on chronic CHF exacerbation. Continue Lopressor twice a day Obstructive sleep apnea Hypothyroidism DVT prophylaxis -SQ Lovenox History Interval history: Patient still intubated, Responsive Hospitalist Physical - Physical exam Narrative exam: GEN APPEARANCE : Not in acute distress, Morbidly obese, HEENT: Atraumatic, normocephalic,orally intubated NECK : supple, no JVD LUNGS: Clear to auscultation bilaterally, no rales, no wheeze HEART: S1 and S2 regular, no murmurs, rubs or gallop, ABD: Soft, non tender, non distended, normal bowel sounds EXT: No edema, no clubbing, no cyanosis NEURO: Intubated, sedated - Constitutional Vitals: Temp Pulse Resp BP Pulse Ox 98.6 F 101 H 23 122/54 97 07/23/17 08:41 07/23/17 09:04 07/22/17 21:00 07/23/17 09:04 07/23/17 09:04 General appearance: Present: other (orally intubated) Results - Labs CBC & Chem 7: 07/23/17 04:25 07/23/17 04:25 Labs: Laboratory Last Values WBC 11.1 K/mm3 (4.5-11.0) H 07/23/17 04:25 RBC 4.11 M/mm3 (3.65-5.03) 07/23/17 04:25 Hgb 12.0 gm/dl (10.1-14.3) 07/23/17 04:25 Hct 36.3 % (30.3-42.9) 07/23/17 04:25 MCV 88 fl (79-97) 07/23/17 04:25 MCH 29 pg (28-32) 07/23/17 04:25 MCHC 33 % (30-34) 07/23/17 04:25 RDW 14.3 % (13.2-15.2) 07/23/17 04:25 Plt Count 240 K/mm3 (140-440) 07/23/17 04:25 Lymph % (Auto) 17.2 % (13.4-35.0) 07/23/17 04:25 [place] % (Auto) 10.9 % (0.0-7.3) H 07/23/17 04:25 Eos % (Auto) 1.8 % (0.0-4.3) 07/23/17 04:25 Baso % (Auto) 0.4 % (0.0-1.8) 07/23/17 04:25 Lymph # 1.9 K/mm3 (1.2-5.4) 07/23/17 04:25 [place] # 1.2 K/mm3 (0.0-0.8) H 07/23/17 04:25 Eos # 0.2 K/mm3 (0.0-0.4) 07/23/17 04:25 Baso # 0.0 K/mm3 (0.0-0.1) 07/23/17 04:25 Seg Neutrophils % 69.7 % (40.0-70.0) 07/23/17 04:25 Seg Neutrophils # 7.8 K/mm3 (1.8-7.7) H 07/23/17 04:25 POC ABG pH 7.475 (7.35-7.45) H 07/22/17 10:19 POC ABG pCO2 59.4 (35-45) H 07/22/17 10:19 POC ABG pO2 67 (80-105) L 07/22/17 10:19 POC ABG HCO3 43.7 07/22/17 10:19 POC ABG Total CO2 45 07/22/17 10:19 POC ABG O2 Sat 93 07/22/17 10:19 POC ABG Base Excess 20 07/22/17 10:19 FiO2 40 % 07/22/17 10:19 Sodium 140 mmol/L (137-145) 07/23/17 04:25 Potassium 3.1 mmol/L (3.6-5.0) L 07/23/17 04:25 Chloride 92.9 mmol/L (98-107) L 07/23/17 04:25 Carbon Dioxide 38 mmol/L (22-30) H 07/23/17 04:25 Anion Gap 12 mmol/L 07/23/17 04:25 BUN 28 mg/dL (7-17) H 07/23/17 04:25 Creatinine 0.7 mg/dL (0.7-1.2) 07/23/17 04:25 Estimated GFR > 60 ml/min 07/23/17 04:25 BUN/Creatinine Ratio 40 % 07/23/17 04:25 Glucose 123 mg/dL (65-100) H 07/23/17 04:25 POC Glucose 88 (70-105) 07/14/17 12:11 Lactic Acid 2.30 mmol/L (0.7-2.0) H* 07/09/17 22:59 Calcium 8.3 mg/dL (8.4-10.2) L 07/23/17 04:25 Phosphorus 3.10 mg/dL (2.5-4.5) 07/19/17 07:51 Magnesium 1.80 mg/dL (1.7-2.3) 07/19/17 07:51 Total Bilirubin 0.80 mg/dL (0.1-1.2) 07/14/17 04:21 AST 15 units/L (5-40) 07/14/17 04:21 ALT 13 units/L (7-56) 07/14/17 04:21 Alkaline Phosphatase 53 units/L (35-129) 07/14/17 04:21 Total Creatine Kinase 34 units/L (30-135) 07/09/17 18:05 CK-MB (CK-2) < 1.0 ng/mL (0.0-4.0) 07/09/17 18:05 CK-MB (CK-2) Rel Index 2.9 (0-4) 07/09/17 18:05 Troponin T < 0.010 ng/mL (0.00-0.029) 07/09/17 18:05 C-Reactive Protein 4.90 mg/dL (0.00-1.30) H 07/16/17 13:36 NT-Pro-B Natriuret Pep 1456 pg/mL (0-900) H 07/09/17 18:05 Total Protein 6.5 g/dL (6.3-8.2) 07/14/17 04:21 Albumin 3.0 g/dL (3.9-5) L 07/14/17 04:21 Albumin/Globulin Ratio 0.9 % 07/14/17 04:21 Lipase 16 units/L (13-60) 07/09/17 18:05 Urine Color Yellow (Yellow) 07/18/17 Unknown Urine Turbidity Cloudy (Clear) 07/18/17 Unknown Urine pH 5.0 (5.0-7.0) 07/18/17 Unknown Ur Specific [place] 1.015 (1.003-1.030) 07/18/17 Unknown Urine Protein 30 mg/dl mg/dL (Negative) 07/18/17 Unknown Urine Glucose (UA) Neg mg/dL (Negative) 07/18/17 Unknown Urine Ketones Neg mg/dL (Negative) 07/18/17 Unknown Urine Blood Lg (Negative) 07/18/17 Unknown Urine Nitrite Neg (Negative) 07/18/17 Unknown Urine Bilirubin Neg (Negative) 07/18/17 Unknown Urine Urobilinogen 4.0 mg/dL (<2.0) 07/18/17 Unknown Ur Leukocyte Esterase Lg (Negative) 07/18/17 Unknown Urine WBC (Auto) 174.0 /HPF (0.0-6.0) H 07/18/17 Unknown Urine RBC (Auto) > 182.0 /HPF (0.0-6.0) 07/18/17 Unknown U Epithel Cells (Auto) 6.0 /HPF (0-13.0) 07/18/17 Unknown Urine Bacteria (Auto) 3+ /HPF (Negative) 07/18/17 Unknown Ur Transition Epith Cell 1 /HPF 07/18/17 Unknown Urine Mucus 2+ /HPF 07/18/17 Unknown Ur Yeast w Hyphae 1+ /HPF 07/18/17 Unknown Urine Yeast (Budding) 3+ /HPF 07/18/17 Unknown Plasma/Serum Alcohol < 0.01 gm% (0-0.07) 07/14/17 14:20
[2017-07-23] MEDS: LOPRESSOR PO SCH ×3 (09:35→23:03)
[2017-07-23] MEDS: COLACE PO SCH ×2 (09:35→22:10)
[2017-07-23] MEDS: CORDARONE PO SCH (09:35)
[2017-07-23] MEDS: XOPENEX IH SCH ×3 (09:39→20:22)
[2017-07-23] MEDS: PULMICORT IH SCH ×2 (09:39→20:22)
--- NOTE | 2017-07-23 09:58 | Progress Note ---
Assessment and Plan Assessment: 1) Severe sepsis with initial septic shock: shock resolved, still low grade fever. Etiology most likely complicated UTI +/- pneumonia. CRP=4.9. 2) Complicated UTI with right hydronephrosis and obstructive stone: unknown etiology, urine culture was not sent. -S/P stent placement on 07/12 -repeat urine with pleocytosis and urine cx grew Jerrell ? colonizer 3) Bilateral pneumonia: ? aspiration vs CAP. Sputum + usual resp rashawn 4) Respiratory failure 5) Morbid obesity 6) DIMPLE 7) Penicillin allergy - unclear reaction Plan: -continue aztreonam day 7 of 7 (stop today) and clindamycin day 6 of 7 -stop fluconazole in view of interaction with amiodarone and Jerrell seems to be a urine colonizer Thank you Dr Prince for your consultation, will follow up with you. Poonam Jennings MD Infectious Diseases Specialist [facility] [phone] Subjective Date of service: 07/23/17 Principal diagnosis: Sepsis Interval history: Remains intubated on fiO2 40%, no fever, alert on the vent Microbiology: Blood cultures: 07/09 neg Urine cultures: 07/17 jerrell Respiratory cultures: tracheal 07/09 usual resp rashawn sputum 07/14 usual resp rashawn tracheal asp 07/20 usual resp rashawn Current Antimicrobials: aztreonam 07/16 clinda 07/17 flucoazole 07/22 Previous Antimicrobials: Objective - Exam Narrative Exam: General appearance: sedated on vent Eyes: anicteric sclerae, moist conjunctivae; no lid-lag; PERRLA HENT: Atraumatic; oropharynx +ETT +NGT Neck: Trachea midline; supple, no thyromegaly or lymphadenopathy Lungs: cta justen CV: rrr Abdomen: Soft, obese Extremities: justen leg edema Skin: Normal temperature, turgor and texture; no rash, ulcers or subcutaneous nodules Psych: unable to eval. Neuro: unable to eval Lines: right neck TLC - Constitutional Vitals: Vital Signs Temp Pulse Resp BP Pulse Ox 98.6 F 78 23 108/44 97 07/23/17 08:41 07/23/17 09:35 07/23/17 08:00 07/23/17 09:35 07/23/17 09:04 Temperature -Last 24 Hours Temperature 98.6 F Temperature 98 F Temperature 98.8 F Temperature 99.2 F Temperature 98.9 F Temperature 98.8 F - Labs CBC & Chem 7: 07/23/17 04:25 07/23/17 04:25 Labs: Abnormal lab results 07/22/17 07/22/17 07/23/17 Range/Units 10:19 18:07 04:25 WBC 11.1 H (4.5-11.0) K/mm3 [place] % (Auto) 10.9 H (0.0-7.3) % [place] # 1.2 H (0.0-0.8) K/mm3 Seg Neutrophils # 7.8 H (1.8-7.7) K/mm3 POC ABG pH 7.475 H (7.35-7.45) POC ABG pCO2 59.4 H (35-45) POC ABG pO2 67 L (80-105) Potassium 3.3 L (3.6-5.0) mmol/L Chloride (98-107) mmol/L Carbon Dioxide (22-30) mmol/L BUN (7-17) mg/dL Glucose (65-100) mg/dL Calcium (8.4-10.2) mg/dL 07/23/17 Range/Units 04:25 WBC (4.5-11.0) K/mm3 [place] % (Auto) (0.0-7.3) % [place] # (0.0-0.8) K/mm3 Seg Neutrophils # (1.8-7.7) K/mm3 POC ABG pH (7.35-7.45) POC ABG pCO2 (35-45) POC ABG pO2 (80-105) Potassium 3.1 L (3.6-5.0) mmol/L Chloride 92.9 L (98-107) mmol/L Carbon Dioxide 38 H (22-30) mmol/L BUN 28 H (7-17) mg/dL Glucose 123 H (65-100) mg/dL Calcium 8.3 L (8.4-10.2) mg/dL
[2017-07-23] MEDS: AZACTAM/NS 1 GM/50 ML 1 GM/50 ML VIAL IV SCH ×3 (10:32→18:47)
[2017-07-23] MEDS: PEPCID IV SCH ×2 (10:50→22:18)
[2017-07-23] MEDS: LOVENOX SUB-Q SCH (10:51)
--- NOTE | 2017-07-23 10:59 | Progress Note ---
Assessment and Plan 76 y/o obese female, followed as an outpatient by [facility], admitted with acute on chronic respiratory failure 1. Spoke with patient and she is in agreement about trach. Need to discuss with family as well. Once discussed with them, will consult surgery for trach placement 2. Electrolyte replacement per primary 3. Picc line placement 4. PSV trials as tolerated but trach will be safest means of weaning. CCT 31 minutes. Subjective Date of service: 07/23/17 Principal diagnosis: Sepsis Interval history: Awake and alert. On Fent drip. No family currently at bedside. Stable. Follows commands. Remainder is negative. Objective Vital Signs - 12hr 07/22/17 07/23/17 07/23/17 23:51 00:00 01:30 Temperature 98.8 F Pulse Rate 77 Pulse Rate [ Anterior Bilateral Throughout] Pulse Rate [ Anterior Left Throughout] Respiratory Rate [Anterior Bilateral Throughout] Respiratory Rate [Anterior Left Throughout ] Blood Pressure 86/49 O2 Sat by Pulse 94 97 Oximetry 07/23/17 07/23/17 07/23/17 03:20 04:20 08:00 Temperature 98 F Pulse Rate 87 Pulse Rate [ 96 H Anterior Bilateral Throughout] Pulse Rate [ 85 Anterior Left Throughout] Respiratory 23 Rate [Anterior Bilateral Throughout] Respiratory 17 Rate [Anterior Left Throughout ] Blood Pressure 98/57 O2 Sat by Pulse 97 Oximetry 07/23/17 07/23/17 07/23/17 08:41 09:04 09:35 Temperature 98.6 F Pulse Rate 101 H 78 Pulse Rate [ Anterior Bilateral Throughout] Pulse Rate [ Anterior Left Throughout] Respiratory Rate [Anterior Bilateral Throughout] Respiratory Rate [Anterior Left Throughout ] Blood Pressure 122/54 108/44 O2 Sat by Pulse 97 Oximetry Constitutional: no acute distress, other (morbidly obese, critically ill on vent ) ENT: other (orally intubated) Neck: supple (and large in circumference) Effort: normal Ascultation: Bilateral: clear (wheezes/rhonchi better), diminished breath sounds , rales, rhonchi, other (coarse BS bilaterally with faint expiratory wheezes) Percussion: Bilateral: not dull Cardiovascular: irregular rhythm (ir/ir, no mrg) Gastrointestinal: normoactive bowel sounds, soft, non-tender, non-distended Integumentary: normal Extremities: no cyanosis, pink and warm, edema (1+ generalized) Neurologic: normal mental status, non-focal exam, pupils equal and round Psychiatric: mood appropriate, affect normal CBC and BMP: 07/23/17 04:25 07/23/17 04:25 ABG, PT/INR, D-dimer: ABG POC ABG pH 7.475 (7.35-7.45) H 07/22/17 10:19 POC ABG pCO2 59.4 (35-45) H 07/22/17 10:19 POC ABG pO2 67 (80-105) L 07/22/17 10:19 POC ABG HCO3 43.7 07/22/17 10:19 POC ABG Total CO2 45 07/22/17 10:19 POC ABG O2 Sat 93 07/22/17 10:19 Abnormal lab findings: Abnormal Labs 07/09/17 07/09/17 07/09/17 18:05 18:05 21:15 WBC 15.0 H Hct 43.7 H Lymph % (Auto) 10.7 L Nicholas % (Auto) Nicholas # Seg Neutrophils % 83.9 H Seg Neutrophils # 12.6 H POC ABG pH POC ABG pCO2 POC ABG pO2 Sodium Potassium Chloride 96.7 L Carbon Dioxide 31 H BUN 18 H Creatinine Glucose 146 H POC Glucose Lactic Acid 2.50 H* Calcium C-Reactive Protein NT-Pro-B Natriuret Pep 1456 H Albumin 3.8 L Urine WBC (Auto) 07/09/17 07/09/17 07/09/17 21:20 21:46 22:59 WBC Hct Lymph % (Auto) Nicholas % (Auto) Nicholas # Seg Neutrophils % Seg Neutrophils # POC ABG pH POC ABG pCO2 54.6 H POC ABG pO2 Sodium Potassium Chloride Carbon Dioxide BUN Creatinine Glucose POC Glucose Lactic Acid 2.30 H* Calcium C-Reactive Protein NT-Pro-B Natriuret Pep Albumin Urine WBC (Auto) 29.0 H 07/10/17 07/11/17 07/11/17 04:35 05:12 06:11 WBC 18.4 H Hct Lymph % (Auto) 8.6 L Nicholas % (Auto) 7.9 H Nicholas # 1.5 H Seg Neutrophils % 83.5 H Seg Neutrophils # 15.3 H POC ABG pH 7.282 L POC ABG pCO2 61.2 H POC ABG pO2 155 H Sodium Potassium Chloride Carbon Dioxide BUN Creatinine Glucose POC Glucose Lactic Acid Calcium C-Reactive Protein NT-Pro-B Natriuret Pep Albumin Urine WBC (Auto) 07/11/17 07/12/17 07/12/17 06:11 05:03 09:01 WBC 12.2 H Hct Lymph % (Auto) Nicholas % (Auto) 10.9 H Nicholas # 1.3 H Seg Neutrophils % Seg Neutrophils # 8.2 H POC ABG pH POC ABG pCO2 48.2 H POC ABG pO2 Sodium Potassium Chloride Carbon Dioxide BUN 37 H Creatinine Glucose 130 H POC Glucose Lactic Acid Calcium C-Reactive Protein NT-Pro-B Natriuret Pep Albumin Urine WBC (Auto) 07/12/17 07/13/17 07/13/17 09:01 13:29 23:20 WBC Hct Lymph % (Auto) Nicholas % (Auto) Nicholas # Seg Neutrophils % Seg Neutrophils # POC ABG pH 7.315 L POC ABG pCO2 52.5 H POC ABG pO2 Sodium 146 H Potassium Chloride Carbon Dioxide BUN 31 H Creatinine Glucose POC Glucose 121 H Lactic Acid Calcium 8.0 L C-Reactive Protein NT-Pro-B Natriuret Pep Albumin Urine WBC (Auto) 07/14/17 07/14/17 07/14/17 04:21 04:21 04:31 WBC 13.3 H Hct Lymph % (Auto) Nicholas % (Auto) 10.4 H Nicholas # 1.4 H Seg Neutrophils % Seg Neutrophils # 8.8 H POC ABG pH 7.301 L POC ABG pCO2 51.4 H POC ABG pO2 Sodium 146 H Potassium Chloride 109.0 H Carbon Dioxide BUN 22 H Creatinine Glucose 107 H POC Glucose Lactic Acid Calcium 8.3 L C-Reactive Protein NT-Pro-B Natriuret Pep Albumin 3.0 L Urine WBC (Auto) 07/15/17 07/15/17 07/15/17 07:30 07:30 16:00 WBC Hct Lymph % (Auto) Nicholas % (Auto) 9.2 H Nicholas # 1.0 H Seg Neutrophils % 72.7 H Seg Neutrophils # 7.9 H POC ABG pH 7.301 L POC ABG pCO2 47.3 H POC ABG pO2 79 L Sodium 149 H Potassium 3.5 L Chloride 111.6 H Carbon Dioxide BUN 21 H Creatinine 0.6 L Glucose POC Glucose Lactic Acid Calcium 8.1 L C-Reactive Protein NT-Pro-B Natriuret Pep Albumin Urine WBC (Auto) 07/16/17 07/16/17 07/16/17 04:40 04:40 09:48 WBC Hct Lymph % (Auto) Nicholas % (Auto) 10.0 H Nicholas # 1.0 H Seg Neutrophils % Seg Neutrophils # POC ABG pH 7.349 L POC ABG pCO2 POC ABG pO2 65 L Sodium 148 H Potassium 3.4 L Chloride 109.8 H Carbon Dioxide BUN 18 H Creatinine 0.6 L Glucose POC Glucose Lactic Acid Calcium 8.0 L C-Reactive Protein NT-Pro-B Natriuret Pep Albumin Urine WBC (Auto) 07/16/17 07/17/17 07/17/17 13:36 03:22 03:22 WBC Hct Lymph % (Auto) Nicholas % (Auto) 12.3 H Nicholas # 1.3 H Seg Neutrophils % Seg Neutrophils # POC ABG pH POC ABG pCO2 POC ABG pO2 Sodium Potassium Chloride Carbon Dioxide BUN Creatinine 0.6 L Glucose 116 H POC Glucose Lactic Acid Calcium 8.0 L C-Reactive Protein 4.90 H NT-Pro-B Natriuret Pep Albumin Urine WBC (Auto) 07/17/17 07/18/17 07/18/17 06:21 06:00 06:00 WBC Hct Lymph % (Auto) Nicholas % (Auto) 10.8 H Nicholas # 1.2 H Seg Neutrophils % Seg Neutrophils # POC ABG pH POC ABG pCO2 47.0 H POC ABG pO2 71 L Sodium 146 H Potassium 3.0 L Chloride Carbon Dioxide BUN Creatinine 0.6 L Glucose 114 H POC Glucose Lactic Acid Calcium 8.2 L C-Reactive Protein NT-Pro-B Natriuret Pep Albumin Urine WBC (Auto) 07/18/17 07/18/17 07/19/17 11:12 Unknown 07:51 WBC 14.1 H Hct Lymph % (Auto) Nicholas % (Auto) 9.6 H Nicholas # 1.4 H Seg Neutrophils % Seg Neutrophils # 9.8 H POC ABG pH POC ABG pCO2 48.4 H POC ABG pO2 70 L Sodium Potassium Chloride Carbon Dioxide BUN Creatinine Glucose POC Glucose Lactic Acid Calcium C-Reactive Protein NT-Pro-B Natriuret Pep Albumin Urine WBC (Auto) 174.0 H 07/19/17 07/19/17 07/19/17 07:51 12:53 15:57 WBC Hct Lymph % (Auto) Nicholas % (Auto) Nicholas # Seg Neutrophils % Seg Neutrophils # POC ABG pH 7.490 H 7.485 H POC ABG pCO2 49.2 H 58.4 H POC ABG pO2 69 L 60 L Sodium 147 H Potassium 3.3 L Chloride Carbon Dioxide 32 H BUN 19 H Creatinine 0.6 L Glucose 127 H POC Glucose Lactic Acid Calcium 8.3 L C-Reactive Protein NT-Pro-B Natriuret Pep Albumin Urine WBC (Auto) 07/19/17 07/20/17 07/20/17 17:52 05:00 05:00 WBC 18.2 H Hct Lymph % (Auto) Nicholas % (Auto) Nicholas # Seg Neutrophils % 80.9 H Seg Neutrophils # 14.7 H POC ABG pH POC ABG pCO2 60.9 H POC ABG pO2 162 H Sodium Potassium 3.1 L Chloride 95.3 L Carbon Dioxide 35 H BUN 19 H Creatinine 0.5 L Glucose 103 H POC Glucose Lactic Acid Calcium 8.2 L C-Reactive Protein NT-Pro-B Natriuret Pep Albumin Urine WBC (Auto) 07/20/17 07/21/17 07/21/17 06:11 06:05 06:05 WBC 14.1 H Hct Lymph % (Auto) Nicholas % (Auto) 8.0 H Nicholas # 1.1 H Seg Neutrophils % Seg Neutrophils # 9.5 H POC ABG pH 7.522 H POC ABG pCO2 53.3 H POC ABG pO2 Sodium Potassium 2.6 L* Chloride 95.7 L Carbon Dioxide 37 H BUN 21 H Creatinine 0.6 L Glucose POC Glucose Lactic Acid Calcium 7.9 L C-Reactive Protein NT-Pro-B Natriuret Pep Albumin Urine WBC (Auto) 07/22/17 07/22/17 07/22/17 05:07 08:48 10:19 WBC 12.5 H Hct Lymph % (Auto) Nicholas % (Auto) 10.0 H Nicholas # 1.3 H Seg Neutrophils % Seg Neutrophils # POC ABG pH 7.475 H POC ABG pCO2 59.4 H POC ABG pO2 67 L Sodium Potassium 3.3 L D Chloride 91.6 L Carbon Dioxide 35 H BUN 29 H Creatinine Glucose 118 H POC Glucose Lactic Acid Calcium 7.7 L C-Reactive Protein NT-Pro-B Natriuret Pep Albumin Urine WBC (Auto) 01/01/18 01/02/18 01/02/18 18:07 04:25 04:25 WBC 11.1 H Hct Lymph % (Auto) Nicholas % (Auto) 10.9 H Nicholas # 1.2 H Seg Neutrophils % Seg Neutrophils # 7.8 H POC ABG pH POC ABG pCO2 POC ABG pO2 Sodium Potassium 3.3 L 3.1 L Chloride 92.9 L Carbon Dioxide 38 H BUN 28 H Creatinine Glucose 123 H POC Glucose Lactic Acid Calcium 8.3 L C-Reactive Protein NT-Pro-B Natriuret Pep Albumin Urine WBC (Auto)
--- NOTE | 2017-07-23 15:32 | Consultation ---
History of Present Illness Consult date: 07/23/17 Reason for consult: other (resp failure) Chief complaint: respiratory failure - History of present illness History of present illness: 76 y/o WF with respiratory failure due to urosepsis and has failed extubation. We have been asked to place Trach and PEG for metal tester ventilator management and enteral access. Past History Past Medical History: hypertension, other (peter, obesity, urosepsis, kidney stones) Past Surgical History: total knee replacement, Other (ureteral stenting) Social history: Family history: no significant family history Medications and Allergies Allergies Allergy/AdvReac Type Severity Reaction Status Date / Time Penicillins Allergy Unknown Verified 03/20/17 21:20 Home Medications Medication Instructions Recorded Confirmed Last Taken Type Levothyroxine [Synthroid] 112 mcg PO QAM 03/21/17 07/09/17 Unknown History Apixaban [Eliquis] 5 mg PO Q12HR #60 tablet 03/30/17 07/09/17 Unknown Rx Aspirin [Aspirin BABY CHEW TAB] 81 mg PO QDAY #30 tab.chew 03/30/17 07/09/17 Unknown Rx Levalbuterol 1.25 [Xopenex] 1.25 mg IH Q6HRT #60 nebu 03/30/17 07/09/17 Unknown Rx Loratadine [Claritin] 10 mg PO QDAY #14 tablet 03/30/17 07/09/17 Unknown Rx Amiodarone [Cordarone 200 MG TAB] 200 mg PO QDAY #30 tablet 03/31/17 07/09/17 Unknown Rx Metoprolol [Lopressor TAB] 50 mg PO BID #30 tablet 03/31/17 07/09/17 Unknown Rx Triamcinolone 0.1% [Kenalog 0.1% 1 applic TP BID #1 tube 03/31/17 07/09/17 Unknown Rx CREAM] Sodium Chloride 0.65% Nasal [Deep 2 spray NS TID #7 bottle 04/01/17 07/09/17 Unknown Rx Sea NASAL SPRAY] Active Meds: Active Medications Acetaminophen (Tylenol) 650 mg ID Q4H PRN PRN Reason: Pain MILD(1-3)/Fever >100.5/CAMPOS Last Admin: 07/12/17 00:13 Dose: 650 mg Acetaminophen (Tylenol) 650 mg PO Q4H PRN PRN Reason: Pain MILD(1-3)/Fever >100.5/CAMPOS Last Admin: 07/21/17 04:56 Dose: 650 mg Amiodarone HCl (Cordarone) 200 mg PO QDAY [facility] Last Admin: 07/23/17 09:35 Dose: Not Given Lipase/Protease/Amylase (Pancreaze Dr 10,500 Unit) 1 each FEEDTUBE PRN PRN PRN Reason: For Clogged Feeding Tube Bisacodyl (Dulcolax) 10 mg ID QDAY PRN PRN Reason: Constipation unrelieved by MOM Budesonide (Pulmicort) 0.5 mg IH Q12HRT [facility] Last Admin: 07/23/17 09:39 Dose: 0.5 mg Docusate Sodium (Colace) 100 mg PO BID [facility] Last Admin: 07/23/17 09:35 Dose: Not Given Enoxaparin Sodium (Lovenox) 40 mg SUB-Q QDAY [facility] Last Admin: 07/23/17 10:51 Dose: 40 mg Famotidine (Pepcid) 20 mg IV BID [facility] Last Admin: 07/23/17 10:50 Dose: 20 mg Hydralazine HCl (Apresoline) 10 mg IV Q8HR PRN PRN Reason: prn for SB/P greater than 175 Last Admin: 07/16/17 21:19 Dose: 10 mg Hydrophilic Ointment (Vaseline Lip Therapy) 1 applic TP Q2HR PRN PRN Reason: Dry Lips Fentanyl Citrate (Fentanyl Drip Premix) 2,000 mcg in 100 mls @ 6.325 mls/hr IV TITR [facility]; 1 MCG/KG/HR PRN Reason: Protocol Last Admin: 07/22/17 21:35 Dose: 2 mcg/kg/hr, 12.65 mls/hr Aztreonam (Azactam/Ns 1 Gm/50 Ml) 1 gm in 50 mls @ 50 mls/hr IV Q8H [facility] PRN Reason: Protocol Last Admin: 07/23/17 10:33 Dose: 50 mls/hr Clindamycin HCl (Cleocin 900 Mg/50 Ml) 900 mg in 50 mls @ 100 mls/hr IV Q8HR [facility] PRN Reason: Protocol Last Admin: 07/23/17 13:39 Dose: 100 mls/hr Norepinephrine 8 mg/ Sodium (Chloride) 250 mls @ 3.75 mls/hr IV TITR [facility]; 2 MCG /MIN PRN Reason: Protocol Last Titration: 07/21/17 00:00 Dose: Infused Levalbuterol HCl (Xopenex) 1.25 mg IH TIDRT [facility] Last Admin: 07/23/17 13:01 Dose: 1.25 mg Magnesium Hydroxide (Milk Of Magnesia) 30 ml PO Q4H PRN PRN Reason: Constipation Metoprolol Tartrate (Lopressor) 50 mg PO BID [facility] Last Admin: 07/23/17 09:35 Dose: Not Given Multi-Ingred Cream/Lotion/Oil/Oint (Artificial Tears Ophth Oint) 1 applic OU Q4HR PRN PRN Reason: Dry Eye(s) Ondansetron HCl (Zofran) 4 mg IV Q8H PRN PRN Reason: N/V unrelieved by Reglan Simple Syrup (Simple Syrup) 15 ml FEEDTUBE PRN PRN PRN Reason: Hypoglycemia Simple Syrup (Simple Syrup) 30 ml FEEDTUBE PRN PRN PRN Reason: Hypoglycemia Sodium Bicarbonate (Sodium Bicarbonate) 325 mg FEEDTUBE PRN PRN PRN Reason: For Clogged Feeding Tube Exam Vital Signs Pulse Resp BP Pulse Ox 98 H 24 204/122 97 07/09/17 17:42 07/09/17 17:42 07/09/17 17:42 07/09/17 17:42 - General physical appearance Positive: well developed, obese - Eyes Positive: normal occular movement - Neck Positive: trachea midline, no venous distension - Cardiovascular Rhythm: irregularly irregular - Extremities Extremities: Full ROM - Abdomen Abdomen: Present: soft, bowel sounds normal. Absent: surgical scars - Neurologic Neurologic: other (follows commands) Results - Labs 07/23/17 04:25 07/23/17 04:25 Abnormal lab results 07/22/17 07/23/17 07/23/17 Range/Units 18:07 04:25 04:25 WBC 11.1 H (4.5-11.0) K/mm3 [place] % (Auto) 10.9 H (0.0-7.3) % [place] # 1.2 H (0.0-0.8) K/mm3 Seg Neutrophils # 7.8 H (1.8-7.7) K/mm3 POC ABG pH (7.35-7.45) POC ABG pCO2 (35-45) POC ABG pO2 (80-105) Potassium 3.3 L 3.1 L (3.6-5.0) mmol/L Chloride 92.9 L (98-107) mmol/L Carbon Dioxide 38 H (22-30) mmol/L BUN 28 H (7-17) mg/dL Glucose 123 H (65-100) mg/dL Calcium 8.3 L (8.4-10.2) mg/dL 07/23/17 Range/Units 10:11 WBC (4.5-11.0) K/mm3 [place] % (Auto) (0.0-7.3) % [place] # (0.0-0.8) K/mm3 Seg Neutrophils # (1.8-7.7) K/mm3 POC ABG pH 7.483 H (7.35-7.45) POC ABG pCO2 56.4 H (35-45) POC ABG pO2 71 L (80-105) Potassium (3.6-5.0) mmol/L Chloride (98-107) mmol/L Carbon Dioxide (22-30) mmol/L BUN (7-17) mg/dL Glucose (65-100) mg/dL Calcium (8.4-10.2) mg/dL Diabetes panel 07/22/17 07/23/17 Range/Units 18:07 04:25 Sodium 140 (137-145) mmol/L Potassium 3.3 L 3.1 L (3.6-5.0) mmol/L Chloride 92.9 L (98-107) mmol/L Carbon Dioxide 38 H (22-30) mmol/L BUN 28 H (7-17) mg/dL Creatinine 0.7 (0.7-1.2) mg/dL Glucose 123 H (65-100) mg/dL Calcium 8.3 L (8.4-10.2) mg/dL Calcium panel 07/23/17 Range/Units 04:25 Calcium 8.3 L (8.4-10.2) mg/dL Pituitary panel 07/22/17 07/23/17 Range/Units 18:07 04:25 Sodium 140 (137-145) mmol/L Potassium 3.3 L 3.1 L (3.6-5.0) mmol/L Chloride 92.9 L (98-107) mmol/L Carbon Dioxide 38 H (22-30) mmol/L BUN 28 H (7-17) mg/dL Creatinine 0.7 (0.7-1.2) mg/dL Glucose 123 H (65-100) mg/dL Calcium 8.3 L (8.4-10.2) mg/dL Adrenal panel 07/22/17 07/23/17 Range/Units 18:07 04:25 Sodium 140 (137-145) mmol/L Potassium 3.3 L 3.1 L (3.6-5.0) mmol/L Chloride 92.9 L (98-107) mmol/L Carbon Dioxide 38 H (22-30) mmol/L BUN 28 H (7-17) mg/dL Creatinine 0.7 (0.7-1.2) mg/dL Glucose 123 H (65-100) mg/dL Calcium 8.3 L (8.4-10.2) mg/dL Assessment and Plan Recommended a Trach and PEG if possible. Risks, benefits and alternatives were discussed and include but are not limited to bleeding, infection, injury to adjacent structures, problems with the tubes, need for more surgery and the loss of airway which can result in . There is also the possibility that a PEG can not be done and she will need nasogastric feeding. And if the nasogastric feeding becomes a problem in the future then a formal G-tube or laparoscopic assisted PEG tube can be done in the OR. All of the questions that the sons had were answered until they said they understood and did not have any more questions. They wish to proceed with the Trach and PEG. Consent form has been signed. Will start the scheduling process to get her on the schedule for a bedside Trach and PEG at the next available opening.
[2017-07-23] MEDS ORDERED: NACL 0.9% 1000 ML 1,000 ML IV ONE (16:11)
[2017-07-23] MEDS ORDERED: NACL 0.9% 1000 ML 1,000 ML ONE (16:16)
[2017-07-23 17:02] LABS: Basophils % (Auto) 0.4 % (0.0-1.8); Eosinophils # (Auto) 0.2 K/mm3 (0.0-0.4); Eosinophils % (Auto) 1.4 % (0.0-4.3); Hematocrit 33.3 % (30.3-42.9); Hemoglobin 10.9 gm/dl (10.1-14.3); Lymphocytes % (Auto) 17.8 % (13.4-35.0); Mean Corpuscular HGB Conc 33 % (30-34); Mean Corpuscular Hemoglobin 29 pg (28-32); Mean Corpuscular Volume 88 fl (79-97); Platelet Count 263 K/mm3 (140-440); Red Cell Distribution Width 14.4 % (13.2-15.2)
[2017-07-23] MEDS: fentaNYL DRIP Premix 2,000 MCG/100 ML BAG IV SCH (20:20)
[2017-07-24] MEDS: AZACTAM/NS 1 GM/50 ML 1 GM/50 ML VIAL IV SCH ×2 (00:10→08:42)
[2017-07-24] MEDS ORDERED: NACL 0.9% 1000 ML 1,000 ML ONE (00:24)
[2017-07-24] MEDS ORDERED: NACL 0.9% 1000 ML IV ONE (01:00)
[2017-07-24] MEDS: KCL 10MEQ/100ML 10 MEQ/100 ML BAG IV SCH ×3 (01:06→03:28)
[2017-07-24] MEDS: fentaNYL DRIP Premix 2,000 MCG/100 ML BAG IV SCH ×2 (03:29→22:55)
[2017-07-24] MEDS: CLEOCIN 900 MG/50 mL 900 MG/50 ML BAG IV SCH ×3 (06:03→22:12)
[2017-07-24 06:28] LABS: Basophils % (Auto) 0.4 % (0.0-1.8); Eosinophils # (Auto) 0.2 K/mm3 (0.0-0.4); Eosinophils % (Auto) 1.9 % (0.0-4.3); Hematocrit 31.6 % (30.3-42.9); Hemoglobin 10.7 gm/dl (10.1-14.3); Lymphocytes # (Auto) 1.6 K/mm3 (1.2-5.4); Lymphocytes % (Auto) 17.5 % (13.4-35.0); Mean Corpuscular HGB Conc 34 % (30-34); Mean Corpuscular Hemoglobin 30 pg (28-32); Mean Corpuscular Volume 89 fl (79-97); Monocytes # (Auto) 1.1 K/mm3 (0.0-0.8); Monocytes % (Auto) 11.6 % (0.0-7.3); Platelet Count 259 K/mm3 (140-440); Red Blood Count 3.55 M/mm3 (3.65-5.03); Red Cell Distribution Width 14.7 % (13.2-15.2)
[2017-07-24 06:52] LABS: BUN/Creatinine Ratio 52; Blood Urea Nitrogen 26 mg/dL (7-17); Calcium 7.8 mg/dL (8.4-10.2); Hemolysis Index 4
--- NOTE | 2017-07-24 09:22 | Progress Note ---
Assessment and Plan Assessment and plan: Acute respiratory failure. Patient was extubated but then re-intubated secondary to acute respiratory distress. Cont mechanical ventilaion. Pulmonology following. She has failed multiple weanimng attempts and therfore PEG and trach has been recommended. Sepsis. Continue Azactam and Clindamycin iv as per ID Physician. She is now off Levophed.. Bilateral pneumonia.? Aspiration versus CAP. Continue antibiotics. Follow serial chest x-ray Urinary tract infection. 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 Fluconazole discontinued. Right Hydronephrosis with partial obstructing stone S/p cysto, rpg, rt stent 24cm x 6---07-12-17 (Liliam) Atrial fibrillation. Continue Amiodarone. Hypokalemia. Potassium 3.4 today. Give further iv Potassium and repeat later today. Hypernatremia. Resolved. Sodium 137 today.. Acute on chronic CHF exacerbation. Continue Lopressor twice a day Obstructive sleep apnea Hypothyroidism DVT prophylaxis - Lovenox subcut History Interval history: Patient still intubated, Failed multiple weaning attempts Hospitalist Physical - Physical exam Narrative exam: GEN APPEARANCE : Not in acute distress, Morbidly obese, HEENT: Atraumatic, normocephalic,orally intubated NECK : supple, no JVD LUNGS: Clear to auscultation bilaterally, no rales, no wheeze HEART: S1 and S2 regular, no murmurs, rubs or gallop, ABD: Soft, non tender, non distended, normal bowel sounds EXT: No edema, no clubbing, no cyanosis NEURO: Intubated, sedated - Constitutional Vitals: Temp Pulse Resp BP Pulse Ox 98.9 F 71 16 82/42 96 07/24/17 08:00 07/24/17 07:31 07/24/17 07:31 07/24/17 07:31 07/24/17 07:31 General appearance: Present: other (orally intubated) Results - Labs CBC & Chem 7: 07/24/17 04:30 07/24/17 04:30 Labs: Laboratory Last Values WBC 9.1 K/mm3 (4.5-11.0) 07/24/17 04:30 RBC 3.55 M/mm3 (3.65-5.03) L 07/24/17 04:30 Hgb 10.7 gm/dl (10.1-14.3) 07/24/17 04:30 Hct 31.6 % (30.3-42.9) 07/24/17 04:30 MCV 89 fl (79-97) 07/24/17 04:30 MCH 30 pg (28-32) 07/24/17 04:30 MCHC 34 % (30-34) 07/24/17 04:30 RDW 14.7 % (13.2-15.2) 07/24/17 04:30 Plt Count 259 K/mm3 (140-440) 07/24/17 04:30 Lymph % (Auto) 17.5 % (13.4-35.0) 07/24/17 04:30 Dick[place] % (Auto) 11.6 % (0.0-7.3) H 07/24/17 04:30 Eos % (Auto) 1.9 % (0.0-4.3) 07/24/17 04:30 Baso % (Auto) 0.4 % (0.0-1.8) 07/24/17 04:30 Lymph # 1.6 K/mm3 (1.2-5.4) 07/24/17 04:30 Dick[place] # 1.1 K/mm3 (0.0-0.8) H 07/24/17 04:30 Eos # 0.2 K/mm3 (0.0-0.4) 07/24/17 04:30 Baso # 0.0 K/mm3 (0.0-0.1) 07/24/17 04:30 Seg Neutrophils % 68.6 % (40.0-70.0) 07/24/17 04:30 Seg Neutrophils # 6.3 K/mm3 (1.8-7.7) 07/24/17 04:30 POC ABG pH 7.483 (7.35-7.45) H 07/23/17 10:11 POC ABG pCO2 56.4 (35-45) H 07/23/17 10:11 POC ABG pO2 71 (80-105) L 07/23/17 10:11 POC ABG HCO3 42.3 07/23/17 10:11 POC ABG Total CO2 44 07/23/17 10:11 POC ABG O2 Sat 95 07/23/17 10:11 POC ABG Base Excess 19 01/02/18 10:11 FiO2 40 % 07/23/17 10:11 Sodium 137 mmol/L (137-145) 07/24/17 04:30 Potassium 3.4 mmol/L (3.6-5.0) L 07/24/17 04:30 Chloride 92.0 mmol/L (98-107) L 07/24/17 04:30 Carbon Dioxide 36 mmol/L (22-30) H 07/24/17 04:30 Anion Gap 12 mmol/L 07/24/17 04:30 BUN 26 mg/dL (7-17) H 07/24/17 04:30 Creatinine 0.5 mg/dL (0.7-1.2) L 07/24/17 04:30 Estimated GFR > 60 ml/min 07/24/17 04:30 BUN/Creatinine Ratio 52 % 07/24/17 04:30 Glucose 110 mg/dL (65-100) H 07/24/17 04:30 POC Glucose 88 (70-105) 07/14/17 12:11 Lactic Acid 1.00 mmol/L (0.7-2.0) 07/23/17 16:40 Calcium 7.8 mg/dL (8.4-10.2) L 07/24/17 04:30 Phosphorus 3.10 mg/dL (2.5-4.5) 07/19/17 07:51 Magnesium 2.20 mg/dL (1.7-2.3) 07/24/17 04:30 Total Bilirubin 0.80 mg/dL (0.1-1.2) 07/14/17 04:21 AST 15 units/L (5-40) 07/14/17 04:21 ALT 13 units/L (7-56) 07/14/17 04:21 Alkaline Phosphatase 53 units/L (35-129) 07/14/17 04:21 Total Creatine Kinase 34 units/L (30-135) 07/09/17 18:05 CK-MB (CK-2) < 1.0 ng/mL (0.0-4.0) 07/09/17 18:05 CK-MB (CK-2) Rel Index 2.9 (0-4) 07/09/17 18:05 Troponin T < 0.010 ng/mL (0.00-0.029) 07/09/17 18:05 C-Reactive Protein 4.90 mg/dL (0.00-1.30) H 07/16/17 13:36 NT-Pro-B Natriuret Pep 1456 pg/mL (0-900) H 07/09/17 18:05 Total Protein 6.5 g/dL (6.3-8.2) 07/14/17 04:21 Albumin 3.0 g/dL (3.9-5) L 07/14/17 04:21 Albumin/Globulin Ratio 0.9 % 07/14/17 04:21 Lipase 16 units/L (13-60) 07/09/17 18:05 Urine Color Yellow (Yellow) 07/18/17 Unknown Urine Turbidity Cloudy (Clear) 07/18/17 Unknown Urine pH 5.0 (5.0-7.0) 07/18/17 Unknown Ur Specific [place] 1.015 (1.003-1.030) 07/18/17 Unknown Urine Protein 30 mg/dl mg/dL (Negative) 07/18/17 Unknown Urine Glucose (UA) Neg mg/dL (Negative) 07/18/17 Unknown Urine Ketones Neg mg/dL (Negative) 07/18/17 Unknown Urine Blood Lg (Negative) 07/18/17 Unknown Urine Nitrite Neg (Negative) 07/18/17 Unknown Urine Bilirubin Neg (Negative) 07/18/17 Unknown Urine Urobilinogen 4.0 mg/dL (<2.0) 07/18/17 Unknown Ur Leukocyte Esterase Lg (Negative) 07/18/17 Unknown Urine WBC (Auto) 174.0 /HPF (0.0-6.0) H 07/18/17 Unknown Urine RBC (Auto) > 182.0 /HPF (0.0-6.0) 07/18/17 Unknown U Epithel Cells (Auto) 6.0 /HPF (0-13.0) 07/18/17 Unknown Urine Bacteria (Auto) 3+ /HPF (Negative) 07/18/17 Unknown Ur Transition Epith Cell 1 /HPF 07/18/17 Unknown Urine Mucus 2+ /HPF 07/18/17 Unknown Ur Yeast w Hyphae 1+ /HPF 07/18/17 Unknown Urine Yeast (Budding) 3+ /HPF 07/18/17 Unknown Plasma/Serum Alcohol < 0.01 gm% (0-0.07) 07/14/17 14:20
--- NOTE | 2017-07-24 09:50 | Progress Note ---
Assessment and Plan Plan on trach and peg at bedside on saturday. Family at bedside updated Subjective Date of service: 07/24/17 Patient Reports: Positive: no new complaints (Continues to be intubated and sedated) Objective Vital Signs - 12hr 07/23/17 07/23/17 07/23/17 22:00 22:11 22:30 Temperature Pulse Rate 91 H 96 H 104 H Pulse Rate [ Apical] Pulse Rate [ From Monitor] Pulse Rate [ Left Dorsalis Pedis] Pulse Rate [ Left Radial] Pulse Rate [ Right Dorsalis Pedis] Pulse Rate [ Right Radial] Respiratory 16 16 Rate Respiratory 16 Rate [Abdomen] Blood Pressure 103/60 103/60 165/76 O2 Sat by Pulse 95 96 Oximetry 07/23/17 07/23/17 07/23/17 22:59 23:00 23:03 Temperature Pulse Rate 97 H 94 H 88 Pulse Rate [ Apical] Pulse Rate [ From Monitor] Pulse Rate [ Left Dorsalis Pedis] Pulse Rate [ Left Radial] Pulse Rate [ Right Dorsalis Pedis] Pulse Rate [ Right Radial] Respiratory 16 16 Rate Respiratory Rate [Abdomen] Blood Pressure 127/63 113/59 113/59 O2 Sat by Pulse 94 96 Oximetry 07/23/17 07/23/17 07/23/17 23:09 23:13 23:30 Temperature Pulse Rate 86 Pulse Rate [ 94 H Apical] Pulse Rate [ From Monitor] Pulse Rate [ 94 H Left Dorsalis Pedis] Pulse Rate [ 94 H Left Radial] Pulse Rate [ 94 H Right Dorsalis Pedis] Pulse Rate [ 94 H Right Radial] Respiratory 15 16 Rate Respiratory Rate [Abdomen] Blood Pressure 113/59 111/61 O2 Sat by Pulse 94 94 Oximetry 07/23/17 07/24/17 07/24/17 23:55 00:00 00:30 Temperature 98.9 F Pulse Rate 74 80 Pulse Rate [ Apical] Pulse Rate [ From Monitor] Pulse Rate [ Left Dorsalis Pedis] Pulse Rate [ Left Radial] Pulse Rate [ Right Dorsalis Pedis] Pulse Rate [ Right Radial] Respiratory 15 16 Rate Respiratory Rate [Abdomen] Blood Pressure 80/15 88/41 O2 Sat by Pulse 94 96 Oximetry 07/24/17 07/24/17 07/24/17 01:00 01:30 02:00 Temperature Pulse Rate 76 67 76 Pulse Rate [ Apical] Pulse Rate [ From Monitor] Pulse Rate [ Left Dorsalis Pedis] Pulse Rate [ Left Radial] Pulse Rate [ Right Dorsalis Pedis] Pulse Rate [ Right Radial] Respiratory 16 16 16 Rate Respiratory Rate [Abdomen] Blood Pressure 86/50 75/41 98/57 O2 Sat by Pulse 97 96 97 Oximetry 07/24/17 07/24/17 07/24/17 02:30 03:00 03:30 Temperature Pulse Rate 90 94 H 86 Pulse Rate [ Apical] Pulse Rate [ From Monitor] Pulse Rate [ Left Dorsalis Pedis] Pulse Rate [ Left Radial] Pulse Rate [ Right Dorsalis Pedis] Pulse Rate [ Right Radial] Respiratory 18 19 18 Rate Respiratory Rate [Abdomen] Blood Pressure 131/56 141/63 97/59 O2 Sat by Pulse 96 98 96 Oximetry 07/24/17 07/24/17 07/24/17 03:49 04:00 04:30 Temperature 99.8 F H Pulse Rate 86 85 Pulse Rate [ 109 H Apical] Pulse Rate [ 109 H From Monitor] Pulse Rate [ 109 H Left Dorsalis Pedis] Pulse Rate [ 109 H Left Radial] Pulse Rate [ 109 H Right Dorsalis Pedis] Pulse Rate [ 109 H Right Radial] Respiratory 15 16 16 Rate Respiratory Rate [Abdomen] Blood Pressure 138/79 106/70 O2 Sat by Pulse 97 97 Oximetry 07/24/17 07/24/17 07/24/17 05:00 05:30 06:00 Temperature Pulse Rate 69 72 81 Pulse Rate [ Apical] Pulse Rate [ From Monitor] Pulse Rate [ Left Dorsalis Pedis] Pulse Rate [ Left Radial] Pulse Rate [ Right Dorsalis Pedis] Pulse Rate [ Right Radial] Respiratory 16 16 17 Rate Respiratory Rate [Abdomen] Blood Pressure 90/46 90/53 96/35 O2 Sat by Pulse 96 96 96 Oximetry 07/24/17 07/24/17 07/24/17 06:30 07:00 07:31 Temperature Pulse Rate 69 84 71 Pulse Rate [ Apical] Pulse Rate [ From Monitor] Pulse Rate [ Left Dorsalis Pedis] Pulse Rate [ Left Radial] Pulse Rate [ Right Dorsalis Pedis] Pulse Rate [ Right Radial] Respiratory 11 L 17 16 Rate Respiratory Rate [Abdomen] Blood Pressure 96/39 106/60 82/42 O2 Sat by Pulse 97 98 96 Oximetry 07/24/17 07/24/17 07/24/17 08:00 08:30 09:00 Temperature 98.9 F Pulse Rate 69 75 68 Pulse Rate [ Apical] Pulse Rate [ From Monitor] Pulse Rate [ Left Dorsalis Pedis] Pulse Rate [ Left Radial] Pulse Rate [ Right Dorsalis Pedis] Pulse Rate [ Right Radial] Respiratory 16 15 16 Rate Respiratory Rate [Abdomen] Blood Pressure 79/42 88/47 80/46 O2 Sat by Pulse 96 98 97 Oximetry 07/24/17 09:30 Temperature Pulse Rate 69 Pulse Rate [ Apical] Pulse Rate [ From Monitor] Pulse Rate [ Left Dorsalis Pedis] Pulse Rate [ Left Radial] Pulse Rate [ Right Dorsalis Pedis] Pulse Rate [ Right Radial] Respiratory 11 L Rate Respiratory Rate [Abdomen] Blood Pressure 89/43 O2 Sat by Pulse 98 Oximetry - General physical appearance well developed, well nourished, no distress - Eyes PERRL - Neck trachea midline - Respiratory normal expansion, clear to auscultation - Abdomen soft, not tender, not guarding, not rigid, not wound, surgical scars (Lower abdomen horizontal scar) - Labs 07/24/17 04:30 07/24/17 04:30 Diabetes panel 07/23/17 07/24/17 Range/Units 16:00 04:30 Sodium 137 (137-145) mmol/L Potassium 3.3 L 3.4 L (3.6-5.0) mmol/L Chloride 92.0 L (98-107) mmol/L Carbon Dioxide 36 H (22-30) mmol/L BUN 26 H (7-17) mg/dL Creatinine 0.5 L (0.7-1.2) mg/dL Glucose 110 H (65-100) mg/dL Calcium 7.8 L (8.4-10.2) mg/dL Calcium panel 07/24/17 Range/Units 04:30 Calcium 7.8 L (8.4-10.2) mg/dL Pituitary panel 07/23/17 07/24/17 Range/Units 16:00 04:30 Sodium 137 (137-145) mmol/L Potassium 3.3 L 3.4 L (3.6-5.0) mmol/L Chloride 92.0 L (98-107) mmol/L Carbon Dioxide 36 H (22-30) mmol/L BUN 26 H (7-17) mg/dL Creatinine 0.5 L (0.7-1.2) mg/dL Glucose 110 H (65-100) mg/dL Calcium 7.8 L (8.4-10.2) mg/dL Adrenal panel 07/23/17 07/24/17 Range/Units 16:00 04:30 Sodium 137 (137-145) mmol/L Potassium 3.3 L 3.4 L (3.6-5.0) mmol/L Chloride 92.0 L (98-107) mmol/L Carbon Dioxide 36 H (22-30) mmol/L BUN 26 H (7-17) mg/dL Creatinine 0.5 L (0.7-1.2) mg/dL Glucose 110 H (65-100) mg/dL Calcium 7.8 L (8.4-10.2) mg/dL
[2017-07-24] MEDS: PULMICORT IH SCH ×2 (09:51→19:57)
[2017-07-24] MEDS: XOPENEX IH SCH ×3 (09:51→19:57)
[2017-07-24] MEDS: LOPRESSOR PO SCH ×2 (10:00→22:10)
[2017-07-24] MEDS: COLACE PO SCH ×2 (10:44→22:11)
[2017-07-24] MEDS: CORDARONE PO SCH (10:46)
--- NOTE | 2017-07-24 10:52 | Progress Note ---
Assessment and Plan 76 y/o obese female, followed as an outpatient by [facility], admitted with acute on chronic respiratory failure 1. Family agrees with trach and peg and tentatively planned for Saturday. 2. Electrolyte replacement per primary 3. Unable to place picc secondary to edema per nursing staff 4. PSV trials as tolerated but trach will be safest means of weaning. 5. Hypotension on yesterday has resolved. Lactic acid was normal, no fever, no changes in hemoglobin. Will hold BP meds for now, continue to follow with serial checks. 6. May need LTACH, post trach and peg for further weaning and physical therapy with care CCT 31 minutes. Subjective Date of service: 07/24/17 Principal diagnosis: Sepsis Interval history: Had hypotension of unknown etiology on yesterday. Surgery has evaluated and plan for trach and peg at bedside on Saturday. Family aware of current plan. Objective Vital Signs - 12hr 07/23/17 07/23/17 07/23/17 22:59 23:00 23:03 Temperature Pulse Rate 97 H 94 H 88 Pulse Rate [ Apical] Pulse Rate [ From Monitor] Pulse Rate [ Left Dorsalis Pedis] Pulse Rate [ Left Radial] Pulse Rate [ Right Dorsalis Pedis] Pulse Rate [ Right Radial] Respiratory 16 16 Rate Blood Pressure 127/63 113/59 113/59 O2 Sat by Pulse 94 96 Oximetry 07/23/17 07/23/17 07/23/17 23:09 23:13 23:30 Temperature Pulse Rate 86 Pulse Rate [ 94 H Apical] Pulse Rate [ From Monitor] Pulse Rate [ 94 H Left Dorsalis Pedis] Pulse Rate [ 94 H Left Radial] Pulse Rate [ 94 H Right Dorsalis Pedis] Pulse Rate [ 94 H Right Radial] Respiratory 15 16 Rate Blood Pressure 113/59 111/61 O2 Sat by Pulse 94 94 Oximetry 07/23/17 07/24/17 07/24/17 23:55 00:00 00:30 Temperature 98.9 F Pulse Rate 74 80 Pulse Rate [ Apical] Pulse Rate [ From Monitor] Pulse Rate [ Left Dorsalis Pedis] Pulse Rate [ Left Radial] Pulse Rate [ Right Dorsalis Pedis] Pulse Rate [ Right Radial] Respiratory 15 16 Rate Blood Pressure 80/15 88/41 O2 Sat by Pulse 94 96 Oximetry 07/24/17 07/24/17 07/24/17 01:00 01:30 02:00 Temperature Pulse Rate 76 67 76 Pulse Rate [ Apical] Pulse Rate [ From Monitor] Pulse Rate [ Left Dorsalis Pedis] Pulse Rate [ Left Radial] Pulse Rate [ Right Dorsalis Pedis] Pulse Rate [ Right Radial] Respiratory 16 16 16 Rate Blood Pressure 86/50 75/41 98/57 O2 Sat by Pulse 97 96 97 Oximetry 07/24/17 07/24/17 07/24/17 02:30 03:00 03:30 Temperature Pulse Rate 90 94 H 86 Pulse Rate [ Apical] Pulse Rate [ From Monitor] Pulse Rate [ Left Dorsalis Pedis] Pulse Rate [ Left Radial] Pulse Rate [ Right Dorsalis Pedis] Pulse Rate [ Right Radial] Respiratory 18 19 18 Rate Blood Pressure 131/56 141/63 97/59 O2 Sat by Pulse 96 98 96 Oximetry 07/24/17 07/24/17 07/24/17 03:49 04:00 04:30 Temperature 99.8 F H Pulse Rate 86 85 Pulse Rate [ 109 H Apical] Pulse Rate [ 109 H From Monitor] Pulse Rate [ 109 H Left Dorsalis Pedis] Pulse Rate [ 109 H Left Radial] Pulse Rate [ 109 H Right Dorsalis Pedis] Pulse Rate [ 109 H Right Radial] Respiratory 15 16 16 Rate Blood Pressure 138/79 106/70 O2 Sat by Pulse 97 97 Oximetry 07/24/17 07/24/17 07/24/17 05:00 05:30 06:00 Temperature Pulse Rate 69 72 81 Pulse Rate [ Apical] Pulse Rate [ From Monitor] Pulse Rate [ Left Dorsalis Pedis] Pulse Rate [ Left Radial] Pulse Rate [ Right Dorsalis Pedis] Pulse Rate [ Right Radial] Respiratory 16 16 17 Rate Blood Pressure 90/46 90/53 96/35 O2 Sat by Pulse 96 96 96 Oximetry 07/24/17 07/24/17 07/24/17 06:30 07:00 07:31 Temperature Pulse Rate 69 84 71 Pulse Rate [ Apical] Pulse Rate [ From Monitor] Pulse Rate [ Left Dorsalis Pedis] Pulse Rate [ Left Radial] Pulse Rate [ Right Dorsalis Pedis] Pulse Rate [ Right Radial] Respiratory 11 L 17 16 Rate Blood Pressure 96/39 106/60 82/42 O2 Sat by Pulse 97 98 96 Oximetry 07/24/17 07/24/17 07/24/17 08:00 08:30 08:45 Temperature 98.9 F Pulse Rate 69 75 69 Pulse Rate [ Apical] Pulse Rate [ From Monitor] Pulse Rate [ Left Dorsalis Pedis] Pulse Rate [ Left Radial] Pulse Rate [ Right Dorsalis Pedis] Pulse Rate [ Right Radial] Respiratory 16 15 Rate Blood Pressure 79/42 88/47 89/43 O2 Sat by Pulse 96 98 97 Oximetry 07/24/17 07/24/17 07/24/17 09:00 09:30 10:12 Temperature Pulse Rate 68 69 101 H Pulse Rate [ Apical] Pulse Rate [ From Monitor] Pulse Rate [ Left Dorsalis Pedis] Pulse Rate [ Left Radial] Pulse Rate [ Right Dorsalis Pedis] Pulse Rate [ Right Radial] Respiratory 16 11 L 22 Rate Blood Pressure 80/46 89/43 163/88 O2 Sat by Pulse 97 98 97 Oximetry Constitutional: no acute distress, other (morbidly obese, critically ill on vent ) ENT: other (orally intubated) Neck: supple (and large in circumference) Effort: normal Ascultation: Bilateral: diminished breath sounds, rales, rhonchi, other (coarse BS bilaterally with faint expiratory wheezes) Percussion: Bilateral: not dull Cardiovascular: irregular rhythm (ir/ir, no mrg) Gastrointestinal: normoactive bowel sounds, soft, non-tender, non-distended Integumentary: normal Extremities: no cyanosis, pink and warm, edema (1+ generalized) Neurologic: normal mental status, non-focal exam, pupils equal and round Psychiatric: mood appropriate, affect normal CBC and BMP: 07/24/17 04:30 07/24/17 04:30 ABG, PT/INR, D-dimer: ABG POC ABG pH 7.483 (7.35-7.45) H 07/23/17 10:11 POC ABG pCO2 56.4 (35-45) H 07/23/17 10:11 POC ABG pO2 71 (80-105) L 07/23/17 10:11 POC ABG HCO3 42.3 07/23/17 10:11 POC ABG Total CO2 44 07/23/17 10:11 POC ABG O2 Sat 95 07/23/17 10:11 Abnormal lab findings: Abnormal Labs 07/09/17 07/09/17 07/09/17 18:05 18:05 21:15 WBC 15.0 H RBC Hct 43.7 H Lymph % (Auto) 10.7 L Bandera % (Auto) Bandera # Seg Neutrophils % 83.9 H Seg Neutrophils # 12.6 H POC ABG pH POC ABG pCO2 POC ABG pO2 Sodium Potassium Chloride 96.7 L Carbon Dioxide 31 H BUN 18 H Creatinine Glucose 146 H POC Glucose Lactic Acid 2.50 H* Calcium C-Reactive Protein NT-Pro-B Natriuret Pep 1456 H Albumin 3.8 L Urine WBC (Auto) 07/09/17 07/09/17 07/09/17 21:20 21:46 22:59 WBC RBC Hct Lymph % (Auto) Bandera % (Auto) Bandera # Seg Neutrophils % Seg Neutrophils # POC ABG pH POC ABG pCO2 54.6 H POC ABG pO2 Sodium Potassium Chloride Carbon Dioxide BUN Creatinine Glucose POC Glucose Lactic Acid 2.30 H* Calcium C-Reactive Protein NT-Pro-B Natriuret Pep Albumin Urine WBC (Auto) 29.0 H 07/10/17 07/11/17 07/11/17 04:35 05:12 06:11 WBC 18.4 H RBC Hct Lymph % (Auto) 8.6 L Bandera % (Auto) 7.9 H Bandera # 1.5 H Seg Neutrophils % 83.5 H Seg Neutrophils # 15.3 H POC ABG pH 7.282 L POC ABG pCO2 61.2 H POC ABG pO2 155 H Sodium Potassium Chloride Carbon Dioxide BUN Creatinine Glucose POC Glucose Lactic Acid Calcium C-Reactive Protein NT-Pro-B Natriuret Pep Albumin Urine WBC (Auto) 07/11/17 07/12/17 07/12/17 06:11 05:03 09:01 WBC 12.2 H RBC Hct Lymph % (Auto) Bandera % (Auto) 10.9 H Bandera # 1.3 H Seg Neutrophils % Seg Neutrophils # 8.2 H POC ABG pH POC ABG pCO2 48.2 H POC ABG pO2 Sodium Potassium Chloride Carbon Dioxide BUN 37 H Creatinine Glucose 130 H POC Glucose Lactic Acid Calcium C-Reactive Protein NT-Pro-B Natriuret Pep Albumin Urine WBC (Auto) 07/12/17 07/13/17 07/13/17 09:01 13:29 23:20 WBC RBC Hct Lymph % (Auto) Bandera % (Auto) Bandera # Seg Neutrophils % Seg Neutrophils # POC ABG pH 7.315 L POC ABG pCO2 52.5 H POC ABG pO2 Sodium 146 H Potassium Chloride Carbon Dioxide BUN 31 H Creatinine Glucose POC Glucose 121 H Lactic Acid Calcium 8.0 L C-Reactive Protein NT-Pro-B Natriuret Pep Albumin Urine WBC (Auto) 07/14/17 07/14/17 07/14/17 04:21 04:21 04:31 WBC 13.3 H RBC Hct Lymph % (Auto) Bandera % (Auto) 10.4 H Bandera # 1.4 H Seg Neutrophils % Seg Neutrophils # 8.8 H POC ABG pH 7.301 L POC ABG pCO2 51.4 H POC ABG pO2 Sodium 146 H Potassium Chloride 109.0 H Carbon Dioxide BUN 22 H Creatinine Glucose 107 H POC Glucose Lactic Acid Calcium 8.3 L C-Reactive Protein NT-Pro-B Natriuret Pep Albumin 3.0 L Urine WBC (Auto) 07/15/17 07/15/17 07/15/17 07:30 07:30 16:00 WBC RBC Hct Lymph % (Auto) Bandera % (Auto) 9.2 H Bandera # 1.0 H Seg Neutrophils % 72.7 H Seg Neutrophils # 7.9 H POC ABG pH 7.301 L POC ABG pCO2 47.3 H POC ABG pO2 79 L Sodium 149 H Potassium 3.5 L Chloride 111.6 H Carbon Dioxide BUN 21 H Creatinine 0.6 L Glucose POC Glucose Lactic Acid Calcium 8.1 L C-Reactive Protein NT-Pro-B Natriuret Pep Albumin Urine WBC (Auto) 07/16/17 07/16/17 07/16/17 04:40 04:40 09:48 WBC RBC Hct Lymph % (Auto) Bandera % (Auto) 10.0 H Bandera # 1.0 H Seg Neutrophils % Seg Neutrophils # POC ABG pH 7.349 L POC ABG pCO2 POC ABG pO2 65 L Sodium 148 H Potassium 3.4 L Chloride 109.8 H Carbon Dioxide BUN 18 H Creatinine 0.6 L Glucose POC Glucose Lactic Acid Calcium 8.0 L C-Reactive Protein NT-Pro-B Natriuret Pep Albumin Urine WBC (Auto) 07/16/17 07/17/17 07/17/17 13:36 03:22 03:22 WBC RBC Hct Lymph % (Auto) Bandera % (Auto) 12.3 H Bandera # 1.3 H Seg Neutrophils % Seg Neutrophils # POC ABG pH POC ABG pCO2 POC ABG pO2 Sodium Potassium Chloride Carbon Dioxide BUN Creatinine 0.6 L Glucose 116 H POC Glucose Lactic Acid Calcium 8.0 L C-Reactive Protein 4.90 H NT-Pro-B Natriuret Pep Albumin Urine WBC (Auto) 07/17/17 07/18/17 07/18/17 06:21 06:00 06:00 WBC RBC Hct Lymph % (Auto) Band[place] % (Auto) 10.8 H Bandera # 1.2 H Seg Neutrophils % Seg Neutrophils # POC ABG pH POC ABG pCO2 47.0 H POC ABG pO2 71 L Sodium 146 H Potassium 3.0 L Chloride Carbon Dioxide BUN Creatinine 0.6 L Glucose 114 H POC Glucose Lactic Acid Calcium 8.2 L C-Reactive Protein NT-Pro-B Natriuret Pep Albumin Urine WBC (Auto) 07/18/17 07/18/17 07/19/17 11:12 Unknown 07:51 WBC 14.1 H RBC Hct Lymph % (Auto) Band[place] % (Auto) 9.6 H Bandera # 1.4 H Seg Neutrophils % Seg Neutrophils # 9.8 H POC ABG pH POC ABG pCO2 48.4 H POC ABG pO2 70 L Sodium Potassium Chloride Carbon Dioxide BUN Creatinine Glucose POC Glucose Lactic Acid Calcium C-Reactive Protein NT-Pro-B Natriuret Pep Albumin Urine WBC (Auto) 174.0 H 07/19/17 07/19/17 07/19/17 07:51 12:53 15:57 WBC RBC Hct Lymph % (Auto) Bandera % (Auto) Bandera # Seg Neutrophils % Seg Neutrophils # POC ABG pH 7.490 H 7.485 H POC ABG pCO2 49.2 H 58.4 H POC ABG pO2 69 L 60 L Sodium 147 H Potassium 3.3 L Chloride Carbon Dioxide 32 H BUN 19 H Creatinine 0.6 L Glucose 127 H POC Glucose Lactic Acid Calcium 8.3 L C-Reactive Protein NT-Pro-B Natriuret Pep Albumin Urine WBC (Auto) 07/19/17 07/20/17 07/20/17 17:52 05:00 05:00 WBC 18.2 H RBC Hct Lymph % (Auto) Bandera % (Auto) Bandera # Seg Neutrophils % 80.9 H Seg Neutrophils # 14.7 H POC ABG pH POC ABG pCO2 60.9 H POC ABG pO2 162 H Sodium Potassium 3.1 L Chloride 95.3 L Carbon Dioxide 35 H BUN 19 H Creatinine 0.5 L Glucose 103 H POC Glucose Lactic Acid Calcium 8.2 L C-Reactive Protein NT-Pro-B Natriuret Pep Albumin Urine WBC (Auto) 07/20/17 07/21/17 07/21/17 06:11 06:05 06:05 WBC 14.1 H RBC Hct Lymph % (Auto) Bandera % (Auto) 8.0 H Bandera # 1.1 H Seg Neutrophils % Seg Neutrophils # 9.5 H POC ABG pH 7.522 H POC ABG pCO2 53.3 H POC ABG pO2 Sodium Potassium 2.6 L* Chloride 95.7 L Carbon Dioxide 37 H BUN 21 H Creatinine 0.6 L Glucose POC Glucose Lactic Acid Calcium 7.9 L C-Reactive Protein NT-Pro-B Natriuret Pep Albumin Urine WBC (Auto) 07/22/17 07/22/17 07/22/17 05:07 08:48 10:19 WBC 12.5 H RBC Hct Lymph % (Auto) Bandera % (Auto) 10.0 H Bandera # 1.3 H Seg Neutrophils % Seg Neutrophils # POC ABG pH 7.475 H POC ABG pCO2 59.4 H POC ABG pO2 67 L Sodium Potassium 3.3 L D Chloride 91.6 L Carbon Dioxide 35 H BUN 29 H Creatinine Glucose 118 H POC Glucose Lactic Acid Calcium 7.7 L C-Reactive Protein NT-Pro-B Natriuret Pep Albumin Urine WBC (Auto) 07/22/17 07/23/17 07/23/17 18:07 04:25 04:25 WBC 11.1 H RBC Hct Lymph % (Auto) Bandera % (Auto) 10.9 H Bandera # 1.2 H Seg Neutrophils % Seg Neutrophils # 7.8 H POC ABG pH POC ABG pCO2 POC ABG pO2 Sodium Potassium 3.3 L 3.1 L Chloride 92.9 L Carbon Dioxide 38 H BUN 28 H Creatinine Glucose 123 H POC Glucose Lactic Acid Calcium 8.3 L C-Reactive Protein NT-Pro-B Natriuret Pep Albumin Urine WBC (Auto) 07/23/17 07/23/17 07/23/17 10:11 16:00 16:40 WBC 11.2 H RBC Hct Lymph % (Auto) Bandera % (Auto) 9.0 H Bandera # 1.0 H Seg Neutrophils % 71.4 H Seg Neutrophils # 8.0 H POC ABG pH 7.483 H POC ABG pCO2 56.4 H POC ABG pO2 71 L Sodium Potassium 3.3 L Chloride Carbon Dioxide BUN Creatinine Glucose POC Glucose Lactic Acid Calcium C-Reactive Protein NT-Pro-B Natriuret Pep Albumin Urine WBC (Auto) 07/24/17 07/24/17 04:30 04:30 WBC RBC 3.55 L Hct Lymph % (Auto) Bandera % (Auto) 11.6 H Bandera # 1.1 H Seg Neutrophils % Seg Neutrophils # POC ABG pH POC ABG pCO2 POC ABG pO2 Sodium Potassium 3.4 L Chloride 92.0 L Carbon Dioxide 36 H BUN 26 H Creatinine 0.5 L Glucose 110 H POC Glucose Lactic Acid Calcium 7.8 L C-Reactive Protein NT-Pro-B Natriuret Pep Albumin Urine WBC (Auto)
[2017-07-24] MEDS: LOVENOX SUB-Q SCH (11:00)
[2017-07-24] MEDS: PEPCID IV SCH (11:00)
--- NOTE | 2017-07-24 11:24 | Progress Note ---
Assessment and Plan Assessment: 1) Severe sepsis with initial septic shock: resolved. Etiology most likely complicated UTI +/- pneumonia. CRP=4.9. 2) Complicated UTI with right hydronephrosis and obstructive stone: unknown etiology, urine culture was not sent. -S/P stent placement on 07/12 -repeat urine with pleocytosis and urine cx grew Jerrell ? colonizer 3) Bilateral pneumonia: ? aspiration vs CAP. Sputum + usual resp rashawn, s/p 7 days aztreonam and clinda 4) Respiratory failure 5) Morbid obesity 6) DIMPLE 7) Penicillin allergy - unclear reaction Plan: -monitor off antibiotics -to have a trach placed -remove keyes Thank you Dr Prince for your consultation, will follow up with you. Poonam Jennings MD Infectious Diseases Specialist [facility] [id number] [phone] O [phone] Subjective Date of service: 07/24/17 Principal diagnosis: Sepsis Interval history: Remains intubated on fiO2 40%,p5, no fever, alert on the vent Microbiology: Blood cultures: 07/09 neg Urine cultures: 07/17 jerrell Respiratory cultures: tracheal 07/09 usual resp rashawn sputum 07/14 usual resp rashawn tracheal asp 07/20 usual resp rashawn Current Antimicrobials: none Previous Antimicrobials: flucoazole 07/22 aztreonam 07/16 clinda 07/17 Objective - Exam Narrative Exam: General appearance: sedated on vent Eyes: anicteric sclerae, moist conjunctivae; no lid-lag; PERRLA HENT: Atraumatic; oropharynx +ETT +NGT Neck: Trachea midline; supple, no thyromegaly or lymphadenopathy Lungs: cta justen CV: rrr Abdomen: Soft, obese Extremities: justen leg edema Skin: Normal temperature, turgor and texture; no rash, ulcers or subcutaneous nodules Psych: unable to eval. Neuro: unable to eval Lines: right neck TLC - Constitutional Vitals: Vital Signs Temp Pulse Resp BP Pulse Ox 98.9 F 91 H 23 137/75 96 07/24/17 08:00 07/24/17 11:00 07/24/17 11:00 07/24/17 11:00 07/24/17 11:00 Temperature -Last 24 Hours Temperature 98.9 F Temperature 99.8 F Temperature 98.9 F Temperature 99.2 F Temperature 98.1 F Temperature 99.0 F - Labs CBC & Chem 7: 07/24/17 04:30 07/24/17 04:30 Labs: Abnormal lab results 07/23/17 07/23/17 07/23/17 Range/Units 10:11 16:00 16:40 WBC 11.2 H (4.5-11.0) K/mm3 RBC (3.65-5.03) M/mm3 Webster % (Auto) 9.0 H (0.0-7.3) % Webster # 1.0 H (0.0-0.8) K/mm3 Seg Neutrophils % 71.4 H (40.0-70.0) % Seg Neutrophils # 8.0 H (1.8-7.7) K/mm3 POC ABG pH 7.483 H (7.35-7.45) POC ABG pCO2 56.4 H (35-45) POC ABG pO2 71 L (80-105) Potassium 3.3 L (3.6-5.0) mmol/L Chloride (98-107) mmol/L Carbon Dioxide (22-30) mmol/L BUN (7-17) mg/dL Creatinine (0.7-1.2) mg/dL Glucose (65-100) mg/dL Calcium (8.4-10.2) mg/dL 07/24/17 07/24/17 Range/Units 04:30 04:30 WBC (4.5-11.0) K/mm3 RBC 3.55 L (3.65-5.03) M/mm3 Webster % (Auto) 11.6 H (0.0-7.3) % Webster # 1.1 H (0.0-0.8) K/mm3 Seg Neutrophils % (40.0-70.0) % Seg Neutrophils # (1.8-7.7) K/mm3 POC ABG pH (7.35-7.45) POC ABG pCO2 (35-45) POC ABG pO2 (80-105) Potassium 3.4 L (3.6-5.0) mmol/L Chloride 92.0 L (98-107) mmol/L Carbon Dioxide 36 H (22-30) mmol/L BUN 26 H (7-17) mg/dL Creatinine 0.5 L (0.7-1.2) mg/dL Glucose 110 H (65-100) mg/dL Calcium 7.8 L (8.4-10.2) mg/dL
[2017-07-24] MEDS: PEPCID FEEDTUBE SCH (22:11)
[2017-07-25 05:21] LABS: Hematocrit 33.7 % (30.3-42.9); Hemoglobin 11.3 gm/dl (10.1-14.3); Mean Corpuscular HGB Conc 34 % (30-34); Mean Corpuscular Hemoglobin 30 pg (28-32); Mean Corpuscular Volume 88 fl (79-97); Platelet Count 289 K/mm3 (140-440); Red Blood Count 3.84 M/mm3 (3.65-5.03); Red Cell Distribution Width 14.4 % (13.2-15.2)
[2017-07-25 05:26] LABS: BUN/Creatinine Ratio 53; Blood Urea Nitrogen 21 mg/dL (7-17); Calcium 8.2 mg/dL (8.4-10.2); Hemolysis Index 1
[2017-07-25] MEDS: CLEOCIN 900 MG/50 mL 900 MG/50 ML BAG IV SCH (06:02)
[2017-07-25] MEDS: fentaNYL DRIP Premix 2,000 MCG/100 ML BAG IV SCH ×2 (06:49→15:50)
[2017-07-25] MEDS: PULMICORT IH SCH (09:55)
[2017-07-25] MEDS: XOPENEX IH SCH ×2 (09:55→14:37)
[2017-07-25] MEDS: PEPCID FEEDTUBE SCH (10:13)
[2017-07-25] MEDS: LOVENOX SUB-Q SCH (10:13)
[2017-07-25] MEDS: COLACE PO SCH (10:29)
--- NOTE | 2017-07-25 10:31 | Progress Note ---
Assessment and Plan Assessment and plan: Acute respiratory failure. Patient was extubated but then re-intubated secondary to acute respiratory distress. Cont mechanical ventilaion. Pulmonology following. She has failed multiple weaning attempts and therefore PEG and trach has been recommended. Sepsis. Continue Clindamycin iv as per ID Physician. She is now off Levophed.. Bilateral pneumonia.? Aspiration versus CAP. Continue antibiotics. Follow serial chest x-ray Urinary tract infection. 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 Fluconazole discontinued. Right Hydronephrosis with partial obstructing stone S/p cysto, rpg, rt stent 24cm x 6---07-12-17 ([facility]) Atrial fibrillation. Continue Amiodarone. Hypokalemia. Now resolved. Potassium 3.7 today. Hypernatremia. Resolved. Sodium 142 today.. Acute on chronic CHF exacerbation. Continue Lopressor 50mg twice a day Obstructive sleep apnea Hypothyroidism DVT prophylaxis - Lovenox subcut History Interval history: Patient still intubated, Failed multiple weaning attempts Hospitalist Physical - Physical exam Narrative exam: GEN APPEARANCE : Not in acute distress, Morbidly obese, HEENT: Atraumatic, normocephalic,orally intubated NECK : supple, no JVD LUNGS: Clear to auscultation bilaterally, no rales, no wheeze HEART: S1 and S2 regular, no murmurs, rubs or gallop, ABD: Soft, non tender, non distended, normal bowel sounds EXT: No edema, no clubbing, no cyanosis NEURO: Intubated, sedated - Constitutional Vitals: Temp Pulse Resp BP Pulse Ox 98.1 F 81 22 104/57 97 07/25/17 08:00 07/25/17 10:00 07/25/17 10:00 07/25/17 10:00 07/25/17 10:00 General appearance: Present: other (orally intubated) Results - Labs CBC & Chem 7: 07/25/17 04:25 07/25/17 04:25 Labs: Laboratory Last Values WBC 9.5 K/mm3 (4.5-11.0) 07/25/17 04:25 RBC 3.84 M/mm3 (3.65-5.03) 07/25/17 04:25 Hgb 11.3 gm/dl (10.1-14.3) 07/25/17 04:25 Hct 33.7 % (30.3-42.9) 07/25/17 04:25 MCV 88 fl (79-97) 07/25/17 04:25 MCH 30 pg (28-32) 07/25/17 04:25 MCHC 34 % (30-34) 07/25/17 04:25 RDW 14.4 % (13.2-15.2) 07/25/17 04:25 Plt Count 289 K/mm3 (140-440) 07/25/17 04:25 Lymph % (Auto) 17.5 % (13.4-35.0) 07/24/17 04:30 Iron % (Auto) 11.6 % (0.0-7.3) H 07/24/17 04:30 Eos % (Auto) 1.9 % (0.0-4.3) 07/24/17 04:30 Baso % (Auto) 0.4 % (0.0-1.8) 07/24/17 04:30 Lymph # 1.6 K/mm3 (1.2-5.4) 07/24/17 04:30 Iron # 1.1 K/mm3 (0.0-0.8) H 07/24/17 04:30 Eos # 0.2 K/mm3 (0.0-0.4) 07/24/17 04:30 Baso # 0.0 K/mm3 (0.0-0.1) 07/24/17 04:30 Seg Neutrophils % 68.6 % (40.0-70.0) 07/24/17 04:30 Seg Neutrophils # 6.3 K/mm3 (1.8-7.7) 07/24/17 04:30 POC ABG pH 7.483 (7.35-7.45) H 07/23/17 10:11 POC ABG pCO2 56.4 (35-45) H 07/23/17 10:11 POC ABG pO2 71 (80-105) L 07/23/17 10:11 POC ABG HCO3 42.3 07/23/17 10:11 POC ABG Total CO2 44 07/23/17 10:11 POC ABG O2 Sat 95 07/23/17 10:11 POC ABG Base Excess 19 07/23/17 10:11 FiO2 40 % 07/23/17 10:11 Sodium 142 mmol/L (137-145) 07/25/17 04:25 Potassium 3.7 mmol/L (3.6-5.0) 07/25/17 04:25 Chloride 94.8 mmol/L (98-107) L 07/25/17 04:25 Carbon Dioxide 35 mmol/L (22-30) H 07/25/17 04:25 Anion Gap 16 mmol/L 07/25/17 04:25 BUN 21 mg/dL (7-17) H 07/25/17 04:25 Creatinine 0.4 mg/dL (0.7-1.2) L 07/25/17 04:25 Estimated GFR > 60 ml/min 07/25/17 04:25 BUN/Creatinine Ratio 53 % 07/25/17 04:25 Glucose 111 mg/dL (65-100) H 07/25/17 04:25 POC Glucose 88 (70-105) 07/14/17 12:11 Lactic Acid 1.00 mmol/L (0.7-2.0) 07/23/17 16:40 Calcium 8.2 mg/dL (8.4-10.2) L 07/25/17 04:25 Phosphorus 3.10 mg/dL (2.5-4.5) 07/19/17 07:51 Magnesium 2.20 mg/dL (1.7-2.3) 07/24/17 04:30 Total Bilirubin 0.80 mg/dL (0.1-1.2) 07/14/17 04:21 AST 15 units/L (5-40) 07/14/17 04:21 ALT 13 units/L (7-56) 07/14/17 04:21 Alkaline Phosphatase 53 units/L (35-129) 07/14/17 04:21 Total Creatine Kinase 34 units/L (30-135) 07/09/17 18:05 CK-MB (CK-2) < 1.0 ng/mL (0.0-4.0) 07/09/17 18:05 CK-MB (CK-2) Rel Index 2.9 (0-4) 07/09/17 18:05 Troponin T < 0.010 ng/mL (0.00-0.029) 07/09/17 18:05 C-Reactive Protein 4.90 mg/dL (0.00-1.30) H 07/16/17 13:36 NT-Pro-B Natriuret Pep 1456 pg/mL (0-900) H 07/09/17 18:05 Total Protein 6.5 g/dL (6.3-8.2) 07/14/17 04:21 Albumin 3.0 g/dL (3.9-5) L 07/14/17 04:21 Albumin/Globulin Ratio 0.9 % 07/14/17 04:21 Lipase 16 units/L (13-60) 07/09/17 18:05 Urine Color Yellow (Yellow) 07/18/17 Unknown Urine Turbidity Cloudy (Clear) 07/18/17 Unknown Urine pH 5.0 (5.0-7.0) 07/18/17 Unknown Ur Specific [place] 1.015 (1.003-1.030) 07/18/17 Unknown Urine Protein 30 mg/dl mg/dL (Negative) 07/18/17 Unknown Urine Glucose (UA) Neg mg/dL (Negative) 07/18/17 Unknown Urine Ketones Neg mg/dL (Negative) 07/18/17 Unknown Urine Blood Lg (Negative) 07/18/17 Unknown Urine Nitrite Neg (Negative) 07/18/17 Unknown Urine Bilirubin Neg (Negative) 07/18/17 Unknown Urine Urobilinogen 4.0 mg/dL (<2.0) 07/18/17 Unknown Ur Leukocyte Esterase Lg (Negative) 07/18/17 Unknown Urine WBC (Auto) 174.0 /HPF (0.0-6.0) H 07/18/17 Unknown Urine RBC (Auto) > 182.0 /HPF (0.0-6.0) 07/18/17 Unknown U Epithel Cells (Auto) 6.0 /HPF (0-13.0) 07/18/17 Unknown Urine Bacteria (Auto) 3+ /HPF (Negative) 07/18/17 Unknown Ur Transition Epith Cell 1 /HPF 07/18/17 Unknown Urine Mucus 2+ /HPF 07/18/17 Unknown Ur Yeast w Hyphae 1+ /HPF 07/18/17 Unknown Urine Yeast (Budding) 3+ /HPF 07/18/17 Unknown Plasma/Serum Alcohol < 0.01 gm% (0-0.07) 07/14/17 14:20
[2017-07-25] MEDS: CORDARONE PO SCH (10:32)
--- NOTE | 2017-07-25 10:32 | Progress Note ---
Assessment and Plan Assessment: 1) Severe sepsis with initial septic shock: resolved. Etiology most likely complicated UTI +/- pneumonia. CRP=4.9. 2) Complicated UTI with right hydronephrosis and obstructive stone: unknown etiology, urine culture was not sent. -S/P stent placement on 07/12 -repeat urine with pleocytosis and urine cx grew Jerrell ? colonizer 3) Bilateral pneumonia: ? aspiration vs CAP. Sputum + usual resp rashawn, s/p 7 days aztreonam and clinda 4) Respiratory failure 5) Morbid obesity 6) DIMPLE 7) Penicillin allergy - unclear reaction Plan: -monitor off antibiotics -to have a trach placed -remove keyes I am signing off Thank you Dr Prince for your consultation, will follow up with you. Poonam Jennings MD Infectious Diseases Specialist [facility] [phone] Subjective Date of service: 07/25/17 Principal diagnosis: Sepsis Interval history: Remains intubated on fiO2 40%,p5, no fever, alert still on the vent Microbiology: Blood cultures: 07/09 neg Urine cultures: 07/17 jerrell Respiratory cultures: tracheal 07/09 usual resp rashawn sputum 07/14 usual resp rashawn tracheal asp 07/20 usual resp rashawn Current Antimicrobials: none Previous Antimicrobials: flucoazole 07/22 aztreonam 07/16 clinda 07/17 Objective - Exam Narrative Exam: General appearance: sedated on vent Eyes: anicteric sclerae, moist conjunctivae; no lid-lag; PERRLA HENT: Atraumatic; oropharynx +ETT +NGT Neck: Trachea midline; supple, no thyromegaly or lymphadenopathy Lungs: cta justen CV: rrr Abdomen: Soft, obese Extremities: justen leg edema Skin: Normal temperature, turgor and texture; no rash, ulcers or subcutaneous nodules Psych: unable to eval. Neuro: unable to eval Lines: right neck TLC - Constitutional Vitals: Vital Signs Temp Pulse Resp BP Pulse Ox 98.1 F 81 22 104/57 97 07/25/17 08:00 07/25/17 10:00 07/25/17 10:00 07/25/17 10:00 07/25/17 10:00 Temperature -Last 24 Hours Temperature 98.1 F Temperature 99.8 F Temperature 99.6 F Temperature 98.8 F Temperature 98.1 F Temperature 97.8 F - Labs CBC & Chem 7: 07/25/17 04:25 07/25/17 04:25 Labs: Abnormal lab results 07/25/17 Range/Units 04:25 Chloride 94.8 L (98-107) mmol/L Carbon Dioxide 35 H (22-30) mmol/L BUN 21 H (7-17) mg/dL Creatinine 0.4 L (0.7-1.2) mg/dL Glucose 111 H (65-100) mg/dL Calcium 8.2 L (8.4-10.2) mg/dL
[2017-07-25] MEDS: LOPRESSOR PO SCH (10:33)
--- NOTE | 2017-07-25 12:37 | Progress Note ---
Assessment and Plan 76 y/o obese female, followed as an outpatient by Dewy Rose, admitted with acute on chronic respiratory failure 1. Family agrees with trach and peg and tentatively planned for Saturday. 2. Electrolyte replacement per primary, stable this am 3. Unable to place picc secondary to edema per nursing staff 4. PSV trials as tolerated but trach will be safest means of weaning. 5. Hypotension on yesterday has resolved. Lactic acid was normal, no fever, no changes in hemoglobin. Will hold BP meds for now, continue to follow with serial checks. Continue to hold BP meds today. MAP has improved but not currently requiring regulatory therapy. 6. May need LTACH, post trach and peg for further weaning and physical therapy with care. Per , have sent out referrals and spoke to family 7. Spoke with ID about diarrhea, wish to monitor for now but they did place in isolation. CCT 31 minutes. Subjective Date of service: 07/25/17 Principal diagnosis: Sepsis Interval history: No acute events. Per nursing, diarrhea now the last 48 hours. No fever, no white count. Off abx therapy now. Objective Vital Signs - 12hr 07/25/17 07/25/17 07/25/17 01:01 01:30 02:00 Temperature Pulse Rate 101 H 106 H 105 H Pulse Rate [ Left Radial] Pulse Rate [ Right Dorsalis Pedis] Pulse Rate [ Right Radial] Respiratory 12 20 16 Rate Respiratory Rate [Abdomen] Blood Pressure 107/53 133/76 133/76 O2 Sat by Pulse 97 95 96 Oximetry 07/25/17 07/25/17 07/25/17 02:30 03:00 03:30 Temperature Pulse Rate 99 H 102 H 101 H Pulse Rate [ Left Radial] Pulse Rate [ Right Dorsalis Pedis] Pulse Rate [ Right Radial] Respiratory 16 16 17 Rate Respiratory Rate [Abdomen] Blood Pressure 162/63 144/72 165/82 O2 Sat by Pulse 97 97 98 Oximetry 07/25/17 07/25/17 07/25/17 03:36 04:00 04:31 Temperature 99.8 F H Pulse Rate 102 H 110 H 118 H Pulse Rate [ 102 H Left Radial] Pulse Rate [ 102 H Right Dorsalis Pedis] Pulse Rate [ 102 H Right Radial] Respiratory 22 19 Rate Respiratory Rate [Abdomen] Blood Pressure 165/82 183/100 193/101 O2 Sat by Pulse 98 98 96 Oximetry 07/25/17 07/25/17 07/25/17 05:00 05:31 06:00 Temperature Pulse Rate 118 H 94 H 92 H Pulse Rate [ Left Radial] Pulse Rate [ Right Dorsalis Pedis] Pulse Rate [ Right Radial] Respiratory 17 14 16 Rate Respiratory Rate [Abdomen] Blood Pressure 187/93 123/56 97/53 O2 Sat by Pulse 98 97 97 Oximetry 07/25/17 07/25/17 07/25/17 06:30 07:00 07:30 Temperature Pulse Rate 90 91 H 85 Pulse Rate [ Left Radial] Pulse Rate [ Right Dorsalis Pedis] Pulse Rate [ Right Radial] Respiratory 15 15 17 Rate Respiratory Rate [Abdomen] Blood Pressure 110/59 90/49 82/45 O2 Sat by Pulse 96 98 96 Oximetry 07/25/17 07/25/17 07/25/17 08:00 08:30 09:00 Temperature 98.1 F Pulse Rate 78 90 98 H Pulse Rate [ Left Radial] Pulse Rate [ Right Dorsalis Pedis] Pulse Rate [ Right Radial] Respiratory 16 14 16 Rate Respiratory Rate [Abdomen] Blood Pressure 75/45 116/67 112/63 O2 Sat by Pulse 95 98 98 Oximetry 07/25/17 07/25/17 07/25/17 09:30 09:50 10:00 Temperature Pulse Rate 89 81 81 Pulse Rate [ Left Radial] Pulse Rate [ Right Dorsalis Pedis] Pulse Rate [ Right Radial] Respiratory 16 16 Rate Respiratory 22 Rate [Abdomen] Blood Pressure 94/48 104/57 104/57 O2 Sat by Pulse 97 96 97 Oximetry 07/25/17 11:18 Temperature Pulse Rate 92 H Pulse Rate [ Left Radial] Pulse Rate [ Right Dorsalis Pedis] Pulse Rate [ Right Radial] Respiratory 20 Rate Respiratory Rate [Abdomen] Blood Pressure 128/69 O2 Sat by Pulse 97 Oximetry Constitutional: no acute distress, other (morbidly obese, critically ill on vent ) ENT: other (orally intubated) Neck: supple (and large in circumference) Effort: normal Ascultation: Bilateral: clear (wheezes/rhonchi better), diminished breath sounds , rales, rhonchi, other (coarse BS bilaterally with faint expiratory wheezes) Percussion: Bilateral: not dull Cardiovascular: irregular rhythm (ir/ir, no mrg) Gastrointestinal: normoactive bowel sounds, soft, non-tender, non-distended Integumentary: normal Extremities: no cyanosis, pink and warm, edema (1+ generalized) Neurologic: normal mental status, non-focal exam, pupils equal and round Psychiatric: mood appropriate, affect normal CBC and BMP: 07/25/17 04:25 07/25/17 04:25 ABG, PT/INR, D-dimer: ABG POC ABG pH 7.483 (7.35-7.45) H 07/23/17 10:11 POC ABG pCO2 56.4 (35-45) H 07/23/17 10:11 POC ABG pO2 71 (80-105) L 07/23/17 10:11 POC ABG HCO3 42.3 07/23/17 10:11 POC ABG Total CO2 44 07/23/17 10:11 POC ABG O2 Sat 95 07/23/17 10:11 Abnormal lab findings: Abnormal Labs 07/09/17 07/09/17 07/09/17 18:05 18:05 21:15 WBC 15.0 H RBC Hct 43.7 H Lymph % (Auto) 10.7 L [place] % (Auto) [place] # Seg Neutrophils % 83.9 H Seg Neutrophils # 12.6 H POC ABG pH POC ABG pCO2 POC ABG pO2 Sodium Potassium Chloride 96.7 L Carbon Dioxide 31 H BUN 18 H Creatinine Glucose 146 H POC Glucose Lactic Acid 2.50 H* Calcium C-Reactive Protein NT-Pro-B Natriuret Pep 1456 H Albumin 3.8 L Urine WBC (Auto) 07/09/17 07/09/17 07/09/17 21:20 21:46 22:59 WBC RBC Hct Lymph % (Auto) [place] % (Auto) [place] # Seg Neutrophils % Seg Neutrophils # POC ABG pH POC ABG pCO2 54.6 H POC ABG pO2 Sodium Potassium Chloride Carbon Dioxide BUN Creatinine Glucose POC Glucose Lactic Acid 2.30 H* Calcium C-Reactive Protein NT-Pro-B Natriuret Pep Albumin Urine WBC (Auto) 29.0 H 07/10/17 07/11/17 07/11/17 04:35 05:12 06:11 WBC 18.4 H RBC Hct Lymph % (Auto) 8.6 L [place] % (Auto) 7.9 H [place] # 1.5 H Seg Neutrophils % 83.5 H Seg Neutrophils # 15.3 H POC ABG pH 7.282 L POC ABG pCO2 61.2 H POC ABG pO2 155 H Sodium Potassium Chloride Carbon Dioxide BUN Creatinine Glucose POC Glucose Lactic Acid Calcium C-Reactive Protein NT-Pro-B Natriuret Pep Albumin Urine WBC (Auto) 07/11/17 07/12/17 07/12/17 06:11 05:03 09:01 WBC 12.2 H RBC Hct Lymph % (Auto) [place] % (Auto) 10.9 H [place] # 1.3 H Seg Neutrophils % Seg Neutrophils # 8.2 H POC ABG pH POC ABG pCO2 48.2 H POC ABG pO2 Sodium Potassium Chloride Carbon Dioxide BUN 37 H Creatinine Glucose 130 H POC Glucose Lactic Acid Calcium C-Reactive Protein NT-Pro-B Natriuret Pep Albumin Urine WBC (Auto) 07/12/17 07/13/17 07/13/17 09:01 13:29 23:20 WBC RBC Hct Lymph % (Auto) [place] % (Auto) [place] # Seg Neutrophils % Seg Neutrophils # POC ABG pH 7.315 L POC ABG pCO2 52.5 H POC ABG pO2 Sodium 146 H Potassium Chloride Carbon Dioxide BUN 31 H Creatinine Glucose POC Glucose 121 H Lactic Acid Calcium 8.0 L C-Reactive Protein NT-Pro-B Natriuret Pep Albumin Urine WBC (Auto) 07/14/17 07/14/17 07/14/17 04:21 04:21 04:31 WBC 13.3 H RBC Hct Lymph % (Auto) [place] % (Auto) 10.4 H [place] # 1.4 H Seg Neutrophils % Seg Neutrophils # 8.8 H POC ABG pH 7.301 L POC ABG pCO2 51.4 H POC ABG pO2 Sodium 146 H Potassium Chloride 109.0 H Carbon Dioxide BUN 22 H Creatinine Glucose 107 H POC Glucose Lactic Acid Calcium 8.3 L C-Reactive Protein NT-Pro-B Natriuret Pep Albumin 3.0 L Urine WBC (Auto) 07/15/17 07/15/17 07/15/17 07:30 07:30 16:00 WBC RBC Hct Lymph % (Auto) [place] % (Auto) 9.2 H [place] # 1.0 H Seg Neutrophils % 72.7 H Seg Neutrophils # 7.9 H POC ABG pH 7.301 L POC ABG pCO2 47.3 H POC ABG pO2 79 L Sodium 149 H Potassium 3.5 L Chloride 111.6 H Carbon Dioxide BUN 21 H Creatinine 0.6 L Glucose POC Glucose Lactic Acid Calcium 8.1 L C-Reactive Protein NT-Pro-B Natriuret Pep Albumin Urine WBC (Auto) 07/16/17 07/16/17 07/16/17 04:40 04:40 09:48 WBC RBC Hct Lymph % (Auto) [place] % (Auto) 10.0 H [place] # 1.0 H Seg Neutrophils % Seg Neutrophils # POC ABG pH 7.349 L POC ABG pCO2 POC ABG pO2 65 L Sodium 148 H Potassium 3.4 L Chloride 109.8 H Carbon Dioxide BUN 18 H Creatinine 0.6 L Glucose POC Glucose Lactic Acid Calcium 8.0 L C-Reactive Protein NT-Pro-B Natriuret Pep Albumin Urine WBC (Auto) 07/16/17 07/17/17 07/17/17 13:36 03:22 03:22 WBC RBC Hct Lymph % (Auto) [place] % (Auto) 12.3 H [place] # 1.3 H Seg Neutrophils % Seg Neutrophils # POC ABG pH POC ABG pCO2 POC ABG pO2 Sodium Potassium Chloride Carbon Dioxide BUN Creatinine 0.6 L Glucose 116 H POC Glucose Lactic Acid Calcium 8.0 L C-Reactive Protein 4.90 H NT-Pro-B Natriuret Pep Albumin Urine WBC (Auto) 07/17/17 07/18/17 07/18/17 06:21 06:00 06:00 WBC RBC Hct Lymph % (Auto) [place] % (Auto) 10.8 H [place] # 1.2 H Seg Neutrophils % Seg Neutrophils # POC ABG pH POC ABG pCO2 47.0 H POC ABG pO2 71 L Sodium 146 H Potassium 3.0 L Chloride Carbon Dioxide BUN Creatinine 0.6 L Glucose 114 H POC Glucose Lactic Acid Calcium 8.2 L C-Reactive Protein NT-Pro-B Natriuret Pep Albumin Urine WBC (Auto) 07/18/17 07/18/17 07/19/17 11:12 Unknown 07:51 WBC 14.1 H RBC Hct Lymph % (Auto) [place] % (Auto) 9.6 H [place] # 1.4 H Seg Neutrophils % Seg Neutrophils # 9.8 H POC ABG pH POC ABG pCO2 48.4 H POC ABG pO2 70 L Sodium Potassium Chloride Carbon Dioxide BUN Creatinine Glucose POC Glucose Lactic Acid Calcium C-Reactive Protein NT-Pro-B Natriuret Pep Albumin Urine WBC (Auto) 174.0 H 07/19/17 07/19/17 07/19/17 07:51 12:53 15:57 WBC RBC Hct Lymph % (Auto) [place] % (Auto) [place] # Seg Neutrophils % Seg Neutrophils # POC ABG pH 7.490 H 7.485 H POC ABG pCO2 49.2 H 58.4 H POC ABG pO2 69 L 60 L Sodium 147 H Potassium 3.3 L Chloride Carbon Dioxide 32 H BUN 19 H Creatinine 0.6 L Glucose 127 H POC Glucose Lactic Acid Calcium 8.3 L C-Reactive Protein NT-Pro-B Natriuret Pep Albumin Urine WBC (Auto) 07/19/17 07/20/17 07/20/17 17:52 05:00 05:00 WBC 18.2 H RBC Hct Lymph % (Auto) [place] % (Auto) [place] # Seg Neutrophils % 80.9 H Seg Neutrophils # 14.7 H POC ABG pH POC ABG pCO2 60.9 H POC ABG pO2 162 H Sodium Potassium 3.1 L Chloride 95.3 L Carbon Dioxide 35 H BUN 19 H Creatinine 0.5 L Glucose 103 H POC Glucose Lactic Acid Calcium 8.2 L C-Reactive Protein NT-Pro-B Natriuret Pep Albumin Urine WBC (Auto) 07/20/17 07/21/17 07/21/17 06:11 06:05 06:05 WBC 14.1 H RBC Hct Lymph % (Auto) [place] % (Auto) 8.0 H [place] # 1.1 H Seg Neutrophils % Seg Neutrophils # 9.5 H POC ABG pH 7.522 H POC ABG pCO2 53.3 H POC ABG pO2 Sodium Potassium 2.6 L* Chloride 95.7 L Carbon Dioxide 37 H BUN 21 H Creatinine 0.6 L Glucose POC Glucose Lactic Acid Calcium 7.9 L C-Reactive Protein NT-Pro-B Natriuret Pep Albumin Urine WBC (Auto) 07/22/17 07/22/17 07/22/17 05:07 08:48 10:19 WBC 12.5 H RBC Hct Lymph % (Auto) [place] % (Auto) 10.0 H [place] # 1.3 H Seg Neutrophils % Seg Neutrophils # POC ABG pH 7.475 H POC ABG pCO2 59.4 H POC ABG pO2 67 L Sodium Potassium 3.3 L D Chloride 91.6 L Carbon Dioxide 35 H BUN 29 H Creatinine Glucose 118 H POC Glucose Lactic Acid Calcium 7.7 L C-Reactive Protein NT-Pro-B Natriuret Pep Albumin Urine WBC (Auto) 07/22/17 07/23/17 07/23/17 18:07 04:25 04:25 WBC 11.1 H RBC Hct Lymph % (Auto) [place] % (Auto) 10.9 H [place] # 1.2 H Seg Neutrophils % Seg Neutrophils # 7.8 H POC ABG pH POC ABG pCO2 POC ABG pO2 Sodium Potassium 3.3 L 3.1 L Chloride 92.9 L Carbon Dioxide 38 H BUN 28 H Creatinine Glucose 123 H POC Glucose Lactic Acid Calcium 8.3 L C-Reactive Protein NT-Pro-B Natriuret Pep Albumin Urine WBC (Auto) 07/23/17 07/23/17 07/23/17 10:11 16:00 16:40 WBC 11.2 H RBC Hct Lymph % (Auto) [place] % (Auto) 9.0 H [place] # 1.0 H Seg Neutrophils % 71.4 H Seg Neutrophils # 8.0 H POC ABG pH 7.483 H POC ABG pCO2 56.4 H POC ABG pO2 71 L Sodium Potassium 3.3 L Chloride Carbon Dioxide BUN Creatinine Glucose POC Glucose Lactic Acid Calcium C-Reactive Protein NT-Pro-B Natriuret Pep Albumin Urine WBC (Auto) 07/24/17 07/24/17 07/25/17 04:30 04:30 04:25 WBC RBC 3.55 L Hct Lymph % (Auto) [place] % (Auto) 11.6 H [place] # 1.1 H Seg Neutrophils % Seg Neutrophils # POC ABG pH POC ABG pCO2 POC ABG pO2 Sodium Potassium 3.4 L Chloride 92.0 L 94.8 L Carbon Dioxide 36 H 35 H BUN 26 H 21 H Creatinine 0.5 L 0.4 L Glucose 110 H 111 H POC Glucose Lactic Acid Calcium 7.8 L 8.2 L C-Reactive Protein NT-Pro-B Natriuret Pep Albumin Urine WBC (Auto)
--- NOTE | 2017-07-25 13:53 | Progress Note ---
Assessment and Plan - Patient Problems (1) Respiratory failure Current Visit: Yes Status: Acute Plan to address problem: Plan on Trach and PEG placement tomorrow consent is in chart NPO post midnight Subjective Date of service: 07/25/17 Patient Reports: Positive: other (on vent; no family at bedside) Objective Vital Signs - 12hr 07/25/17 07/25/17 07/25/17 02:00 02:30 03:00 Temperature Pulse Rate 105 H 99 H 102 H Pulse Rate [ Left Radial] Pulse Rate [ Right Dorsalis Pedis] Pulse Rate [ Right Radial] Respiratory 16 16 16 Rate Respiratory Rate [Abdomen] Blood Pressure 133/76 162/63 144/72 O2 Sat by Pulse 96 97 97 Oximetry 07/25/17 07/25/17 07/25/17 03:30 03:36 04:00 Temperature 99.8 F H Pulse Rate 101 H 102 H 110 H Pulse Rate [ 102 H Left Radial] Pulse Rate [ 102 H Right Dorsalis Pedis] Pulse Rate [ 102 H Right Radial] Respiratory 17 22 Rate Respiratory Rate [Abdomen] Blood Pressure 165/82 165/82 183/100 O2 Sat by Pulse 98 98 98 Oximetry 07/25/17 07/25/17 07/25/17 04:31 05:00 05:31 Temperature Pulse Rate 118 H 118 H 94 H Pulse Rate [ Left Radial] Pulse Rate [ Right Dorsalis Pedis] Pulse Rate [ Right Radial] Respiratory 19 17 14 Rate Respiratory Rate [Abdomen] Blood Pressure 193/101 187/93 123/56 O2 Sat by Pulse 96 98 97 Oximetry 07/25/17 07/25/17 07/25/17 06:00 06:30 07:00 Temperature Pulse Rate 92 H 90 91 H Pulse Rate [ Left Radial] Pulse Rate [ Right Dorsalis Pedis] Pulse Rate [ Right Radial] Respiratory 16 15 15 Rate Respiratory Rate [Abdomen] Blood Pressure 97/53 110/59 90/49 O2 Sat by Pulse 97 96 98 Oximetry 07/25/17 07/25/17 07/25/17 07:30 08:00 08:30 Temperature 98.1 F Pulse Rate 85 78 90 Pulse Rate [ Left Radial] Pulse Rate [ Right Dorsalis Pedis] Pulse Rate [ Right Radial] Respiratory 17 16 14 Rate Respiratory Rate [Abdomen] Blood Pressure 82/45 75/45 116/67 O2 Sat by Pulse 96 95 98 Oximetry 07/25/17 07/25/17 07/25/17 09:00 09:30 09:50 Temperature Pulse Rate 98 H 89 81 Pulse Rate [ Left Radial] Pulse Rate [ Right Dorsalis Pedis] Pulse Rate [ Right Radial] Respiratory 16 16 Rate Respiratory Rate [Abdomen] Blood Pressure 112/63 94/48 104/57 O2 Sat by Pulse 98 97 96 Oximetry 07/25/17 07/25/17 07/25/17 10:00 10:30 11:01 Temperature Pulse Rate 81 80 102 H Pulse Rate [ Left Radial] Pulse Rate [ Right Dorsalis Pedis] Pulse Rate [ Right Radial] Respiratory 16 16 9 L Rate Respiratory 22 Rate [Abdomen] Blood Pressure 104/57 91/55 128/69 O2 Sat by Pulse 97 100 97 Oximetry 07/25/17 07/25/17 07/25/17 11:18 11:30 12:00 Temperature Pulse Rate 92 H 110 H 115 H Pulse Rate [ Left Radial] Pulse Rate [ Right Dorsalis Pedis] Pulse Rate [ Right Radial] Respiratory 20 17 21 Rate Respiratory Rate [Abdomen] Blood Pressure 128/69 132/85 129/68 O2 Sat by Pulse 97 98 96 Oximetry 07/25/17 12:30 Temperature Pulse Rate 94 H Pulse Rate [ Left Radial] Pulse Rate [ Right Dorsalis Pedis] Pulse Rate [ Right Radial] Respiratory 13 Rate Respiratory Rate [Abdomen] Blood Pressure 101/53 O2 Sat by Pulse 96 Oximetry - General physical appearance obese - Neck trachea midline - Abdomen soft, not distended - Labs 07/25/17 04:25 07/25/17 04:25 Diabetes panel 07/25/17 Range/Units 04:25 Sodium 142 (137-145) mmol/L Potassium 3.7 (3.6-5.0) mmol/L Chloride 94.8 L (98-107) mmol/L Carbon Dioxide 35 H (22-30) mmol/L BUN 21 H (7-17) mg/dL Creatinine 0.4 L (0.7-1.2) mg/dL Glucose 111 H (65-100) mg/dL Calcium 8.2 L (8.4-10.2) mg/dL Calcium panel 07/25/17 Range/Units 04:25 Calcium 8.2 L (8.4-10.2) mg/dL Pituitary panel 07/25/17 Range/Units 04:25 Sodium 142 (137-145) mmol/L Potassium 3.7 (3.6-5.0) mmol/L Chloride 94.8 L (98-107) mmol/L Carbon Dioxide 35 H (22-30) mmol/L BUN 21 H (7-17) mg/dL Creatinine 0.4 L (0.7-1.2) mg/dL Glucose 111 H (65-100) mg/dL Calcium 8.2 L (8.4-10.2) mg/dL Adrenal panel 07/25/17 Range/Units 04:25 Sodium 142 (137-145) mmol/L Potassium 3.7 (3.6-5.0) mmol/L Chloride 94.8 L (98-107) mmol/L Carbon Dioxide 35 H (22-30) mmol/L BUN 21 H (7-17) mg/dL Creatinine 0.4 L (0.7-1.2) mg/dL Glucose 111 H (65-100) mg/dL Calcium 8.2 L (8.4-10.2) mg/dL
[2017-07-25] MEDS ORDERED: VERSED IV ONE ×2 (15:00→16:28)
[2017-07-25] MEDS ORDERED: QUELICIN ONE (15:00)
--- NOTE | 2017-07-25 16:12 | Anesthesia Consultation ---
Anesthesia Consult and Med Hx Date of service: 07/25/17 - Airway Anesthetic Teeth Evaluation: Good (patient with respiratory failure - intubated for peg and trach) - Pre-Operative Health Status ASA Pre-Surgery Classification: ASA4 Proposed Anesthetic Plan: General, IV Sedation - Pulmonary Hx Smoking: No Hx Asthma: No Hx Respiratory Symptoms: Yes (acute respiratory failure, intubated on the floor) SOB: Yes (excercise tolerance is limited) COPD: No (weaning failed- trach and peg scheduled) Hx Pneumonia: Yes (recent notes indicate bilateral pneumonia) Hx Sleep Apnea: Yes (uncompliance with cpap at home) - Cardiovascular System Hx Hypertension: Yes (CHF, EF 60% according to echo on 03/07) Hx Coronary Artery Disease: No Hx Heart Attack/AMI: No Hx Angina: No Hx Percutaneous Transluminal Coronary Angioplasty (PTCA): No Hx Cardia Arrhythmia: Yes (Afib, amiodarone 200mg was give this AM) Hx Pacemaker: No Hx Internal Defibrillator: No Hx Valvular Heart Disease: No Hx Heart Murmur: No Hx Peripheral Vascular Disease: No - Central Nervous System Hx Seizures: No CVA: No Hx Psychiatric Problems: No - Gastrointestinal Hx Ulcer: No (concern about GI infection- isolation and off antibiotics to ID ) - Endocrine Hx Renal Disease: Yes (R renal calculi; had stent placed recently 07/12) Hx End Stage Renal Disease: No Hx Hypothyroidism: Yes (sp thyroidectomy) - Other Systems Hx Cancer: No Hx Obesity: Yes - Additional Comments Anesthesia Medical History Comments: NAC
[2017-07-25] MEDS ORDERED: ADRENALIN ONE ×2 (16:15→16:58)
--- NOTE | 2017-07-25 17:34 | Event Note ---
Date: 07/25/17 patient pulled out ET tube. Respiratory Therapist was called to replace but could not get it in, anesthesia was then called. Patient lost her pulse, Chrissy berry called at 16:30. Multiple attempts made by anesthesiology and S Iron Worker but could not get airway. Thoracotomy awas attempted. Code run as protocol. She was given multiple doses of Epinephrine. She never regained pulse , resuscitation efforts unsuccessful. She was subsequently pronounced 17: 02 on 07/25/17
--- NOTE | 2017-07-25 17:35 | Death Note ---
Note Date of : 07/25/17 Time of : 17:02 Time Pronounced: 17:02
--- NOTE | 2017-07-25 17:44 | Event Note ---
Date: 07/25/17 Called to bedside stat as patient had lost airway. Several attempts had been made to intubate from above to no avail. Attempted an emergent cric at bedside. Cut down on neck, large amount of fatty tissue and blood seen. Some air bubbles but airway trachea was not directly visualized. 2 attempts were made with a 7.0 tube and 4-5 attempts were made with a 6.5 and 6.0 tube to intubate the trachea without success. The patient had already been coding for several minutes prior to these attempts. The patient did not have a pulse and sats were reading in the teen's at one point and then none. Code was called and I discussed the details of what happen with the immediate family members.
--- NOTE | 2017-07-25 18:04 | Event Note ---
Date: 07/25/17 Called to intubate patient in ICU. Upon arrival patient was being ambu-bagged by respiratory therapy with oral airway in and two hands. Oxygen saturations were around 80%. Initial attempts tried by respiratory therapy with halima scope but unsuccessful before I arrived. Patient was biting down so I was unable to look with halima scope. She was then given 5mg of Versed. I looked with the halima scope but could not get a good view because patient was still biting down. She was then given 200mg of Succinylcholine and I tried to intubate with the Glidescope. I was able to get a view of the arytenoids but I was unable to pass a bougie or endotracheal tube. Airway was anterior, edematous, and bloody. I then went back to mask ventilation with four hands and oral airway but was not getting any increase in oxygen saturations. LMA #4 was then tired but had a huge leak despite adding air. I then switched to an LMA #5 which was leaking and no good chest rise. I then called a Chrissy Blue because oxygen saturations had been decreasing and so was heart rate. I looked again with the glidescope placing sheets under the shoulders but I still was not able to get a better view or pass the bougie or tube. Patient then went pulseless and chest compressions were started. Dr. Cherry arrived and attempted a surgical airway but was unsuccessful. I looked again with a Badillo 2 blade and could see epiglottis but was unable to pass a bougie. I also looked with a MAC 4 blade and saw epiglottis and passed a bougie but did not feel tracheal rings. However I went ahead and passed an endotracheal tube over bougie. CO2 color changer was hooked up but with no change in the color or chest rise or breath sounds. Tube was removed since likely in the esophagus. At this point, the code had transpired for a extensive amount of time with inability to intubate or ventilate and no return of circulation and therefore the code was called to an end. (See code sheet for times and drug administration)
[2017-07-25 18:10] VITALS: BP 212/171
--- NOTE | 2017-07-25 19:07 | Death Summary ---
Summary - Providers Consults: 07/23/17 11:44 PICC Line Insertion [Consult to PICC Line RN] [CONS] Urgent Reason For Exam: Access Type Line:: PICC 07/23/17 12:02 Consult to Physician [CONS] Routine Consulting Provider: NAREN NEWSOME I Reason For Exam: Need of trach and PEG Place consult to:: Naren Newsome Notified:: yes Phone number called:: [phone] Was contact made?: Yes If yes, spoke with:: Penny Time called:: 13:10 07/09/17 20:54 Consult to Physician [CONS] Urgent Consulting Provider: ANDREW CHERRY Reason For Exam: resp failure Place consult to:: Dr. Cherry Notified:: Answering Service Phone number called:: [phone] Was contact made?: Yes If yes, spoke with:: Dr. Cherry Time called:: 20:53 Comment:: Dr. See (er dr) spoke with Dr. Cherry 07/10/17 01:18 Consult to Physician [CONS] Urgent Consulting Provider: MC ESPINOSA Reason For Exam: obstructing stone Place consult to:: Dr. Ricketts Notified:: via office line Phone number called:: [phone] Was contact made?: Yes If yes, spoke with:: Dr. Ricketts Time called:: 01:44 Comment:: Dr. See (er dr) spoke with Dr. Rikcetts 07/11/17 19:51 Consult to Physician [CONS] Routine Consulting Provider: NED ARAMBULA Reason For Exam: eval possible nephrostomy tube / blood thinners Place consult to:: Julio Notified:: Yes Phone number called:: [phone] Time called:: 10:54 Comment:: Spoke with Shavonne at answering service 07/16/17 07:51 Consult to Dietitian/Nutrition [CONS] Routine Physician Instructions: Reason For Exam: TF for patient Reason for Consult: Write/Manage Tube Feeding 07/16/17 12:10 Consult to Physician [CONS] Routine Consulting Provider: CELESTINO ARREAGA Reason For Exam: sepsis Place consult to:: Dr. Barcenas Notified:: Dr. Barcenas Phone number called:: overhead page Was contact made?: Yes If yes, spoke with:: Dr. Barcenas Time called:: 13:00 07/21/17 13:59 Consult to Wound/ET Nurse [CONS] Urgent Reason For Exam: reddened area on upper lip below ETT tamayo Attending: JIM QUIÑONES - summary Date of admission: 07/10/17 03:11 Date of : 07/25/17
== END 2017-07-25 17:02 | DRG 870 ==
LOC: ED 17:36 → CC1 07-10 03:11
PROVIDERS: ADMIT Internal Medicine; ATTEND Internal Medicine
PROC: 05H933Z Insertion of Infusion Device into Right Brachial Vein, Percutaneous Approach (ICD-10-PCS; 2017-07-09)
PROC: 5A1955Z Respiratory Ventilation, Greater than 96 Consecutive Hours (ICD-10-PCS; principal; 2017-07-10)
PROC: 4A033R1 Measurement of Arterial Saturation, Peripheral, Percutaneous Approach (ICD-10-PCS; 2017-07-10)
PROC: 0BH17EZ Insertion of Endotracheal Airway into Trachea, Via Natural or Artificial Opening (ICD-10-PCS; 2017-07-10)
PROC: BT141ZZ Fluoroscopy of Kidneys, Ureters and Bladder using Low Osmolar Contrast (ICD-10-PCS; 2017-07-12)
PROC: 0T768DZ Dilation of Right Ureter with Intraluminal Device, Via Natural or Artificial Opening Endoscopic (ICD-10-PCS; 2017-07-12)
PROC: 5A1955Z Respiratory Ventilation, Greater than 96 Consecutive Hours (ICD-10-PCS; 2017-07-19)
PROC: 0BH17EZ Insertion of Endotracheal Airway into Trachea, Via Natural or Artificial Opening (ICD-10-PCS; 2017-07-19)
PROC: 5A09357 Assistance with Respiratory Ventilation, Less than 24 Consecutive Hours, Continuous Positive Airway Pressure (ICD-10-PCS; 2017-07-19)
DX: A41.9 Sepsis, unspecified organism (principal); R65.21 Severe sepsis with septic shock; J96.20 Acute and chronic respiratory failure, unspecified whether with hypoxia or hypercapnia; J18.9 Pneumonia, unspecified organism; N39.0 Urinary tract infection, site not specified; Z68.42 Body mass index [BMI] 45.0-49.9, adult; E87.0 Hyperosmolality and hypernatremia; N13.2 Hydronephrosis with renal and ureteral calculous obstruction; J81.1 Chronic pulmonary edema; N17.9 Acute kidney failure, unspecified; G47.33 Obstructive sleep apnea (adult) (pediatric); E03.9 Hypothyroidism, unspecified; I50.9 Heart failure, unspecified; E66.01 Morbid (severe) obesity due to excess calories; I48.91 Unspecified atrial fibrillation; I11.0 Hypertensive heart disease with heart failure; M19.90 Unspecified osteoarthritis, unspecified site; Z96.653 Presence of artificial knee joint, bilateral; I27.20 Pulmonary hypertension, unspecified; E87.6 Hypokalemia; Z91.14 Patient's other noncompliance with medication regimen; Z88.0 Allergy status to penicillin; Z79.82 Long term (current) use of aspirin; Z79.899 Other long term (current) drug therapy; Z82.49 Family history of ischemic heart disease and other diseases of the circulatory system; R09.2 Respiratory arrest
CPT/HCPCS: 36415; 36600; 70450; 71010; 74000; 74176; 74420; 80048; 80053; 80320; 81001; 82140; 82550; 82553; 82803; 82962; 83690; 83735; 83880; 84100; 84132; 84484; 85025; 85027; 86140; 87040; 87070; 87086; 87205; 93005; 93010; 94002; 94003; 94640; 94660; A4217; C1758; C1769; C2617; G0480; J0171; J0330; J0360; J0461; J1450; J1650; J1940; J1956; J2060; J2185; J2250; J2710; J2930; J3010; J3370; J3475; J3480; J7030; J7040; J7050; Q9967